=== PATIENT | female | born 1995 | race Caucasian/White ===

== ENCOUNTER → 2018-07-12 13:06 | Outpatient (CLI) | payer MEDICAID, SELFPAY | PROVIDERS: Referring Provider Nurse Practitioner; Visit Provider Nurse Practitioner | DX: R00.2 Palpitations (principal) | CPT/HCPCS: 93225; 93226 ==

== ENCOUNTER 2019-11-24 15:46 | Emergency (ER) | payer OTHER, SELFPAY ==
[2019-11-24 15:48] VITALS: BP 134/96; PULSE 90; RESP 15; TEMP 37; O2SAT 100; BMI 25.9
--- NOTE | 2019-11-24 16:04 | ED.VIS.GEN ---
History of Present Illness Chief Complaint: Vag Bld, Preg Informant: Patient Onset: Today Current Severity: Mild Maximum Severity: Mild Narrative: Patient presents with vaginal bleeding. She is currently 9 weeks . She does report having an ultrasound at her doctor's office for this already. She states 2 days ago she had some mild spotting that spontaneously resolved. She noted some light bleeding again today. It is not heavy enough to wear a panty liner or pad. She does report having a recent yeast infection and has been using the applicator to treat this. She believes her blood type is Rh-. She is currently G3, P1, Ab1. Past Medical History - Allergies and Home Meds Allergies/Adverse Reactions: Allergies No Known Allergies Allergy (Verified 04/07/18 14:25) Primary Care Physician: [facility] ,Out of [NON-STAFF] - Past Medical History: None Surgical History: appendectomy Smoking Status: Current every day smoker Review of Systems General: Denies: Chills, Fever Eyes: Denies: Visual changes - bilaterally ENT: Denies: Bilateral ear pain Cardiovascular: Denies: Chest pain Respiratory: Denies: Dyspnea, Cough Gastrointestinal: Denies: Abdominal pain, Nausea, Vomiting, Diarrhea Genitourinary: Denies: Dysuria Musculoskeletal: Denies: Extremity Pain Skin: Denies: Rash Neurological: Denies: Headache Allergy: Denies: Uticaria Physical Exam Vital Signs/Narrative: Vital Signs Temp Pulse Resp BP Pulse Ox 11/24/19 15:48 98.6 F 90 15 134/96 H 100 Inital Vital Signs reviewed: Yes General: Well nourished, Well developed Head: Normocephalic ENT: Moist mucous membranes Neck: Supple Cardiovascular: Regular rate, Regular rhythm Respiratory: No distress, CTA bilaterally Abdomen: Soft, Nontender, Normal bowel sounds : - - Pelvic examination reveals no obvious source of bleeding. No lesions around the vaginal goodman. No blood from the os. Bimanual examination is nontender. Extremities: Nontender Skin: Normal color, No rash Neurological: Alert, Oriented x3 Psychological: Normal affect Diagnostic/Tx/Re-eval Laboratory Results 11/24/19 11/24/19 11/24/19 16:15 16:15 16:15 HCG, Quant 31361 H Blood Type Not Reportable A NEGATIVE - Medical Decision Making Patient's blood type is A-. I spoke with Dr. Mathews, on-call for VIDEOGAME TESTER. She would like the patient to get RhoGam. Patient be discharged to home following this. Patient is to call the office on Tuesday with an update on her symptoms and to arrange close follow-up. ED Disposition - Plan for ED Patient: Disposition: Home or Assisted Living Diagnosis: Threatened miscarriage Instructions: POSSIBLE MISCARRIAGE (Threatened ) Referrals: Esther Banda MD [STAFF PHYSICIAN] -
[2019-11-24 17:02] LABS: hCG Titer Quant., Serum 16182 mIU/mL (1-3)
[2019-11-24 19:35] VITALS: BP 111/76; PULSE 71; RESP 16; O2SAT 100
== END 2019-11-24 19:36 | disposition home or self-care (01) ==
PROVIDERS: Emergency Provider Emergency Medicine; PCP Nurse Practitioner
DX: O20.0 Threatened abortion (principal); O99.331 Smoking (tobacco) complicating pregnancy, first trimester; F17.200 Nicotine dependence, unspecified, uncomplicated; Z3A.09 9 weeks gestation of pregnancy
CPT/HCPCS: 84702; 86850; 86900; 86901; 90384; 96372; 99283; A4216; J2790

== ENCOUNTER 2021-01-06 21:52 | Inpatient (IN) | payer MEDICAID, SELFPAY ==
[2021-01-06] VITALS (7 sets, daily range): BP systolic 125–160; BP diastolic 79–97; PULSE 63–90; TEMP 36.7; O2SAT 99; BMI 32.3
[2021-01-06] MEDS: Lactated Ringers 1,000 ML 50 ML IV (22:40)
[2021-01-06 23:02] LABS: Absolute Lymphocyte Count 1.24 X10^3/uL (0.83-4.51); Absolute Neutrophil Count 7.6 X10^3/uL (2.0-7.7); Basophil# 0.02 X10^3/uL; Basophil% 0.2 % (0-1); Hematocrit 34.4 % (37-47); Hemoglobin 11.3 g/dL (12.0-15.0); Lymphocyte # 1.24 X10^3/ul (4.0); Lymphocyte % 13.1 % (19-41); Mean Corp Hgb Conc 32.8 g/dL (32-36); Mean Corpuscular Hgb 29.1 pg (27.0-32.0); Mean Corpuscular Volume 88.7 fL (81-99); Mean Platelet Vol. 12.5 fl (6.2-12.0); Monocyte# 0.53 X10^3/uL; Monocyte% 5.6 % (0-10); NRBC Flagged by Analyzer 0 % (0-5); Neutrophil % 80.7 % (47-70); Platelet Count 147 K/mm3 (150-450); RBC Distribution Width CV 14.3 % (11.6-14.6); RBC Distribution Width SD 45.6 fl (35.1-43.9); Red Blood Count 3.88 M/mm3 (4.2-5.4); White Blood Count 9.4 K/mm3 (4.4-11.0)
[2021-01-06 23:12] LABS: AST(SGOT) 18 U/L (15-37); Alanine Aminotransfer ALT/SGPT 24 U/L (13-56); Creatinine, Serum 0.66 mg/dL (0.55-1.02); EST Glomerular Filtration Rate 116 mL/min (>60); Est Glom Filt Rate - Afr Amer 140 mL/min (>60); Estimated Creatinine Clearance 116.23 ml/min; Uric Acid 6.1 mg/dL (2.6-6.0)
[2021-01-06] MEDS: Ondansetron 4 MG/2 ML Vial IV (23:17)
[2021-01-06] MEDS: 0.9% Saline Lock 10 ML Syringe IV (23:17)
[2021-01-06] MEDS: miSOPROStol 25 MCG TABLET VAGINAL (23:29)
[2021-01-07] VITALS (24 sets, daily range): BP systolic 101–172; BP diastolic 59–100; PULSE 61–94; RESP 16; TEMP 36.1–37.5; O2SAT 93–100
[2021-01-07] MEDS: 0.9% Saline Lock 10 ML Syringe IV ×4 (00:31→04:35)
[2021-01-07] MEDS: fentaNYL 100 MCG/2 ML Ampul IV (00:37)
[2021-01-07] MEDS: Lactated Ringers 500 ML 999 ML IV (01:30)
[2021-01-07] MEDS: Oxytocin 30 units/NS 500 ml 30 UNITS/500 ML IV.SOLN 334 UNITS IV (02:07)
--- NOTE | 2021-01-07 02:18 | PCM.HP.OB ---
History Date of Admission: 01/07/21 Final IRENE: 01/17/21 Gestational age: 38 Weeks and 4 Days History of this : Patient presents with ctxs. Medical History: Medical History (Last Updated 01/07/21 @ 02:[address] Katerine Chandler MD) Anxiety F41.9 Herpes genitalis A60.00 Surgical History: Surgical History (Last Updated 01/07/21 @ 02:[address] Katerine Chandler MD) S/P appendectomy Z90.49 Allergies No Known Allergies Allergy (Verified 01/06/21 23:54) Home Medications: Home Medications Pnv No.95/Ferrous Fum/Folic AC [ Caplet] 1 ea PO DAILY 11/24/19 Acyclovir 400 mg PO BID 01/06/21 Smoking Status: Former smoker History Past Pregnancies: Past Pregnancies Delivery Date Name GA/ Weeks Outcome Route Wt Sex Labor Length Anesthesia Delivery Location Provider FOB Labs: See [facility] H&P Physical Exam Vitals: Vital Signs Temp Pulse BP Pulse Ox 98.8 F 63 138/89 H 100 01/07/21 00:29 01/07/21 02:16 01/07/21 02:16 01/07/21 01:53 Abdomen: Soft, Non Tender, Non-Distended Neurological: Cranial nerves II-XII grossly intact CONTROL OFFICER: Normal external genitalia Presentation: Cephalic Cervix Dilation (cm): 1 - on admission Station: -2 Effacement (%): 70 Assessment/Plan All Active Problems (Last Updated 01/07/21 @ 02:[address] Katerine Chandler MD) Acute bronchitis (Acute) This is a 25 year-old, G4, P1021, at 38&3 weeks gestational age. Admit to L&D Mild preeclampsia - patient with elevated BP's and proteinuria (at [facility]), monitor BP's closely Induction - cytotec GBS negative Routine care
--- NOTE | 2021-01-07 02:26 | PCM.OPRPT ---
Vaginal Delivery Maternal Presentation: Medically Indicated Induction Method of Induction: Cytotec Medical Reason for Induction: Preeclampsia, eclampsia Amniotic Membrane Rupture Type: Spontaneous Amniotic Fluid Description: Clear Final IRENE: 01/17/21 Gestational age: 38 Weeks and 4 Days Date of Procedure: 01/07/21 Pre-Operative Diagnosis: Mild preeclampsia Post-Operative Diagnosis: Same Surgery/ Procedure Performed: Spontaneous Vaginal Delivery Type of Anesthesia: None Description of Procedure: Patient was precipitously delivering as I arrived. Infant placed on maternal abdomen by RN. 3VC clamped & cut in delayed fashion. Placenta delivered with minimal traction. Good uterine tone obtained. Presentation: Vertex Placental Delivery Description: Spontaneous Placenta Disposition: [facility] Cord Vessel Description: 3 Vessels Cord Entanglement: None Estimated Blood Loss: 200ml Infant A gender: Female - Esperanza (1 minute): 8 (5 minute): 9 Episiotomy Description: None Laceration: None Medications given after delivery: IV Pitocin Complications: None
[2021-01-07] MEDS: miSOPROStol 200 MCG Tablet 1000 MCG RC (02:42)
--- NOTE | 2021-01-07 06:07 | NURSING ---
[facility] charge nurse in room with sterile gloves on to catch . mother in semi fowlers position, relaxed legs, and head came out with amniotic sac still intact. body delivered atraumatically. placed on mother's chest, skin to skin and stimulated with warm blankets. dr frausto was on her way to unit and came into room at 0202 to deliver placenta.
[2021-01-07 12:45] LABS: Absolute Lymphocyte Count 1.25 X10^3/uL (0.83-4.51); Absolute Neutrophil Count 8.2 X10^3/uL (2.0-7.7); Basophil# 0.01 X10^3/uL; Basophil% 0.1 % (0-1); Eosinophil# 0.01 X10^3/uL; Eosinophils% 0.1 % (0-5); Hematocrit 32.4 % (37-47); Hemoglobin 10.5 g/dL (12.0-15.0); Lymphocyte # 1.25 X10^3/ul (4.0); Lymphocyte % 12.3 % (19-41); Mean Corp Hgb Conc 32.4 g/dL (32-36); Mean Corpuscular Hgb 28.9 pg (27.0-32.0); Mean Corpuscular Volume 89.3 fL (81-99); Mean Platelet Vol. 12.4 fl (6.2-12.0); Monocyte# 0.69 X10^3/uL; Monocyte% 6.8 % (0-10); NRBC Flagged by Analyzer 0 % (0-5); Neutrophil # 8.15 X10^3/uL (2.7-7.7); Neutrophil % 80.3 % (47-70); Platelet Count 163 K/mm3 (150-450); RBC Distribution Width CV 14.1 % (11.6-14.6); RBC Distribution Width SD 45.4 fl (35.1-43.9); Red Blood Count 3.63 M/mm3 (4.2-5.4); White Blood Count 10.2 K/mm3 (4.4-11.0)
[2021-01-07] MEDS: Ibuprofen 600 MG Tablet PO (18:07)
[2021-01-08 03:25] VITALS: BP 103/69; PULSE 74; RESP 16; TEMP 36.1
[2021-01-08 08:25] VITALS: BP 122/83; PULSE 91; RESP 16; TEMP 36.3
--- NOTE | 2021-01-08 08:27 | PN.OBGYN_ITS ---
Subjective: Patient seen at bedside. Feeling good. Denies any pain. Ambulating and voiding without difficulty. going good with minimal support. Patient desires discharge home today. - Physical Exam Vitals/I&O's: Vital Signs Temp Pulse Resp BP Pulse Ox 97 F L 74 16 103/69 96 01/08/21 03:25 01/08/21 03:25 01/08/21 03:25 01/08/21 03:25 01/07/21 03:47 Oxygen Delivery Method Room Air Weight: 194 lb 9.6 oz Body Mass Index (BMI) 32.3 Intake and Output for Last 24 Hours 01/06/21 01/07/21 01/08/21 23:59 23:59 23:59 Intake Total 2217.93 / 2217.93 Output Total 1100 / 1100 Balance 1117.93 / 1117.93 General: Alert, Oriented x3 HEENT: Atraumatic Oral: Moist Mucosa Neck: Supple Lungs: Normal air movement Cardiovascular: Regular rate Abdomen: Soft, Non Tender Skin: No rashes Musculoskeletal: No Tenderness to Palpation of Joints or Extremities Neurological: Cranial nerves II-XII grossly intact Microbiology Past 72 Hours 01/06/21 22:55 Mucosa - Nose SARS-CoV-2 Antigen (Rapid) - Final Laboratory Results 01/07/21 12:30: WBC 10.2, RBC 3.63 L, Hgb 10.5 L, Hct 32.4 L, MCV 89.3, MCH 28.9, MCHC 32.4, RDW Std Deviation 45.4 H, RDW Coeff of Samara 14.1, Plt Count 163, MPV 12.4 H, Immature Gran % (Auto) 0.400, Neut % (Auto) 80.3 H, Lymph % (Auto) 12.3 L, [place] % (Auto) 6.8, Eos % (Auto) 0.1, Baso % (Auto) 0.1, Absolute Neuts (auto) 8.2 H, Absolute Lymphs (auto) 1.25, Nucleated RBC % 0 Current Medications Acetaminophen (Acetaminophen 500 Mg Tablet) 1,000 mg PO Q8H PRN PRN PRN Reason: Pain Score 1-3 Bisacodyl (Bisacodyl 10 Mg Suppository) 10 mg RC UD PRN PRN Reason: If no BM Dibucaine (Dibucaine 30 Gm Tube) 1 applic TOPICAL TID PRN PRN; Protocol PRN Reason: Discomfort Hydrocortisone (Hydrocortisone 2.5% Crm) 1 applic TOPICAL TID PRN PRN; Protocol PRN Reason: Discomfort Ibuprofen (Ibuprofen 600 Mg Tablet) 600 mg PO Q6H PRN PRN PRN Reason: Pain Score 1-3 Last Admin: 01/07/21 18:07 Dose: 600 mg Documented by: Measles/Mumps/Rubella Vaccine Live (Measles,Mumps&Rubella Vaccine 0.5 Ml Vial) 0.5 ml SC .ONCE ONE Stop: 01/08/21 10:01 Last Admin: 01/07/21 18:08 Dose: 0.5 ml Documented by: Methylergonovine Maleate (Methylergonovine 0.2 Mg/Ml Ampul) 0.2 mg IM X1 PRN PRN Reason: Excess bleeding/uterine atony Ondansetron HCl (Ondansetron 4 Mg/2 Ml Vial) 4 mg IV Q4H PRN PRN PRN Reason: Nausea Senna/Docusate Sodium (Senna/Docusate Sodium 1 Tablet) 1 - 2 tablet PO DAILY PRN PRN PRN Reason: Constipation Simethicone (Simethicone 80 Mg Tablet) 80 mg PO PCHS PRN PRN Reason: Indigestion/Stomach pain Sodium Chloride (0.9% Saline Lock 10 Ml Syringe) 5 - 15 ml IV UD PRN PRN Reason: SALINE FLUSH Last Admin: 01/07/21 04:35 Dose: 10 ml Documented by: Medical Necessity - Tobacco Use Smoking Status: Former smoker Assessment/Plan All Active Problems (Last Updated 01/07/21 @ 02:[address] Katerine Chandler MD) Acute bronchitis (Acute) PPD #1 intact Routine care support Discharge home with follow up in office
--- NOTE | 2021-01-08 08:31 | DCINST_ITS ---
Discharge Diet: No Restrictions Discharge Activity: Return to Normal Activity May resume sexual activity in: 6-8 weeks Weight Bearing Status: Weight bearing as tolerated Additional Instructions: If you experience any of the following, contact your healthcare provider. * Bleeding that soaks a pad every hour for 2 hours * Fever 100.4 or higher * Unrelieved incision or abdominal pain * Swelling, redness, discharge or bleeding from your incision or episiotomy site * Your incision begins to separate * Problems urinating (including inability to urinate or burning while urinating). * Visual changes * Severe headache * Flu-like symptoms * Pain or redness in one of both of your breasts * Pain, warmth, tenderness or swelling in your legs, especially the calf area * Frequent nausea and vomiting * Symptoms of depression or anxiety If you experience any of the following, call 911 or go to the nearest Emergency Room. * Chest pain * Problems breathing * Seizure activity * Partial or complete paralysis of a body part, slurred speech, weakness or drooping of the face, or a sudden inability to walk or hold your balance Allergies/Adverse Reactions: Allergies No Known Allergies Allergy (Verified 01/06/21 23:54) Medications to take at Discharge Pnv No.95/Ferrous Fum/Folic AC [ Caplet] 1 ea PO DAILY 11/24/19 When: 2 weeks virtual visit/6 weeks in office pp visit Primary Care Physician: Vanessa Salas ASSISTANT PROFESSOR OF BIOLOGY, ASSISTANT PROFESSOR OF BIOLOGY-C [Primary Care Provider] - Test Results: Test results from this visit will be discussed in further detail at your follow- up appointment, if applicable. Proposed Discharge Date: 01/08/21
--- NOTE | 2021-01-08 08:31 | PCM.DCVAG ---
Discharge Diet: No Restrictions Discharge Activity: Return to Normal Activity May resume sexual activity in: 6-8 weeks Weight Bearing Status: Weight bearing as tolerated Additional Instructions: If you experience any of the following, contact your healthcare provider. Bleeding that soaks a pad every hour for 2 hours Fever 100.4 or higher Unrelieved incision or abdominal pain Swelling, redness, discharge or bleeding from your incision or episiotomy site Your incision begins to separate Problems urinating (including inability to urinate or burning while urinating). Visual changes Severe headache Flu-like symptoms Pain or redness in one of both of your breasts Pain, warmth, tenderness or swelling in your legs, especially the calf area Frequent nausea and vomiting Symptoms of depression or anxiety If you experience any of the following, call 911 or go to the nearest Emergency Room. Chest pain Problems breathing Seizure activity Partial or complete paralysis of a body part, slurred speech, weakness or drooping of the face, or a sudden inability to walk or hold your balance Allergies/Adverse Reactions: Allergies No Known Allergies Allergy (Verified 01/06/21 23:54) Medications to take at Discharge Pnv No.95/Ferrous Fum/Folic AC [ Caplet] 1 ea PO DAILY 11/24/19 When: 2 weeks virtual visit/6 weeks in office pp visit Primary Care Physician: Vanessa Salas DICE TABLE OPERATOR, DICE TABLE OPERATOR-C [Primary Care Provider] - Test Results: Test results from this visit will be discussed in further detail at your follow-up appointment, if applicable. Proposed Discharge Date: 01/08/21
== END 2021-01-08 10:50 | disposition home or self-care (01) | DRG 560 ==
LOC: WPOUT 21:55 → WP 21:55
PROVIDERS: Admitting Provider Obstetrics & Gynecology; PCP Nurse Practitioner; Referring Provider Obstetrics & Gynecology; Visit Provider Obstetrics & Gynecology
DX: O14.04 Mild to moderate pre-eclampsia, complicating childbirth (principal); Z37.0 Single live birth; O62.3 Precipitate labor; Z3A.38 38 weeks gestation of pregnancy; Z87.81 Personal history of (healed) traumatic fracture
CPT/HCPCS: 59025; 59050; 82565; 84450; 84460; 84550; 85025; 85461; 86850; 86900; 86901; 87426; 90384; 99218; J7120; A4216; G0378; J2405; J2790

== ENCOUNTER 2021-01-15 10:59 | Day surgery (SDC) | payer MEDICAID, SELFPAY ==
[2021-01-06 22:20] VITALS: BMI 32.3
--- NOTE | 2021-01-14 12:06 | PCM.HPOB.BLA ---
- Problem List (1) Status post vaginal delivery Status: Acute (2) Retained placenta Status: Acute History and Physical Date of Admission: 01/15/21 DATE OF SERVICE: January 14, 2021 PROBLEM: retained placenta DIAGNOSIS: retained placenta PAST SURGICAL HISTORY: PAST SURGICAL HISTORY Procedure Laterality Date ? APPENDECTOMY 2011 PAST MEDICAL HISTORY: PAST MEDICAL HISTORY Diagnosis Date ? Anxiety ? anxiety ? Asthma ? Fibrocystic breast ? fibrocystic breast disease ? Genetic testing 04/28/2009 Negative for 32 Mutuations of CF ? Herpes simplex virus (HSV) infection ? PCOS (polycystic ovarian syndrome) ? Rh incompatibility ? SAB (spontaneous ) 2009, 2019 ? Seasonal allergies SUBJECTIVE: S/p [address] Chandler. Noticed a vaginal odor and consistent, moderate bleeding. No fevers, chills, pain, tenderness, heavy bleeding, lightheadedness, dizziness. TVUS today shows thickening of the endometrium that is complex appearing with fluid present and measuring 3.5 cm. Strong foul odor noted. SOCIAL HISTORY: Social History Tobacco Use ? Smoking status: Former Smoker Packs/day: 0.50 Years: 4.00 Pack years: 2.00 Types: Cigarettes Quit date: 03/31/2017 Years since quittin.7 ? Smokeless tobacco: Never Used ? Tobacco comment: quit over one year ago (2016) Vaping Use ? Vaping Use: Never used Substance Use Topics ? Alcohol use: Not Currently Comment: rare ? Drug use: No ALLERGIES No Known Allergies Current Outpatient Medications on File Prior to Visit Medication Sig ? fluticasone-salmeterol (ADVAIR DISKUS) 250-50 mcg/dose Inhale 1 Puff as instructed twice daily. Rinse and gargle mouth with water after each use. generic ? albuterol HFA (VENTOLIN HFA) 90 mcg/actuation inhaler Inhale 2 Puffs as instructed every 4 hours as needed. ? Eccvbvkj-Mg-Qnx-Fe-FA ( VITAMIN) tab Take 1 tablet by mouth. ? acyclovir (ZOVIRAX) 400 mg tablet Take 1 tablet by mouth twice daily. (Patient not taking: Reported on 01/14/2021 ) ? COMPOUNDED PRESCRIPTION Superlysine Take 3 capsules once a day (Patient not taking: Reported on 01/14/2021 ) No current facility-administered medications on file prior to visit. OBJECTIVE: VITALS: BP 126/80 Temp 36.5 ?C (97.7 ?F) (Right Tympanic) Wt 179 lb (81.2 kg) LMP 04/12/2020 (Exact Date) Yes BMI 29.79 kg/m? HEENT: Normocephalic, atraumatic, Mucus membranes moist without lesions. NECK: Soft and Supple. No adenopathy , thyromegaly or bruits. SKIN: No lesions. CHEST: Clear to auscultation. No wheezes or rales. Good air exchange. HEART: Regular rate and rhythm No S3 or S4. No gallops or rubs. BACK: Nontender with no CVA tenderness. ABDOMEN: Soft, non-tender, non-distended, no masses, no hepatosplenomegaly. LOWER EXTREMITIES: There was no pitting edema, no palpable cords and no skin changes. ASSESSMENT: retained placenta s/p PLAN: Discussed suction D&C for retained placental tissue. The rationale for the proposed surgery was discussed in addition to risks, benefits, and alternatives. General pre- and post-operative care was reviewed. Questions were answered. After discussion, the patient indicated a desire to proceed with the planned surgery. Discussed bleeding precautions and when to call. Also discussed to call with signs of infection. Will perform surgery tomorrow if bleeding remains stable and no signs of infection. Sandy Mathews,
[2021-01-15] VITALS (7 sets, daily range): BP systolic 105–122; BP diastolic 73–93; PULSE 84–101; RESP 16–18; TEMP 36.2–36.9; O2SAT 96–100; BMI 29.3
[2021-01-15 11:32] LABS: Mean Corp Hgb Conc 32.4 g/dL (32-36); Mean Corpuscular Hgb 28.8 pg (27.0-32.0); Mean Corpuscular Volume 88.9 fL (81-99); Mean Platelet Vol. 10.7 fl (6.2-12.0); Platelet Count 182 K/mm3 (150-450); RBC Distribution Width CV 13.9 % (11.6-14.6); RBC Distribution Width SD 45.1 fl (35.1-43.9); Red Blood Count 4.16 M/mm3 (4.2-5.4); White Blood Count 5.6 K/mm3 (4.4-11.0)
--- NOTE | 2021-01-15 12:35 | PLAC_PTH ---
PATIENT: SARAH DOMINGO LOC: [facility] [place][id number] AGE/SX: 25/F ROOM: RE01/15/[address]: Dr. Sandy Mathews DO : 1995 BED: DIS: 01/15/2021 SPEC #: [id number] RECD: 01/15/21 13:25 STATUS: CK BRENDON #: [id number] VALERIY: 01/15/21 12:[address]: Sandy Mathews DEPT: SURGICAL PATHOLOGY RECD BY: Wilfrid Regalado ENTERED: 01/16/21 07:13 SP TYPE: PLACENTA OTHR DR: Vanessa Jimenez, METAL FITTER-C Tissues: Placenta, NOS Procedures: Surgery Specimen Level IV HEADER OPERATION: Suction dilation and curettage for retained placenta PRE-OP DIAGNOSIS: Retained placenta TISSUE SUBMITTED: Retained placenta MICROSCOPIC DIAGNOSIS Endometrium, curettage: Degenerating chorionic villi, membranous type tissue and fibrinoid tissue with acute inflammation. See comment. AM:michael 01/19/2021 COMMENT The findings are consistent with retained products of conception. Clinical correlation is suggested. MICROSCOPIC DESCRIPTION Slides are reviewed. GROSS DESCRIPTION Received in fixative is one container labeled with the patient's name and designated retained placenta. The specimen consists of multiple irregular fragments of light to dark johnson soft tissue that in aggregate measure 9 x 8 x 1 cm. parts are not grossly recognized. Distributor Sales Manager portions are submitted in three cassettes. / AM:michael 01/16/21 TC:2 CPT: 42728
--- NOTE | 2021-01-15 13:21 | DCINST_ITS ---
Discharge Diet: No Restrictions Discharge Activity: [address] Drive - More than 24 hours after surgery May resume sexual activity in: 4-6 weeks - No tampons or intercourse given recent vaginal delivery Weight Bearing Status: Weight bearing as tolerated Lifting Restrictions: None Call your doctor if you observe: Fever of 101 or Higher, Change in Color, Inability to urinate, Inability to have a bowel movement, Using more than one pad per hour, Shortness of breath, Dizziness, Fainting spells, Swelling in the ankles, Chest pain, Increased palpitations (irregular heartbeat), Calf discomfort, Uncontrolled pain Allergies/Adverse Reactions: Allergies No Known Allergies Allergy (Verified 01/15/21 11:45) Medications to take at Discharge Pnv No.95/Ferrous Fum/Folic AC [ Caplet] 1 ea PO DAILY 11/24/19 Fluticasone/Salmeterol [Advair 250-50 Diskus] 1 puff IH BID 01/14/21 Orders to be completed after discharge: Type & Screen - PAT ONLY Time Frame: 01/15/21, Facility: [facility], Location: Laboratory Primary Care Physician: Vanessa Salas ELECTRICIAN WIRING, ELECTRICIAN WIRING-C [Primary Care Provider] - Test Results: Test results from this visit will be discussed in further detail at your follow- up appointment, if applicable. Please Follow Up With: Sandy Mathews DO When: 1 week
--- NOTE | 2021-01-15 13:22 | PCM.OPRPT ---
Problem List (1) Status post vaginal delivery Status: Acute (2) Retained placenta Status: Acute Report of Operation Date of Procedure: 01/15/21 Pre-Operative Diagnosis: Retained placenta s/p vaginal delivery Post-Operative Diagnosis: As above Surgery/Procedure Performed:: Suction D&C Description of Surgical Findings:: Uterus about 9-10 weeks in size and boggy. Cervix dilated with active bleeding noted bullet charging machine operator: None Type of Anesthesia:: MAC Special Medications: None Specimen's removed: Retained placenta Drains: None Estimated Blood Loss (mL): < 50 cc Description of Procedure: Start time 1303 Stop time 1317 She was taken to the operating room where MAC anesthesia was found be adequate. She was prepped and draped in the dorsal lithotomy position using yellowfin stirrups. A weighted speculum was placed to expose the cervix. The anterior lip of the cervix was grasped with single-tooth tenaculum. The cervix was already dilated to accommodate a 10 mm suction curettage. A 10 mm suction curettage was used to remove retained tissue. Several passes were made until no tissue was noted. There was still tissue felt to be present at the left cornua. A 6 mm cannula was then used to attempt to remove the remaining tissue in the left cornua, and minimal tissue was removed. Using a sharp curettage, the retained placenta in the left cornea was gently removed after several passes. The retained placental tissue was sent to pathology for review. All instruments removed from the vagina. Bleeding was hemostatic. Instrument and sponge counts were correct. The patient was taken recovery in stable condition. Grafts/Implants Used: None - Complications None - Admit VTE Documentation VTE Present on Admission: No VTE Mechan Device Prophylaxis: SCD's VTE Pharm Prophylaxis ordered?: No
== END 2021-01-15 14:40 | disposition home or self-care (01) ==
LOC: SDC 11:02 → AC 11:04
PROVIDERS: PCP Nurse Practitioner; Visit Provider Obstetrics & Gynecology
PROC: (CPT 59160; principal; 2021-01-15 12:20)
DX: O73.0 Retained placenta without hemorrhage (principal); E28.2 Polycystic ovarian syndrome; F41.9 Anxiety disorder, unspecified; F32.9 Major depressive disorder, single episode, unspecified; J45.909 Unspecified asthma, uncomplicated; Z79.899 Other long term (current) drug therapy; Z87.891 Personal history of nicotine dependence
CPT/HCPCS: 59160; 85027; 86850; 86870; 86900; 86901; 88305; 88307; J7120

== ENCOUNTER 2023-08-05 07:28 | Emergency (ER) | payer MEDICAID, SELFPAY ==
[2023-08-05 07:29] VITALS: BP 118/89; PULSE 100; RESP 14; TEMP 36.6; O2SAT 100; BMI 32.6
--- NOTE | 2023-08-05 07:44 | EKG12_ITS ---
Test Reason : NEAR SYNCOPE Blood Pressure : / mmHG Vent. Rate : 085 BPM Atrial Rate : 085 BPM P-R Int : 122 ms QRS Dur : 082 ms QT Int : 350 ms P-R-T Axes : -05 049 035 degrees QTc Int : 416 ms Normal sinus rhythm Normal ECG Confirmed by BRIDGETTE SALGUERO, GHISLAINE ([id number]), maintenance man JOSEMANUEL NUNN ([id number]) on 08/15/2023 7:43:31 AM Referred By: MARY Confirmed By:CLEMENTE ANGELES MD
--- NOTE | 2023-08-05 07:44 | EX.ED.DYSGE1 ---
HPI History of Present Illness Chief Complaint: Syncope Informant: patient Narrative Narrative: Patient presents after a near syncopal episode at work. Patient states for the last week or 2 she has been having episodes where she feels slightly dizzy lightheaded like she might pass out. Today's was a little bit worse than normal. She states she starts feeling flushed and the vision going and then she has to lay down to avoid passing out. She did this and then a few minutes later she felt fine. She did not have chest pain or dyspnea with this. No abdominal pain. In between these episodes she feels fine. She has no travel surgery immobilization personal family history of DVT or PE. Current medicines are vitamin D, aspirin daily and multivitamin/ vitamin. Her OB physician put her on aspirin due to a history of preeclampsia with prior delivery. She states she is with 1 miscarriage. She has not been having bleeding or dysuria. No fevers chills. No vomiting or diarrhea. She does have a history of having lightheaded episodes but those are more associated with vertigo and the spinning sensation and she did not have that with these episodes. She states at night she sometimes gets a little winded and tired but other than that she has never been short of breath. She has never had chest pain. She has no leg swelling. She saw her primary physician about this and her OBGYN physician about this. Some blood work was done recently. [facility] Medical History Anxiety Herpes genitalis Home Medications vit no.95-ferrous fumarate 28 mg-folic acid 800 mcg tablet 1 ea PO DAILY Check with primary doctor 11/24/19 [History Last Taken 01/15/21] fluticasone 250 mcg-salmeterol 50 mcg/dose blistr powdr for inhalation 1 puff IH BID 01/14/21 [History Last Taken 01/15/21] Allergy/AdvReac Type Severity Reaction Status Date / Time No Known Allergies Allergy Verified 01/15/21 11:45 Surgical History S/P appendectomy Social History Smoking Status: Former smoker ROS ROS ED Constitutional Constitutional ED: Denies chills, fever(s), subjective, sweats or weight loss Eyes Eyes: Denies change in vision ENT ENT ED: Denies rhinorrhea or sore throat Cardiovascular Cardiovascular: Denies chest pain or palpitations Respiratory/Chest Respiratory/Chest: Denies cough or sputum Gastrointestinal Gastrointestinal: Denies abdominal pain, nausea or vomiting Genitourinary Genitourinary ED: Denies dysuria or hematuria Musculoskeletal Musculoskeletal: Denies arthralgias, back pain or myalgias Integumentary Denies rash Neurologic Neurologic: Denies headache(s), paresthesias or weakness Endocrine Endocrinology: Denies polyuria Hematologic/Lymphatic Hematologic/Lymphatic: Denies easy bleeding, easy bruising or lymphadenopathy Allergic/Immunologic Allergic/Immunologic ED: Denies urticaria EXAM Physical Exam Narrative Exam Narrative: CONSTITUTIONAL: Patient is nontoxic in appearance. The patient looks comfortable. Work of breathing looks normal. HEENT: No notable trauma. Mucous membranes minimally dry. However she is drinking fluids now. EYES: No conjunctival injection. No proptosis. NECK:No JVD. No stridor. CARDIOVASCULAR: Regular rate. Regular rhythm. No notable murmur. No JVD. Her heart rates about 90 or slightly less at this time. No muffled tones. Peripheral pulses are normal. RESPIRATORY: No respiratory distress. Breathing is unlabored. No wheezes. No rhonchi. No rales. No pain with a deep breath. No chest wall tenderness. Saturations are normal at 100% on room air showing no hypoxia. GASTROINTESTINAL: Gravid with uterus just near umbilicus consistent with dates. No tenderness at all. She has not had nausea vomiting or diarrhea recently. She feels she has been eating and drinking normally. GENITOURINARY: No CVA tenderness. MUSCULOSKELETAL: Atraumatic. No peripheral edema. No cord. No tenderness along the deep venous system. No asymmetry. No distended veins. Both legs are thin and normal. NEUROLOGICAL: Patient is alert and appropriate. No focal deficit noted. SKIN: No noted rashes. No diaphoresis at this time. PSYCHIATRIC: Patient is calm. Mood is appropriate. Const Vital Signs: 08/05/23 07:29 Temperature 98 F Temperature Source Oral Pulse Rate 100 Respiratory Rate 14 Blood Pressure 118/89 H Blood Pressure Mean 98 Pulse Ox 100 Oxygen Delivery Method Room Air [facility] EKG Initial EKG: Comments: My independent interpretation of the patient's EKG done for syncope shows a normal sinus rhythm with overall rate at 85. No ectopy is noted. No acute ST elevation or depression. No S1Q3T3. MA interval, QRS duration and QTc are all normal. Discharge Plan Triage Chief Complaint: Syncope ED Provider: Abhay Monroe Dx/Rx/DC Orders Prescriptions: No Action PNV cmb#95-ferrous fumarate-FA 1 EACH tablet 1 ea PO DAILY fluticasone propion-salmeterol 1 EACH blister with device 1 puff IH BID Primary Care Provider: Vanessa Salas CAREER GUIDANCE COUNSELOR Referrals: Vanessa Salas NP, CAREER GUIDANCE COUNSELOR-C [Primary Care Provider] -
[2023-08-05 08:01] LABS: Absolute Lymphocyte Count 1.03 X10^3/uL (0.83-4.51); Absolute Neutrophil Count 4.4 X10^3/uL (2.0-7.7); Basophil# 0.01 X10^3/uL; Basophil% 0.2 % (0-1); Eosinophil# 0.03 X10^3/uL; Eosinophils% 0.5 % (0-5); Hematocrit 37.3 % (37-47); Hemoglobin 11.6 g/dL (12.0-15.0); Lymphocyte # 1.03 X10^3/ul (0.83-4.51); Lymphocyte % 17.5 % (19-41); Mean Corp Hgb Conc 31.1 g/dL (32-36); Mean Corpuscular Hgb 28.2 pg (27.0-32.0); Mean Corpuscular Volume 90.8 fL (81-99); Mean Platelet Vol. 11.2 fl (6.2-12.0); Monocyte% 6.8 % (0-10); NRBC Flagged by Analyzer 0 % (0-5); Neutrophil # 4.38 X10^3/uL (2.7-7.7); Neutrophil % 74.2 % (47-70); Platelet Count 152 K/mm3 (150-450); RBC Distribution Width CV 14.1 % (11.6-14.6); RBC Distribution Width SD 46.6 fl (35.1-43.9); Red Blood Count 4.11 M/mm3 (4.2-5.4); White Blood Count 5.9 K/mm3 (4.4-11.0)
[2023-08-05] MEDS: 0.9% Normal Saline (1000mL) 1,000 ML 1000 ML IV (08:04)
[2023-08-05 08:16] LABS: Bacteria 0 SEEN /hpf (None Seen); Mucous, Urine 0 SEEN /hpf (<or=2+); Red Blood Cells-Urine 0 SEEN /hpf (0-5); White Blood Cells 0 SEEN /hpf (0-5)
[2023-08-05 08:17] LABS: ALB/GLOB Ratio 0.8 RATIO (0.9-2.4); AST(SGOT) 19 U/L (15-37); Alanine Aminotransfer ALT/SGPT 21 U/L (13-56); Albumin, Serum 2.9 g/dL (3.2-5.0); Alkaline Phosphatase 41 U/L (45-117); Anion Gap 5 (5-15); BUN 10 mg/dL (7-18); Calcium,Total 8.5 mg/dL (8.5-10.1); Chloride 108 mmol/L (98-107); Creatinine, Serum 0.67 mg/dL (0.55-1.02); EST Glomerular Filtration Rate 111 mL/min (>60); Est Glom Filt Rate - Afr Amer 135 mL/min (>60); Estimated Creatinine Clearance 112.49 ml/min; Globulin 3.6 g/dL (2.2-4.2); Glucose 97 mg/dL (74-106); Magnesium 1.8 mg/dL (1.6-2.6); Potassium 4.2 mmol/L (3.5-5.1); Protein, Total 6.5 g/dL (6.4-8.2); Sodium Level 137 mmol/L (136-145)
[2023-08-05 08:26] LABS: Color, Urine Yellow (Yellow); Glucose, Dipstick Normal (Normal); Ketone-Dipstick Negative (Negative); Leukocyte Esterase-Dipstick Negative /ul (Negative); Nitrite-Dipstick Negative (Negative); Occult Blood-Urine Negative /ul (Negative); Protein-Dipstick 15 mg/dl (Negative); Specific Gravity, Urine 1.015 (1.002-1.030); Urine Bilirubin Dipstick Negative (Negative); Urine Clarity Cloudy (Clear); Urine Urobilinogen Normal (Normal)
--- NOTE | 2023-08-05 08:48 | EX.ED.DYSGE1 ---
HPI History of Present Illness Chief Complaint: Syncope Informant: patient Narrative Narrative: Please see prior chart of the same date. The chart was closed prematurely this is continuation with further data. PFSH PFSH Medical History Anxiety Herpes genitalis Home Medications vit no.95-ferrous fumarate 28 mg-folic acid 800 mcg tablet 1 ea PO DAILY Check with primary doctor 11/24/19 [History Last Taken 01/15/21] fluticasone 250 mcg-salmeterol 50 mcg/dose blistr powdr for inhalation 1 puff IH BID 01/14/21 [History Last Taken 01/15/21] Allergy/AdvReac Type Severity Reaction Status Date / Time No Known Allergies Allergy Verified 01/15/21 11:45 Surgical History S/P appendectomy Social History Smoking Status: Former smoker EXAM Physical Exam Const Vital Signs: 08/05/23 07:29 08/05/23 07:44 Temperature 98 F Temperature Source Oral Pulse Rate 100 Respiratory Rate 14 Respiratory Effort Normal Non-Labored Respiratory Pattern Normal Blood Pressure 118/89 H Blood Pressure Mean 98 Pulse Ox 100 Oxygen Delivery Method Room Air MDM MDM MDM Narrative Medical decision making narrative: Patient CBC is normal other than minimal anemia at 11.6 which is common during . White count platelets are normal. Patient's electrolytes show no marked abnormalities. Minimal elevation of chloride. Renal function and glucose are normal. Patient's liver function test are normal. Patient's magnesium is normal. This was checked as she is on supplementation per her OB. Urine was cloudy. But there are no red cells or white cells. No bacteria. I do not think this represents infection especially since she has no symptoms. Patient is rechecked. Heart rate is 83. This is after she was given fluids. She feels better. Her saturations are still 100% on room air. I do not think her symptoms justify a CTA looking for pulmonary embolus. She has never had chest pain. She states she gets a little tired and mild winded late in the afternoon after working all day but does not actually feel short of breath. No leg swelling or pain and no history or risk factors other than her . Lab Data Attestation: I reviewed the patient's lab results. Labs: Laboratory Results - last 24 hr 08/05/23 08/05/23 07:54 08:12 WBC 5.9 RBC 4.11 L Hgb 11.6 L Hct 37.3 MCV 90.8 MCH 28.2 MCHC 31.1 L RDW Std Deviation 46.6 H RDW Coeff of Samara 14.1 Plt Count 152 MPV 11.2 Immature Gran % (Auto) 0.800 Neut % (Auto) 74.2 H Lymph % (Auto) 17.5 L [place] % (Auto) 6.8 Eos % (Auto) 0.5 Baso % (Auto) 0.2 Absolute Neuts (auto) 4.4 Absolute Lymphs (auto) 1.03 Nucleated RBC % 0 Sodium 137 Potassium 4.2 Chloride 108 H Carbon Dioxide 24.0 Anion Gap 5 BUN 10 Creatinine 0.67 Estim Creat Clear Calc 112.49 Est GFR (MDRD) Af Amer 135 Est GFR (MDRD) Non-Af 111 BUN/Creatinine Ratio 15.0 Glucose 97 Calcium 8.5 Magnesium 1.8 Total Bilirubin 0.20 AST 19 ALT 21 Alkaline Phosphatase 41 L Total Protein 6.5 Albumin 2.9 L Globulin 3.6 Albumin/Globulin Ratio 0.8 L Urine Color Yellow Urine Clarity Cloudy Urine pH 8.0 Ur Specific [place] 1.015 Urine Protein 15 H Urine Glucose (UA) Normal Urine Ketones Negative Urine Occult Blood Negative Urine Nitrite Negative Urine Bilirubin Negative Urine Urobilinogen Normal Ur Leukocyte Esterase Negative Urine RBC 0 SEEN Urine WBC 0 SEEN Ur Squamous Epith Cells 0-5 SEEN Amorphous Sediment 1+ Urine Bacteria 0 SEEN Urine Mucus 0 SEEN EKG Initial EKG: Comments: My independent interpretation of the patient's EKG shows a normal sinus rhythm with overall rate of 85. No ectopy. No acute ST elevation or depression. No S1Q3T3. [place] interval, QRS duration and QTc are normal. Discharge Plan Triage Chief Complaint: Syncope ED Provider: Abhay Monroe Dx/Rx/DC Orders Clinical Impression: Near syncope, Second trimester Instructions: ED Fainting, Uncertain Cause Prescriptions: No Action PNV cmb#95-ferrous fumarate-FA 1 EACH tablet 1 ea PO DAILY fluticasone propion-salmeterol 1 EACH blister with device 1 puff IH BID Primary Care Provider: Jose G Zavala Referrals: Smita Booker CNM [Med Staff - Adv Practice Prof] - As soon as possible Older,Vanessa AGRICULTURAL EDUCATION TEACHER, AGRICULTURAL EDUCATION TEACHER-C [Non-Staff] - Disposition Disposition: Home, Self Care
[2023-08-05 08:57] LABS: Amorphous Sediment 1+; Squamous Epithelial Cells - UA 0-5 SEEN /hpf (5-10)
[2023-08-05 09:28] VITALS: RESP 16
== END 2023-08-05 09:55 | disposition home or self-care (01) ==
PROVIDERS: Emergency Provider Emergency Medicine; PCP Family Medicine; Visit Provider Emergency Medicine
DX: R55 Syncope and collapse (principal); Z87.891 Personal history of nicotine dependence
CPT/HCPCS: 80053; 81001; 83735; 85025; 93005; 96360; 96361; 99283; J7030; A4216

== ENCOUNTER 2023-11-18 01:55 | Inpatient (IN) | payer MEDICAID, SELFPAY ==
[2023-11-18] VITALS (34 sets, daily range): BP systolic 102–143; BP diastolic 57–105; PULSE 75–138; RESP 16–18; TEMP 36.7–37.5; O2SAT 98–100; BMI 37.9
--- OUTSIDE RECORDS SUMMARY | 2023-11-18 01:23 | XMS RPT_ITS | CCD ---
Author Name Unknown Address [address] [place] [address] Organization [facility] Care Team Providers Care Furnace Checker Name Role Phone Trevino DENTAL TECH, Tootie E Unavailable Unavailable Trevino DENTAL TECH, Tootie E Unavailable Unavailable Trevino DENTAL TECH, Tootie E Unavailable Unavailable Arnol Dow Unavailable Arnol Dow Unavailable NICK VILCHIS Attending Unavailable IMCA Referring Unavailable VERONIKA, IMTIAZ Primary Care Unavailable RAJANIUTNICK VARNER Referring Unavailable VERONIKA, IMTIAZ Primary Care Unavailable KLUTTSNICK Referring Unavailable VERONIKA, IMTIAZ Primary Care Unavailable RAJANIUTNICK VARNER Attending Unavailable IMCA Referring Unavailable VERONIKA, IMTIAZ Primary Care Unavailable KLUTTSNICK Referring Unavailable VERONIKA, IMTIAZ Primary Care Unavailable KLUTTSNICK Referring Unavailable VERONIKA, IMTIAZ Primary Care Unavailable KLUTNICK VARNER Attending Unavailable IMCA Referring Unavailable VERONIKA, IMTIAZ Primary Care Unavailable KLUTNICK VARNER Attending Unavailable KLUTTSNICK Referring Unavailable VERONIKA, IMTIAZ Primary Care Unavailable KLUTTSNICK Referring Unavailable VERONIKA, IMTIAZ Primary Care Unavailable Chad Zavala MD Primary Care Provider Chad Zavala MD Primary Care Provider Chad Zavala MD Primary Care Provider VIRY CARMEN Referring Unavailable CHAD ZAVALA Primary Care Unavailab CAMI Philip Attending Unavailable CHAD ZAVALA Primary Care Unavailab CAMI Philip Referring Unavailable CHAD ZAVALA Primary Care Unavailab le CHAD ZAVALA Primary Care Unavailab SHIRA Min Attending Unavail able CHAD ZAVALA Primary Care Unavailab le CHAD ZAVALA Primary Care Unavailab tory BOOKER, SMITA Referring Unavailable BIB ROMERO Attending Unavailable CHAD ZAVALA Primary Care Unavailab DOLORES Mazariegos Attending Unavailable MARICHUY PAINTER Referring Unavailable CHAD ZAVALA Primary Care Unavailab MARICHUY Lama Referring Unavailable CHAD ZAVALA Primary Care Unavailab MARICHUY Lama Attending Unavailable CHAD ZAVALA Primary Care Unavailab le CHAD ZAVALA Primary Care Unavailab tory BOOKER, SMITA Referring Unavailable CHAD ZAVALA Primary Care Unavailab SMITA Reis Attending Unavailable CHAD ZAVALA Primary Care Unavailab SMITA Reis Attending Unavailable DOLORES PATRICK Attending Unavailable CHAD ZAVALA Primary Care Unavailab le CHAD ZAVALA Primary Care Unavailab VIRY Dillon Attending Unavailable CHAD ZAVALA Primary Care Unavailab VIRY Dillon Attending Unavailable CAHD ZAVALA Primary Care Unavailab tory BOOKER, SMITA Referring Unavailable CHAD ZAVALA Primary Care Unavailab SHIRA Min Attending Unavail able CHAD ZAVALA Primary Care Unavailab le CHAD ZAVALA Primary Care Unavailab SMITA Reis Attending Unavailable SMITA BOOKER Referring Unavailable CHAD ZAVALA Primary Care Unavailab SMITA Reis Attending Unavailable CHAD ZAVALA Primary Care Unavailab le TANMAY, SMITA Attending Unavailable CHAD ZAVALA Primary Care Unavailab le TANMAY, SMITA Referring Unavailable SMITA BOOKER Attending Unavailable SMITA BOOKER Referring Unavailable CHAD ZAVALA Primary Care Unavailab tory BOOKER, SMITA Referring Unavailable CHAD ZAVALA Primary Care Unavailab le CHAD ZAVALA Primary Care Unavailab le CHAD ZAVALA Primary Care Unavailab tory BOOKER, SMITA Referring Unavailable CHAD ZAVALA Primary Care Unavailab ESTHER Alejo Attending Unavailable CHAD ZAVALA Primary Care Unavailab le PLOTTS, SMITA Referring Unavailable CHAD ZAVALA Primary Care Unavailab le NATHALIATSSMITA Attending Unavailable PODLOGAR, CAMI Attending Unavailable CHAD ZAVALA Primary Care Unavailab le CHAD ZAVALA Primary Care Unavailab le PLOTTS, SMITA Attending Unavailable PODLOGAR, CAMI Attending Unavailable CHAD ZAVALA Primary Care Unavailab le PODLOGAR, CAMI Referring Unavailable CHAD ZAVALA Primary Care Unavailab le CHAD ZAVALA Primary Care Unavailab le PLOTTS, SMITA Attending Unavailable SMITA BOOKER Referring Unavailable CHAD ZAVALA Primary Care Unavailab CHAD Bear Primary Care Unavailab le PLOTTS, SMITA Referring Unavailable CHAD ZAVALA Primary Care Unavailab le NATHALIATS, SMITA Attending Unavailable Medications Current Medications Medication Drug Class(es) Dates Sig (Normalized) Sig (Original) acyclovir 400 mg oral tablet (2 sources) Herpesvirus Nucleoside Analog DNA Polymerase Inhibitor, Herpes Simplex Virus Nucleoside Analog DNA Polymerase Inhibitor, Herpes Zoster Virus Nucleoside Analog DNA Polymerase Inhibitor Start: 11-09-2023 End: 12-09-2023 take 1 tablet by mouth three times daily acyclovir (ZOVIRAX) 400 mg tablet Take 1 tablet by mouth three times a day. 90 tablet 0 11/09/2023 12/09/2023 Active Completed/Discontinued Medications Medication Drug Class(es) Dates Sig (Normalized) Sig (Original) [id number] 200 actuat albuterol 0.09 mg/actuat metered dose inhaler (8 sources) beta2-Adrenergic Agonist Start: 06-30-2021 End: 11-24-2022 take 2 puff(s) by inhalation every four hours as needed albuterol HFA (VENTOLIN HFA) 90 mcg/actuation inhaler Indications: SOB (shortness of breath) , Wheezing Inhale 2 Puffs as instructed every 4 hours as needed. 18 g 5 06/30/2021 11/24/2022 Discontinued (Discontinued by Patient) Problems Active Problems Problem Classification Problem Date Documented Date Episodic/Chronic Anxiety disorders (20 sources) Anxiety disorder; Translations: [Anxiety disorder, unspecified] Onset: 08-15-2018 08-15-2018 Chronic Contraceptive and procreative management (1 source) Oral contraception; Translations: [Encounter for surveillance of contraceptive pills] Episodic Diabetes mellitus without complication (7 sources) Increased glucose level; Translations: [Other abnormal glucose] Onset: 09-15-2023 09-28-2023 Episodic Headache; including migraine (1 source) Headache; including migraine; Translations: [Headache, unspecified headache type] Onset: 01-28-2023 Immunizations and screening for infectious disease (2 sources) Needs influenza immunization; Translations: [Encounter for immunization] Onset: 09-14-2023 08-10-2023 Episodic Inflammatory diseases of female pelvic organs (1 source) Acute vaginitis; Translations: [Acute vaginitis] Episodic Malaise and fatigue (1 source) Fatigue; Translations: [Other fatigue] Episodic Menstrual disorders (2 sources) Oligomenorrhea, unspecified Onset: 03-28-2017 Chronic Other circulatory disease (1 source) Respiratory symptom; Translations: [Other specified symptoms and signs involving the circulatory and respiratory systems] 05-24-2023 Episodic Other complications of ; puerperium affecting management of mother (1 source) Obstetric nipple infection with complication; Translations: [Infection of nipple associated with the puerperium] Episodic Other complications of (1 source) Anomaly of placenta; 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, unspecified, second trimester] 07-13-2023 Episodic Other complications of (13 sources) Uterine size for dates discrepancy; Translations: [Uterine size-date discrepancy, second trimester] Onset: 08-10-2023 08-10-2023 Episodic Other complications of (2 sources) Pain in female pelvis; Translations: [Other specified related conditions, unspecified trimester] 09-05-2023 Episodic Other complications of (1 source) Backache; Translations: [Back pain in ] 11-03-2023 Episodic Other complications of (2 sources) Excessive growth affecting management of mother; Translations: [Maternal care for excessive growth, third trimester, not applicable or unspecified] 11-09-2023 Episodic Other complications of (1 source) Uterine size-date discrepancy, third trimester; Translations: [Uterine size-date discrepancy, third trimester] Onset: 11-09-2023 Episodic Other complications of (1 source) Uterine size-date discrepancy, second trimester; Translations: [Uterine size-date discrepancy, second trimester] Onset: 09-14-2023 Episodic Other connective tissue disease (1 source) Muscle pain; Translations: [Myalgia, unspecified site] Episodic Other endocrine disorders (20 sources) Polycystic ovary syndrome; Translations: [Polycystic ovarian syndrome] 03-23-2017 Chronic Other female genital disorders (20 sources) Pain in female genitalia on intercourse; Translations: [Unspecified dyspareunia] Onset: 12-08-2021 12-08-2021 Chronic Other female genital disorders (1 source) H/O: inter-menstrual bleeding; Translations: [Personal history of other diseases of the female genital tract] Episodic Other injuries and conditions due to external causes (1 source) Contusion; Translations: [Other injury of unspecified body region, initial encounter] Episodic Other and delivery including normal (7 sources) Normal ; Translations: [Encounter for supervision of other normal , unspecified trimester] Onset: 09-28-2023 05-06-2023 Episodic Residual codes; unclassified (1 source) Gestation period, 9 weeks; Translations: [9 weeks gestation of ] 05-06-2023 Episodic Residual codes; unclassified (2 sources) Gestation period, 14 weeks; Translations: [14 weeks gestation of ] 06-08-2023 Episodic Residual codes; unclassified (1 source) Gestation period, 16 weeks; Translations: [16 weeks gestation of ] 06-23-2023 Episodic Residual codes; unclassified (2 sources) Gestation period, 19 weeks; Translations: [19 weeks gestation of ] 07-13-2023 Episodic Residual codes; unclassified (1 source) Gestation period, 20 weeks; Translations: [20 weeks gestation of ] 07-27-2023 Episodic Residual codes; unclassified (1 source) Gestation period, 23 weeks; Translations: [23 weeks gestation of ] 08-10-2023 Episodic Residual codes; unclassified (1 source) Gestation period, 26 weeks; Translations: [26 weeks gestation of ] 09-05-2023 Episodic Residual codes; unclassified (1 source) Gestation period, 35 weeks; Translations: [35 weeks gestation of ] 11-03-2023 Episodic Residual codes; unclassified (1 source) Gestation period, 34 weeks; Translations: [34 weeks gestation of ] 10-26-2023 Episodic Residual codes; unclassified (1 source) Gestation period, 32 weeks; Translations: [32 weeks gestation of ] 11-09-2023 Episodic Residual codes; unclassified (1 source) Gestation period, 36 weeks; Translations: [36 weeks gestation of ] 11-09-2023 Episodic Residual codes; unclassified (1 source) 32 weeks gestation of ; Translations: [32 weeks gestation of ] Onset: 11-09-2023 Episodic Residual codes; unclassified (1 source) 30 weeks gestation of ; Translations: [30 weeks gestation of ] Onset: 09-28-2023 Episodic Residual codes; unclassified (1 source) 23 weeks gestation of ; Translations: [23 weeks gestation of ] Onset: 09-14-2023 Episodic Residual codes; unclassified (1 source) 28 weeks gestation of ; Translations: [28 weeks gestation of ] Onset: 09-14-2023 Episodic Residual codes; unclassified (1 source) Gestation period, 37 weeks; Translations: [37 weeks gestation of ] 11-16-2023 Episodic Unclassified (4 sources) History and physical examination, school ; Translations: [Encounter for examination for admission to educational institution] Onset: 04-29-2017 04-29-2017 Past or Other Problems Problem Classification Problem Date Documented Date Episodic/Chronic Abdominal pain (20 sources) Vaginal pain; Translations: [Pelvic and perineal pain] Onset: 12-08-2021 12-08-2021 Episodic Anal and rectal conditions (20 sources) Anal spasm; Translations: [Anal spasm] Onset: 12-08-2021 12-08-2021 Episodic Conditions associated with dizziness or vertigo (1 source) Dizziness and giddiness; Translations: [Dizziness] Onset: 08-04-2023 Episodic Headache; including migraine (6 sources) Headache; Translations: [Headaches] Onset: 02-01-2023 Episodic Hemorrhage during ; abruptio placenta; placenta previa (20 sources) Bleeding from female genital tract during ; Translations: [Antepartum hemorrhage, unspecified, unspecified trimester] Onset: 05-25-2023 05-25-2023 Episodic Nausea and vomiting (2 sources) Nausea; Translations: [Nausea] Onset: 01-28-2023 Episodic Nonmalignant breast conditions (4 sources) Inflammatory disorder of breast; Translations: [Mastitis without abscess] Onset: 11-24-2022 Episodic Other circulatory disease (1 source) Other specified symptoms and signs involving the circulatory and respiratory systems; Translations: [Symptoms of upper respiratory infection (URI)] Onset: 05-24-2023 Episodic Other complications of (20 sources) History of pre-eclampsia; Translations: [Supervision of with other poor reproductive or obstetric history, unspecified trimester] Onset: 04-28-2023 04-28-2023 Episodic Other complications of (20 sources) RhD negative; Translations: [Other specified related conditions, unspecified trimester] Onset: 05-06-2023 05-06-2023 Episodic Other complications of (1 source) Supervision of with other poor reproductive or obstetric history, unspecified trimester; Translations: [History of pre-eclampsia in prior , currently ] Onset: 04-28-2023 Episodic Other complications of (1 source) Other specified related conditions, unspecified trimester; Translations: [Rh negative state in antepartum period] Onset: 05-06-2023 Episodic Other connective tissue disease (1 source) Myalgia, unspecified site; Translations: [Myalgias] Onset: 01-28-2023 Episodic Other infections; including parasitic (20 sources) History of sexually transmitted disease; Translations: [Personal history of other infectious and parasitic diseases] Onset: 06-12-2020 11-11-2020 Episodic Other lower respiratory disease (1 source) Shortness of breath; Translations: [SOB (shortness of breath)] Onset: 08-04-2023 Episodic Other screening for suspected conditions (not mental disorders or infectious disease) (10 sources) Encounter for test, result unknown; Translations: [Patient encounter status] Onset: 01-21-2017 01-21-2017 Episodic Other upper respiratory infections (3 sources) Pharyngitis; Translations: [Acute pharyngitis, unspecified] Onset: 05-26-2017 05-26-2017 Episodic Polyhydramnios and other problems of amniotic cavity (20 sources) Subchorionic hematoma; Translations: [Other specified disorders of amniotic fluid and membranes, second trimester, not applicable or unspecified] Onset: 06-08-2023 06-08-2023 Episodic Residual codes; unclassified (20 sources) History of past delivery; Translations: [Personal history of other complications of , childbirth and the puerperium] Onset: 04-28-2023 04-28-2023 Episodic Residual codes; unclassified (20 sources) FH: Cardiomyopathy; Translations: [Family history of ischemic heart disease and other diseases of the circulatory system] Onset: 04-28-2023 04-28-2023 Episodic Residual codes; unclassified (20 sources) FH: Congenital heart disease; Translations: [Family history of other congenital malformations, deformations and chromosomal abnormalities] Onset: 04-28-2023 04-28-2023 Episodic Residual codes; unclassified (20 sources) Family history of cystic fibrosis; Translations: [Family history of other endocrine, nutritional and metabolic diseases] Onset: 04-28-2023 04-28-2023 Episodic Residual codes; unclassified (1 source) Unspecified blood type, Rh negative; Translations: [Rh negative state in antepartum period] Onset: 05-06-2023 Episodic Residual codes; unclassified (1 source) 20 weeks gestation of ; Translations: [20 weeks gestation of ] Onset: 08-01-2023 Episodic Residual codes; unclassified (1 source) 9 weeks gestation of ; Translations: [9 weeks gestation of ] Onset: 07-13-2023 Episodic Residual codes; unclassified (1 source) 14 weeks gestation of ; Translations: [14 weeks gestation of ] Onset: 06-08-2023 Episodic Screening and history of mental health and substance abuse codes (20 sources) H/O: anxiety state; Translations: [Personal history of other mental and behavioral disorders] Onset: 06-12-2020 06-12-2020 Episodic Viral infection (20 sources) Herpes simplex; Translations: [Herpesviral infection, unspecified] Onset: 05-12-2018 05-12-2018 Episodic Results Test Name Value Interpretation Reference Range Facil ity Vital Signs Date Time Vital Sign Value Performing Clinician Facility 11-16-2023 13:48-0500 Body weight 103.42 kg Shira Bunch MD Work Phone: [facility] 11-16-2023 13:48-0500 Diastolic blood pressure 64 mm[Hg] Shira Bunch MD Work Phone: [facility] 11-16-2023 13:48-0500 Systolic blood pressure 110 mm[Hg] Shira Bunch MD Work Phone: [facility] 11-09-2023 08:56-0500 Body weight 102.06 kg Bib Romero MD Work Phone: [facility] 11-09-2023 08:56-0500 Diastolic blood pressure 70 mm[Hg] Bib Romero MD Work Phone: [facility] 11-09-2023 08:56-0500 Systolic blood pressure 112 mm[Hg] Bib Romero MD Work Phone: [facility] 11-03-2023 09:54-0500 Body weight 103.42 kg Smita Booker GLOBAL COMPENSATION ANALYST.CNM Work Phone: [facility] 11-03-2023 09:54-0500 Diastolic blood pressure 80 mm[Hg] Smita Booker GLOBAL COMPENSATION ANALYST.CNM Work Phone: [facility] 11-03-2023 09:54-0500 Systolic blood pressure 126 mm[Hg] Smita Booker GLOBAL COMPENSATION ANALYST.CNM Work Phone: [facility] 10-26-2023 10:35-0500 Body weight 102.06 kg Bib Romero MD Work Phone: [facility] 10-26-2023 10:35-0500 Diastolic blood pressure 60 mm[Hg] Bib Romero MD Work Phone: [facility] 10-26-2023 10:35-0500 Systolic blood pressure 118 mm[Hg] Bib Romero MD Work Phone: [facility] 09-05-2023 11:42-0500 Body weight 93.53 kg Dolores Patrick APRN.CNM Work Phone: [facility] 09-05-2023 11:42-0500 Diastolic blood pressure 64 mm[Hg] Dolores Patrick APRN.CNM Work Phone: [facility] 09-05-2023 11:42-0500 Systolic blood pressure 112 mm[Hg] Dolores Patrick GLOBAL COMPENSATION ANALYST.CNM Work Phone: [facility] 08-10-2023 13:03-0500 Body weight 89.45 kg Smita Plotts GLOBAL COMPENSATION ANALYST.CNM Work Phone: [facility] 08-10-2023 13:03-0500 Diastolic blood pressure 60 mm[Hg] Smita Plotts GLOBAL COMPENSATION ANALYST.CNM Work Phone: [facility] 08-10-2023 13:03-0500 Systolic blood pressure 106 mm[Hg] Smita Plotts GLOBAL COMPENSATION ANALYST.CNM Work Phone: [facility] 07-13-2023 11:15-0400 Body weight 84.01 kg Smita Plotts GLOBAL COMPENSATION ANALYST.CNM Work Phone: [facility] 07-13-2023 11:15-0400 Diastolic blood pressure 72 mm[Hg] Smita Plotts GLOBAL COMPENSATION ANALYST.CNM Work Phone: [facility] 07-13-2023 11:15-0400 Systolic blood pressure 110 mm[Hg] Smita Plotts GLOBAL COMPENSATION ANALYST.CNM Work Phone: [facility] 06-23-2023 13:19-0400 Body weight 82.56 kg Esther Banda MD Work Phone: [facility] 06-23-2023 13:19-0400 Diastolic blood pressure 68 mm[Hg] Esther Banda MD Work Phone: [facility] 06-23-2023 13:19-0400 Systolic blood pressure 108 mm[Hg] Esther Banda MD Work Phone: [facility] 06-08-2023 14:20-0400 Body weight 81.65 kg Smita Plotts GLOBAL COMPENSATION ANALYST.CNM Work Phone: [facility] 06-08-2023 14:20-0400 Diastolic blood pressure 68 mm[Hg] Smita Plotts GLOBAL COMPENSATION ANALYST.CNM Work Phone: [facility] 06-08-2023 14:20-0400 Systolic blood pressure 108 mm[Hg] Smita Plotts GLOBAL COMPENSATION ANALYST.CNM Work Phone: [facility] 05-06-2023 08:54-0400 Body height 165.1 cm Smita Plotts GLOBAL COMPENSATION ANALYST.CNM Work Phone: [facility] 05-06-2023 08:54-0400 Body weight 81.19 kg Smita Plotts GLOBAL COMPENSATION ANALYST.CNM Work Phone: [facility] 05-06-2023 08:54-0400 Diastolic blood pressure 66 mm[Hg] Smita Plotts GLOBAL COMPENSATION ANALYST.CNM Work Phone: [facility] 05-06-2023 08:54-0400 Systolic blood pressure 102 mm[Hg] Smita Plotts GLOBAL COMPENSATION ANALYST.CNM Work Phone: [facility] 01-28-2023 10:04-0400 Body weight 75.75 kg Marichuy Painter GLOBAL COMPENSATION ANALYST.JOB SPOTTER Work Phone: [facility] 01-28-2023 10:04-0400 Diastolic blood pressure 80 mm[Hg] Marichuy Wallacehof GLOBAL COMPENSATION ANALYST.JOB SPOTTER Work Phone: [facility] 01-28-2023 10:04-0400 Heart rate 80 /min Marichuy Stanleyf GLOBAL COMPENSATION ANALYST.JOB SPOTTER Work Phone: [facility] 01-28-2023 10:04-0400 Respiratory rate 16 /min Marichuy Stanleyf GLOBAL COMPENSATION ANALYST.JOB SPOTTER Work Phone: [facility] 01-28-2023 10:04-0400 SaO2% (BldA) [Mass fraction] 100 % Marichuy Wallacehof GLOBAL COMPENSATION ANALYST.JOB SPOTTER Work Phone: [facility] 01-28-2023 10:04-0400 Systolic blood pressure 124 mm[Hg] Marichuy Stanleyf GLOBAL COMPENSATION ANALYST.JOB SPOTTER Work Phone: [facility] 12-13-2022 15:25-0400 Body weight 74.84 kg Viry Carmen GLOBAL COMPENSATION ANALYST.JOB SPOTTER Work Phone: [facility] 12-13-2022 15:25-0400 Diastolic blood pressure 70 mm[Hg] Viry Carmen GLOBAL COMPENSATION ANALYST.JOB SPOTTER Work Phone: [facility] 12-13-2022 15:25-0400 Heart rate 80 /min Viry Carmen GLOBAL COMPENSATION ANALYST.JOB SPOTTER Work Phone: [facility] 12-13-2022 15:25-0400 Respiratory rate 14 /min Viry Carmen GLOBAL COMPENSATION ANALYST.JOB SPOTTER Work Phone: [facility] 12-13-2022 15:25-0400 Systolic blood pressure 120 mm[Hg] Viry Carmen GLOBAL COMPENSATION ANALYST.JOB SPOTTER Work Phone: [facility] 11-24-2022 11:10-0500 Body temperature 98.71 [degF] Cami Podlogar GLOBAL COMPENSATION ANALYST.JOB SPOTTER Work Phone: [facility] 11-24-2022 11:10-0500 Body weight 74.12 kg Cami Podlogar GLOBAL COMPENSATION ANALYST.JOB SPOTTER Work Phone: [facility] 11-24-2022 11:10-0500 Diastolic blood pressure 68 mm[Hg] Cami Podlogar GLOBAL COMPENSATION ANALYST.JOB SPOTTER Work Phone: [facility] 11-24-2022 11:10-0500 Heart rate 106 /min Cami Podlogar GLOBAL COMPENSATION ANALYST.JOB SPOTTER Work Phone: [facility] 11-24-2022 11:10-0500 Respiratory rate 16 /min Cami Podlogar GLOBAL COMPENSATION ANALYST.JOB SPOTTER Work Phone: [facility] 11-24-2022 11:10-0500 SaO2% (BldA) [Mass fraction] 97 % Cami Podlogar GLOBAL COMPENSATION ANALYST.JOB SPOTTER Work Phone: [facility] 11-24-2022 11:10-0500 Systolic blood pressure 100 mm[Hg] Cami Podlogar GLOBAL COMPENSATION ANALYST.JOB SPOTTER Work Phone: [facility] 06-09-2022 09:30-0400 Body weight 70.76 kg Smita Booker GLOBAL COMPENSATION ANALYST.CNM Work Phone: [facility] 06-09-2022 09:30-0400 Diastolic blood pressure 72 mm[Hg] Smita Plotts GLOBAL COMPENSATION ANALYST.CNM Work Phone: [facility] 06-09-2022 09:30-0400 Systolic blood pressure 110 mm[Hg] Smita Plotts GLOBAL COMPENSATION ANALYST.CNM Work Phone: [facility] 05-27-2022 11:44-0400 Body height 165.1 cm Melissa Akhtar GLOBAL COMPENSATION ANALYST.JOB SPOTTER Work Phone: [facility] 05-27-2022 11:44-0400 Body weight 70.76 kg Melissa Hudsonhrie GLOBAL COMPENSATION ANALYST.JOB SPOTTER Work Phone: [facility] 05-27-2022 11:44-0400 Diastolic blood pressure 60 mm[Hg] Melissa Hudsonhrie GLOBAL COMPENSATION ANALYST.JOB SPOTTER Work Phone: [facility] 05-27-2022 11:44-0400 Systolic blood pressure 108 mm[Hg] Melissa De Leonie GLOBAL COMPENSATION ANALYST.JOB SPOTTER Work Phone: [facility] 01-12-2022 09:38-0400 Body height 165.1 cm Cami Podlogar GLOBAL COMPENSATION ANALYST.JOB SPOTTER Work Phone: [facility] 01-12-2022 09:38-0400 Body weight 73.57 kg Cami Podlogar GLOBAL COMPENSATION ANALYST.JOB SPOTTER Work Phone: [facility] 01-12-2022 09:38-0400 Diastolic blood pressure 66 mm[Hg] Cami Podlogar GLOBAL COMPENSATION ANALYST.JOB SPOTTER Work Phone: [facility] 01-12-2022 09:38-0400 Heart rate 74 /min Cami Podlogar GLOBAL COMPENSATION ANALYST.JOB SPOTTER Work Phone: [facility] 01-12-2022 09:38-0400 Respiratory rate 18 /min Cami Podlogar GLOBAL COMPENSATION ANALYST.JOB SPOTTER Work Phone: [facility] 01-12-2022 09:38-0400 SaO2% (BldA) [Mass fraction] 100 % Cami Podlogar GLOBAL COMPENSATION ANALYST.JOB SPOTTER Work Phone: [facility] 01-12-2022 09:38-0400 Systolic blood pressure 102 mm[Hg] Cami Chey [facility]STAL[facility] Work Phone: [facility] 05-26-2017 12:27-0400 BMI (Body Mass Index) 25.92 kg/m2 Tootie Trevino LPN [facility] Work Phone: 05-26-2017 12:27-0400 Body Temperature 98 [degF] Tootie Trevino LPN [facility] Work Phone: 05-26-2017 12:27-0400 BP Diastolic 60 mm[Hg] Tootie Trevino LPN [facility] Work Phone: 05-26-2017 12:27-0400 BP Systolic 100 mm[Hg] Tootie Trevino LPN [facility] Work Phone: 05-26-2017 12:27-0400 Height 162.56 cm Tootie Trevino LPN [facility] Work Phone: 05-26-2017 12:27-0400 Pulse (Heart Rate) 90 /min Tootie Trevino LPN [facility] Work Phone: 05-26-2017 12:27-0400 Respiratory Rate 12 /min Tootie Trevino LPN [facility] Work Phone: 05-26-2017 12:27-0400 Weight 68.49 kg Tootie Trevino DENTAL TECH [facility] Work Phone: 04-29-2017 14:36-0400 Height 162.56 cm Arnol WEINER [facility] Work Phone: 01-21-2017 14:02-0400 BMI (Body Mass Index) 25.61 kg/m2 Arnol WEINER [facility] Work Phone: 01-21-2017 14:02-0400 Body Temperature 99.1 [degF] Arnol WEINER [facility] Work Phone: 01-21-2017 14:02-0400 BP Diastolic 82 mm[Hg] Arnol WEINER [facility] Work Phone: 01-21-2017 14:02-0400 BP Systolic 130 mm[Hg] Arnol WEINER [facility] Work Phone: 01-21-2017 14:02-0400 Pulse (Heart Rate) 79 /min Arnol WEINER [facility] Work Phone: 01-21-2017 14:02-0400 Respiratory Rate 16 /min Arnolsabine WEINER [facility] Work Phone: 01-21-2017 14:02-0400 Weight 67.68 kg Arnolsbaine WEINER [facility] Work Phone: Encounters Encounter Date Encounter Type Care Provider Facility Start: 11-16-2023 End: 11-16-2023 Patient encounter procedure Shira Bunch MD Work Phone: OB/Gynecology Procedures Date Procedure Procedure Detail Performing Clinician Start: 11-16-2023 URINE OB DIP B/O Shira Bunch MD Work Phone: Start: 11-09-2023 URINE OB DIP B/O Randee Romero MD Work Phone: Start: 11-09-2023 Us preg uterus after 1st trimest 1/ gestation Smita Booker GLOBAL COMPENSATION ANALYST.CNM Work Phone: Start: 11-03-2023 URINE OB DIP B/O Anai Booker GLOBAL COMPENSATION ANALYST.CNM Work Phone: Start: 10-26-2023 RSV VACCINE, BIVALEN T (ABRYSVO) Bib Romero MD Work Phone: Start: 10-26-2023 URINE OB DIP B/O Shira Bunch MD Work Phone: Start: 09-14-2023 Antibody screen CAMI CUEVAS Plan of Treatment Date Care Activity Detail Author Start: 09-14-2033 Urine microalbumin profile DTaP,Tdap,Td Vaccine (9 - Td or Tdap) [facility] Start: 10-28-2030 Urine microalbumin profile [facility] Start: 05-06-2026 PAP TESTING PAP TESTING [facility] Start: 05-06-2026 Screening for malignant neoplasm of cervix Pap Testing [facility] Start: 10-12-2023 RSV Vaccine (1 - Risk 1-dose series) RSV Vaccine (1 - Risk 1-dose series) [facility] Start: 10-03-2023 Depression Assessment Depression Assessment [facility] Start: 09-09-2023 End: 12-09-2023 CBC W Auto Differential panel - Blood CBC + DIFF Lab Routine 23 weeks gestation of Subchorionic hematoma in second trimester, single or unspecified fetus History of pre-eclampsia in prior , currently Expected: 09/09/2023 (Approximate), Expires: 12/09/2023 [facility] Work Phone: Immunizations Immunization Date Immunization Notes Care Provider Pepper arriola 10-26-2023 respiratory syncytia l virus (RSV) vaccine, bivalent (ABRYSVO) Smita Booker GLOBAL COMPENSATION ANALYST.CNM Work Phone: [facility] 09-14-2023 RHO(D) immune globul in- IV or IM Smita Plotts GLOBAL COMPENSATION ANALYST.CNM Work Phone: [facility] 09-14-2023 tetanus toxoid, redu navjot diphtheria toxoid, and acellular pertussis vaccine, adsorbed Smita Kellyts GLOBAL COMPENSATION ANALYST.CNM Work Phone: [facility] 08-10-2023 influenza, injectabl e, quadrivalent, contains preservative Smita Plotts GLOBAL COMPENSATION ANALYST.CNM Work Phone: [facility] 05-25-2023 RHO(D) immune globul in- IV or IM Smita Plotts GLOBAL COMPENSATION ANALYST.CNM Work Phone: [facility] 01-07-2021 measles, mumps and rubella virus vaccine Smita Plotts GLOBAL COMPENSATION ANALYST.CNM Work Phone: [facility] 10-28-2020 RHO(D) immune globul in- IV or IM Smita Plotts GLOBAL COMPENSATION ANALYST.CNM Work Phone: [facility] 10-28-2020 tetanus toxoid, redu navjot diphtheria toxoid, and acellular pertussis vaccine, adsorbed Smita Plotts GLOBAL COMPENSATION ANALYST.CNM Work Phone: [facility] 07-11-2020 influenza, injectabl e, quadrivalent, contains preservative Smita Plotts GLOBAL COMPENSATION ANALYST.CNM Work Phone: [facility] Work Phone: 07-11-2020 influenza virus vacc ine, unspecified formulation Katerine Chandler MD Work Phone: [facility] 11-24-2019 RHO(D) immune globul in- IV or IM Smita Plotts GLOBAL COMPENSATION ANALYST.CNM Work Phone: [facility] 09-05-2018 human papilloma viru s vaccine, quadrivalent Smita Plotts GLOBAL COMPENSATION ANALYST.CNM Work Phone: [facility] 07-05-2018 Human Papillomavirus 9-valent vaccine Smita Plotts GLOBAL COMPENSATION ANALYST.CNM Work Phone: [facility] 07-05-2018 influenza, injectabl e, quadrivalent, contains preservative Smita Plotts GLOBAL COMPENSATION ANALYST.CNM Work Phone: [facility] 07-04-2012 influenza virus vacc ine, live, attenuated, for intranasal use Smita Plotts GLOBAL COMPENSATION ANALYST.CNM Work Phone: [facility] 06-06-2012 tetanus toxoid, redu navjot diphtheria toxoid, and acellular pertussis vaccine, adsorbed Smita Plotts GLOBAL COMPENSATION ANALYST.CNM Work Phone: [facility] 08-21-2010 influenza virus vacc ine, live, attenuated, for intranasal use Smita Plotts GLOBAL COMPENSATION ANALYST.CNM Work Phone: [facility] 02-18-2000 diphtheria, tetanus toxoids and acellular pertussis vaccine Smita Plotts GLOBAL COMPENSATION ANALYST.CNM Work Phone: [facility] 02-18-2000 hepatitis B vaccine, pediatric or pediatric/adolescent dosage Smita Plotts GLOBAL COMPENSATION ANALYST.CNM Work Phone: [facility] 02-18-2000 measles, mumps and rubella virus vaccine Smita Plotts GLOBAL COMPENSATION ANALYST.CNM Work Phone: [facility] 02-18-2000 poliovirus vaccine, inactivated Smita Plotts GLOBAL COMPENSATION ANALYST.CNM Work Phone: [facility] 10-13-1999 diphtheria, tetanus toxoids and acellular pertussis vaccine Smita Plotts GLOBAL COMPENSATION ANALYST.CNM Work Phone: [facility] 10-13-1999 measles, mumps and rubella virus vaccine Smita Plotts GLOBAL COMPENSATION ANALYST.CNM Work Phone: [facility] 10-13-1999 poliovirus vaccine, inactivated Smita Plotts GLOBAL COMPENSATION ANALYST.CNM Work Phone: [facility] 10-08-1998 poliovirus vaccine, inactivated Smita Plotts GLOBAL COMPENSATION ANALYST.CNM Work Phone: [facility] 04-26-1996 diphtheria, tetanus toxoids and acellular pertussis vaccine Smita Plotts GLOBAL COMPENSATION ANALYST.CNM Work Phone: [facility] 04-26-1996 diphtheria, tetanus toxoids and pertussis vaccine Smita Plotts GLOBAL COMPENSATION ANALYST.CNM Work Phone: [facility] 04-26-1996 varicella virus vaccine Cour tney Plotts GLOBAL COMPENSATION ANALYST.CNM Work Phone: [facility] 04-07-1996 hepatitis B vaccine, pediatric or pediatric/adolescent dosage Smita Plotts GLOBAL COMPENSATION ANALYST.CNM Work Phone: [facility] 02-07-1996 haemophilus influenz ae type b vaccine, PRP-T conjugate Smita Plotts GLOBAL COMPENSATION ANALYST.CNM Work Phone: [facility] 11-04-1995 haemophilus influenz ae type b vaccine, conjugate unspecified formulation Smita Plotts GLOBAL COMPENSATION ANALYST.CNM Work Phone: [facility] 11-04-1995 haemophilus influenz ae type b vaccine, PRP-T conjugate Smita Plotts GLOBAL COMPENSATION ANALYST.CNM Work Phone: [facility] 11-04-1995 measles, mumps and rubella virus vaccine Smita Plotts GLOBAL COMPENSATION ANALYST.CNM Work Phone: [facility] 07-12-1995 hepatitis B vaccine, pediatric or pediatric/adolescent dosage Smita Plotts GLOBAL COMPENSATION ANALYST.CNM Work Phone: [facility] 05-13-1995 diphtheria, tetanus toxoids and acellular pertussis vaccine Smita Plotts GLOBAL COMPENSATION ANALYST.CNM Work Phone: [facility] 05-13-1995 diphtheria, tetanus toxoids and pertussis vaccine Smita Plotts GLOBAL COMPENSATION ANALYST.CNM Work Phone: [facility] 05-13-1995 haemophilus influenz ae type b vaccine, conjugate unspecified formulation Smita Plotts GLOBAL COMPENSATION ANALYST.CNM Work Phone: [facility] 05-13-1995 hepatitis B vaccine, pediatric or pediatric/adolescent dosage Smita Plotts GLOBAL COMPENSATION ANALYST.CNM Work Phone: [facility] 05-13-1995 trivalent poliovirus vaccine, live, oral Smita Plotts GLOBAL COMPENSATION ANALYST.CNM Work Phone: [facility] 02-17-1995 diphtheria, tetanus toxoids and acellular pertussis vaccine Smita Plotts GLOBAL COMPENSATION ANALYST.CNM Work Phone: [facility] 02-17-1995 diphtheria, tetanus toxoids and pertussis vaccine Smita Plotts GLOBAL COMPENSATION ANALYST.CNM Work Phone: [facility] 02-17-1995 haemophilus influenz ae type b vaccine, conjugate unspecified formulation Smita Plotts GLOBAL COMPENSATION ANALYST.CNM Work Phone: [facility] 02-17-1995 haemophilus influenz ae type b vaccine, PRP-T conjugate Smita Plotts GLOBAL COMPENSATION ANALYST.CNM Work Phone: [facility] 02-17-1995 trivalent poliovirus vaccine, live, oral Smita Plotts GLOBAL COMPENSATION ANALYST.CNM Work Phone: [facility] 1994 diphtheria, tetanus toxoids and acellular pertussis vaccine Smita Plotts GLOBAL COMPENSATION ANALYST.CNM Work Phone: [facility] 1994 diphtheria, tetanus toxoids and pertussis vaccine Smita Plotts GLOBAL COMPENSATION ANALYST.CNM Work Phone: [facility] 1994 haemophilus influenz ae type b vaccine, conjugate unspecified formulation Smita Booker GLOBAL COMPENSATION ANALYST.CNM Work Phone: [facility] 1994 haemophilus influenz ae type b vaccine, PRP-T conjugate Smita Kellyjyoti GLOBAL COMPENSATION ANALYST.CNM Work Phone: [facility] 1994 poliovirus vaccine, inactivated Smita Booker GLOBAL COMPENSATION ANALYST.CNM Work Phone: [facility] 1994 trivalent poliovirus vaccine, live, oral Smitaharish Booker GLOBAL COMPENSATION ANALYST.CNM Work Phone: [facility] 1994 hepatitis B vaccine, pediatric or pediatric/adolescent dosage Smita Booker GLOBAL COMPENSATION ANALYST.CNM Work Phone: [facility] 1994 hepatitis B vaccine, pediatric or pediatric/adolescent dosage Smita Booker GLOBAL COMPENSATION ANALYST.CNM Work Phone: [facility] Payers Date Payer Category Payer Medicaid [id number] 2020 Unknown DENTAL MMO DENTA L [id number] 2020-Present [phone] [address] [place] [address] Dental [id number] 2020 Unknown DENTAL MMO DENTA L [id number] 2020-Present [phone] [address] [place] [address] Dental [id number] 2020 Medicaid [employer] [place] [id number] 2020-Present [phone] [address] [address] [place] [address] Medicaid [id number] 2020 Medicaid [id number] 1994 Unknown [id number] 1994 Unknown [id number] 1994 Unknown [id number] 1994 Unknown [id number] 1994 Unknown [id number] 1994 Unknown [id number] 1994 Unknown [id number] 1994 Unknown [id number] 1994 Unknown [id number] Social History Date Type Detail Facility Start: 03-13-2018 End: 05-27-2022 Tobacco smoking status NHIS Ex-smoker [facility] End: 03-31-2017 History of tobacco use Current smoker [facility] End: 03-31-2017 History of tobacco use Cigarette Smoker [facility] Start: 03-13-2018 End: 03-02-2023 Cigarettes smoked current (pack per day) - Reported 0.5 [facility] Start: 03-13-2018 End: 05-27-2022 Tobacco use and exposure Smokeless tobacco non-user [facility] Start: 11-09-2021 End: 11-16-2023 Alcohol intake Ex-drinker (finding) [facility] Start: 06-13-2020 End: 09-08-2020 History SDOH Alcohol Frequency 2 [facility] Start: 03-11-2020 End: 06-13-2020 History SDOH Alcohol Std Drinks 1 [facility] Start: 07-05-2018 History SDOH Alcohol Comment rare [facility] Start: 03-11-2020 End: 06-13-2020 History SDOH Social Connections Phone 5 [facility] Start: 03-11-2020 History SDOH Social Connections Living 8 [facility] Start: 03-11-2020 Education 16 [facility] Start: 07-05-2018 End: 05-27-2022 Tobacco Comment quit over one year ago (2017) [facility] Start: 1995 Sex Assigned At Female [facility] Start: 01-01-2022 End: 01-11-2022 Exposure to SARS-CoV-2 (event) Not sure [facility] Start: 03-11-2020 End: 03-02-2023 Social connection and isolation panel [facility] Do you belong to any clubs or organizations such as worship groups, unions, fraHomeJab or athletic groups, or school groups? No [facility] Are you now , , , , never or living with a partner? Living with partner [facility] How often to you hav e a drink containing alcohol? Monthly or less [facility] How many standard dr inks containing alcohol do you have on a typical day? 1 or 2 [facility] How often do you hav e 6 or more drinks on 1 occasion? Never [facility] How hard is it for y ou to pay for the very basics like food, housing, medical care, and heating Not hard at all [facility] Do you feel stress - tense, restless, nervous, or anxious, or unable to sleep at night because your mind is troubled all the time - these days [OSQ] Not at all [facility] (I/We) worried wheth er (my/our) food would run out before (I/we) got money to buy more. Never true [facility] Start: 06-11-2020 Gender identity Identifies as female gender (finding) [facility] Start: 06-11-2020 Sexual orientation Heterosexual (chris johnson) [facility] Start: 03-16-2023 [facility] Goals Date Patient Goal Desired Activity /State Personal health goal Clinical Notes 01-19-2021 to 11-16-2023 Quick Notes - Shira Powell MD - 11/16/2023 2:13 PM ESTPatient InstructionsTelephone Encounter - Christy Hall LPN - 11/11/2023 8:55 AM ESTPatient Instructions Note Date & Type Note Facility 11-16-2023 Miscellaneous Notes DM-Pt doing well. Denies vaginal Bleeding, Leaking fluid, or regular Contractions. Pt reports good movement Physical Exam: Gen: female in no apparent distress Abd: soft, Gravid. Non tender to palpation. See flow sheet A/P: @ 37 weeks 1) Schedule IOL 39 weeks - pt would like to wait and see how things progress this week and discuss more and arrange next week. Membranes swept today 2) Kick counts reviewed 3) Growth us reviewed- LGA, AC >99% Shira De La Paz MD documented in this encounter [facility] 11-16-2023 Instructions Michael Morelos Cma - 11/16/2023 1:46 PM EST SEQUENTIAL SCREENINGS The [facility] offers sequential screenings for women who are interested in screenings for chromosomal abnormalities and certain defects during a . The sequential screen combines ultrasound and blood tests to determine the risk of chromosomal abnormalities, including Down's Syndrome (Trisomy 21) and Trisomy 18, as well as open neural tube defects including spina bifida. Ultrasound examination is performed between 11 weeks and 13 weeks gestational age. Blood tests are drawn after the ultrasound and again later in the between 15 and 21 weeks gestational age. Please let your physician know if you are interested in this testing. It will require an appointment with our sound engineering technician. This is not an ultrasound performed by a physician in our office during a routine visit. SIGNS AND SYMPTOMS OF LABOR 1. Contractions every 10 minutes or more often 2. Clear, pink, or brownish fluid (water) leaking from vagina 3. Feeling that baby is pushing down, pressure 4. Low, dull backache 5. Cramps that feel like a period 6. Cramps with or without diarrhea If you notice any of the above symptoms, contact our office at [phone] and ask to speak with a nurse. After hours, you can call doctors registry at [phone] OR call [facility] at [phone] and ask to have the doctor media consultant paged. If you consider this an emergency, dial [phone] or go to your nearest emergency department. NEED HELP? Are you dealing with a violent or abusive relationship? Are you a victim of rape or sexual assult? Call [facility] 24 hour Crisis Hotline: 424.349.1656 or 215-606-2907. MANUAL Your Guide to a Healthy manual is now on-line. Visit [email or web address] nancyGuide to download your free copy documented in this encounter [facility] 11-11-2023 Miscellaneous Notes Note closed as pt has not voiced any further need for paperwork being completed. Paperwork filed in nurses station. Christy Hall LPN' Voicemail and mychart message to pt asking for dates of leave. Will await further response from pt. Christy Hall LPN documented in this encounter [facility] 11-09-2023 Miscellaneous Notes Pt presents at 36 wks w/o concerns. Hs of genital herpes - will start acyclovir prophylaxis no bleeding or leaking of fluid Sono today GBS culture performed. rto 1 week documented in this encounter [facility] 11-09-2023 Kinza Jean LPN - 11/09/2023 8:53 AM EST SEQUENTIAL SCREENINGS The [facility] offers sequential screenings for women who are interested in screenings for chromosomal abnormalities and certain defects during a . The sequential screen combines ultrasound and blood tests to determine the risk of chromosomal abnormalities, including Down's Syndrome (Trisomy 21) and Trisomy 18, as well as open neural tube defects including spina bifida. Ultrasound examination is performed between 11 weeks and 13 weeks gestational age. Blood tests are drawn after the ultrasound and again later in the between 15 and 21 weeks gestational age. Please let your physician know if you are interested in this testing. It will require an appointment with our sound engineering technician. This is not an ultrasound performed by a physician in our office during a routine visit. SIGNS AND SYMPTOMS OF LABOR 1. Contractions every 10 minutes or more often 2. Clear, pink, or brownish fluid (water) leaking from vagina 3. Feeling that baby is pushing down, pressure 4. Low, dull backache 5. Cramps that feel like a period 6. Cramps with or without diarrhea If you notice any of the above symptoms, contact our office at [phone] and ask to speak with a nurse. After hours, you can call doctors registry at [phone] OR call [facility] at [phone] and ask to have the doctor media consultant paged. If you consider this an emergency, dial 91-4 or go to your nearest emergency department. NEED HELP? Are you dealing with a violent or abusive relationship? Are you a victim of rape or sexual assult? Call [facility] 24 hour Crisis Hotline: 648.683.2713 or 753-491-5598. MANUAL Your Guide to a Healthy manual is now on-line. Visit [email or web address] Nidia to download your free copy documented in this encounter [facility] 11-03-2023 Miscellaneous Notes S: Deyanira Diamond is a 28 year old female who presents as an add on visit for pelvic pressure and occasional cramping. Tightening off an on which she feels through her back. Positive movement. Requesting FMLA papers to be signed to stop working. Discussed that there is not a medical indication to write her off of work. 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 Voiced understanding. Increased back pain. Has never looked into home health care physician or massage. Recommended those services. Denies headache, visual changes, chest pain, shortness of breath, vaginal bleeding, leakage of fluid, or dysuria. Declines CE today. O: See flow sheet Gen: No apparent distress Abd: Gravid, nontender ASSESSMENT/PLAN: 1. 35 weeks gestation of - ICD9: V22.2, ICD10: Z3A.35 (primary diagnosis) 2. Back pain in - ICD9: 646.80, 724.5, ICD10: O99.891, M54.9 3. Encounter for supervision of normal in multigravida - ICD9: V22.1, ICD10: Z34.80 4. Pelvic pressure in - ICD9: 646.83, 625.9, ICD10: O26.899, R10.2 - Support provided - PTL precautions reviewed and when to contact provider - RTO - 1 week for DAWOOD with GBS Smita Booker APRN.CNM documented in this encounter [facility] 11-03-2023 Instructions Smita Booker APRN.CNM - 11/03/2023 9:51 AM EST CALL INSURANCE TO FIND OUT ABOUT CHIROPRACTIC SERVICES AND MASSAGE THERAPY SEQUENTIAL SCREENINGS The [facility] offers sequential screenings for women who are interested in screenings for chromosomal abnormalities and certain defects during a . The sequential screen combines ultrasound and blood tests to determine the risk of chromosomal abnormalities, including Down's Syndrome (Trisomy 21) and Trisomy 18, as well as open neural tube defects including spina bifida. Ultrasound examination is performed between 11 weeks and 13 weeks gestational age. Blood tests are drawn after the ultrasound and again later in the between 15 and 21 weeks gestational age. Please let your physician know if you are interested in this testing. It will require an appointment with our sound engineering technician. This is not an ultrasound performed by a physician in our office during a routine visit. SIGNS AND SYMPTOMS OF LABOR 1. Contractions every 10 minutes or more often 2. Clear, pink, or brownish fluid (water) leaking from vagina 3. Feeling that baby is pushing down, pressure 4. Low, dull backache 5. Cramps that feel like a period 6. Cramps with or without diarrhea If you notice any of the above symptoms, contact our office at [phone] and ask to speak with a nurse. After hours, you can call doctors registry at [phone] OR call [facility] at [phone] and ask to have the doctor media consultant paged. If you consider this an emergency, dial 06-03- or go to your nearest emergency department. NEED HELP? Are you dealing with a violent or abusive relationship? Are you a victim of rape or sexual assult? Call [facility] ([place]) 24 hour Crisis Hotline: 625.920.1036 or 001-628-5942. MANUAL Your Guide to a Healthy manual is now on-line. Visit [email or web address] to download your free copy documented in this encounter [facility] 10-26-2023 Miscellaneous Notes Patient presents at 34 weeks w/o complaints other than occ cramping. Denies bleeding or loss of fluid UA unremarkable ++FM Abd SNT with fundal height at 37cm A/P: RSV vax discussed and desired Contiue routine PNC and f/u as scheduyled RSV vax today documented in this encounter [facility] 10-26-2023 Instructions Gali Summers Ma - 10/26/2023 10:32 AM EST SEQUENTIAL SCREENINGS The [facility] offers sequential screenings for women who are interested in screenings for chromosomal abnormalities and certain defects during a . The sequential screen combines ultrasound and blood tests to determine the risk of chromosomal abnormalities, including Down's Syndrome (Trisomy 21) and Trisomy 18, as well as open neural tube defects including spina bifida. Ultrasound examination is performed between 11 weeks and 13 weeks gestational age. Blood tests are drawn after the ultrasound and again later in the between 15 and 21 weeks gestational age. Please let your physician know if you are interested in this testing. It will require an appointment with our sound engineering technician. This is not an ultrasound performed by a physician in our office during a routine visit. SIGNS AND SYMPTOMS OF LABOR 1. Contractions every 10 minutes or more often 2. Clear, pink, or brownish fluid (water) leaking from vagina 3. Feeling that baby is pushing down, pressure 4. Low, dull backache 5. Cramps that feel like a period 6. Cramps with or without diarrhea If you notice any of the above symptoms, contact our office at [phone] and ask to speak with a nurse. After hours, you can call doctors registry at [phone] OR call [facility] at [phone] and ask to have the doctor media consultant paged. If you consider this an emergency, dial 91-9 or go to your nearest emergency department. NEED HELP? Are you dealing with a violent or abusive relationship? Are you a victim of rape or sexual assult? Call [facility] ([place]) 24 hour Crisis Hotline: 926.237.5456 or 673-305-9003. MANUAL Your Guide to a Healthy manual is now on-line. Visit [email or web address] to download your free copy documented in this encounter [facility] 09-20-2023 Note HNO ID: [id number] Author: Tamar Blackburn PA-C Service: ? Author Type: Physician Salvage Winder And Inspector Type: Progress Notes Filed: 09/20/2023 9:23 AM Note Text: This note was created using NoteWriter. Subjective Deyanira Diamond is a 27 year old female. HPI Presents with a chief complaint of nasal and sinus congestion for a week. Yesterday she started with right ear pain sore throat and cough as well. No diarrhea or vomiting. No abdominal pain. No shortness of breath. She is currently 29 weeks . No OTC meds used. No home COVID test done. Chest sometimes garg with cough. No fever. She does have a history of asthma. No wheezing. Review of Systems Constitutional: Negative. HENT: Positive for congestion, ear pain, postnasal drip, sinus pressure and sore throat. Respiratory: Positive for cough. Negative for shortness of breath. Cardiovascular: Negative. Gastrointestinal: Negative. Genitourinary: Negative. Musculoskeletal: Negative. Neurological: Positive for headaches. All other systems reviewed and are negative. PAST MEDICAL HISTORY Diagnosis Date anxiety Asthma fibrocystic breast disease Genetic testing 04/28/2009 Negative for 32 Mutuations of CF Herpes simplex virus (HSV) infection History of pre-eclampsia in prior , currently PCOS (polycystic ovarian syndrome) SAB (spontaneous ) 2019 Seasonal allergies Current Outpatient Medications Medication Sig Dispense Refill aspirin, enteric coated (ASPIRIN, ENTERIC COATED) 81 mg EC tablet Take 81 mg by mouth once daily. ascorbic acid (VITAMIN C ORAL) Take by mouth. MAGNESIUM ORAL Take by mouth. mv-min/vit C/glut/lysine/hb124 (IMMUNE SUPPORT ORAL) Take 1 capsule by mouth once daily. Iubjiofl-Ji-Wuq-Fe-FA ( VITAMIN) tab Take 1 tablet by mouth. amoxicillin (AMOXIL) 875 mg tablet Take 1 tablet by mouth two times a day for 7 days. 14 tablet 0 No current facility-administered medications for this visit. PAST SURGICAL HISTORY Procedure Laterality Date APPENDECTOMY 2011 SUCTION D AND C 01/15/2021 Retained placenta FAMILY HISTORY Problem Relation Age of Onset Thyroid Mother Kidney Disease Mother stage 3 other (pcos) Mother Cystic Fibrosis Father Heart Attack Father other (pcos) Sister No Known Problems Sister No Known Problems Sister Seizures Sister Asthma Brother other (heart murmur) Brother No Known Problems Brother No Known Problems Brother Heart Maternal Grandmother Thyroid Maternal Grandmother other (renal cancer) Maternal Grandmother Cardiomyopathy Maternal Grandmother No Known Problems Maternal Grandfather No Known Problems Paternal Grandmother Heart Paternal Grandfather Asthma Son Thyroid Maternal Aunt Asthma Daughter Social History Tobacco Use Smoking status: Former Packs/day: 0.50 Years: 4.00 Additional pack years: 0.00 Total pack years: 2.00 Types: Cigarettes Quit date: 03/31/2017 Years since quittin.4 Smokeless tobacco: Never Tobacco comments: quit over one year ago (2017) Vaping Use Vaping Use: Former Quit date: 06/03/2017 Substance Use Topics Alcohol use: Not Currently Comment: rare Drug use: No Objective BP 110/74 Pulse 106 Temp 36.4 ?C (97.6 ?F) (Tympanic) Resp 18 Wt 98.3 kg (216 lb 12.8 oz) LMP 03/02/2023 (Exact Date) SpO2 98% BMI 36.08 kg/m? Physical Exam Vitals reviewed. Constitutional: Appearance: Normal appearance. HENT: Head: Normocephalic and atraumatic. Right Ear: Tympanic membrane, ear canal and external ear normal. Left Ear: Tympanic membrane, ear canal and external ear normal. Nose: Congestion present. Mouth/Throat: Mouth: Mucous membranes are moist. Pharynx: Oropharynx is clear. Cardiovascular: Rate and Rhythm: Normal rate and regular rhythm. Heart sounds: Normal heart sounds. Pulmonary: Effort: Pulmonary effort is normal. Breath sounds: Normal breath sounds. Musculoskeletal: Cervical back: Neck supple. Lymphadenopathy: Cervical: No cervical adenopathy. Skin: General: Skin is warm and dry. Findings: No rash. Neurological: Mental Status: She is alert. Assessment and Plan ASSESSMENT/PLAN: 1. URI, acute - ICD9: 465.9, ICD10: J06.9 (primary diagnosis) - Discussed viral etiology and rationale for treatment. - Group A strep molecular testing negative - Symptomatic treatment with prn analgesia - Supportive care with fluids and rest - Follow up in 3-5 days if symptoms persist or sooner if worsening of symptoms - COVID AND INFLUENZA A/B AND RSV NAAT, ROUTINE 2. Sinus congestion - ICD9: 478.19, ICD10: R09.81 Patient has had sinus congestion for about a week. Discussed with her it is likely still viral at this point however if does not improve over the next 3 to 5 days or worsens a printed prescription for amoxicillin was given. Discussed OTC meds that can help with symptoms. Patient did want a COVID and fl (more content not included)... [facility] 09-14-2023 Note HNO ID: [id number] Author: Viry Lawson RN Service: ? Author Type: Registered Nurse Type: Progress Notes Filed: 09/15/2023 8:07 AM Note Text: Deyanira Diamond 27 year old is here for her injection of Rhophylac. Deyanira Diamond ABO/RH(D) (no units) Date Value 07/15/2020 A NEGATIVE Antibody Screen (no units) Date Value 05/25/2023 Negative 10/28/2020 NEG Deyanira Diamond is RH Negative Rhophylac was given without incident. See immunizations for details of immunizations administered today. Provider Smita Booker CNM was present in office at time of injection Deyanira Diamond was given her Rhophylac pocket card. VIRY LAWSON RN [facility] 09-14-2023 Note HNO ID: [id number] Author: Michael Morelos Cma Service: ? Author Type: ? Type: Progress Notes Filed: 09/15/2023 8:07 AM Note Text: Patient identified by name and date of . Deyanira Diamond presents today for a vaccination of Tdap. Patient denies an allergy to latex: yes Patient denies a severe (life-threatening) allergy to a previous dose of Tdap, DTP, DTaP, DT or Td vaccine. Yes Patient denies history of epilepsy or neurological problems: Yes Patient is afebrile and denies being moderately or severely ill: Yes Patient denies history of Guillain-Tully Syndrome (a severe paralytic illness): Yes Tdap Adacel injection was given without incident. See immunizations for details of immunizations administered today. VIS sheet provided: Yes Provider Smita Booker APRN CNM was present in office at time of injection. Michael Morelos Cma [facility] 09-14-2023 Miscellaneous Notes Patient to be assessed today in office. Smita Booker APRN.CNM documented in this encounter [facility] 09-05-2023 Note HNO ID: [id number] Author: Dolores Patrick APRN.CNM Service: ? Author Type: Wafer Fabricator Type: Progress Notes Filed: 09/05/2023 2:22 PM Note Text: ANGEL-S: Deyanira Diamond is a 27 year old female who presents at 26w5d with IRENE:12/07/2023, by Last Menstrual Periodfor a routine visit. Good FM. Denies headache, visual changes, chest pain, shortness of breath, vaginal bleeding, leakage of fluid, or dysuria. Was having lower back pain and lower suprapubic pain. Worked long shift yesterday and increased discomfort after shift. O: See flow sheet Gen: No apparent distress Abd: Gravid, nontender ASSESSMENT/PLAN: 1. Pelvic pressure in - ICD9: 646.83, 625.9, ICD10: O26.899, R10.2 (primary diagnosis) - URINE CULTURE 2. 26 weeks gestation of - ICD9: V22.2, ICD10: Z3A.26 P: 1) PTL precautions reviewed and when to call 2) RTO as scheduled 3) Reviewed musculoskeletal complaints, rest, hydration, abdominal support belt, massage. 4) Urine negative, will still send for culture. [facility] 09-05-2023 History of Presen t illness Narrative ANGEL-S: Deyanira Diamond is a 27 year old female who presents at 26w5d with IRENE:12/07/2023, by Last Menstrual Periodfor a routine visit. Good FM. Denies headache, visual changes, chest pain, shortness of breath, vaginal bleeding, leakage of fluid, or dysuria. Was having lower back pain and lower suprapubic pain. Worked long shift yesterday and increased discomfort after shift. O: See flow sheet Gen: No apparent distress Abd: Gravid, nontender ASSESSMENT/PLAN: 1. Pelvic pressure in - ICD9: 646.83, 625.9, ICD10: O26.899, R10.2 (primary diagnosis) - URINE CULTURE 2. 26 weeks gestation of - ICD9: V22.2, ICD10: Z3A.26 P: 1) PTL precautions reviewed and when to call 2) RTO as scheduled 3) Reviewed musculoskeletal complaints, rest, hydration, abdominal support belt, massage. 4) Urine negative, will still send for culture. documented in this encounter [facility] 09-05-2023 Michael Hermosillo Cma - 09/05/2023 11:54 AM EST SEQUENTIAL SCREENINGS The [facility] offers sequential screenings for women who are interested in screenings for chromosomal abnormalities and certain defects during a . The sequential screen combines ultrasound and blood tests to determine the risk of chromosomal abnormalities, including Down's Syndrome (Trisomy 21) and Trisomy 18, as well as open neural tube defects including spina bifida. Ultrasound examination is performed between 11 weeks and 13 weeks gestational age. Blood tests are drawn after the ultrasound and again later in the between 15 and 21 weeks gestational age. Please let your physician know if you are interested in this testing. It will require an appointment with our sound engineering technician. This is not an ultrasound performed by a physician in our office during a routine visit. SIGNS AND SYMPTOMS OF LABOR 1. Contractions every 10 minutes or more often 2. Clear, pink, or brownish fluid (water) leaking from vagina 3. Feeling that baby is pushing down, pressure 4. Low, dull backache 5. Cramps that feel like a period 6. Cramps with or without diarrhea If you notice any of the above symptoms, contact our office at [phone] and ask to speak with a nurse. After hours, you can call doctors registry at [phone] OR call [facility] at [phone] and ask to have the doctor media consultant paged. If you consider this an emergency, dial 2-9- or go to your nearest emergency department. NEED HELP? Are you dealing with a violent or abusive relationship? Are you a victim of rape or sexual assult? Call [facility] ([place]) 24 hour Crisis Hotline: 427.989.1399 or 884-828-5814. MANUAL Your Guide to a Healthy manual is now on-line. Visit [email or web address] Nidia to download your free copy documented in this encounter [facility] 08-15-2023 Miscellaneous Notes 2nd risk assessment form submitted 08/15/2023. Luda Galvan RN documented in this encounter [facility] 08-10-2023 Miscellaneous Notes S: Deyanira Diamond is a 27 year old female who presents at 23 weeks gestation for a routine visit. Denies headache, visual changes, chest pain, shortness of breath, vaginal bleeding, leakage of fluid, or dysuria. C/O increased dizziness when standing. Discussed compression stockings. Stated feels like belly has popped out. Feeling much larger than last visit. O: See flow sheet Gen: No apparent distress Abd: Gravid, non tender S>D- today was first measurement ASSESSMENT/PLAN: 1. 23 weeks gestation of - ICD9: V22.2, ICD10: Z3A.23 (primary diagnosis) 2. Subchorionic hematoma in second trimester, single or unspecified fetus - ICD9: 656.83, ICD10: O41.8X20, O46.8X2 3. History of pre-eclampsia in prior , currently - ICD9: V23.49, ICD10: O09.299 4. Uterine size discrepancy - Measuring 5 weeks ahead - Growth US already scheduled for 30 weeks (due to subchorionic hematoma) P: 1) PTL precautions reviewed and when to call 2) RTO 4 weeks for DAWOOD with GCT Smita Booker APRN.CNM documented in this encounter [facility] 08-10-2023 Instructions Kasia Escudero MA - 08/10/2023 12:57 PM EST SEQUENTIAL SCREENINGS The [facility] offers sequential screenings for women who are interested in screenings for chromosomal abnormalities and certain defects during a . The sequential screen combines ultrasound and blood tests to determine the risk of chromosomal abnormalities, including Down's Syndrome (Trisomy 21) and Trisomy 18, as well as open neural tube defects including spina bifida. Ultrasound examination is performed between 11 weeks and 13 weeks gestational age. Blood tests are drawn after the ultrasound and again later in the between 15 and 21 weeks gestational age. Please let your physician know if you are interested in this testing. It will require an appointment with our sound engineering technician. This is not an ultrasound performed by a physician in our office during a routine visit. SIGNS AND SYMPTOMS OF LABOR 1. Contractions every 10 minutes or more often 2. Clear, pink, or brownish fluid (water) leaking from vagina 3. Feeling that baby is pushing down, pressure 4. Low, dull backache 5. Cramps that feel like a period 6. Cramps with or without diarrhea If you notice any of the above symptoms, contact our office at [phone] and ask to speak with a nurse. After hours, you can call doctors registry at [phone] OR call [facility] at [phone] and ask to have the doctor media consultant paged. If you consider this an emergency, dial 9- or go to your nearest emergency department. NEED HELP? Are you dealing with a violent or abusive relationship? Are you a victim of rape or sexual assult? Call [facility] ([place]) 24 hour Crisis Hotline: 335.706.9979 or 580-066-5433. MANUAL Your Guide to a Healthy manual is now on-line. Visit [email or web address] to download your free copy documented in this encounter [facility] 08-05-2023 Miscellaneous Notes Patient notified. Advised to call if worsening symptoms. Luda Pathak RN If patient is feeling better ok to follow up next week. Dolores Patrick APRN.CNM Ob patient is 22w2d and was seen at ED today d/t feeling dizzy at work. Patient reports I would of fainted if I didn't lay down Patient states ED completed Ekg and labs and was told that everything was ok. Patient states that baby is active and FHTs were checked at ED per patient. ED report is not finalized yet. Patient's next ob appointment is 08/10 with Smita Booker. Please advise. documented in this encounter [facility] 08-04-2023 Note HNO ID: [id number] Author: Cami Guerrier APRN.JOB SPOTTER Service: ? Author Type: Nurse Practitioner Type: Progress Notes Filed: 08/04/2023 1:57 PM Note Text: 08/04/2023 Patient presents with: Dizziness Shortness of Breath SUBJECTIVE: This is a 27 year old that is here today for Above Complaints.. Dizziness: Has had spells of dizziness like this before. Reports for the last week she has had intermittent bouts of dizziness described as feeling off. Can be aggravating with moving. Can last up to a couple of hours but the one day it was all day. Admits she can have some brief movements she feels her heart is racing when it happens. Reports this same thing happened a few years back and she wore a engine monitor and it didn't show anything. Denies accompanying visual changes, headaches, SOB, dyspnea, chest pain, nausea or vomiting. Also denies recent lightheadedness, syncope, presyncope, URI symptoms, tinnitus or hearing loss. No current dizziness SOB: started about a week ago. At night when she is really tired she feels like she can't take a really deep breath. Chest can feel tight with it. Can last a couple of hours. Improved when lays down and rests. Denies anxiety, dyspnea, wheezing cough accompanying lightheadedness, dizziness, presyncope, syncope, chest pain or palpitations. No other SOB with her daily activities. Does have hx of asthma but she reports she has not used an inhaler in years. She is currently 22 weeks . She thinks her BP has been fine at her appointment. She eats regular meals and stays to stay hydrated. PAST MEDICAL HISTORY Diagnosis Date anxiety Asthma fibrocystic breast disease Genetic testing 04/28/2009 Negative for 32 Mutuations of CF Herpes simplex virus (HSV) infection History of pre-eclampsia in prior , currently PCOS (polycystic ovarian syndrome) SAB (spontaneous ) 2019 Seasonal allergies ALLERGIES Patient has no known allergies. MEDICATIONS Current Outpatient Medications Medication Sig ascorbic acid (VITAMIN C ORAL) Take by mouth. MAGNESIUM ORAL Take by mouth. mv-min/vit C/glut/lysine/hb124 (IMMUNE SUPPORT ORAL) Take 1 capsule by mouth once daily. Vfahxywf-Nf-Ttd-Fe-FA ( VITAMIN) tab Take 1 tablet by mouth. No current facility-administered medications for this visit. Medications and allergies reviewed by this provider. SOCIAL HISTORY Social History Tobacco Use Smoking status: Former Packs/day: 0.50 Years: 4.00 Additional pack years: 0.00 Total pack years: 2.00 Types: Cigarettes Quit date: 03/31/2017 Years since quittin.3 Smokeless tobacco: Never Tobacco comments: quit over one year ago (2017) Vaping Use Vaping Use: Former Quit date: 06/03/2017 Substance Use Topics Alcohol use: Not Currently Comment: rare Drug use: No REVIEW OF SYSTEMS All other reviewed and negative other than HPI. OBJECTIVE: BP 106/66 Pulse 80 Temp 36.8 ?C (98.2 ?F) Resp 16 Wt 89.7 kg (197 lb 12.8 oz) LMP 03/02/2023 (Exact Date) SpO2 98% BMI 32.92 kg/m? . Vital signs reviewed by this provider. APPEARANCE Well appearing, alert, in no acute distress, well-hydrated, well nourished. EYES PERRLA, conjunctiva and sclera normal. EARS External ears normal, canals clear NECK Supple, no adenopathy; thyroid symmetric, normal size, no bruits HEART RRR with normal S1 and S2, no murmurs, no gallops, no JVD appreciated LUNG clear to auscultation EXTREMITIES Extremities normal, No deformities, No skin discoloration, and No edema NEURO Awake, alert and oriented x 3, Cranial nerves II-XII grossly intact, Reflexes symmetrical, Normal gait, No involuntary motions., and negative findings: speech normal, mental status intact, gait, including heel, toe, and tandem walking normal, Romberg negative, muscle tone normal, muscle strength normal, rapid alternating movements normal, finger to nose normal, reflexes normal and symmetric, plantar response downgoing bilaterally SKIN Skin color, texture, turgor normal, no suspicious rashes or lesions to exposed skin Covid-19 Vaccine(1) Never done HPV Vaccine(3 - 3-dose series) due on 01/04/2019 Depression Assessment Never done Influenza Vaccine(1) due on 06/03/2023 Pap Testing due on 05/06/2026 DTaP,Tdap,Td Vaccine(8 - Td or Tdap) due on 10/28/2030 Hepatitis B Vaccine Completed Hepatitis C Screening Completed HIV Screening Completed ASSESSMENT/PLAN: 1. Dizziness - ICD9: 780.4, ICD10: R42 (primary diagnosis) - possible BPPV, consider electrolyte imbalance vs anemia vs thyroid. Normal EKG. Do not suspect cardiac origin - no red flag symptoms or exam findings - ECG COMPLETE - ECG COMPLETE - TSH BLD - COMP METABOLIC PANEL - CBC + DIFF - stay well hydrated and eat regular meals. If persists can send to PT, to ER with red flag symptoms 2. SOB (shortness of breath) - ICD9: 786.05, ICD10: R06.02 (more content not included)... [facility] 07-27-2023 Miscellaneous Notes Patient needs AFP labs drawn within next 5 days. Order is placed. Please notify patient she will need to come to lab to have drawn. Thank you! Smita Bokoer APRN.CNM documented in this encounter [facility] 07-13-2023 Miscellaneous Notes Deyanira Diamond is a 27 year old female who presents at 19w0d for a routine visit. Just completed anatomy US. Still had consistent small amounts of dark brown, old blood last week. No bleeding this week. Still on pelvic rest. Stopped . Positive movement. Denies headache, visual changes, chest pain, shortness of breath, vaginal bleeding, leakage of fluid, or dysuria. Discussed taking ASA due to history of preeclampsia. Feeling well, no complaints. Size appropriate for dates. 6 lbs TWG. labor and bleeding precautions reviewed. RTC in 4 weeks or sooner if needed. Smita Booker APRN.CNM documented in this encounter [facility] 10-11-2023 Instructions Kasia Escudero MA - 07/13/2023 10:23 AM EDT SEQUENTIAL SCREENINGS The [facility] offers sequential screenings for women who are interested in screenings for chromosomal abnormalities and certain defects during a . The sequential screen combines ultrasound and blood tests to determine the risk of chromosomal abnormalities, including Down's Syndrome (Trisomy 21) and Trisomy 18, as well as open neural tube defects including spina bifida. Ultrasound examination is performed between 11 weeks and 13 weeks gestational age. Blood tests are drawn after the ultrasound and again later in the between 15 and 21 weeks gestational age. Please let your physician know if you are interested in this testing. It will require an appointment with our sound engineering technician. This is not an ultrasound performed by a physician in our office during a routine visit. SIGNS AND SYMPTOMS OF LABOR 1. Contractions every 10 minutes or more often 2. Clear, pink, or brownish fluid (water) leaking from vagina 3. Feeling that baby is pushing down, pressure 4. Low, dull backache 5. Cramps that feel like a period 6. Cramps with or without diarrhea If you notice any of the above symptoms, contact our office at [phone] and ask to speak with a nurse. After hours, you can call doctors registry at [phone] OR call [facility] at [phone] and ask to have the doctor media consultant paged. If you consider this an emergency, dial 9-1-1 or go to your nearest emergency department. NEED HELP? Are you dealing with a violent or abusive relationship? Are you a victim of rape or sexual assult? Call [facility] 24 hour Crisis Hotline: 398.694.2445 or 170-102-3246. MANUAL Your Guide to a Healthy manual is now on-line. Visit [email or web address] to download your free copy documented in this encounter [facility] 06-23-2023 Miscellaneous Notes RR- VB No. LOF No. CTXS No. Movement: present. Other c/o: some cramping. Some increased discharge. Dx w/ subchorionic hemorrhage. Medication list reviewed. Physical Exam See Flow Sheet Abd: soft, nontender, gravid : external genitalia: normal, small amount of dark mucous discharge Ext: edema: no A/P 16w1d Estimated Date of Delivery: 12/07/23 rh neg. had rh prophylaxis within past month f/u in as scheduled or prn. Anatomy US scheduled. . reassured, call if bleeding worsens Esther Banda M.D. documented in this encounter [facility] 06-23-2023 Instructions Marcy Mark Ma - 06/23/2023 1:20 PM EDT SEQUENTIAL SCREENINGS The [facility] offers sequential screenings for women who are interested in screenings for chromosomal abnormalities and certain defects during a . The sequential screen combines ultrasound and blood tests to determine the risk of chromosomal abnormalities, including Down's Syndrome (Trisomy 21) and Trisomy 18, as well as open neural tube defects including spina bifida. Ultrasound examination is performed between 11 weeks and 13 weeks gestational age. Blood tests are drawn after the ultrasound and again later in the between 15 and 21 weeks gestational age. Please let your physician know if you are interested in this testing. It will require an appointment with our sound engineering technician. This is not an ultrasound performed by a physician in our office during a routine visit. SIGNS AND SYMPTOMS OF LABOR 1. Contractions every 10 minutes or more often 2. Clear, pink, or brownish fluid (water) leaking from vagina 3. Feeling that baby is pushing down, pressure 4. Low, dull backache 5. Cramps that feel like a period 6. Cramps with or without diarrhea If you notice any of the above symptoms, contact our office at [phone] and ask to speak with a nurse. After hours, you can call doctors registry at [phone] OR call [facility] at [phone] and ask to have the doctor media consultant paged. If you consider this an emergency, dial 06-03- or go to your nearest emergency department. NEED HELP? Are you dealing with a violent or abusive relationship? Are you a victim of rape or sexual assult? Call [facility] ([place]) 24 hour Crisis Hotline: 821.916.3138 or 503-857-0426. MANUAL Your Guide to a Healthy manual is now on-line. Visit [email or web address] to download your free copy documented in this encounter [facility] 06-14-2023 Miscellaneous Notes Pt notified and voiced understanding and no further questions or concerns voiced. Christy Hall LPN Brown spotting is very common with a resolving subchorionic hematoma. She should continue to monitor and call with increased bleeding. Katerine Chandler MD 14w6d Patient calling with update. She has been on pelvic rest for about 3 weeks d/t subchorionic hematoma. Last night she started having brown spotting again with wiping. Still having a little this morning yet. Has not needed to wear a pad with it at all. No cramping, but does have dull ache LLQ since last night too. Had NT u/s and visit with CP 06/08/23. Next visit 07/13/23. Asking if she needs to do anything before that or continue to monitor? Aviva Lutz RN documented in this encounter [facility] 06-10-2023 Miscellaneous Notes Letter created as directed and faxed to number listed. Pt aware that letter is being faxed. Christy Hall LPN Please send letter with 25 lbs lifting restrictions. Smita Booker APRN.CNM Ob patient is 14w1d and called stating that her employer is letting her do light duty at work d/t subchorionic hematoma noted on ultrasound. Patient states that letter needs to mention lifting and bending restrictions. Letter needs faxed to [phone] Attention: Dolores Chris Patient aware that provider is out of the office today documented in this encounter [facility] 06-08-2023 Note HNO ID: [id number] Author: Luda Pathak RN Service: ? Author Type: ? Type: Progress Notes Filed: 06/08/2023 2:40 PM Note Text: Patient here for First Trimester Screening. See ultrasound report for details. Options for genetic screening and diagnosis discussed with the patient. Patient opts for first trimester screening and the sequential screening protocol. Limitations of screening tests discussed with the patient. Smita Booker APRN.CNM [facility] 06-08-2023 Miscellaneous Notes Addended by: SMITA BOOKER on: 06/08/2023 02:50 PM Modules accepted: Orders Per Dr. Oliver, MaterniT 21 and KB lab work recommended to be drawn today. Orders changed and lab notified. Smita Booker APRN.CNM Deyanira Diamond is a 27 year old female who presents at 14w0d for a routine visit. Just completed NT US. Subchorionic hematoma noted and measures at 8cm. No further vaginal bleeding or cramping. Still on pelvic rest. Continues to breastfeed daughter and is trying to completely wean. Started feeling movement. Denies headache, visual changes, chest pain, shortness of breath, vaginal bleeding, leakage of fluid, or dysuria. Feeling well, no complaints. Size appropriate for dates. 1 lb TWG. PTL/ Bleeding precautions reviewed. RTC in 4 weeks for DAWOOD, labs anatomy US. Smita Booker APRN.CNM documented in this encounter [facility] 06-08-2023 History of Presen t illness Narrative Patient here for First Trimester Screening. See ultrasound report for details. Options for genetic screening and diagnosis discussed with the patient. Patient opts for first trimester screening and the sequential screening protocol. Limitations of screening tests discussed with the patient. Smita Booker APRN.CNM documented in this encounter [facility] 06-08-2023 Instructions Michael Morelos Cma - 06/08/2023 2:16 PM EDT SEQUENTIAL TESTING PROCESS Sequential Screen First Trimester Today you are currently: 14w0d weeks 06/08/2023: Ultrasound and blood test. Sequential Screen Second Trimester (16-17 Weeks Gestation) When you are called with your results, the nurse will give the optimal draw dates for the Sequential screen second trimester. Blood testing can be done at any [facility] lab. Please report to the any physical science professor office front edger for the Sequential Part 2 requisition and order before reporting to the lab. Your weight will need to be documented for testing. Please note: -No appointment is need for your second blood draw. -Office hours are 8 am to 4:30 pm. -Please have testing done prior to 12 noon on Tuesday's -Once the sequential testing is started, in the first trimester the only follow-up will be for the sequential screen second trimester. Please don't have a Quad screen ordered by another provider. If you or your Provider have any questions please call your maternal medicine office, for east side please call [phone] or for the West side call [phone] and ask for the the nurse. Thank you. SEQUENTIAL SCREENINGS The [facility] offers sequential screenings for women who are interested in screenings for chromosomal abnormalities and certain defects during a . The sequential screen combines ultrasound and blood tests to determine the risk of chromosomal abnormalities, including Down's Syndrome (Trisomy 21) and Trisomy 18, as well as open neural tube defects including spina bifida. Ultrasound examination is performed between 11 weeks and 13 weeks gestational age. Blood tests are drawn after the ultrasound and again later in the between 15 and 21 weeks gestational age. Please let your physician know if you are interested in this testing. It will require an appointment with our sound engineering technician. This is not an ultrasound performed by a physician in our office during a routine visit. SIGNS AND SYMPTOMS OF LABOR 1. Contractions every 10 minutes or more often 2. Clear, pink, or brownish fluid (water) leaking from vagina 3. Feeling that baby is pushing down, pressure 4. Low, dull backache 5. Cramps that feel like a period 6. Cramps with or without diarrhea If you notice any of the above symptoms, contact our office at [phone] and ask to speak with a nurse. After hours, you can call doctors registry at [phone] OR call [facility] at [phone] and ask to have the doctor media consultant paged. If you consider this an emergency, dial 6-7-4 or go to your nearest emergency department. NEED HELP? Are you dealing with a violent or abusive relationship? Are you a victim of rape or sexual assult? Call [facility] ([place]) 24 hour Crisis Hotline: 252.312.5825 or 976-764-6501. MANUAL Your Guide to a Healthy manual is now on-line. Visit [email or web address] to download your free copy documented in this encounter [facility] 05-25-2023 Miscellaneous Notes Yes, it is appropriate for her to stop taking until further notice. Thank you. Smita Booker APRN.CNM Ob patient is 12w0d and seen at office today. Patient asking if she should begin taking OTC aspirin beginning at 12 weeks as advised at last appointment or if she should wait d/t currently vaginal bleeding. Can leave a detailed message on voicemail if no answer documented in this encounter [facility] 05-25-2023 Note HNO ID: [id number] Author: Aviva Lutz RN Service: ? Author Type: ? Type: Progress Notes Filed: 05/25/2023 3:33 PM Note Text: Deyanira Diamond 27 year old is here for her injection of Rhophylac. Deyanira Diamond ABO/RH(D) (no units) Date Value 07/15/2020 A NEGATIVE Antibody Screen (no units) Date Value 10/28/2020 NEG Deyanira Diamond is RH Negative Rhophylac was given without incident. See immunizations for details of immunizations administered today. Provider Dr. Banda was present in office at time of injection Deyanira Diamond was given her Rhophylac pocket card. Aviva Lutz RN [facility] 05-25-2023 Miscellaneous Notes Patient notified and scheduled with CP. Advised to call office if bleeding becomes heavy or more severe pain occurs prior to appointment. Aviva Lutz RN CP has two 30 min OB patients in the afternoon- you can double book this patient in one of those slots please. 12w0d Calling regarding bleeding and cramping that started around 4am today. Wearing panty liner and has had a few 50 cent piece clots between using restroom. Notices more bleeding in toiler and with wiping then. Rates her cramping 2/10 on the pain scale. No available openings with providers today. Please advise. Aviva Lutz RN documented in this encounter [facility] 05-24-2023 Note HNO ID: [id number] Author: Cami Guerrier APRN.JOB SPOTTER Service: ? Author Type: Nurse Practitioner Type: Progress Notes Filed: 05/24/2023 12:18 PM Note Text: Telemedicine Evaluation for COVID-19 Infection MyChart video visit was used for evaluation of this patient. I have communicated my name and active licensure. The patient's identity and physical location were verified at the time of this visit. Either the patient or their legal industrial sales representative has been informed of the risks and benefits of -- and alternatives to -- treatment through a remote evaluation and consents to proceed with the evaluation remotely. SUBJECTIVE Deyanira Diamond is a 27 year old female who presents with 5 days of symptoms that are stable. Patient is 12 weeks Symptoms include: Fever (?100.4F): No or Chills: Yes Cough: No Shortness of breath: No or Difficulty breathing: No Fatigue: No Muscle aches: Yes Headache: Yes New loss of smell or taste: No Sore throat: Yes Nasal congestion: Yes or Rhinorrhea: No Nausea: No or Vomiting: No Diarrhea: Yes OTC meds/remedies that patient has tried: allergy medicine . High risk category assessment Exposures: Sick contacts? No Family or close contacts with confirmed/probable COVID-19 in last 14 days? No OBJECTIVE VIDEO EXAM GENERAL: well appearing, alert, in no acute distress HEENT: no conjunctival injection, pupils equal, moist mucous membranes, oropharynx clear without erythema, and no cervical adenopathy by self-palpation PULMONARY: breathing comfortably on room air , no coughing noted, no wheezing noted, and able to speak in full sentences without difficulty ASSESSMENT/PLAN 1. Symptoms of upper respiratory infection (URI) - ICD9: 786.09, ICD10: R09.89 - no red flag symptoms or exam findings - red flag symptoms discussed, verbalizes understanding - recommend saline nasal spray, Flonase nasal spray and may use Claritin as directed on packaging - may use warm tea with honey and lemon and throat lozenges - COVID AND INFLUENZA A/B AND RSV NAAT, ROUTINE - follow-units pending testing, to ER with red flag symptoms - Patient scheduled for testing at the time of visit. Cami Guerrier APRN.SHOAIB This patient encounter involved the screening or treatment of novel coronavirus infection (COVID-19). Prescription instructions reviewed with patient as applicable. Patient advised if symptoms do not improve or if symptoms worsen sooner, to contact their primary care physician. Potential red flag symptoms discussed with the patient. Reviewed appropriate action plan to take if red flag symptoms occur. Patient agreeable to treatment plan. I spent a total of 20 minutes on the date of the service which included preparing to see the patient, [id number] patient care, completing clinical documentation, obtaining and/or reviewing separately obtained history, performing a medically appropriate examination, counseling and educating the patient/family/caregiver, and ordering medications, tests, or procedures. [facility] 05-24-2023 History of Presen t illness Narrative Telemedicine Evaluation for COVID-19 Infection MyChart video visit was used for evaluation of this patient. I have communicated my name and active licensure. The patient's identity and physical location were verified at the time of this visit. Either the patient or their legal industrial sales representative has been informed of the risks and benefits of -- and alternatives to -- treatment through a remote evaluation and consents to proceed with the evaluation remotely. SUBJECTIVE Deyanira Diamond is a 27 year old female who presents with 5 days of symptoms that are stable. Patient is 12 weeks Symptoms include: Fever (?100.4F): No or Chills: Yes Cough: No Shortness of breath: No or Difficulty breathing: No Fatigue: No Muscle aches: Yes Headache: Yes New loss of smell or taste: No Sore throat: Yes Nasal congestion: Yes or Rhinorrhea: No Nausea: No or Vomiting: No Diarrhea: Yes OTC meds/remedies that patient has tried: allergy medicine . High risk category assessment Exposures: Sick contacts? No Family or close contacts with confirmed/probable COVID-19 in last 14 days? No OBJECTIVE VIDEO EXAM GENERAL: well appearing, alert, in no acute distress HEENT: no conjunctival injection, pupils equal, moist mucous membranes, oropharynx clear without erythema, and no cervical adenopathy by self-palpation PULMONARY: breathing comfortably on room air , no coughing noted, no wheezing noted, and able to speak in full sentences without difficulty ASSESSMENT/PLAN 1. Symptoms of upper respiratory infection (URI) - ICD9: 786.09, ICD10: R09.89 - no red flag symptoms or exam findings - red flag symptoms discussed, verbalizes understanding - recommend saline nasal spray, Flonase nasal spray and may use Claritin as directed on packaging - may use warm tea with honey and lemon and throat lozenges - COVID & INFLUENZA A/B & RSV NAAT, ROUTINE - follow-units pending testing, to ER with red flag symptoms - Patient scheduled for testing at the time of visit. Cami Guerrier APRN.CNP This patient encounter involved the screening or treatment of novel coronavirus infection (COVID-19). Prescription instructions reviewed with patient as applicable. Patient advised if symptoms do not improve or if symptoms worsen sooner, to contact their primary care physician. Potential red flag symptoms discussed with the patient. Reviewed appropriate action plan to take if red flag symptoms occur. Patient agreeable to treatment plan. I spent a total of 20 minutes on the date of the service which included preparing to see the patient, [id number] patient care, completing clinical documentation, obtaining and/or reviewing separately obtained history, performing a medically appropriate examination, counseling and educating the patient/family/caregiver, and ordering medications, tests, or procedures. documented in this encounter [facility] 05-24-2023 Miscellaneous Notes Reviewed. Cami Guerrier APRN.CNP Patient calling to state she has developed respiratory sx's and was advised by her LABOR CUSTODIAN to contact PCP office for evaluating. Patient is currently . Reports sx's began a few days ago but might be 4-5 days ago. Symptoms: -nasal stuffiness feels like a sinus infection -body aches -headache -mild throat soreness especially in mornings -hot and cold -has not taken temperature -nausea -dizzy at times -diarrhea -denies cough -denies SOB Virtual appt made with Cami Guerrier CNP for today. Please call patient if VV not appropriate or if provider has other recommendations. Thank you. documented in this encounter [facility] 05-10-2023 Miscellaneous Notes Initial risk assessment form submitted 05/10/2023 documented in this encounter [facility] 05-06-2023 Note HNO ID: [id number] Author: Smita Booker APRN.CNM Service: ? Author Type: Wafer Fabricator Type: Progress Notes Filed: 05/06/2023 9:40 AM Note Text: OB point of care ultrasound was performed. See imaging tab for details. Smita Booker APRN.CNM [facility] 05-06-2023 Note HNO ID: [id number] Author: Smita Booker APRN.CNM Service: ? Author Type: Wafer Fabricator Type: Progress Notes Filed: 05/06/2023 9:39 AM Note Text: INITIAL OB ASSESSMENT OB Provider: Smita Booker APRN CNM HPI: Deyanira is a 27 year old White Female here to establish Obstetrical Care. Patient's last menstrual period was 03/02/2023 (exact date). from OB Dating Form. Cycles regular was planned. She has 13 year old son and 2 year old daughter Complaints: None OB History T2 L2 SAB2 IAB0 Ectopic0 Multiple0 Live Births2 Previous history: Prior : never History of 4th degree laceration: No History of shoulder dystocia: No History of Hypertensive disorders including pre-eclampsia, chronic hypertension or gestational hypertension: Yes Pre - E most recent History of gestational diabetes: No Patient's Risk Screening for delivery: Have you had a prior matias between 20w and 36w6d?: No MEDICAL/PSYCHOSOCIAL HISTORY: History of hemorrhage or bleeding concerns: No Thyroid Disease: No History of chronic hypertension: No History of pre-existing diabetes: No ABO/RH(D) Date Value Ref Range Status 07/15/2020 A NEGATIVE Final BMI 29.79 kg/(m2) History of abnormal pap: No Prior treatment for cervical dysplasia: none. History of STDs: None Tobacco use: No Caffeine use: Yes, coffee 2 cups per day Drug use: No Alcohol use: No Multivitamin with Folic acid: Yes Roman Catholic or heritage: No Would refuse blood transfusion if medically necessary: No Are you currently employed? Yes, Occupation: [employer] Do you have any history of depression, anxiety, PTSD, eating disorders or other mood problems: No Do you have any safety concerns or history of traumatic events that you would like to discuss with your provider: No How often does this describe you? I don't have enough money to pay my bills: Never Within the past 12 months, have you worried that your food would run out before you had money to buy more: Never In the past 12 months, has lack of reliable transportation kept you from going to medical appointments or work, or from keeping things needed for daily living: Never In the past 12 months, have you had any concerns about having a place to live, or about the condition or quality of your housing: Never Are there any cultural or spiritual needs we should be aware of: No Depression: denies symptoms of depression. OB Depression and Anxiety Screening- This Encounter (since 05/05/2023) Over the past 2 weeks have you felt down, depressed, or hopeless? Negative Over the past two weeks, have you felt little interest or pleasure in doing things?? 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 Sfmtjieu-Yp-Ath-Fe-FA ( VITAMIN) tab Take 1 tablet by mouth. SUMAtriptan (IMITREX) 50 mg tablet Take 1 tablet for migraine headache. May repeat dose in 2 hours. Max 200 mg every 24 hours. (Patient not taking: Reported on 04/28/2023) 9 tablet 3 Norethin Jacob-Eth Estrad-FE (JUNEL FE 10/22, ,) 1 mg-20 mcg (21)/75 mg (7) per tablet Take 1 tablet by mouth once daily. 84 tablet 3 fluticasone-salmeterol (ADVAIR DISKUS) 250-50 mcg/dose inhaler Inhale 1 Puff as instructed twice daily. Rinse and gargle mouth with water after each use. generic (Patient not taking: Reported on 12/13/2022) 1 Each 5 No current facility-administered medications for this visit. Allergies As of Date: 05/06/2023 (No Known Allergies) Fully Assessed 05/06/2023 Does patient have penicillin allergy: No REVIEW OF SYSTEMS: GENERAL: Negative for: Fever or Chills and Positive (more content not included)... [facility] 05-06-2023 Miscellaneous Notes at 9.2 weeks gestation seen for NOB. History of preeclampsia and precipitous delivery 2 years ago. See progress note. Smita Booker APRN.CNM documented in this encounter [facility] 05-06-2023 History of Presen t illness Narrative INITIAL OB ASSESSMENT OB Provider: Smita Booker APRN CNM HPI: Deyanira is a 27 year old White Female here to establish Obstetrical Care. Patient's last menstrual period was 03/02/2023 (exact date). from OB Dating Form. Cycles regular was planned. She has 13 year old son and 2 year old daughter Complaints: None OB History T2 L2 SAB2 IAB0 Ectopic0 Multiple0 Live Births2 Previous history: Prior : never History of 4th degree laceration: No History of shoulder dystocia: No History of Hypertensive disorders including pre-eclampsia, chronic hypertension or gestational hypertension: Yes Pre - E most recent History of gestational diabetes: No Patient's Risk Screening for delivery: Have you had a prior matias between 20w and 36w6d?: No MEDICAL/PSYCHOSOCIAL HISTORY: History of hemorrhage or bleeding concerns: No Thyroid Disease: No History of chronic hypertension: No History of pre-existing diabetes: No ABO/RH(D) Date Value Ref Range Status 07/15/2020 A NEGATIVE Final BMI 29.79 kg/(m^2) History of abnormal pap: No Prior treatment for cervical dysplasia: none. History of STDs: None Tobacco use: No Caffeine use: Yes, coffee 2 cups per day Drug use: No Alcohol use: No Multivitamin with Folic acid: Yes Roman Catholic or heritage: No Would refuse blood transfusion if medically necessary: No Are you currently employed? Yes, Occupation: [employer] Do you have any history of depression, anxiety, PTSD, eating disorders or other mood problems: No Do you have any safety concerns or history of traumatic events that you would like to discuss with your provider: No How often does this describe you? I don't have enough money to pay my bills: Never Within the past 12 months, have you worried that your food would run out before you had money to buy more: Never In the past 12 months, has lack of reliable transportation kept you from going to medical appointments or work, or from keeping things needed for daily living: Never In the past 12 months, have you had any concerns about having a place to live, or about the condition or quality of your housing: Never Are there any cultural or spiritual needs we should be aware of: No Depression: denies symptoms of depression. OB Depression and Anxiety Screening- This Encounter (since 05/05/2023) Over the past 2 weeks have you felt down, depressed, or hopeless? Negative Over the past two weeks, have you felt little interest or pleasure in doing things? Negative Feeling nervous, anxious or on edge 0-Not at all Not being able to stop or control worrying 0-Not al all Anxiety Pre-Screening Total (If >/= 3 additional questions will be reviewed) 0 GENETIC SCREENING: Partner present: No Patient verbalized knowledge of partner family health history: Yes Do you or your partner have any personal or family history of defects not previously discussed: No Do you have history of a complicated by anomaly, genetic condition, or demise: No Marital Status:Single Partner: Name: Rio Age: 30 Occupation: [employer] Gender: Male History of STDs: None PAST MEDICAL HISTORY Diagnosis Date anxiety Asthma fibrocystic breast disease Genetic testing 04/28/2009 Negative for 32 Mutuations of CF Herpes simplex virus (HSV) infection History of pre-eclampsia in prior , currently PCOS (polycystic ovarian syndrome) SAB (spontaneous ) 2019 Seasonal allergies PAST SURGICAL HISTORY Procedure Laterality Date APPENDECTOMY 2012 SUCTION D & C 01/15/2021 Retained placenta Current Outpatient Medications Medication Sig Dispense Refill mv-min/vit C/glut/lysine/hb124 (IMMUNE SUPPORT ORAL) Take 1 capsule by mouth once daily. Nqsvlllr-Zu-Wxb-Fe-FA ( VITAMIN) tab Take 1 tablet by mouth. SUMAtriptan (IMITREX) 50 mg tablet Take 1 tablet for migraine headache. May repeat dose in 2 hours. Max 200 mg every 24 hours. (Patient not taking: Reported on 04/28/2023) 9 tablet 3 Norethin Jacob-Eth Estrad-FE (10/22, ,) 1 mg-20 mcg (21)/75 mg (7) per tablet Take 1 tablet by mouth once daily. 84 tablet 3 fluticasone-salmeterol (ADVAIR DISKUS) 250-50 mcg/dose inhaler Inhale 1 Puff as instructed twice daily. Rinse and gargle mouth with water after each use. generic (Patient not taking: Reported on 12/13/2022) 1 Each 5 No current facility-administered medications for this visit. Allergies As of Date: 05/06/2023 (No Known Allergies) Fully Assessed 05/06/2023 Does patient have penicillin allergy: No REVIEW OF SYSTEMS: GENERAL: Negative for: Fever or Chills and Positive for: Fatigue HEENT: Negative for: Headache, Impaired Vision, Ringing in Ears, Nosebleeds Seeing PCP for headaches- was going to see neurology NECK: Negative for: Swelling, Pain, Stiffness RESPIRATORY: Negative for: Cough, Shortness of breath, Wheezing GASTROINTESTINAL: Negative for: Heartburn, Constipation, Diarrhea, Blood in stool, Vomiting MUSCULOSKELETAL: Negative for: Muscle or joint pain, stiffness, Joint swelling NEUROLOGIC/PSYCHIATRIC: Negative for: Weakness, Paralysis, Numbness, Tingling, Tremor, Anxiety, Depression, Memory loss SKIN: Negative for: Rash, Itching GENITOURINARY: Negative for: vaginal itching, vaginal discharge, hematuria or dysuria and Positive for: urinary frequency PHYSICAL EXAM: BP 102/66 Ht 5' 5 (1.65m) Wt 179 lb (81.2kg) LMP 03/02/2023 BMI 29.79 kg/(m^2). GENERAL: pleasant in no apparent distress DERMATOLOGY: Normal, without lesions, non-icteric, and non-hirsute NECK: Supple and full range of motion CHEST: Normal inspiratory effort BREAST: soft, non-tender, symmetric, no dominant mass, normal nipple-areolar complex, no lymphadenopathy, and no nipple discharge Currently - couple times ABDOMEN: soft, non-tender, and no masses NEURO: alert and oriented x3,exam grossly non-focal PELVIS: External genitalia normal without lesions. Perineal body intact. No vaginal or cervical lesions. Cervix closed. Uterus 9 week size. No adnexal masses or tenderness. Clinical Pelvimetry: Pelvimetry clinically assessed as adequate Limited OB ultrasound exam: single intrauterine , positive cardiac activity, and crown-rump length 9.1 weeks gestation OB Risk Screening: Completed, positive findings include: Patient answered 'Yes' to Partner with Herpes ASSESSMENT/PLAN: 1. Encounter for supervision of normal in multigravida - ICD9: V22.1, ICD10: Z34.80 (primary diagnosis) 2. 9 weeks gestation of - ICD9: V22.2, ICD10: Z3A.09 3. History of pre-eclampsia in prior , currently - ICD9: V23.49, ICD10: O09.299 4. History of herpes genitalis - ICD9: V12.09, ICD10: Z86.19 5. History of precipitous delivery - ICD9: V13.29, ICD10: Z87.59 PLAN: 1) Patient oriented to practice. Discussed nutrition, folic acid supplementation, dietary guidelines, exercise, smoking, alcohol, caffeine, and drug use. Discussed gestational weight gain guidelines. Discussed routine OB labs including STD/HIV. 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 Discussed aneuploidy and carrier screening. Regarding aneuploidy screening, nuchal translucency/first trimester early anatomy ultrasound and NIPT were discussed. Regarding carrier screening, the myriad screen was discussed. The risks/benefits and limitations of NIPT/aneuploidy screening were reviewed including the potential for false negative and false positive results. We discussed the availability of professional-society guided carrier screening and reviewed the conditions screened and limitations of screening. The availability of genetic counseling was reviewed. Information on aneuploidy/carrier screening was provided. The patient chooses: Aneuploidy screening: chooses to proceed with First trimester early anatomy ultrasound (12-13w6d) and sequential screening Discussed hemoglobin electrophoresis. Patient: Reviewed midwifery and diamond wheel edger services that are available. 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 Smita Booker APRN.CNM documented in this encounter [facility] 05-06-2023 Instructions Michael Morelos Cma - 05/06/2023 8:40 AM EDT Please select the following link to access the [facility] Your Guide to a Healthy . [email or web address] documented in this encounter [facility] 04-28-2023 Note HNO ID: [id number] Author: Sylvie Hensley RN Service: ? Author Type: ? Type: Progress Notes Filed: 04/28/2023 4:05 PM Note Text: # 1 - Date: 09/20/09, Sex: Male, Weight: 6 lb 4 oz (2.835 kg), GA: 37w0d, Delivery: Vaginal, Spontaneous, Apgar1: None, Apgar5: None, Living: Living, Comments: None # 2 - Date: 2009, Sex: None, Weight: None, GA: None, Delivery: None, Apgar1: None, Apgar5: None, Living: None, Comments: No [facility] # 3 - Date: 12/05/19, Sex: Unknown, Weight: None, GA: 6w0d, Delivery: SPONTANEOUS , Apgar1: None, Apgar5: None, Living: None, Comments: None # 4 - Date: 01/07/21, Sex: Female, Weight: 6 lb 8 oz (2.948 kg), GA: 38w4d, Delivery: Vaginal, Spontaneous, Apgar1: 8, Apgar5: 9, Living: Living, Comments: induction for pre-eclampsia, precip delivery, EBL 200 mL, perineum intact # 5 - Date: None, Sex: None, Weight: None, GA: None, Delivery: None, Apgar1: None, Apgar5: None, Living: None, Comments: None [facility] 04-28-2023 History of Presen t illness Narrative # 1 - Date: 09/20/09, Sex: Male, Weight: 6 lb 4 oz (2.835 kg), GA: 37w0d, Delivery: Vaginal, Spontaneous, Apgar1: None, Apgar5: None, Living: Living, Comments: None # 2 - Date: 2009, Sex: None, Weight: None, GA: None, Delivery: None, Apgar1: None, Apgar5: None, Living: None, Comments: No D&C # 3 - Date: 12/05/19, Sex: Unknown, Weight: None, GA: 6w0d, Delivery: SPONTANEOUS , Apgar1: None, Apgar5: None, Living: None, Comments: None # 4 - Date: 01/07/21, Sex: Female, Weight: 6 lb 8 oz (2.948 kg), GA: 38w4d, Delivery: Vaginal, Spontaneous, Apgar1: 8, Apgar5: 9, Living: Living, Comments: induction for pre-eclampsia, precip delivery, EBL 200 mL, perineum intact # 5 - Date: None, Sex: None, Weight: None, GA: None, Delivery: None, Apgar1: None, Apgar5: None, Living: None, Comments: None documented in this encounter [facility] 04-28-2023 Miscellaneous Notes DISTANCE HEALTH VISIT This Team Access Model visit is a phone encounter. It required patient-provider interaction for the medical decision making as documented below. I have communicated my name and active licensure. The patient's identity and physical location were verified at the time of this visit. Father of the baby is involved. He is the father of her other child. Patient has a history of anxiety. Denies any depression. Patient has a history of precipitous delivery with her last delivery. Patient was induced for preeclampsia her last . Patient has a history of genital herpes. She is aware of the importance of reporting any outbreaks during . Patient's brother born with hole in heart. No corrective surgery. Patient's maternal grandmother had cardiomyopathy. Patient's father had cystic fibrosis. Patient had genetic testing done on April 28, 2009 at age 13 that was negative. Patient considering aneuploidy screening. Contact information for integrated genetics given to patient to check on insurance coverage. Patient declined genetic carrier screening testing due to having genetic testing in the past.Sylvie Hensley RN documented in this encounter [facility] 04-21-2023 Miscellaneous Notes Patient scheduled. Attempted to contact pt again this afternoon. Remain unable to leave message, will send another Youxigut message as pt has viewed previous message and has not contacted office to schedule. Christy Hall LPN Attempted to again contact pt, voicemail is full and unable to leave message. Pt has not read her Youxigut message. Will try again later. Christy Hall LPN Patient was scheduled for PNOB phone call visit on the product safety head nurse schedule instead of the PNOB one. Attempted to call patient to reschedule to 04/21 or 04/28. Unable to leave message though. [email or web address] message sent too. Aviva Lutz RN documented in this encounter [facility] 02-01-2023 Note HNO ID: [id number] Author: RT Pat(R) Service: ? Author Type: Graduate School Dean Type: Progress Notes Filed: 02/01/2023 2:03 PM Note Text: Radiology Service Progress Note DATE OF SERVICE: February 01, 2023 TIME: 2:03 PM PATIENT IDENTITY VERIFICATION COMPLETED USING TWO (2) STANDARD IDENTIFIERS: Name and Date of confirmed by patient verbally. FALL SCREENING: Has the patient had 2 falls in the last year or 1 fall with injury or currently using an Ambulatory Assistive Device (Walker, Cane, Wheelchair, Crutches, etc.)? No PATIENT GENDER DATA: Female. status: : No status: NO. PATIENT RELEVANT IMPLANT DATA REVIEWED: Yes ALLERGIES: Reviewed and unchanged CONTRAST ALLERGY: NO. EXAM: CT -CONTRAST INDUCED NEPHROPATHY RISK FACTORS: Not applicable CREATININE: Creatinine Date Value Ref Range Status 01/28/2023 0.76 0.58 - 0.96 mg/dL Final 01/12/2022 0.69 0.58 - 0.96 mg/dL Final 04/15/2021 0.82 0.58 - 0.96 mg/dL Final Estimated Glomerular Filtration Rate Date Value Ref Range Status 01/28/2023 110 >=60 mL/min/1.73m? Final Comment: Estimated Glomerular Filtration Rate (eGFR) is calculated using the 2020 CKD-EPI creatinine equation. This equation utilizes serum creatinine, sex, and age as parameters. The creatinine assay has traceable calibration to isotope dilution-mass spectrometry. Refer to KDIGO guidelines for clinical interpretation. In patients with unstable renal function, e.g. those with acute kidney injury, the eGFR may not accurately reflect actual GFR. eGFR- Date Value Ref Range Status 04/15/2021 >60 Final P.O.C.T. RESULTS: POC done: Yes, See Lab Tab February 01, 2023 TREATMENT: N/A PERIPHERAL IV DATA: Ambulatory: A peripheral IV was started in the Left antecubital site with a Angio cath: 22 gauge. RADIOLOGY DEPARTMENT: CT; Exam(s) Completed: Brain SIGNATURE: RT Katherin(R) PATIENT NAME: Deyanira Diamond DATE: February 01, 2023 TIME: 2:03 PM [facility] 02-01-2023 History of Presen t illness Narrative Radiology Service Progress Note DATE OF SERVICE: February 01, 2023 TIME: 2:03 PM PATIENT IDENTITY VERIFICATION COMPLETED USING TWO (2) STANDARD IDENTIFIERS: Name and Date of confirmed by patient verbally. FALL SCREENING: Has the patient had 2 falls in the last year or 1 fall with injury or currently using an Ambulatory Assistive Device (Walker, Cane, Wheelchair, Crutches, etc.)? No PATIENT GENDER DATA: Female. status: : No status: NO. PATIENT RELEVANT IMPLANT DATA REVIEWED: Yes ALLERGIES: Reviewed and unchanged CONTRAST ALLERGY: NO. EXAM: CT -CONTRAST INDUCED NEPHROPATHY RISK FACTORS: Not applicable CREATININE: Creatinine Date Value Ref Range Status 01/28/2023 0.76 0.58 - 0.96 mg/dL Final 01/12/2022 0.69 0.58 - 0.96 mg/dL Final 04/15/2021 0.82 0.58 - 0.96 mg/dL Final Estimated Glomerular Filtration Rate Date Value Ref Range Status 01/28/2023 110 >=60 mL/min/1.73m Final Comment: Estimated Glomerular Filtration Rate (eGFR) is calculated using the 2020 CKD-EPI creatinine equation. This equation utilizes serum creatinine, sex, and age as parameters. The creatinine assay has traceable calibration to isotope dilution-mass spectrometry. Refer to KDIGO guidelines for clinical interpretation. In patients with unstable renal function, e.g. those with acute kidney injury, the eGFR may not accurately reflect actual GFR. eGFR- Date Value Ref Range Status 04/15/2021 >60 Final P.O.C.T. RESULTS: POC done: Yes, See Lab Tab February 01, 2023 TREATMENT: N/A PERIPHERAL IV DATA: Ambulatory: A peripheral IV was started in the Left antecubital site with a Angio cath: 22 gauge. RADIOLOGY DEPARTMENT: CT; Exam(s) Completed: Brain SIGNATURE: RT Katherin(R) PATIENT NAME: Deyanira Diamond DATE: February 01, 2023 TIME: 2:03 PM documented in this encounter [facility] 02-01-2023 Miscellaneous Notes Pt notified of results via Youxigut. Tomasa Miller Ma Please let the patient know that all of her labs were normal. Vitamin D level was just mildly decreased. Can take vitamin D 2,000 units daily which is over the counter. She should continue with plan to get CT of the brain and follow up with neurology and Dr. Zavala. I am covering for Marichuy, as she is out of the office this week. Rony Lazaro APRN.CNP documented in this encounter [facility] 01-28-2023 Note HNO ID: [id number] Author: Marichuy Painter APRN.CNP Service: ? Author Type: Nurse Practitioner Type: Progress Notes Filed: 01/28/2023 10:43 AM Note Text: This is a 27 year old female who presents today with: Patient presents with: Acute Visit: dizziness, nausea HISTORY OF PRESENT ILLNESS: Deyanira Diamond is a 27 year old female. Patient presents with: Acute Visit: dizziness, nausea Patient of Dr. Zavala here in the office for dizziness, headache, and nausea. Had bad headaches as a child but never diagnosed with migraines. Having migraine headaches 2-3 times per week. Headaches seem to be progressively getting worse. Pain is throbbing and starts at base of the neck. Photophobia, phonophobia, fatigue, and nausea. Taking tylenol and motrin which hasn't been helpful. Due for eye exam, wears glasses/ Refers that Tuesday she got dizzy, burning sensation on face/flushed, and headache started. Will get shaky. Currently eating frequently and staying hydrated. Will having body aches all over and joint pain. Working at [employer]. On feet most the shift. PAST MEDICAL HISTORY: PAST MEDICAL HISTORY Diagnosis Date Anxiety Asthma fibrocystic breast disease Genetic testing 04/28/2009 Negative for 32 Mutuations of CF Herpes simplex virus (HSV) infection PCOS (polycystic ovarian syndrome) Rh incompatibility SAB (spontaneous ) 2019 Seasonal allergies PAST SURGICAL HISTORY Procedure Laterality Date APPENDECTOMY 2011 SUCTION D AND C 01/15/2021 Retained placenta ALLERGIES Patient has no known allergies. MEDICATIONS Current Outpatient Medications Medication Sig Norethin Jacob-Eth Estrad-FE (10/22, ,) 1 mg-20 mcg (21)/75 mg (7) per tablet Take 1 tablet by mouth once daily. fluticasone-salmeterol (ADVAIR DISKUS) 250-50 mcg/dose inhaler Inhale 1 Puff as instructed twice daily. Rinse and gargle mouth with water after each use. generic (Patient not taking: Reported on 12/13/2022) mv-min/vit C/glut/lysine/hb124 (IMMUNE SUPPORT ORAL) Take 1 capsule by mouth once daily. Hpuerosp-Ef-Eyc-Fe-FA ( VITAMIN) tab Take 1 tablet by mouth. No current facility-administered medications for this visit. FAMILY HISTORY Problem Relation Age of Onset Thyroid Mother Kidney Disease Mother stage 3 other (pcos) Mother Cystic Fibrosis Father Heart Attack Father No Known Problems Maternal Grandfather Heart Maternal Grandmother Thyroid Maternal Grandmother other (renal cancer) Maternal Grandmother Heart Paternal Grandfather No Known Problems Paternal Grandmother No Known Problems Sister No Known Problems Sister No Known Problems Sister Asthma Brother No Known Problems Brother No Known Problems Brother No Known Problems Brother Thyroid Maternal Aunt Asthma Son No Known Problems Sister Social History Tobacco Use Smoking status: Former Packs/day: 0.50 Years: 4.00 Pack years: 2.00 Types: Cigarettes Quit date: 03/31/2017 Years since quittin.8 Smokeless tobacco: Never Tobacco comments: quit over one year ago (2017) Vaping Use Vaping Use: Never used Substance Use Topics Alcohol use: Not Currently Comment: rare Drug use: No REVIEW OF SYSTEMS GENERAL: + Body aches HEENT: Negative for frequent or significant headaches, No changes in hearing or vision. NECK: Negative for lumps, goiter, pain and significant neck swelling RESPIRATORY: Negative for cough, hemoptysis, wheezing, dyspnea or shortness of breath CARDIOVASCULAR: Negative for chest pain, leg swelling, orthopnea, or palpitations GI: + Nausea : No history of dysuria, frequency or incontinence MUSCULOSKELETAL: Negative for joint pain or swelling. SKIN: Negative for lesions, rash, and itching ENDOCRINE: Negative for cold or heat intolerance, polyuria, polydipsia and goiter NEURO: + Headache, dizziness MOOD: Negative for depression, anxiety, or suicidal ideation. EXAM: BP 124/80 Pulse 80 Resp 16 Wt 75.8 kg (167 lb) LMP 01/20/2023 SpO2 100% BMI 27.79 kg/m? PHYSICAL EXAM: General Appearance: Well appearing, alert, in no acute distress, well-hydrated, well nourished. Skin: Skin color, texture, turgor normal, no suspicious rashes or lesions. Head: Normocephalic, no masses, lesions, tenderness or abnormalities. Eyes: Anicteric sclera. Pupils are equally round and reactive to light. Extraocular movements are intact. Ears: External ears normal, canals clear. TMs pearly romo. Lungs: Lungs clear to auscultation. No wheezing, rhonchi, rales. Heart: RRR without murmur, gallop, or rubs. No ectopy. Extremities: No deformities, edema, skin discoloration, clubbing or cyanosis. Good capillary refill. Peripheral Pulses: Normal, Capillary refill <2secs, strong peripheral pulses, Pulses palpable. Neurologic: Gait normal. Reflexes normal and symmetric. Sensation grossly intact. ASSESSMENT/PL (more content not included)... [facility] 01-28-2023 Instructions Marichuy Painter APRN.[facility] - 01/28/2023 10:31 AM EDT Get labs completed Get CT scan completed if symptoms are not improving. Continue to use NSAIDS as needed for headache. May use Imitrex 50 mg as needed for migraine headache. May repeat in 2 hours. Recommend keeping a headache journal with any associated symptoms. Consult for neurology placed if needed. Red flag symptoms go to ER. Get eye exam completed. Follow up pending test results or sooner as needed. documented in this encounter [facility] 01-28-2023 History of Presen t illness Narrative This is a 27 year old female who presents today with: Patient presents with: Acute Visit: dizziness, nausea HISTORY OF PRESENT ILLNESS: Deyanira Diamond is a 27 year old female. Patient presents with: Acute Visit: dizziness, nausea Patient of Dr. Zavala here in the office for dizziness, headache, and nausea. Had bad headaches as a child but never diagnosed with migraines. Having migraine headaches 2-3 times per week. Headaches seem to be progressively getting worse. Pain is throbbing and starts at base of the neck. Photophobia, phonophobia, fatigue, and nausea. Taking tylenol and motrin which hasn't been helpful. Due for eye exam, wears glasses/ Refers that Tuesday she got dizzy, burning sensation on face/flushed, and headache started. Will get shaky. Currently eating frequently and staying hydrated. Will having body aches all over and joint pain. Working at [employer]. On feet most the shift. PAST MEDICAL HISTORY: PAST MEDICAL HISTORY Diagnosis Date Anxiety Asthma fibrocystic breast disease Genetic testing 04/28/2009 Negative for 32 Mutuations of CF Herpes simplex virus (HSV) infection PCOS (polycystic ovarian syndrome) Rh incompatibility SAB (spontaneous ) 2019 Seasonal allergies PAST SURGICAL HISTORY Procedure Laterality Date APPENDECTOMY 2012 SUCTION D & C 01/15/2021 Retained placenta ALLERGIES Patient has no known allergies. MEDICATIONS Current Outpatient Medications Medication Sig Norethin Jacob-Eth Estrad-FE (10/22, ,) 1 mg-20 mcg (21)/75 mg (7) per tablet Take 1 tablet by mouth once daily. fluticasone-salmeterol (ADVAIR DISKUS) 250-50 mcg/dose inhaler Inhale 1 Puff as instructed twice daily. Rinse and gargle mouth with water after each use. generic (Patient not taking: Reported on 12/13/2022) mv-min/vit C/glut/lysine/hb124 (IMMUNE SUPPORT ORAL) Take 1 capsule by mouth once daily. Eempktpp-Aa-Tnz-Fe-FA ( VITAMIN) tab Take 1 tablet by mouth. No current facility-administered medications for this visit. FAMILY HISTORY Problem Relation Age of Onset Thyroid Mother Kidney Disease Mother stage 3 other (pcos) Mother Cystic Fibrosis Father Heart Attack Father No Known Problems Maternal Grandfather Heart Maternal Grandmother Thyroid Maternal Grandmother other (renal cancer) Maternal Grandmother Heart Paternal Grandfather No Known Problems Paternal Grandmother No Known Problems Sister No Known Problems Sister No Known Problems Sister Asthma Brother No Known Problems Brother No Known Problems Brother No Known Problems Brother Thyroid Maternal Aunt Asthma Son No Known Problems Sister Social History Tobacco Use Smoking status: Former Packs/day: 0.50 Years: 4.00 Pack years: 2.00 Types: Cigarettes Quit date: 03/31/2017 Years since quittin.8 Smokeless tobacco: Never Tobacco comments: quit over one year ago (2017) Vaping Use Vaping Use: Never used Substance Use Topics Alcohol use: Not Currently Comment: rare Drug use: No REVIEW OF SYSTEMS GENERAL: + Body aches HEENT: Negative for frequent or significant headaches, No changes in hearing or vision. NECK: Negative for lumps, goiter, pain and significant neck swelling RESPIRATORY: Negative for cough, hemoptysis, wheezing, dyspnea or shortness of breath CARDIOVASCULAR: Negative for chest pain, leg swelling, orthopnea, or palpitations GI: + Nausea : No history of dysuria, frequency or incontinence MUSCULOSKELETAL: Negative for joint pain or swelling. SKIN: Negative for lesions, rash, and itching ENDOCRINE: Negative for cold or heat intolerance, polyuria, polydipsia and goiter NEURO: + Headache, dizziness MOOD: Negative for depression, anxiety, or suicidal ideation. EXAM: BP 124/80 Pulse 80 Resp 16 Wt 75.8 kg (167 lb) LMP 01/20/2023 SpO2 100% BMI 27.79 kg/m PHYSICAL EXAM: General Appearance: Well appearing, alert, in no acute distress, well-hydrated, well nourished. Skin: Skin color, texture, turgor normal, no suspicious rashes or lesions. Head: Normocephalic, no masses, lesions, tenderness or abnormalities. Eyes: Anicteric sclera. Pupils are equally round and reactive to light. Extraocular movements are intact. Ears: External ears normal, canals clear. TMs pearly romo. Lungs: Lungs clear to auscultation. No wheezing, rhonchi, rales. Heart: RRR without murmur, gallop, or rubs. No ectopy. Extremities: No deformities, edema, skin discoloration, clubbing or cyanosis. Good capillary refill. Peripheral Pulses: Normal, Capillary refill <2secs, strong peripheral pulses, Pulses palpable. Neurologic: Gait normal. Reflexes normal and symmetric. Sensation grossly intact. ASSESSMENT/PLAN: 1. Headache, unspecified headache type - ICD9: 784.0, ICD10: R51.9 (primary diagnosis) - Get the following labs completed. - Continue to take NSAIDS, may use Imitrex as needed. - Medication education and instructions discussed. - If headaches progress get CT scan completed. - Keep migraine journal with any associated symptoms. - Pending results may need consult with neurology. - Red flag symptoms given to patient, she verbalizes understanding when to seek care - MAGNESIUM BLD - CBC + DIFF - COMP METABOLIC PANEL - VITAMIN D 25 HYDROXY - VITAMIN B12 BLOOD - FOLATE SERUM - SUMATRIPTAN 50 MG TABLET - CT BRAIN WO/W IVCON - IV CONTRAST (RADIOLOGY PROCEDURE) - CONSULT TO NEUROLOGY 2. Thunderclap headache - ICD9: 784.0, ICD10: G44.53 - CT BRAIN WO/W IVCON - CONSULT TO NEUROLOGY 3. Myalgias - ICD9: 729.1, ICD10: M79.10 - CASH BLOOD - SED RATE WESTERGREN - RHEUMATOID FACTOR BL - C-REACTIVE PROTEIN (CRP) - TSH BLD 4. Nausea - ICD9: 787.02, ICD10: R11.0 - ONDANSETRON 4 MG DISINTEGRATING TABLET Follow-up pending test results or sooner as needed. Discussed treatment plan and patient voices understanding. Patient's questions answered appropriately. Medications and potential side effects were discussed and patient voices understanding. Marichuy Painter APRN.[facility] This note was partially generated using Snackr voice recognition system. Note was reviewed for accuracy. There may be minor misspellings or grammar miscues with [employer] voice recognition. documented in this encounter [facility] 12-13-2022 Note HNO ID: [id number] Author: Viry Carmen APRN.CNP Service: ? Author Type: Nurse Practitioner Type: Progress Notes Filed: 12/13/2022 3:36 PM Note Text: Chief Complaint Patient presents with: Recheck HPI Deyanira Diamond is a 27 year old female who presents here today for Above Complaints.. Patient presents for recurrent mastitis. Patient has failed treatment with keflex and augmentin. Patient is still . Patient states symptoms improved with first couple days of augmentin but redness warmth and swelling recurred yesterday. Past medical history, appointments, medications, allergies reviewed. Previous Medical History PAST MEDICAL HISTORY Diagnosis Date Anxiety Asthma fibrocystic breast disease Genetic testing 04/28/2009 Negative for 32 Mutuations of CF Herpes simplex virus (HSV) infection PCOS (polycystic ovarian syndrome) Rh incompatibility SAB (spontaneous ) 2019 Seasonal allergies Previous Surgical History PAST SURGICAL HISTORY Procedure Laterality Date APPENDECTOMY 2012 SUCTION D AND C 01/15/2021 Retained placenta Family History FAMILY HISTORY Problem Relation Age of Onset Thyroid Mother Kidney Disease Mother stage 3 other (pcos) Mother Cystic Fibrosis Father Heart Attack Father No Known Problems Maternal Grandfather Heart Maternal Grandmother Thyroid Maternal Grandmother other (renal cancer) Maternal Grandmother Heart Paternal Grandfather No Known Problems Paternal Grandmother No Known Problems Sister No Known Problems Sister No Known Problems Sister Asthma Brother No Known Problems Brother No Known Problems Brother No Known Problems Brother Thyroid Maternal Aunt Asthma Son No Known Problems Sister Patient Allergies ALLERGIES No Known Allergies Current Medications Current Outpatient Medications on File Prior to Visit Medication Sig amoxicillin-clavulanic acid (AUGMENTIN) 875-125 mg per tablet Take 1 tablet by mouth twice daily for 10 days. Cayrcveq-Na-Puz-Fe-FA ( VITAMIN) tab Take 1 tablet by mouth. Norethin Jacob-Eth Estrad-FE ([facility] 1/20, 28,) 1 mg-20 mcg (21)/75 mg (7) per tablet Take 1 tablet by mouth once daily. fluticasone-salmeterol (ADVAIR DISKUS) 250-50 mcg/dose inhaler Inhale 1 Puff as instructed twice daily. Rinse and gargle mouth with water after each use. generic (Patient not taking: Reported on 12/13/2022) mv-min/vit C/glut/lysine/hb124 (IMMUNE SUPPORT ORAL) Take 1 capsule by mouth once daily. No current facility-administered medications on file prior to visit. Social History Social History Tobacco Use Smoking status: Former Packs/day: 0.50 Years: 4.00 Pack years: 2.00 Types: Cigarettes Quit date: 03/31/2017 Years since quittin.7 Smokeless tobacco: Never Tobacco comments: quit over one year ago (2017) Vaping Use Vaping Use: Never used Substance Use Topics Alcohol use: Not Currently Comment: rare Drug use: No Review of Symptoms REVIEW OF SYSTEMS SEE HPI EXAM: BP 120/70 Pulse 80 Resp 14 Wt 74.8 kg (165 lb) LMP 05/06/2022 (Exact Date) BMI 27.46 kg/m? General Appearance: Well appearing, alert, in no acute distress, well-hydrated, well nourished.. Breast: Positive findings: edema of skin Right upper outer quadrant, skin warm but without redness. Mild edema noted. . Health Maintenance List COVID-19 VACCINE(1) Never done INFLUENZA(1) due on 06/03/2022 DEPRESSION ASSESSMENT Never done PAP TESTING due on 11/06/2022 DTAP,TDAP,TD(8 - Td or Tdap) due on 10/28/2030 HEPATITIS B Completed HEPATITIS C SCREENING Completed HIV SCREENING Completed ASSESSMENT/PLAN: 1. Acute mastitis of right breast - ICD9: 611.0, ICD10: N61.0 - CLINDAMYCIN HCL 150 MG CAPSULE Viry Carmen APRN.CNP [facility] 12-13-2022 Instructions Viry Carmen APRN.CNP - 12/13/2022 3:35 PM EDT Stop augmentin Start clindamycin Follow up in 5 days if no improvement documented in this encounter [facility] 12-13-2022 History of Presen t illness Narrative Chief Complaint Patient presents with: Recheck HPI Deyanira Diamond is a 27 year old female who presents here today for Above Complaints.. Patient presents for recurrent mastitis. Patient has failed treatment with keflex and augmentin. Patient is still . Patient states symptoms improved with first couple days of augmentin but redness warmth and swelling recurred yesterday. Past medical history, appointments, medications, allergies reviewed. Previous Medical History PAST MEDICAL HISTORY Diagnosis Date Anxiety Asthma fibrocystic breast disease Genetic testing 04/28/2009 Negative for 32 Mutuations of CF Herpes simplex virus (HSV) infection PCOS (polycystic ovarian syndrome) Rh incompatibility SAB (spontaneous ) 2019 Seasonal allergies Previous Surgical History PAST SURGICAL HISTORY Procedure Laterality Date APPENDECTOMY 2011 SUCTION D & C 01/15/2021 Retained placenta Family History FAMILY HISTORY Problem Relation Age of Onset Thyroid Mother Kidney Disease Mother stage 3 other (pcos) Mother Cystic Fibrosis Father Heart Attack Father No Known Problems Maternal Grandfather Heart Maternal Grandmother Thyroid Maternal Grandmother other (renal cancer) Maternal Grandmother Heart Paternal Grandfather No Known Problems Paternal Grandmother No Known Problems Sister No Known Problems Sister No Known Problems Sister Asthma Brother No Known Problems Brother No Known Problems Brother No Known Problems Brother Thyroid Maternal Aunt Asthma Son No Known Problems Sister Patient Allergies ALLERGIES No Known Allergies Current Medications Current Outpatient Medications on File Prior to Visit Medication Sig amoxicillin-clavulanic acid (AUGMENTIN) 875-125 mg per tablet Take 1 tablet by mouth twice daily for 10 days. Lyayfqlf-Fi-Zng-Fe-FA ( VITAMIN) tab Take 1 tablet by mouth. Norethin Jacob-Eth Estrad-FE (JUNE10/22, ,) 1 mg-20 mcg (21)/75 mg (7) per tablet Take 1 tablet by mouth once daily. fluticasone-salmeterol (ADVAIR DISKUS) 250-50 mcg/dose inhaler Inhale 1 Puff as instructed twice daily. Rinse and gargle mouth with water after each use. generic (Patient not taking: Reported on 12/13/2022) mv-min/vit C/glut/lysine/hb124 (IMMUNE SUPPORT ORAL) Take 1 capsule by mouth once daily. No current facility-administered medications on file prior to visit. Social History Social History Tobacco Use Smoking status: Former Packs/day: 0.50 Years: 4.00 Pack years: 2.00 Types: Cigarettes Quit date: 03/31/2017 Years since quittin.7 Smokeless tobacco: Never Tobacco comments: quit over one year ago (2017) Vaping Use Vaping Use: Never used Substance Use Topics Alcohol use: Not Currently Comment: rare Drug use: No Review of Symptoms REVIEW OF SYSTEMS SEE HPI EXAM: BP 120/70 Pulse 80 Resp 14 Wt 74.8 kg (165 lb) LMP 05/06/2022 (Exact Date) BMI 27.46 kg/m General Appearance: Well appearing, alert, in no acute distress, well-hydrated, well nourished.. Breast: Positive findings: edema of skin Right upper outer quadrant, skin warm but without redness. Mild edema noted. . Health Maintenance List COVID-19 VACCINE(1) Never done INFLUENZA(1) due on 06/03/2022 DEPRESSION ASSESSMENT Never done PAP TESTING due on 11/06/2022 DTAP,TDAP,TD(8 - Td or Tdap) due on 10/28/2030 HEPATITIS B Completed HEPATITIS C SCREENING Completed HIV SCREENING Completed ASSESSMENT/PLAN: 1. Acute mastitis of right breast - ICD9: 611.0, ICD10: N61.0 - CLINDAMYCIN HCL 150 MG CAPSULE Viry Carmen APRN.CNP documented in this encounter [facility] 12-13-2022 Miscellaneous Notes Patient notified and scheduled for an appointment today Diane Estrada Cma Recommend patient be scheduled today for follow up evaluation. Pt calls to report she had OV 12/07 for mastitis of R breast. Pt had already done a tx of Keflex. Pt was prescribed Augmentin bid x 10 days on 12/07. Pt reports she was feeling some better but yesterday she started having tenderness in right breast again. Today pt reports she has the full feeling in R breast, burning sensation and feels hot like she did before. Pt is asking what provider would like to do. Pt is currently at work. Ok to leave detailed message on pt's VM. Feli Wesley LPN documented in this encounter [facility] 12-07-2022 Note HNO ID: [id number] Author: RT Jamil(R) Service: ? Author Type: Technologist Type: Progress Notes Filed: 12/07/2022 4:25 PM Note Text: Radiology Service Progress Note PATIENT NAME: Deyanira Diamond DATE OF SERVICE: December 07, 2022 TIME: 4:24 PM PATIENT IDENTITY VERIFICATION COMPLETED USING TWO (2) IDENTIFIERS: Name and Date of confirmed by patient verbally. FALL SCREENING: Has the patient had 2 falls in the last year or 1 fall with injury or currently using an Ambulatory Assistive Device (Walker, Cane, Wheelchair, Crutches, etc.)? No PATIENT GENDER DATA: Female. status: : No status: NO. PATIENT RELEVANT IMPLANT DATA REVIEWED: Yes RADIOLOGY DEPARTMENT: Ultrasound PERIPHERAL IV DATA: Not applicable SIGNED BY: Marichuy Welsh RDMS, RVT December 07, 2022 4:24 PM [facility] 12-07-2022 Note HNO ID: [id number] Author: Viry Carmen APRN.[employer]TER Service: ? Author Type: Nurse Practitioner Type: Progress Notes Filed: 12/07/2022 10:32 AM Note Text: Chief Complaint Patient presents with: Follow Up: Mastitis HPI Deyanira Diamond is a 27 year old female who presents here today for Above Complaints.. Patient presents for mastitis follow up. Patient reports that she just finished a 10 day course of keflex. Patient is currently . Patient reports that milk is no longer pink tinged but that as soon as she completed antibiotics she began having symptoms again including pain, swelling, redness. Past medical history, appointments, medications, allergies reviewed. Previous Medical History PAST MEDICAL HISTORY Diagnosis Date Anxiety Asthma fibrocystic breast disease Genetic testing 04/28/2009 Negative for 32 Mutuations of CF Herpes simplex virus (HSV) infection PCOS (polycystic ovarian syndrome) Rh incompatibility SAB (spontaneous ) 2019 Seasonal allergies Previous Surgical History PAST SURGICAL HISTORY Procedure Laterality Date APPENDECTOMY 2012 SUCTION D AND C 01/15/2021 Retained placenta Family History FAMILY HISTORY Problem Relation Age of Onset Thyroid Mother Kidney Disease Mother stage 3 other (pcos) Mother Cystic Fibrosis Father Heart Attack Father No Known Problems Maternal Grandfather Heart Maternal Grandmother Thyroid Maternal Grandmother other (renal cancer) Maternal Grandmother Heart Paternal Grandfather No Known Problems Paternal Grandmother No Known Problems Sister No Known Problems Sister No Known Problems Sister Asthma Brother No Known Problems Brother No Known Problems Brother No Known Problems Brother Thyroid Maternal Aunt Asthma Son No Known Problems Sister Patient Allergies ALLERGIES No Known Allergies Current Medications Current Outpatient Medications on File Prior to Visit Medication Sig Norethin Jacob-Eth Estrad-FE ([facility]UN[facility] FE 10/22, ,) 1 mg-20 mcg (21)/75 mg (7) per tablet Take 1 tablet by mouth once daily. fluticasone-salmeterol (ADVAIR DISKUS) 250-50 mcg/dose inhaler Inhale 1 Puff as instructed twice daily. Rinse and gargle mouth with water after each use. generic mv-min/vit C/glut/lysine/hb124 (IMMUNE SUPPORT ORAL) Take 1 capsule by mouth once daily. Wouxhxse-Sg-Inp-Fe-FA ( VITAMIN) tab Take 1 tablet by mouth. No current facility-administered medications on file prior to visit. Social History Social History Tobacco Use Smoking status: Former Packs/day: 0.50 Years: 4.00 Pack years: 2.00 Types: Cigarettes Quit date: 03/31/2017 Years since quittin.6 Smokeless tobacco: Never Tobacco comments: quit over one year ago (2017) Vaping Use Vaping Use: Never used Substance Use Topics Alcohol use: Not Currently Comment: rare Drug use: No Review of Symptoms REVIEW OF SYSTEMS SEE HPI EXAM: BP 106/70 Pulse 80 Temp 36.5 ?C (97.7 ?F) Resp 14 Wt 73.9 kg (163 lb) LMP 05/06/2022 (Exact Date) BMI 27.12 kg/m? General Appearance: Well appearing, alert, in no acute distress, well-hydrated, well nourished.. Breast: Positive findings: edema of skin Right upper outer quadrant, skin red and warm to touch, tender with palpation. Health Maintenance List COVID-19 VACCINE(1) Never done INFLUENZA(1) due on 06/03/2022 DEPRESSION ASSESSMENT Never done PAP TESTING due on 11/06/2022 DTAP,TDAP,TD(8 - Td or Tdap) due on 10/28/2030 HEPATITIS B Completed HEPATITIS C SCREENING Completed HIV SCREENING Completed ASSESSMENT/PLAN: 1. Acute mastitis of right breast - ICD9: 611.0, ICD10: N61.0 - AMOXICILLIN 875 MG-POTASSIUM CLAVULANATE 125 MG TABLET - BREAST LTD RT-R/O abscess since symptoms are recurrent. Viry Carmen APRN.JOB SPOTTER [facility] 11-24-2022 Note HNO ID: [id number] Author: Cami Guerrier APRN.[employer]TER Service: ? Author Type: Nurse Practitioner Type: Progress Notes Filed: 11/24/2022 1:02 PM Note Text: 11/24/2022 Patient presents with: Breast Problem: Right breast painful, pumped, breast milk pink, currently breatfeeding. SUBJECTIVE: This is a 27 year old that is here today for Above Complaints.. Last night started with right breast pain and redness. Believes it is mastitis. Still feels full when she pumps. Noticing her milk is pink tinged. Currently . Trying to wean [age] year old. Admits to feeling chilled and feverish last night but did not take temp. Denies breast or axillary lump, excessive warmth to breast or abnormal discharge from breast. PAST MEDICAL HISTORY Diagnosis Date Anxiety Asthma fibrocystic breast disease Genetic testing 04/28/2009 Negative for 32 Mutuations of CF Herpes simplex virus (HSV) infection PCOS (polycystic ovarian syndrome) Rh incompatibility SAB (spontaneous ) 2019 Seasonal allergies ALLERGIES Patient has no known allergies. MEDICATIONS Current Outpatient Medications Medication Sig Norethin Jacob-Eth Estrad-FE (10/22, ,) 1 mg-20 mcg (21)/75 mg (7) per tablet Take 1 tablet by mouth once daily. fluticasone-salmeterol (ADVAIR DISKUS) 250-50 mcg/dose inhaler Inhale 1 Puff as instructed twice daily. Rinse and gargle mouth with water after each use. generic albuterol HFA (VENTOLIN HFA) 90 mcg/actuation inhaler Inhale 2 Puffs as instructed every 4 hours as needed. mv-min/vit C/glut/lysine/hb124 (IMMUNE SUPPORT ORAL) Take 1 capsule by mouth once daily. Krtthmrg-Cp-Ahf-Fe-FA ( VITAMIN) tab Take 1 tablet by mouth. No current facility-administered medications for this visit. Medications and allergies reviewed by this provider. SOCIAL HISTORY Social History Tobacco Use Smoking status: Former Packs/day: 0.50 Years: 4.00 Pack years: 2.00 Types: Cigarettes Quit date: 03/31/2017 Years since quittin.6 Smokeless tobacco: Never Tobacco comments: quit over one year ago (2017) Vaping Use Vaping Use: Never used Substance Use Topics Alcohol use: Not Currently Comment: rare Drug use: No REVIEW OF SYSTEMS All other reviewed and negative other than HPI. OBJECTIVE: BP 100/68 Pulse 106 Temp 37.1 ?C (98.7 ?F) Resp 16 Wt 74.1 kg (163 lb 6.4 oz) LMP 05/06/2022 (Exact Date) SpO2 97% BMI 27.19 kg/m? . Vital signs reviewed by this provider. APPEARANCE Well appearing, alert, in no acute distress, well-hydrated, well nourished. BREAST FEMALE Symmetrical, normal consistency without masses., No dimpling or skin changes, no axillary lymphadenopathy, and Mild erythema across acerola. No red streaking, excessive warmth, nipple drainage or TTP COVID-19 VACCINE(1) Never done INFLUENZA(1) due on 06/03/2022 DEPRESSION ASSESSMENT Never done PAP TESTING due on 11/06/2022 DTAP,TDAP,TD(8 - Td or Tdap) due on 10/28/2030 HEPATITIS B Completed HEPATITIS C SCREENING Completed HIV SCREENING Completed ASSESSMENT/PLAN: 1. Mastitis - ICD9: 611.0, ICD10: N61.0 - no red flag symptoms or exam findings - red flag symptoms discussed, verbalizes understanding - make sure to empty breast fully with feeding or pumping, may use OTC NSAID products as directed on packaging, may apply ice to area or warm compress - CEPHALEXIN 500 MG CAPSULE - follow-up if symptoms fail to improve, to ER with red flag symptoms Cami Guerrier, BONILLA.J[employer] SPOTTER Prescription instructions reviewed with patient as applicable. Patient advised if symptoms do not improve or if symptoms worsen sooner, to contact their primary care physician. Potential red flag symptoms discussed with the patient. Reviewed appropriate action plan to take if red flag symptoms occur. Patient agreeable to treatment plan. I spent a total of 25 minutes on the date of the service which included preparing to see the patient, [id number] patient care, completing clinical documentation, obtaining and/or reviewing separately obtained history, performing a medically appropriate examination, counseling and educating the patient/family/caregiver, and ordering medications, tests, or procedures. [facility] 11-24-2022 History of Presen t illness Narrative 11/24/2022 Patient presents with: Breast Problem: Right breast painful, pumped, breast milk pink, currently breatfeeding. SUBJECTIVE: This is a 27 year old that is here today for Above Complaints.. Last night started with right breast pain and redness. Believes it is mastitis. Still feels full when she pumps. Noticing her milk is pink tinged. Currently . Trying to wean [age] year old. Admits to feeling chilled and feverish last night but did not take temp. Denies breast or axillary lump, excessive warmth to breast or abnormal discharge from breast. PAST MEDICAL HISTORY Diagnosis Date Anxiety Asthma fibrocystic breast disease Genetic testing 04/28/2009 Negative for 32 Mutuations of CF Herpes simplex virus (HSV) infection PCOS (polycystic ovarian syndrome) Rh incompatibility SAB (spontaneous ) 2019 Seasonal allergies ALLERGIES Patient has no known allergies. MEDICATIONS Current Outpatient Medications Medication Sig Norethin Jacob-Eth Estrad-FE (10/22, ,) 1 mg-20 mcg (21)/75 mg (7) per tablet Take 1 tablet by mouth once daily. fluticasone-salmeterol (ADVAIR DISKUS) 250-50 mcg/dose inhaler Inhale 1 Puff as instructed twice daily. Rinse and gargle mouth with water after each use. generic albuterol HFA (VENTOLIN HFA) 90 mcg/actuation inhaler Inhale 2 Puffs as instructed every 4 hours as needed. mv-min/vit C/glut/lysine/hb124 (IMMUNE SUPPORT ORAL) Take 1 capsule by mouth once daily. Rqdyumew-Vh-Jmp-Fe-FA ( VITAMIN) tab Take 1 tablet by mouth. No current facility-administered medications for this visit. Medications and allergies reviewed by this provider. SOCIAL HISTORY Social History Tobacco Use Smoking status: Former Packs/day: 0.50 Years: 4.00 Pack years: 2.00 Types: Cigarettes Quit date: 03/31/2017 Years since quittin.6 Smokeless tobacco: Never Tobacco comments: quit over one year ago (2017) Vaping Use Vaping Use: Never used Substance Use Topics Alcohol use: Not Currently Comment: rare Drug use: No REVIEW OF SYSTEMS All other reviewed and negative other than HPI. OBJECTIVE: BP 100/68 Pulse 106 Temp 37.1 C (98.7 F) Resp 16 Wt 74.1 kg (163 lb 6.4 oz) LMP 05/06/2022 (Exact Date) SpO2 97% BMI 27.19 kg/m . Vital signs reviewed by this provider. APPEARANCE Well appearing, alert, in no acute distress, well-hydrated, well nourished. BREAST FEMALE Symmetrical, normal consistency without masses., No dimpling or skin changes, no axillary lymphadenopathy, and Mild erythema across acerola. No red streaking, excessive warmth, nipple drainage or TTP COVID-19 VACCINE(1) Never done INFLUENZA(1) due on 06/03/2022 DEPRESSION ASSESSMENT Never done PAP TESTING due on 11/06/2022 DTAP,TDAP,TD(8 - Td or Tdap) due on 10/28/2030 HEPATITIS B Completed HEPATITIS C SCREENING Completed HIV SCREENING Completed ASSESSMENT/PLAN: 1. Mastitis - ICD9: 611.0, ICD10: N61.0 - no red flag symptoms or exam findings - red flag symptoms discussed, verbalizes understanding - make sure to empty breast fully with feeding or pumping, may use OTC NSAID products as directed on packaging, may apply ice to area or warm compress - CEPHALEXIN 500 MG CAPSULE - follow-up if symptoms fail to improve, to ER with red flag symptoms Cami Podlogcasie, GLOBAL COMPENSATION ANALYST.JOB SPOTTER Prescription instructions reviewed with patient as applicable. Patient advised if symptoms do not improve or if symptoms worsen sooner, to contact their primary care physician. Potential red flag symptoms discussed with the patient. Reviewed appropriate action plan to take if red flag symptoms occur. Patient agreeable to treatment plan. I spent a total of 25 minutes on the date of the service which included preparing to see the patient, [id number] patient care, completing clinical documentation, obtaining and/or reviewing separately obtained history, performing a medically appropriate examination, counseling and educating the patient/family/caregiver, and ordering medications, tests, or procedures. documented in this encounter [facility] 06-09-2022 History of Presen t illness Narrative CONTRACEPTION Deyanira Diamond is a 26 year old who presents today for contraception follow up. Started on OCP ( )in April and was having irregular spotting and breakthrough bleeding until this month. She is still 1 1/2 year old and continues to try and wean her with little success. No change in supply since start of OCP. Desires in the future but would like to get cycles regulated and stop prior to conception. History of dyspareunia with referral to pelvic floor therapy. Patient reports due to constant bleeding and spotting she has not followed up. Pain with intercourse has decreased significantly since starting OCP. She is pleased with OCP and wishes to continue at this time. 1.5 year old- still Pelvic floor therapy appointment Patient's last menstrual period was 05/06/2022 (exact date).. HPI: Dysmenorrhea Yes Heavy menses Yes Irregular menses Yes SUBJECTIVE Sexually active: Yes Smoking No Last PAP 11/12/2019 Method of control: oral contraceptives Methods tried previously: Depo Provera - did not like Patient currently interested in: oral contraceptives Interested in in the next 3 years? Yes Date of last test: Not applicable Date of last STD testing? N/a Relevant Past Medical History: History of abnormal vaginal bleeding - PCOS OB History T2 L2 SAB2 IAB0 Ectopic0 Multiple0 Live Births2 PAST MEDICAL HISTORY Diagnosis Date Anxiety Asthma fibrocystic breast disease Genetic testing 04/28/2009 Negative for 32 Mutuations of CF Herpes simplex virus (HSV) infection PCOS (polycystic ovarian syndrome) Rh incompatibility SAB (spontaneous ) 2019 Seasonal allergies PAST SURGICAL HISTORY Procedure Laterality Date APPENDECTOMY 2012 SUCTION D & C 01/15/2021 Retained placenta FAMILY HISTORY Problem Relation Age of Onset Thyroid Mother Kidney Disease Mother stage 3 other (pcos) Mother Cystic Fibrosis Father Heart Attack Father No Known Problems Maternal Grandfather Heart Maternal Grandmother Thyroid Maternal Grandmother other (renal cancer) Maternal Grandmother Heart Paternal Grandfather No Known Problems Paternal Grandmother No Known Problems Sister No Known Problems Sister No Known Problems Sister Asthma Brother No Known Problems Brother No Known Problems Brother No Known Problems Brother Thyroid Maternal Aunt Asthma Son No Known Problems Sister SOCIAL HISTORY Social History Tobacco Use Smoking status: Former Packs/day: 0.50 Years: 4.00 Pack years: 2.00 Types: Cigarettes Quit date: 03/31/2017 Years since quittin.1 Smokeless tobacco: Never Tobacco comments: quit over one year ago (2016) Vaping Use Vaping Use: Never used Substance Use Topics Alcohol use: Not Currently Comment: rare Drug use: No PAST SURGICAL HISTORY Procedure Laterality Date APPENDECTOMY 2011 SUCTION D & C 01/15/2021 Retained placenta Current Outpatient Medications Medication Sig Norethin Jacob-Eth Estrad-FE (JUNEL 10/22, ,) 1 mg-20 mcg (21)/75 mg (7) per tablet Take 1 tablet by mouth once daily. fluticasone-salmeterol (ADVAIR DISKUS) 250-50 mcg/dose inhaler Inhale 1 Puff as instructed twice daily. Rinse and gargle mouth with water after each use. generic albuterol HFA (VENTOLIN HFA) 90 mcg/actuation inhaler Inhale 2 Puffs as instructed every 4 hours as needed. mv-min/vit C/glut/lysine/hb124 (IMMUNE SUPPORT ORAL) Take 1 capsule by mouth once daily. Htezgxmi-Xv-Hqe-Fe-FA ( VITAMIN) tab Take 1 tablet by mouth. No current facility-administered medications for this visit. Allergies As of Date: 06/09/2022 (No Known Allergies) Fully Assessed 06/09/2022 OBJECTIVE: General Appearance: Well appearing, alert, in no acute distress, well-hydrated, well nourished. Skin: Color normal, Vascularity normal, No evidence of bleeding or bruising, No lesions noted, No edema, Temperature normal, Texture normal, Mobility and turgor normal, Nails normal without clubbing Neck: Supple, no adenopathy; thyroid symmetric, normal size, no bruits ASSESSMENT/PLAN: 1. Encounter for surveillance of contraceptive pills - ICD9: V25.41, ICD10: Z30.41 (primary diagnosis) - discussed with patient on how to take OCP's. - counseled on benefits, risks and possible severe side effects of OCP's. - discussed need to use Condoms to help to prevent STD's including HIV etc. 2. PCOS (polycystic ovarian syndrome) - ICD9: 256.4, ICD10: E28.2 - NORETHINDRONE 1 MG-ETHINYL ESTRADIOL 20 MCG (21)-IRON 75 MG (7) TABLET 3. History of irregular menstrual bleeding - ICD9: V13.29, ICD10: Z87.42 - NORETHINDRONE 1 MG-ETHINYL ESTRADIOL 20 MCG (21)-IRON 75 MG (7) TABLET 4. Dyspareunia, female - ICD9: 625.0, ICD10: N94.10 - Pain has decreased since starting OCP - Patient to start pelvic floor therapy- will make appointment All contraceptive options were discussed with the patient. R/B/A explained. All questions answered. Pt understands risks including but not limited to increased risk of breast cancer, blood clots and stroke. Counselled for (20) minutes face to face Follow up (1 year for annual exam with PAP) Smita Booker APRN.CNM documented in this encounter [facility] 05-27-2022 History of Presen t illness Narrative Paper Goods Machine Operator offered: Patient declines. Deyanira Diamond is a 26 year old female who presents for vaginal burning and discharge for 2 days. Vaginal discharge: thick and white. Itching: YES yesterday Dyspareunia: N/A Fever/chills: No Abdominal pain: No Bladder: Negative for dysuria or frequency Bowel: No blood in stool, pain with BM, tarry stool, persistent diarrhea or constipation Any new sexual partners or concern for STD exposure: No Any history of STDs:HSV Does your partner have any new complaints: No Are you currently taking any medications to treat vaginitis: No Do you use feminine sprays, douches or deodorants: No Contraception: combined hormonal contraceptives Last : 2019 Past medical, surgical, social history, medications and allergies reviewed and updated. OBJECTIVE: BP 108/60 Ht 5' 5 (1.65m) Wt 156 lb (70.8kg) LMP 05/06/2022 BMI 25.96 kg/(m^2). GENERAL: Well developed, well nourished in no apparent distress ABDOMEN: soft, non-tender, and no masses PELVIC: external genitalia normal, normal Bartholin's glands, urethra, [place]'s glands, no vulvar lesions, no cervical lesions, good vaginal support, small amount pale yellow discharge present, normal appearing perineal body and perianal region BIMANUAL: uterus normal size, shape and consistency, no adnexal masses, and non-tender. ASSESSMENT/PLAN: 1. Acute vaginitis - ICD9: 616.10, ICD10: N76.0 - EVERARDO / TRICHOMONAS AMPLIFICATION - BACTERIAL VAGINOSIS AMPLIFICATION Will notify of results. Follow- up as needed. If +BV - send Metrogel Melissa Akhtar APRN.CNP Medical Decision Making: Problems: Low: Acute, uncomplicated illness or injury Data: Unique test(s) ordered: 2 Medical Decision Making Level: 3 - Low documented in this encounter [facility] 05-12-2022 Miscellaneous Notes Patient notified. Luda Pathak RN Continue to take regularly as instructed. Bleeding will normalize after first 3 months Patient started taking Junel on 04/26/22. Currently . On the third week of her pack and she's been bleeding for 7 days. Menses like flow. Asking if she should take the placebo pills in 5 days. Would you rather her start a new pack this Tuesday? Aware provider is out of the office. Ok to leave a detailed message if patient doesn't answer. Luda Pathak RN documented in this encounter [facility] 05-06-2022 Miscellaneous Notes Awaiting call back from patient. Patient returned call she said her phone cut off before she got message. Went over notes below from Dr Zavala with understanding. She is going to ask her boy friend to examine her scalp and she can call office back. Does she have someone at home that could examine her scalp for lice? Has she shared a bed with her son recently? If so would treat her as well. Patient calling to say her son has lice and is being treated. She has no symptoms but asks if she needs treatment? Call connection lost at this point. Kika Powell RN documented in this encounter [facility] 01-13-2022 Miscellaneous Notes Patient returned call and given provider's message below and patient verbalized understanding. Leidy Constantino RN Patient telephoned. Message left to call back for update. Alisia Freeman LPN Please call patient and let her know her blood work is normal. Cami Guerrier APRN.JOB SPOTTER documented in this encounter [facility] 01-12-2022 History of Presen t illness Narrative 01/12/2022 Patient presents with: Yearly Exam SUBJECTIVE: This is a 26 year old that is here today for Above Complaints Since last office visit has been in good health without ER visits or hospitalizations. ASTHMA: not using albuterol much since the addition of the Advair. Denies SOB< dyspnea, wheezing or coughing Still . Admits to feeling fatigued. 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 Denies epistaxis, bleeding of gums, heavy menstrual bleeding, oCT medications, frequent use of NSAID products, family hx of bleeding/clotting disorder any trauma she can recall or physical abuse Having some frequent headaches. Headaches across forehead described as aching. Uses tylenol which helps. Admits to hx of migraines. Denies any visual changes, extremity numbness, tingling, weakness, slurred speech, facial drooping or gait disturbance PAST MEDICAL HISTORY Diagnosis Date Anxiety Asthma fibrocystic breast disease Genetic testing 04/28/2009 Negative for 32 Mutuations of CF Herpes simplex virus (HSV) infection PCOS (polycystic ovarian syndrome) Rh incompatibility SAB (spontaneous ) 2019 Seasonal allergies ALLERGIES Patient has no known allergies. MEDICATIONS Current Outpatient Medications Medication Sig fluconazole (DIFLUCAN) 200 mg tablet Take 400 mg PO on first day, then take 200 mg PO once daily for 14 days. fluticasone-salmeterol (ADVAIR DISKUS) 250-50 mcg/dose inhaler Inhale 1 Puff as instructed twice daily. Rinse and gargle mouth with water after each use. generic albuterol HFA (VENTOLIN HFA) 90 mcg/actuation inhaler Inhale 2 Puffs as instructed every 4 hours as needed. mv-min/vit C/glut/lysine/hb124 (IMMUNE SUPPORT ORAL) Take 1 capsule by mouth once daily. Hauwupwj-Sp-Hbo-Fe-FA ( VITAMIN) tab Take 1 tablet by mouth. No current facility-administered medications for this visit. Medications and allergies reviewed by this provider. SOCIAL HISTORY Social History Tobacco Use Smoking status: Former Smoker Packs/day: 0.50 Years: 4.00 Pack years: 2.00 Types: Cigarettes Quit date: 03/31/2017 Years since quittin.7 Smokeless tobacco: Never Used Tobacco comment: quit over one year ago (2017) Vaping Use Vaping Use: Never used Substance Use Topics Alcohol use: Not Currently Comment: rare Drug use: No REVIEW OF SYSTEMS GENERAL: No weight loss, malaise or fevers HEENT: No changes in hearing or vision, no nose bleeds or other nasal problems NECK: Negative for lumps, goiter, pain and significant neck swelling RESPIRATORY: Negative for cough, hemoptysis, wheezing, COPD, dyspnea or shortness of breath, CARDIOVASCULAR: Negative for chest pain, leg swelling, hypertension, CHF or palpitations GI: No nausea, vomiting, or diarrhea and No heartburn or reflux symptoms : No history of dysuria, frequency or incontinence 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 OBJECTIVE: BP 102/66 Pulse 74 Resp 18 Ht 165.1 cm (5' 5 ) Wt 73.6 kg (162 lb 3.2 oz) LMP 04/12/2020 (Exact Date) SpO2 100% BMI 26.99 kg/m . Vital signs reviewed by this provider. APPEARANCE Well appearing, alert, in no acute distress, well-hydrated, well nourished. EYES PERRLA, conjunctiva and sclera normal. EARS External ears normal, canals clear NECK Supple, no adenopathy; thyroid symmetric, normal size, no bruits HEART RRR with normal S1 and S2, no murmurs, no gallops, no JVD appreciated LUNG clear to auscultation. No wheezes, rhonchi, or rales EXTREMITIES Extremities normal, No deformities, No skin discoloration and No edema Neuro: Awake, alert and oriented x 3, Cranial nerves II-XII grossly intact, Reflexes symmetrical, Normal gait, No involuntary motions. and negative findings: muscle tone normal, muscle strength normal SKIN Quarter sized brownish green ecchymotic area to right inner forearm, approximate quarter dollar sized brownish/green ecchymotic area to left inner thigh, approximate 2 cm greenish/brown ecchymotic area to right hip area. No petechia or purpura observed to bilateral legs, arms back or chest COVID-19 VACCINE(1) Never done DEPRESSION SCREENING due on 02/03/2022 INFLUENZA(Season Ended) due on 06/03/2022 PAP TESTING due on 11/06/2022 ANNUAL PCP TEAM CHRONIC DISEASE VISIT due on 01/12/2023 DTAP,TDAP,TD(8 - Td or Tdap) due on 10/28/2030 SPIROMETRY Completed HEPATITIS C SCREENING Completed HIV SCREENING Completed MENINGOCOCCAL CONJUGATE Aged Out ASSESSMENT/PLAN: 1. Routine physical examination - ICD9: V70.0, ICD10: Z00.00 (primary diagnosis) - Counseled on healthy diet and regular exercise - Recommend vitamin containing 0.4 mg of folic acid - Calcium intake with supplements or by diet of 1000 mg/day for under 50, 7846-7554 mg/day for 50+ - Follow up for annual exam in one year - COMP METABOLIC PANEL 2. Fatigue, unspecified type - ICD9: 780.79, ICD10: R53.83 - consider anemia vs iron def vs hypothyrodism - CBC - TSH BLD - IRON + TIBC - FERRITIN BLD 3. Bruising - ICD9: 924.9, ICD10: T14.8XXA - no red flag symptoms or exam findings - red flag symptoms discussed, verbalizes understanding - CBC - PROTHROMBIN TIME/PT - ACTIVATED PTT - follow-up pending testing to ER with red flag symptoms 4. Headaches - ICD9: 784.0, ICD10: R51.9 - no red flag symptoms or exam findings - red flag symptoms discussed, verbalizes understanding - discussed options for mothers - patient would like to continue with tylenol use and follow-up if persisting or worsening, is to go to ER with red flag symptoms Cami Guerrier, BONILLA.JOB SPOTTER Prescription instructions reviewed with patient as applicable. Patient advised if symptoms do not improve or if symptoms worsen sooner, to contact their primary care physician. Potential red flag symptoms discussed with the patient. Reviewed appropriate action plan to take if red flag symptoms occur. Patient agreeable to treatment plan. documented in this encounter [facility] 01-11-2022 Miscellaneous Notes Patient notified. Aviva Lutz RN Left message for patient to call office. Luda Pathak RN If pumping she should be washing and sterilizing parts after each use. To also wash and boil anything that goes into the baby's mouth. Change nursing pads often to stay dry. Wash bras in hot soapy water. I typically recommend using the Clotrimazole on nipples after each feed. To wipe off prior to feeding baby, and she can use a coconut or olive oil to do this as it can be less irritating. If she is having trouble using the cream at night, symptoms have not improved with Clotrimazole, and baby definitely has thrush, I can send in Diflucan to try. To call if symptoms do not improve with Diflucan Patient is . Her daughter was diagnosed with thrush. Has been taking medication for the last two weeks. Patient calling with c/o sore, itchy nipples bilaterally. Has been using clotrimazole cream per cigar binder's recommendation except at night time. Concerned she may forget to remove the cream from her nipples during the night time feedings. Asking if she needs to be seen or if a prescription can be sent. Luda Pathak RN documented in this encounter [facility] documented as of this encounter (statuses as of 01/11/2022) [facility] History of Past illness Narrative* Problem Noted Date Resolved Date Retained placenta without he morrhage, condition or complication 01/19/2021 11/13/2021 33 weeks gestation of 12/05/2020 11/13/2021 related hip pain in third trimester, a ntepartum 12/05/2020 11/13/2021 Rh negative state in antepartum period, second t rimester 07/18/2020 11/13/2021 Spotting in early 06/12/202011/03 Overview: 06/12/2020 Patient states that she has spotted on 2 occasions after intercourse when she wiped with brownish discharge. This happened 1 week ago and 3 weeks ago. Denies any bleeding since then. Denies any pain. TKRN Patient requested diagnostic testing 06/12/2020 11/13/2021 Overview: 06/12/2020Patient desires nuchal ultrasound.Sylvie Hensley RN Supervision of normal 11/06/2019 11/13/2021 Atrial flutter 08/01/2018 11/06/2019 Oligomenorrhea 03/28/2017 11/06/2019 Overview: U/s 03/28/17 PCOS documented as of this encounter (statuses as of 01/12/2022) [facility] History of Past illness Narrative* Problem Noted Date Resolved Date Retained placenta without he morrhage, condition or complication 01/19/2021 11/13/2021 33 weeks gestation of 12/05/2020 11/13/2021 related hip pain in third trimester, a ntepartum 12/05/2020 11/13/2021 Rh negative state in antepartum period, second t rimester 07/18/2020 11/13/2021 Spotting in early 06/12/202011/03 Overview: 06/12/2020 Patient states that she has spotted on 2 occasions after intercourse when she wiped with brownish discharge. This happened 1 week ago and 3 weeks ago. Denies any bleeding since then. Denies any pain. TKRN Patient requested diagnostic testing 06/12/2020 11/13/2021 Overview: 06/12/2020Patient desires nuchal ultrasound.Sylvie Hensley RN Supervision of normal 11/06/2019 11/13/2021 Atrial flutter 08/01/2018 11/06/2019 Oligomenorrhea 03/28/2017 11/06/2019 Overview: U/s 03/28/17 PCOS documented as of this encounter (statuses as of 01/13/2022) [facility] History of Past illness Narrative* Problem Noted Date Resolved Date Retained placenta without he morrhage, condition or complication 01/19/2021 11/13/2021 33 weeks gestation of 12/05/2020 11/13/2021 related hip pain in third trimester, a ntepartum 12/05/2020 11/13/2021 Rh negative state in antepartum period, second t rimester 07/18/2020 11/13/2021 Spotting in early 06/12/202011/03 Overview: 06/12/2020 Patient states that she has spotted on 2 occasions after intercourse when she wiped with brownish discharge. This happened 1 week ago and 3 weeks ago. Denies any bleeding since then. Denies any pain. TKRN Patient requested diagnostic testing 06/12/2020 11/13/2021 Overview: 06/12/2020Patient desires nuchal ultrasound.Sylvie Hensley RN Supervision of normal 11/06/2019 11/13/2021 Atrial flutter 08/01/2018 11/06/2019 Oligomenorrhea 03/28/2017 11/06/2019 Overview: U/s 03/28/17 PCOS documented as of this encounter (statuses as of 05/11/2022) [facility] History of Past illness Narrative* Problem Noted Date Resolved Date Retained placenta without he morrhage, condition or complication 01/19/2021 11/13/2021 33 weeks gestation of 12/05/2020 11/13/2021 related hip pain in third trimester, a ntepartum 12/05/2020 11/13/2021 Rh negative state in antepartum period, second t rimester 07/18/2020 11/13/2021 Spotting in early 06/12/202011/03 Overview: 06/12/2020 Patient states that she has spotted on 2 occasions after intercourse when she wiped with brownish discharge. This happened 1 week ago and 3 weeks ago. Denies any bleeding since then. Denies any pain. TKRN Patient requested diagnostic testing 06/12/2020 11/13/2021 Overview: 06/12/2020Patient desires nuchal ultrasound.Sylvie Hensley RN Supervision of normal 11/06/2019 11/13/2021 Atrial flutter 08/01/2018 11/06/2019 Oligomenorrhea 03/28/2017 11/06/2019 Overview: U/s 03/28/17 PCOS documented as of this encounter (statuses as of 05/12/2022) [facility] History of Past illness Narrative* Problem Noted Date Resolved Date Retained placenta without he morrhage, condition or complication 01/19/2021 11/13/2021 33 weeks gestation of 12/05/2020 11/13/2021 related hip pain in third trimester, a ntepartum 12/05/2020 11/13/2021 Rh negative state in antepartum period, second t rimester 07/18/2020 11/13/2021 Spotting in early 06/12/202011/03 Overview: 06/12/2020 Patient states that she has spotted on 2 occasions after intercourse when she wiped with brownish discharge. This happened 1 week ago and 3 weeks ago. Denies any bleeding since then. Denies any pain. TKRN Patient requested diagnostic testing 06/12/2020 11/13/2021 Overview: 06/12/2020Patient desires nuchal ultrasound.Sylvie Hensley RN Supervision of normal 11/06/2019 11/13/2021 Atrial flutter 08/01/2018 11/06/2019 Oligomenorrhea 03/28/2017 11/06/2019 Overview: U/s 03/28/17 PCOS documented as of this encounter (statuses as of 05/27/2022) [facility] History of Past illness Narrative* Problem Noted Date Resolved Date Retained placenta without he morrhage, condition or complication 01/19/2021 11/13/2021 33 weeks gestation of 12/05/2020 11/13/2021 related hip pain in third trimester, a ntepartum 12/05/2020 11/13/2021 Rh negative state in antepartum period, second t rimester 07/18/2020 11/13/2021 Spotting in early 06/12/202011/03 Overview: 06/12/2020 Patient states that she has spotted on 2 occasions after intercourse when she wiped with brownish discharge. This happened 1 week ago and 3 weeks ago. Denies any bleeding since then. Denies any pain. TKRN Patient requested diagnostic testing 06/12/2020 11/13/2021 Overview: 06/12/2020Patient desires nuchal ultrasound.Sylvie Hensley RN Supervision of normal 11/06/2019 11/13/2021 Atrial flutter 08/01/2018 11/06/2019 Oligomenorrhea 03/28/2017 11/06/2019 Overview: U/s 03/28/17 PCOS documented as of this encounter (statuses as of 06/09/2022) [facility] History of Past illness Narrative* Problem Noted Date Resolved Date Retained placenta without he morrhage, condition or complication 01/19/2021 11/13/2021 33 weeks gestation of 12/05/2020 11/13/2021 related hip pain in third trimester, a ntepartum 12/05/2020 11/13/2021 Rh negative state in antepartum period, second t rimester 07/18/2020 11/13/2021 Spotting in early 06/12/202011/03 Overview: 06/12/2020 Patient states that she has spotted on 2 occasions after intercourse when she wiped with brownish discharge. This happened 1 week ago and 3 weeks ago. Denies any bleeding since then. Denies any pain. TKRN Patient requested diagnostic testing 06/12/2020 11/13/2021 Overview: 06/12/2020Patient desires nuchal ultrasound.Sylvie Hensley RN Supervision of normal 11/06/2019 11/13/2021 Atrial flutter 08/01/2018 11/06/2019 Oligomenorrhea 03/28/2017 11/06/2019 Overview: U/s 03/28/17 PCOS documented as of this encounter (statuses as of 11/24/2022) [facility] History of Past illness Narrative* Problem Noted Date Resolved Date Retained placenta without he morrhage, condition or complication 01/19/2021 11/13/2021 33 weeks gestation of 12/05/2020 11/13/2021 related hip pain in third trimester, a ntepartum 12/05/2020 11/13/2021 Rh negative state in antepartum period, second t rimester 07/18/2020 11/13/2021 Spotting in early 06/12/202011/03 Overview: 06/12/2020 Patient states that she has spotted on 2 occasions after intercourse when she wiped with brownish discharge. This happened 1 week ago and 3 weeks ago. Denies any bleeding since then. Denies any pain. TKRN Patient requested diagnostic testing 06/12/2020 11/13/2021 Overview: 06/12/2020Patient desires nuchal ultrasound.Sylvie Hensley RN Supervision of normal 11/06/2019 11/13/2021 Atrial flutter 08/01/2018 11/06/2019 Oligomenorrhea 03/28/2017 11/06/2019 Overview: U/s 03/28/17 PCOS documented as of this encounter (statuses as of 12/13/2022) [facility] History of Past illness Narrative* Problem Noted Date Resolved Date Retained placenta without he morrhage, condition or complication 01/19/2021 11/13/2021 33 weeks gestation of 12/05/2020 11/13/2021 related hip pain in third trimester, a ntepartum 12/05/2020 11/13/2021 Rh negative state in antepartum period, second t rimester 07/18/2020 11/13/2021 Spotting in early 06/12/202011/03 Overview: 06/12/2020 Patient states that she has spotted on 2 occasions after intercourse when she wiped with brownish discharge. This happened 1 week ago and 3 weeks ago. Denies any bleeding since then. Denies any pain. TKRN Patient requested diagnostic testing 06/12/2020 11/13/2021 Overview: 06/12/2020Patient desires nuchal ultrasound.Sylvie Hensley RN Supervision of normal 11/06/2019 11/13/2021 Atrial flutter 08/01/2018 11/06/2019 Oligomenorrhea 03/28/2017 11/06/2019 Overview: U/s 03/28/17 PCOS documented as of this encounter (statuses as of 12/14/2022) [facility] History of Past illness Narrative* Problem Noted Date Resolved Date Retained placenta without he morrhage, condition or complication 01/19/2021 11/13/2021 33 weeks gestation of 12/05/2020 11/13/2021 related hip pain in third trimester, a ntepartum 12/05/2020 11/13/2021 Rh negative state in antepartum period, second t rimester 07/18/2020 11/13/2021 Spotting in early 06/12/202011/03 Overview: 06/12/2020 Patient states that she has spotted on 2 occasions after intercourse when she wiped with brownish discharge. This happened 1 week ago and 3 weeks ago. Denies any bleeding since then. Denies any pain. TKRN Patient requested diagnostic testing 06/12/2020 11/13/2021 Overview: 06/12/2020Patient desires nuchal ultrasound.Sylvie Hensley RN Supervision of normal 11/06/2019 11/13/2021 Atrial flutter 08/01/2018 11/06/2019 Oligomenorrhea 03/28/2017 11/06/2019 Overview: U/s 03/28/17 PCOS documented as of this encounter (statuses as of 01/28/2023) [facility] History of Past illness Narrative* Problem Noted Date Resolved Date Retained placenta without he morrhage, condition or complication 01/19/2021 11/13/2021 33 weeks gestation of 12/05/2020 11/13/2021 related hip pain in third trimester, a ntepartum 12/05/2020 11/13/2021 Rh negative state in antepartum period, second t rimester 07/18/2020 11/13/2021 Spotting in early 06/12/202011/03 Overview: 06/12/2020 Patient states that she has spotted on 2 occasions after intercourse when she wiped with brownish discharge. This happened 1 week ago and 3 weeks ago. Denies any bleeding since then. Denies any pain. TKRN Patient requested diagnostic testing 06/12/2020 11/13/2021 Overview: 06/12/2020Patient desires nuchal ultrasound.Sylvie Hensley RN Supervision of normal 11/06/2019 11/13/2021 Atrial flutter 08/01/2018 11/06/2019 Oligomenorrhea 03/28/2017 11/06/2019 Overview: U/s 03/28/17 PCOS documented as of this encounter (statuses as of 02/01/2023) [facility] History of Past illness Narrative* Problem Noted Date Diagnosed Date Resolved Date Retained placenta without he morrhage, condition or complication 01/19/202108/2022 33 weeks gestation of 12/05/2020 11/13/2021 related hip pain i n third trimester, antepartum 12/05/2020 11/13/2021 Rh negative state in antepar bassam period, second trimester 07/18/2020 11/13/2021 Spotting in early 06/12/2020 11/13/2021 Overview: 06/12/2020 Patient states that she has spotted on 2 occasions after intercourse when she wiped with brownish discharge. This happened 1 week ago and 3 weeks ago. Denies any bleeding since then. Denies any pain. TKRN Patient requested diagnostic testing 06/12/2020 11/13/2021 Overview: 06/12/2020Patient desires nuchal ultrasound.Sylvie Hensley RN Supervision of normal 11/06/2019 11/13/2021 Atrial flutter 08/01/2018 11/06/2019 Oligomenorrhea 03/28/2017 11/06/2019 Overview: U/s 03/28/17 PCOS documented as of this encounter (statuses as of 04/22/2023) [facility] History of Past illness Narrative* Problem Noted Date Diagnosed Date Resolved Date Retained placenta without he morrhage, condition or complication 01/19/202108/2022 33 weeks gestation of 12/05/2020 11/13/2021 related hip pain i n third trimester, antepartum 12/05/2020 11/13/2021 Rh negative state in antepar bassam period, second trimester 07/18/2020 11/13/2021 Spotting in early 06/12/2020 11/13/2021 Overview: 06/12/2020 Patient states that she has spotted on 2 occasions after intercourse when she wiped with brownish discharge. This happened 1 week ago and 3 weeks ago. Denies any bleeding since then. Denies any pain. TKRN Patient requested diagnostic testing 06/12/2020 11/13/2021 Overview: 06/12/2020Patient desires nuchal ultrasound.Sylvie Hensley RN Supervision of normal 11/06/2019 11/13/2021 Atrial flutter 08/01/2018 11/06/2019 Oligomenorrhea 03/28/2017 11/06/2019 Overview: U/s 03/28/17 PCOS documented as of this encounter (statuses as of 04/28/2023) [facility] History of Past illness Narrative* Problem Noted Date Diagnosed Date Resolved Date Retained placenta without he morrhage, condition or complication 01/19/202108/2022 33 weeks gestation of 12/05/2020 11/13/2021 related hip pain i n third trimester, antepartum 12/05/2020 11/13/2021 Rh negative state in antepar bassam period, second trimester 07/18/2020 11/13/2021 Spotting in early 06/12/2020 11/13/2021 Overview: 06/12/2020 Patient states that she has spotted on 2 occasions after intercourse when she wiped with brownish discharge. This happened 1 week ago and 3 weeks ago. Denies any bleeding since then. Denies any pain. TKRN Patient requested diagnostic testing 06/12/2020 11/13/2021 Overview: 06/12/2020Patient desires nuchal ultrasound.Sylvie Hensley RN Supervision of normal 11/06/2019 11/13/2021 Atrial flutter 08/01/2018 11/06/2019 Oligomenorrhea 03/28/2017 11/06/2019 Overview: U/s 03/28/17 PCOS documented as of this encounter (statuses as of 05/06/2023) [facility] History of Past illness Narrative* Problem Noted Date Diagnosed Date Resolved Date Retained placenta without he morrhage, condition or complication 01/19/202108/2022 33 weeks gestation of 12/05/2020 11/13/2021 related hip pain i n third trimester, antepartum 12/05/2020 11/13/2021 Rh negative state in antepar bassam period, second trimester 07/18/2020 11/13/2021 Spotting in early 06/12/2020 11/13/2021 Overview: 06/12/2020 Patient states that she has spotted on 2 occasions after intercourse when she wiped with brownish discharge. This happened 1 week ago and 3 weeks ago. Denies any bleeding since then. Denies any pain. TKRN Patient requested diagnostic testing 06/12/2020 11/13/2021 Overview: 06/12/2020Patient desires nuchal ultrasound.Sylvie Hensley RN Supervision of normal 11/06/2019 11/13/2021 Atrial flutter 08/01/2018 11/06/2019 Oligomenorrhea 03/28/2017 11/06/2019 Overview: U/s 03/28/17 PCOS documented as of this encounter (statuses as of 05/10/2023) [facility] History of Past illness Narrative* Problem Noted Date Diagnosed Date Resolved Date Retained placenta without he morrhage, condition or complication 01/19/202108/2022 33 weeks gestation of 12/05/2020 11/13/2021 related hip pain i n third trimester, antepartum 12/05/2020 11/13/2021 Rh negative state in antepar bassam period, second trimester 07/18/2020 11/13/2021 Spotting in early 06/12/2020 11/13/2021 Overview: 06/12/2020 Patient states that she has spotted on 2 occasions after intercourse when she wiped with brownish discharge. This happened 1 week ago and 3 weeks ago. Denies any bleeding since then. Denies any pain. TKRN Patient requested diagnostic testing 06/12/2020 11/13/2021 Overview: 06/12/2020Patient desires nuchal ultrasound.Sylvie Hensley RN Supervision of normal 11/06/2019 11/13/2021 Atrial flutter 08/01/2018 11/06/2019 Oligomenorrhea 03/28/2017 11/06/2019 Overview: U/s 03/28/17 PCOS documented as of this encounter (statuses as of 05/24/2023) [facility] History of Past illness Narrative* Problem Noted Date Diagnosed Date Resolved Date Retained placenta without he morrhage, condition or complication 01/19/202108/2022 33 weeks gestation of 12/05/2020 11/13/2021 related hip pain i n third trimester, antepartum 12/05/2020 11/13/2021 Rh negative state in antepar bassam period, second trimester 07/18/2020 11/13/2021 Spotting in early 06/12/2020 11/13/2021 Overview: 06/12/2020 Patient states that she has spotted on 2 occasions after intercourse when she wiped with brownish discharge. This happened 1 week ago and 3 weeks ago. Denies any bleeding since then. Denies any pain. TKRN Patient requested diagnostic testing 06/12/2020 11/13/2021 Overview: 06/12/2020Patient desires nuchal ultrasound.Sylvie Hensley RN Supervision of normal 11/06/2019 11/13/2021 Atrial flutter 08/01/2018 11/06/2019 Oligomenorrhea 03/28/2017 11/06/2019 Overview: U/s 03/28/17 PCOS documented as of this encounter (statuses as of 05/25/2023) [facility] History of Past illness Narrative* Problem Noted Date Diagnosed Date Resolved Date Retained placenta without he morrhage, condition or complication 01/19/202108/2022 33 weeks gestation of 12/05/2020 11/13/2021 related hip pain i n third trimester, antepartum 12/05/2020 11/13/2021 Rh negative state in antepar bassam period, second trimester 07/18/2020 11/13/2021 Spotting in early 06/12/2020 11/13/2021 Overview: 06/12/2020 Patient states that she has spotted on 2 occasions after intercourse when she wiped with brownish discharge. This happened 1 week ago and 3 weeks ago. Denies any bleeding since then. Denies any pain. TKRN Patient requested diagnostic testing 06/12/2020 11/13/2021 Overview: 06/12/2020Patient desires nuchal ultrasound.Sylvie Hensley RN Supervision of normal 11/06/2019 11/13/2021 Atrial flutter 08/01/2018 11/06/2019 Oligomenorrhea 03/28/2017 11/06/2019 Overview: U/s 03/28/17 PCOS documented as of this encounter (statuses as of 05/26/2023) [facility] History of Past illness Narrative* Problem Noted Date Diagnosed Date Resolved Date Retained placenta without he morrhage, condition or complication 01/19/202108/2022 33 weeks gestation of 12/05/2020 11/13/2021 related hip pain i n third trimester, antepartum 12/05/2020 11/13/2021 Rh negative state in antepar bassam period, second trimester 07/18/2020 11/13/2021 Spotting in early 06/12/2020 11/13/2021 Overview: 06/12/2020 Patient states that she has spotted on 2 occasions after intercourse when she wiped with brownish discharge. This happened 1 week ago and 3 weeks ago. Denies any bleeding since then. Denies any pain. TKRN Patient requested diagnostic testing 06/12/2020 11/13/2021 Overview: 06/12/2020Patient desires nuchal ultrasound.Sylvie Hensley RN Supervision of normal 11/06/2019 11/13/2021 Atrial flutter 08/01/2018 11/06/2019 Oligomenorrhea 03/28/2017 11/06/2019 Overview: U/s 03/28/17 PCOS documented as of this encounter (statuses as of 06/09/2023) [facility] History of Past illness Narrative* Problem Noted Date Diagnosed Date Resolved Date Retained placenta without he morrhage, condition or complication 01/19/202108/2022 33 weeks gestation of 12/05/2020 11/13/2021 related hip pain i n third trimester, antepartum 12/05/2020 11/13/2021 Rh negative state in antepar bassam period, second trimester 07/18/2020 11/13/2021 Spotting in early 06/12/2020 11/13/2021 Overview: 06/12/2020 Patient states that she has spotted on 2 occasions after intercourse when she wiped with brownish discharge. This happened 1 week ago and 3 weeks ago. Denies any bleeding since then. Denies any pain. TKRN Patient requested diagnostic testing 06/12/2020 11/13/2021 Overview: 06/12/2020Patient desires nuchal ultrasound.Sylvie Hensley RN Supervision of normal 11/06/2019 11/13/2021 Atrial flutter 08/01/2018 11/06/2019 Oligomenorrhea 03/28/2017 11/06/2019 Overview: U/s 03/28/17 PCOS documented as of this encounter (statuses as of 06/09/2023) [facility] History of Past illness Narrative* Problem Noted Date Diagnosed Date Resolved Date Retained placenta without he morrhage, condition or complication 01/19/202108/2022 33 weeks gestation of 12/05/2020 11/13/2021 related hip pain i n third trimester, antepartum 12/05/2020 11/13/2021 Rh negative state in antepar bassam period, second trimester 07/18/2020 11/13/2021 Spotting in early 06/12/2020 11/13/2021 Overview: 06/12/2020 Patient states that she has spotted on 2 occasions after intercourse when she wiped with brownish discharge. This happened 1 week ago and 3 weeks ago. Denies any bleeding since then. Denies any pain. TKRN Patient requested diagnostic testing 06/12/2020 11/13/2021 Overview: 06/12/2020Patient desires nuchal ultrasound.Sylvie Hensley RN Supervision of normal 11/06/2019 11/13/2021 Atrial flutter 08/01/2018 11/06/2019 Oligomenorrhea 03/28/2017 11/06/2019 Overview: U/s 03/28/17 PCOS documented as of this encounter (statuses as of 06/10/2023) [facility] History of Past illness Narrative* Problem Noted Date Diagnosed Date Resolved Date Retained placenta without he morrhage, condition or complication 01/19/202108/2022 33 weeks gestation of 12/05/2020 11/13/2021 related hip pain i n third trimester, antepartum 12/05/2020 11/13/2021 Rh negative state in antepar bassam period, second trimester 07/18/2020 11/13/2021 Spotting in early 06/12/2020 11/13/2021 Overview: 06/12/2020 Patient states that she has spotted on 2 occasions after intercourse when she wiped with brownish discharge. This happened 1 week ago and 3 weeks ago. Denies any bleeding since then. Denies any pain. TKRN Patient requested diagnostic testing 06/12/2020 11/13/2021 Overview: 06/12/2020Patient desires nuchal ultrasound.Sylvie Hensley RN Supervision of normal 11/06/2019 11/13/2021 Atrial flutter 08/01/2018 11/06/2019 Oligomenorrhea 03/28/2017 11/06/2019 Overview: U/s 03/28/17 PCOS documented as of this encounter (statuses as of 06/14/2023) [facility] History of Past illness Narrative* Problem Noted Date Diagnosed Date Resolved Date Retained placenta without he morrhage, condition or complication 01/19/202108/2022 33 weeks gestation of 12/05/2020 11/13/2021 related hip pain i n third trimester, antepartum 12/05/2020 11/13/2021 Rh negative state in antepar bassam period, second trimester 07/18/2020 11/13/2021 Spotting in early 06/12/2020 11/13/2021 Overview: 06/12/2020 Patient states that she has spotted on 2 occasions after intercourse when she wiped with brownish discharge. This happened 1 week ago and 3 weeks ago. Denies any bleeding since then. Denies any pain. TKRN Patient requested diagnostic testing 06/12/2020 11/13/2021 Overview: 06/12/2020Patient desires nuchal ultrasound.Sylvie Hensley RN Supervision of normal 11/06/2019 11/13/2021 Atrial flutter 08/01/2018 11/06/2019 Oligomenorrhea 03/28/2017 11/06/2019 Overview: U/s 03/28/17 PCOS documented as of this encounter (statuses as of 06/14/2023) [facility] History of Past illness Narrative* Problem Noted Date Diagnosed Date Resolved Date Retained placenta without he morrhage, condition or complication 01/19/202108/2022 33 weeks gestation of 12/05/2020 11/13/2021 related hip pain i n third trimester, antepartum 12/05/2020 11/13/2021 Rh negative state in antepar bassam period, second trimester 07/18/2020 11/13/2021 Spotting in early 06/12/2020 11/13/2021 Overview: 06/12/2020 Patient states that she has spotted on 2 occasions after intercourse when she wiped with brownish discharge. This happened 1 week ago and 3 weeks ago. Denies any bleeding since then. Denies any pain. TKRN Patient requested diagnostic testing 06/12/2020 11/13/2021 Overview: 06/12/2020Patient desires nuchal ultrasound.Sylvie Hensley RN Supervision of normal 11/06/2019 11/13/2021 Atrial flutter 08/01/2018 11/06/2019 Oligomenorrhea 03/28/2017 11/06/2019 Overview: U/s 03/28/17 PCOS documented as of this encounter (statuses as of 06/24/2023) [facility] History of Past illness Narrative* Problem Noted Date Diagnosed Date Resolved Date Retained placenta without he morrhage, condition or complication 01/19/202108/2022 33 weeks gestation of 12/05/2020 11/13/2021 related hip pain i n third trimester, antepartum 12/05/2020 11/13/2021 Rh negative state in antepar bassam period, second trimester 07/18/2020 11/13/2021 Spotting in early 06/12/2020 11/13/2021 Overview: 06/12/2020 Patient states that she has spotted on 2 occasions after intercourse when she wiped with brownish discharge. This happened 1 week ago and 3 weeks ago. Denies any bleeding since then. Denies any pain. TKRN Patient requested diagnostic testing 06/12/2020 11/13/2021 Overview: 06/12/2020Patient desires nuchal ultrasound.Sylvie Hensley RN Supervision of normal 11/06/2019 11/13/2021 Atrial flutter 08/01/2018 11/06/2019 Oligomenorrhea 03/28/2017 11/06/2019 Overview: U/s 03/28/17 PCOS documented as of this encounter (statuses as of 07/13/2023) [facility] History of Past illness Narrative* Problem Noted Date Diagnosed Date Resolved Date Retained placenta without he morrhage, condition or complication 01/19/202108/2022 33 weeks gestation of 12/05/2020 11/13/2021 related hip pain i n third trimester, antepartum 12/05/2020 11/13/2021 Rh negative state in antepar bassam period, second trimester 07/18/2020 11/13/2021 Spotting in early 06/12/2020 11/13/2021 Overview: 06/12/2020 Patient states that she has spotted on 2 occasions after intercourse when she wiped with brownish discharge. This happened 1 week ago and 3 weeks ago. Denies any bleeding since then. Denies any pain. TKRN Patient requested diagnostic testing 06/12/2020 11/13/2021 Overview: 06/12/2020Patient desires nuchal ultrasound.Sylvie Hensley RN Supervision of normal 11/06/2019 11/13/2021 Atrial flutter 08/01/2018 11/06/2019 Oligomenorrhea 03/28/2017 11/06/2019 Overview: U/s 03/28/17 PCOS documented as of this encounter (statuses as of 07/14/2023) [facility] History of Past illness Narrative* Problem Noted Date Diagnosed Date Resolved Date Retained placenta without he morrhage, condition or complication 01/19/202108/2022 33 weeks gestation of 12/05/2020 11/13/2021 related hip pain i n third trimester, antepartum 12/05/2020 11/13/2021 Rh negative state in antepar bassam period, second trimester 07/18/2020 11/13/2021 Spotting in early 06/12/2020 11/13/2021 Overview: 06/12/2020 Patient states that she has spotted on 2 occasions after intercourse when she wiped with brownish discharge. This happened 1 week ago and 3 weeks ago. Denies any bleeding since then. Denies any pain. TKRN Patient requested diagnostic testing 06/12/2020 11/13/2021 Overview: 06/12/2020Patient desires nuchal ultrasound.Sylvie Hensley RN Supervision of normal 11/06/2019 11/13/2021 Atrial flutter 08/01/2018 11/06/2019 Oligomenorrhea 03/28/2017 11/06/2019 Overview: U/s 03/28/17 PCOS documented as of this encounter (statuses as of 07/28/2023) [facility] History of Past illness Narrative* Problem Noted Date Diagnosed Date Resolved Date Retained placenta without he morrhage, condition or complication 01/19/202108/2022 33 weeks gestation of 12/05/2020 11/13/2021 related hip pain i n third trimester, antepartum 12/05/2020 11/13/2021 Rh negative state in antepar bassam period, second trimester 07/18/2020 11/13/2021 Spotting in early 06/12/2020 11/13/2021 Overview: 06/12/2020 Patient states that she has spotted on 2 occasions after intercourse when she wiped with brownish discharge. This happened 1 week ago and 3 weeks ago. Denies any bleeding since then. Denies any pain. TKRN Patient requested diagnostic testing 06/12/2020 11/13/2021 Overview: 06/12/2020Patient desires nuchal ultrasound.Sylvie Hensley RN Supervision of normal 11/06/2019 11/13/2021 Atrial flutter 08/01/2018 11/06/2019 Oligomenorrhea 03/28/2017 11/06/2019 Overview: U/s 03/28/17 PCOS documented as of this encounter (statuses as of 08/06/2023) [facility] History of Past illness Narrative* Problem Noted Date Diagnosed Date Resolved Date Retained placenta without he morrhage, condition or complication 01/19/202108/2022 33 weeks gestation of 12/05/2020 11/13/2021 related hip pain i n third trimester, antepartum 12/05/2020 11/13/2021 Rh negative state in antepar bassam period, second trimester 07/18/2020 11/13/2021 Spotting in early 06/12/2020 11/13/2021 Overview: 06/12/2020 Patient states that she has spotted on 2 occasions after intercourse when she wiped with brownish discharge. This happened 1 week ago and 3 weeks ago. Denies any bleeding since then. Denies any pain. TKRN Patient requested diagnostic testing 06/12/2020 11/13/2021 Overview: 06/12/2020Patient desires nuchal ultrasound.Sylvie Hensley RN Supervision of normal 11/06/2019 11/13/2021 Atrial flutter 08/01/2018 11/06/2019 Oligomenorrhea 03/28/2017 11/06/2019 Overview: U/s 03/28/17 PCOS documented as of this encounter (statuses as of 08/07/2023) [facility] History of Past illness Narrative* Problem Noted Date Diagnosed Date Resolved Date Retained placenta without he morrhage, condition or complication 01/19/202108/2022 33 weeks gestation of 12/05/2020 11/13/2021 related hip pain i n third trimester, antepartum 12/05/2020 11/13/2021 Rh negative state in antepar bassam period, second trimester 07/18/2020 11/13/2021 Spotting in early 06/12/2020 11/13/2021 Overview: 06/12/2020 Patient states that she has spotted on 2 occasions after intercourse when she wiped with brownish discharge. This happened 1 week ago and 3 weeks ago. Denies any bleeding since then. Denies any pain. TKRN Patient requested diagnostic testing 06/12/2020 11/13/2021 Overview: 06/12/2020Patient desires nuchal ultrasound.Sylvie Hensley RN Supervision of normal 11/06/2019 11/13/2021 Atrial flutter 08/01/2018 11/06/2019 Oligomenorrhea 03/28/2017 11/06/2019 Overview: U/s 03/28/17 PCOS documented as of this encounter (statuses as of 08/11/2023) [facility] History of Past illness Narrative* Problem Noted Date Diagnosed Date Resolved Date Retained placenta without he morrhage, condition or complication 01/19/202108/2022 33 weeks gestation of 12/05/2020 11/13/2021 related hip pain i n third trimester, antepartum 12/05/2020 11/13/2021 Rh negative state in antepar bassam period, second trimester 07/18/2020 11/13/2021 Spotting in early 06/12/2020 11/13/2021 Overview: 06/12/2020 Patient states that she has spotted on 2 occasions after intercourse when she wiped with brownish discharge. This happened 1 week ago and 3 weeks ago. Denies any bleeding since then. Denies any pain. TKRN Patient requested diagnostic testing 06/12/2020 11/13/2021 Overview: 06/12/2020Patient desires nuchal ultrasound.Sylvie Hensley RN Supervision of normal 11/06/2019 11/13/2021 Atrial flutter 08/01/2018 11/06/2019 Oligomenorrhea 03/28/2017 11/06/2019 Overview: U/s 03/28/17 PCOS documented as of this encounter (statuses as of 08/15/2023) [facility] History of Past illness Narrative* Problem Noted Date Diagnosed Date Resolved Date Retained placenta without he morrhage, condition or complication 01/19/202108/2022 33 weeks gestation of 12/05/2020 11/13/2021 related hip pain i n third trimester, antepartum 12/05/2020 11/13/2021 Rh negative state in antepar bassam period, second trimester 07/18/2020 11/13/2021 Spotting in early 06/12/2020 11/13/2021 Overview: 06/12/2020 Patient states that she has spotted on 2 occasions after intercourse when she wiped with brownish discharge. This happened 1 week ago and 3 weeks ago. Denies any bleeding since then. Denies any pain. TKRN Patient requested diagnostic testing 06/12/2020 11/13/2021 Overview: 06/12/2020Patient desires nuchal ultrasound.Sylvie Hensley RN Supervision of normal 11/06/2019 11/13/2021 Atrial flutter 08/01/2018 11/06/2019 Oligomenorrhea 03/28/2017 11/06/2019 Overview: U/s 03/28/17 PCOS documented as of this encounter (statuses as of 09/06/2023) [facility] History of Past illness Narrative* Problem Noted Date Diagnosed Date Resolved Date Retained placenta without he morrhage, condition or complication 01/19/202108/2022 33 weeks gestation of 12/05/2020 11/13/2021 related hip pain i n third trimester, antepartum 12/05/2020 11/13/2021 Rh negative state in antepar bassam period, second trimester 07/18/2020 11/13/2021 Spotting in early 06/12/2020 11/13/2021 Overview: 06/12/2020 Patient states that she has spotted on 2 occasions after intercourse when she wiped with brownish discharge. This happened 1 week ago and 3 weeks ago. Denies any bleeding since then. Denies any pain. TKRN Patient requested diagnostic testing 06/12/2020 11/13/2021 Overview: 06/12/2020Patient desires nuchal ultrasound.Sylvie Hensley RN Supervision of normal 11/06/2019 11/13/2021 Atrial flutter 08/01/2018 11/06/2019 Oligomenorrhea 03/28/2017 11/06/2019 Overview: U/s 03/28/17 PCOS documented as of this encounter (statuses as of 09/15/2023) [facility] History of Past illness Narrative* Problem Noted Date Diagnosed Date Resolved Date Retained placenta without he morrhage, condition or complication 01/19/202108/2022 33 weeks gestation of 12/05/2020 11/13/2021 related hip pain i n third trimester, antepartum 12/05/2020 11/13/2021 Rh negative state in antepar bassam period, second trimester 07/18/2020 11/13/2021 Spotting in early 06/12/2020 11/13/2021 Overview: 06/12/2020 Patient states that she has spotted on 2 occasions after intercourse when she wiped with brownish discharge. This happened 1 week ago and 3 weeks ago. Denies any bleeding since then. Denies any pain. TKRN Patient requested diagnostic testing 06/12/2020 11/13/2021 Overview: 06/12/2020Patient desires nuchal ultrasound.Sylvie Hensley RN Supervision of normal 11/06/2019 11/13/2021 Atrial flutter 08/01/2018 11/06/2019 Oligomenorrhea 03/28/2017 11/06/2019 Overview: U/s 03/28/17 PCOS documented as of this encounter (statuses as of 11/04/2023) [facility] History of Past illness Narrative* Problem Noted Date Diagnosed Date Resolved Date Retained placenta without he morrhage, condition or complication 01/19/202108/2022 33 weeks gestation of 12/05/2020 11/13/2021 related hip pain i n third trimester, antepartum 12/05/2020 11/13/2021 Rh negative state in antepar bassam period, second trimester 07/18/2020 11/13/2021 Spotting in early 06/12/2020 11/13/2021 Overview: 06/12/2020 Patient states that she has spotted on 2 occasions after intercourse when she wiped with brownish discharge. This happened 1 week ago and 3 weeks ago. Denies any bleeding since then. Denies any pain. TKRN Patient requested diagnostic testing 06/12/2020 11/13/2021 Overview: 06/12/2020Patient desires nuchal ultrasound.Sylvie Hensley RN Supervision of normal 11/06/2019 11/13/2021 Atrial flutter 08/01/2018 11/06/2019 Oligomenorrhea 03/28/2017 11/06/2019 Overview: U/s 03/28/17 PCOS documented as of this encounter (statuses as of 11/07/2023) [facility] History of Past illness Narrative* Problem Noted Date Diagnosed Date Resolved Date Retained placenta without he morrhage, condition or complication 01/19/202108/2022 33 weeks gestation of 12/05/2020 11/13/2021 related hip pain i n third trimester, antepartum 12/05/2020 11/13/2021 Rh negative state in antepar bassam period, second trimester 07/18/2020 11/13/2021 Spotting in early 06/12/2020 11/13/2021 Overview: 06/12/2020 Patient states that she has spotted on 2 occasions after intercourse when she wiped with brownish discharge. This happened 1 week ago and 3 weeks ago. Denies any bleeding since then. Denies any pain. TKRN Patient requested diagnostic testing 06/12/2020 11/13/2021 Overview: 06/12/2020Patient desires nuchal ultrasound.Sylvie Hensley RN Supervision of normal 11/06/2019 11/13/2021 Atrial flutter 08/01/2018 11/06/2019 Oligomenorrhea 03/28/2017 11/06/2019 Overview: U/s 03/28/17 PCOS documented as of this encounter (statuses as of 11/09/2023) [facility] History of Past illness Narrative* Problem Noted Date Diagnosed Date Resolved Date Retained placenta without he morrhage, condition or complication 01/19/202108/2022 33 weeks gestation of 12/05/2020 11/13/2021 related hip pain i n third trimester, antepartum 12/05/2020 11/13/2021 Rh negative state in antepar bassam period, second trimester 07/18/2020 11/13/2021 Spotting in early 06/12/2020 11/13/2021 Overview: 06/12/2020 Patient states that she has spotted on 2 occasions after intercourse when she wiped with brownish discharge. This happened 1 week ago and 3 weeks ago. Denies any bleeding since then. Denies any pain. TKRN Patient requested diagnostic testing 06/12/2020 11/13/2021 Overview: 06/12/2020Patient desires nuchal ultrasound.Sylvie Hensley RN Supervision of normal 11/06/2019 11/13/2021 Atrial flutter 08/01/2018 11/06/2019 Oligomenorrhea 03/28/2017 11/06/2019 Overview: U/s 03/28/17 PCOS documented as of this encounter (statuses as of 11/09/2023) [facility] History of Past illness Narrative* Problem Noted Date Diagnosed Date Resolved Date Retained placenta without he morrhage, condition or complication 01/19/202108/2022 33 weeks gestation of 12/05/2020 11/13/2021 related hip pain i n third trimester, antepartum 12/05/2020 11/13/2021 Rh negative state in antepar bassam period, second trimester 07/18/2020 11/13/2021 Spotting in early 06/12/2020 11/13/2021 Overview: 06/12/2020 Patient states that she has spotted on 2 occasions after intercourse when she wiped with brownish discharge. This happened 1 week ago and 3 weeks ago. Denies any bleeding since then. Denies any pain. TKRN Patient requested diagnostic testing 06/12/2020 11/13/2021 Overview: 06/12/2020Patient desires nuchal ultrasound.Sylvie Hensley RN Supervision of normal 11/06/2019 11/13/2021 Atrial flutter 08/01/2018 11/06/2019 Oligomenorrhea 03/28/2017 11/06/2019 Overview: U/s 03/28/17 PCOS documented as of this encounter (statuses as of 11/11/2023) [facility] History of Past illness Narrative* Problem Noted Date Diagnosed Date Resolved Date Retained placenta without he morrhage, condition or complication 01/19/202108/2022 33 weeks gestation of 12/05/2020 11/13/2021 related hip pain i n third trimester, antepartum 12/05/2020 11/13/2021 Rh negative state in antepar bassam period, second trimester 07/18/2020 11/13/2021 Spotting in early 06/12/2020 11/13/2021 Overview: 06/12/2020 Patient states that she has spotted on 2 occasions after intercourse when she wiped with brownish discharge. This happened 1 week ago and 3 weeks ago. Denies any bleeding since then. Denies any pain. TKRN Patient requested diagnostic testing 06/12/2020 11/13/2021 Overview: 06/12/2020Patient desires nuchal ultrasound.Sylvie Hensley RN Supervision of normal 11/06/2019 11/13/2021 Atrial flutter 08/01/2018 11/06/2019 Oligomenorrhea 03/28/2017 11/06/2019 Overview: U/s 03/28/17 PCOS documented as of this encounter (statuses as of 11/16/2023) [facility] Diagnosis Yeast infection of nipple, - Primary Infection of nipple, documented in this encounter [facility] Diagnosis Routine physical examination- Primary Routine general medical examination at a health care facility Fatigue, unspecified type Bruising Contusion of unspecified site Headaches documented in this encounter [facility] Diagnosis Acute vaginitis- Primary Vaginitis and vulvovaginitis, unspecified [facility] Diagnosis Encounter for surveillance of contraceptive pills- Primary Surveillance of previously prescribed contraceptive pill PCOS (polycystic ovarian syndrome) Polycystic ovaries History of irregular menstrual bleeding Personal history of other genital system and obstetric disorders Dyspareunia, female Dyspareunia documented in this encounter [facility] Diagnosis Mastitis- Primary Inflammatory disease of breast [facility] Diagnosis Acute mastitis of right breast- Primary Inflammatory disease of breast documented in this encounter [facility] Diagnosis Headache, unspecified headache type- Primary Thunderclap headache Headache Myalgias Nausea Nausea alone documented in [facility] Diagnosis History of pre-eclampsia in prior , currently - Primary with other poor obstetric history History of anxiety Personal history of other mental disorder History of precipitous delivery History of herpes genitalis Personal history of other infectious and parasitic disease Family history of cardiomyopathy Family history of other cardiovascular diseases Family history of congenital heart defect Family history of congenital anomalies Family history of cystic fibrosis Family history of other endocrine and metabolic diseases documented [facility] Diagnosis Encounter for supervision of normal in multigravida- Primary 9 weeks gestation of state, incidental History of pre-eclampsia in prior , currently with other poor obstetric history History of herpes genitalis Personal history of other infectious and parasitic disease History of precipitous delivery Rh negative state in antepartum period Rhesus isoimmunization affecting management of mother, antepartum condition with inconclusive viability, single or unspecified fetus- Primary documented in [facility] Diagnosis Symptoms of upper respiratory infection (URI)- Primary documented [facility] Diagnosis Encounter for screening for nuchal translucency- Primary 14 weeks gestation of state, incidental Subchorionic hematoma in second trimester, single or unspecified fetus documented [facility] this [facility] Diagnosis Encounter for (NT) nuchal translucency scan- Primary Other specified screening Encounter for supervision of normal in multigravida 14 weeks gestation of state, incidental documented in this encounter [facility] Diagnosis Subchorionic hematoma in second trimester, single or unspecified fetus- Primary 16 weeks gestation of state, incidental Encounter for supervision of other normal in second trimester documented [facility] Diagnosis Encounter for anatomic survey- Primary Encounter for supervision of normal in multigravida Placental abnormality in second trimester 19 weeks gestation of state, incidental documented in this encounter [facility] Diagnosis 19 weeks gestation of - Primary state, incidental Subchorionic hematoma in second trimester, single or unspecified fetus History of pre-eclampsia in prior , currently with other poor obstetric history documented [facility] this [facility] Diagnosis 20 weeks gestation of - Primary state, incidental documented in this encounter [facility] Diagnosis Headache, unspecified headache type Thunderclap headache Headache documented in this [facility] Diagnosis 23 weeks gestation of - Primary state, incidental Subchorionic hematoma in second trimester, single or unspecified fetus History of pre-eclampsia in prior , currently with other poor obstetric history Need for influenza vaccination Need for prophylactic vaccination and inoculation against influenza Uterine size-date discrepancy, second trimester documented in this encounter [facility] Diagnosis Pelvic pressure in - Primary Other specified complication, antepartum 26 weeks gestation of state, incidental documented [facility] this [facility] Diagnosis 35 weeks gestation of - Primary state, incidental Back pain in Other specified complication of , unspecified as to episode of care Encounter for supervision of normal in multigravida Pelvic pressure in Other specified complication, antepartum documented in this encounter [facility] Diagnosis 34 weeks gestation of - Primary state, incidental documented in this encounter [facility]* Diagnosis Encounter for ultrasound to check growth- Primary Encounter for routine screening for malformation using ultrasonics Uterine size-date discrepancy, third trimester 32 weeks gestation of state, incidental Macrosomia of fetus affecting management of mother in third trimester, single or unspecified fetus documented in this encounter [facility] Diagnosis 36 weeks gestation of - Primary state, incidental documented in this encounter [facility]* Diagnosis Excessive growth affecting management of in third trimester, single or unspecified fetus- Primary Encounter for supervision of normal in multigravida Uterine size-date discrepancy, third trimester 37 weeks gestation of state, incidental documented in this encounter [facility] for referral (narrative)* Diagnostic Procedure Only (Routine) - Authorized Specialty Diagnoses / Procedures Referred By Danay martínez [facility] Diagnoses Encounter for supervision of normal in multigravida 9 weeks gestation of Procedures NUCHAL TRANSLUCENCY WHI US NUCHAL TRANSLUCENCY 1ST GESTATION Smita Booker APRN.CNM [address] [place] [address] [facility] [address] [place] [address] Referral ID Status Reason Start Date Expiration Date Visits Requested Visits Authorized [id number] Authorized Auto-Generat ed Referral 05/06/2023 05/05/2024 1 1 * Diagnostic Procedure Only (Routine) - Pending Review Specialty Diagnoses / Procedures Referred By Contac t Referred To Contact [facility] Diagnoses Encounter for supervision of normal in multigravida 9 weeks gestation of Procedures OBSTETRIC ULTRASOUND WHI US PREG UTERUS AFTER 1ST TRIMEST GESTATION Smita Booker APRN.CNM [address] [place] [address] [facility] [address] [place] [address] Referral ID Status Reason Start Date Expiration Date Visits Requested Visits Authorized [id number] Pending Review Auto-Generat ed Referral 05/06/2023 05/05/2024 1 1 [facility] Summary Purpose Family History No Family History Records FoundNo Family History Records FoundNo Family History Records Found Advance Directives No Advanced Directives Records FoundNo Advanced Directives Records FoundNo Advanced Directives Records Found Reason for Referral Specialty Diagnoses / Procedures Referred By Contac t Referred To Contact Neurology Diagnoses Headache, unspecified headache type Thunderclap headache Procedures CONSULT TO NEUROLOGY OFFICE/OUTPATIENT [facility] 60-74 MINUTES Marichuy Painter, GLOBAL COMPENSATION ANALYST.[employer] [address] [place] [address] Referral ID Status Reason Start Date Expiration Date Visits Requested Visits Authorized [id number] Authorized PCP Requested Referral 01/28/2023 01/28/2024 1 1 Specialty Diagnoses / Procedures Referred By Contac t Referred To Contact CT IMAGING Diagnoses Headache, unspecified headache type Thunderclap headache Procedures CT BRAIN WO/W IVCON CT HEAD/BRAIN W/O & W/CONTRAST 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, GLOBAL COMPENSATION ANALYST.[employer] [address] [place] [address] Ct Imaging Referral ID Status Reason Start Date Expiration Date Visits Requested Visits Authorized [id number] Waiting for Response Auto-Genera octaviano Referral Patient Cleared - Admin/Chair man/Directo r advise to proceed 01/28/2023 02/27/2024 1 1 Specialty Diagnoses / Procedures Referred By Danay martínez Referred To Contact CT IMAGING Diagnoses Headache, unspecified headache type Thunderclap headache Procedures CT BRAIN WO/W IVCON CT HEAD/BRAIN W/O & W/CONTRAST 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, GLOBAL COMPENSATION ANALYST.[employer] [address] [place] [address] [place] [id number] Referral ID Status Reason Start Date Expiration Date V isits Requested Visits Authorized [id number] Closed Auto-Generat ed Referral Patient Cleared - Admin/Chairm an/Director advise to proceed or did not respond 01/28/2023 04/28/2023 1 1 Health Concerns Problem Noted Date Diagnosed Date [facility] Education - COMMON 05/06/2023 Education - [place] 05/06/2023 Problem Noted Date Diagnosed Date [facility] Education - COMMON 05/06/2023 Education - [place] 05/06/2023 Problem Noted Date Diagnosed Date [facility] - [facility] 05/06/2023 Education - [place] 05/06/2023 Infection Onset Date Last Indicated Resolved Time COVID-19 Rule-Out 05/24/2023 05/24/2023 05/24/2023 7:32 PM EDT Problem Noted Date Diagnosed Date [facility] Education - COMMON 05/06/2023 Education - [place] 05/06/2023 Additional Source Comments INFORMATION SOURCE (unrecogn ized section and content) DATE CREATED AUTHOR AUTHOR'S ORGANIZ ATION 12/10/2022 [facility] DATE CREATED AUTHOR AUTHOR'S ORGANIZ ATION 11/15/2023 [facility] Source Comments (unrecognize d section and content) In the event this informatio n is protected by the Federal Confidentiality of Alcohol and Drug Abuse Patient Records regulations: The Federal rules restrict any use of the information to criminally investigate or prosecute any alcohol or drug abuse patient.[facility] the event this information is protected by the Federal Confidentiality of Alcohol and Drug Abuse Patient Records regulations: The Federal rules restrict any use of the information to criminally investigate or prosecute any alcohol or drug abuse patient.[facility] the event this information is protected by the Federal Confidentiality of Alcohol and Drug Abuse Patient Records regulations: The Federal rules restrict any use of the information to criminally investigate or prosecute any alcohol or drug abuse patient.[facility] the event this information is protected by the Federal Confidentiality of Alcohol and Drug Abuse Patient Records regulations: The Federal rules restrict any use of the information to criminally investigate or prosecute any alcohol or drug abuse patient.[facility] the event this information is protected by the Federal Confidentiality of Alcohol and Drug Abuse Patient Records regulations: The Federal rules restrict any use of the information to criminally investigate or prosecute any alcohol or drug abuse patient.[facility] HospitalIn the event this information is protected by the Federal Confidentiality of Alcohol and Drug Abuse Patient Records regulations: The Federal rules restrict any use of the information to criminally investigate or prosecute any alcohol or drug abuse patient.[facility] HospitalIn the event this information is protected by the Federal Confidentiality of Alcohol and Drug Abuse Patient Records regulations: The Federal rules restrict any use of the information to criminally investigate or prosecute any alcohol or drug abuse patient.[facility] HospitalIn the event this information is protected by the Federal Confidentiality of Alcohol and Drug Abuse Patient Records regulations: The Federal rules restrict any use of the information to criminally investigate or prosecute any alcohol or drug abuse patient.[facility] HospitalIn the event this information is protected by the Federal Confidentiality of Alcohol and Drug Abuse Patient Records regulations: The Federal rules restrict any use of the information to criminally investigate or prosecute any alcohol or drug abuse patient.[facility] HospitalIn the event this information is protected by the Federal Confidentiality of Alcohol and Drug Abuse Patient Records regulations: The Federal rules restrict any use of the information to criminally investigate or prosecute any alcohol or drug abuse patient.[facility] HospitalIn the event this information is protected by the Federal Confidentiality of Alcohol and Drug Abuse Patient Records regulations: The Federal rules restrict any use of the information to criminally investigate or prosecute any alcohol or drug abuse patient.[facility] HospitalIn the event this information is protected by the Federal Confidentiality of Alcohol and Drug Abuse Patient Records regulations: The Federal rules restrict any use of the information to criminally investigate or prosecute any alcohol or drug abuse patient.[facility] HospitalIn the event this information is protected by the Federal Confidentiality of Alcohol and Drug Abuse Patient Records regulations: The Federal rules restrict any use of the information to criminally investigate or prosecute any alcohol or drug abuse patient.[facility] HospitalIn the event this information is protected by the Federal Confidentiality of Alcohol and Drug Abuse Patient Records regulations: The Federal rules restrict any use of the information to criminally investigate or prosecute any alcohol or drug abuse patient.[facility] HospitalIn the event this information is protected by the Federal Confidentiality of Alcohol and Drug Abuse Patient Records regulations: The Federal rules restrict any use of the information to criminally investigate or prosecute any alcohol or drug abuse patient.[facility] HospitalIn the event this information is protected by the Federal Confidentiality of Alcohol and Drug Abuse Patient Records regulations: The Federal rules restrict any use of the information to criminally investigate or prosecute any alcohol or drug abuse patient.[facility] HospitalIn the event this information is protected by the Federal Confidentiality of Alcohol and Drug Abuse Patient Records regulations: The Federal rules restrict any use of the information to criminally investigate or prosecute any alcohol or drug abuse patient.[facility] HospitalIn the event this information is protected by the Federal Confidentiality of Alcohol and Drug Abuse Patient Records regulations: The Federal rules restrict any use of the information to criminally investigate or prosecute any alcohol or drug abuse patient.[facility] HospitalIn the event this information is protected by the Federal Confidentiality of Alcohol and Drug Abuse Patient Records regulations: The Federal rules restrict any use of the information to criminally investigate or prosecute any alcohol or drug abuse patient.[facility] HospitalIn the event this information is protected by the Federal Confidentiality of Alcohol and Drug Abuse Patient Records regulations: The Federal rules restrict any use of the information to criminally investigate or prosecute any alcohol or drug abuse patient.[facility] HospitalIn the event this information is protected by the Federal Confidentiality of Alcohol and Drug Abuse Patient Records regulations: The Federal rules restrict any use of the information to criminally investigate or prosecute any alcohol or drug abuse patient.[facility] HospitalIn the event this information is protected by the Federal Confidentiality of Alcohol and Drug Abuse Patient Records regulations: The Federal rules restrict any use of the information to criminally investigate or prosecute any alcohol or drug abuse patient.[facility] HospitalIn the event this information is protected by the Federal Confidentiality of Alcohol and Drug Abuse Patient Records regulations: The Federal rules restrict any use of the information to criminally investigate or prosecute any alcohol or drug abuse patient.[facility] HospitalIn the event this information is protected by the Federal Confidentiality of Alcohol and Drug Abuse Patient Records regulations: The Federal rules restrict any use of the information to criminally investigate or prosecute any alcohol or drug abuse patient.[facility] HospitalIn the event this information is protected by the Federal Confidentiality of Alcohol and Drug Abuse Patient Records regulations: The Federal rules restrict any use of the information to criminally investigate or prosecute any alcohol or drug abuse patient.[facility] HospitalIn the event this information is protected by the Federal Confidentiality of Alcohol and Drug Abuse Patient Records regulations: The Federal rules restrict any use of the information to criminally investigate or prosecute any alcohol or drug abuse patient.[facility] HospitalIn the event this information is protected by the Federal Confidentiality of Alcohol and Drug Abuse Patient Records regulations: The Federal rules restrict any use of the information to criminally investigate or prosecute any alcohol or drug abuse patient.[facility] HospitalIn the event this information is protected by the Federal Confidentiality of Alcohol and Drug Abuse Patient Records regulations: The Federal rules restrict any use of the information to criminally investigate or prosecute any alcohol or drug abuse patient.[facility] HospitalIn the event this information is protected by the Federal Confidentiality of Alcohol and Drug Abuse Patient Records regulations: The Federal rules restrict any use of the information to criminally investigate or prosecute any alcohol or drug abuse patient.[facility] HospitalIn the event this information is protected by the Federal Confidentiality of Alcohol and Drug Abuse Patient Records regulations: The Federal rules restrict any use of the information to criminally investigate or prosecute any alcohol or drug abuse patient.[facility] HospitalIn the event this information is protected by the Federal Confidentiality of Alcohol and Drug Abuse Patient Records regulations: The Federal rules restrict any use of the information to criminally investigate or prosecute any alcohol or drug abuse patient.[facility] HospitalIn the event this information is protected by the Federal Confidentiality of Alcohol and Drug Abuse Patient Records regulations: The Federal rules restrict any use of the information to criminally investigate or prosecute any alcohol or drug abuse patient.[facility] HospitalIn the event this information is protected by the Federal Confidentiality of Alcohol and Drug Abuse Patient Records regulations: The Federal rules restrict any use of the information to criminally investigate or prosecute any alcohol or drug abuse patient.[facility] HospitalIn the event this information is protected by the Federal Confidentiality of Alcohol and Drug Abuse Patient Records regulations: The Federal rules restrict any use of the information to criminally investigate or prosecute any alcohol or drug abuse patient.[facility] HospitalIn the event this information is protected by the Federal Confidentiality of Alcohol and Drug Abuse Patient Records regulations: The Federal rules restrict any use of the information to criminally investigate or prosecute any alcohol or drug abuse patient.[facility] HospitalIn the event this information is protected by the Federal Confidentiality of Alcohol and Drug Abuse Patient Records regulations: The Federal rules restrict any use of the information to criminally investigate or prosecute any alcohol or drug abuse patient.[facility] HospitalIn the event this information is protected by the Federal Confidentiality of Alcohol and Drug Abuse Patient Records regulations: The Federal rules restrict any use of the information to criminally investigate or prosecute any alcohol or drug abuse patient.[facility] HospitalIn the event this information is protected by the Federal Confidentiality of Alcohol and Drug Abuse Patient Records regulations: The Federal rules restrict any use of the information to criminally investigate or prosecute any alcohol or drug abuse patient.[facility] HospitalIn the event this information is protected by the Federal Confidentiality of Alcohol and Drug Abuse Patient Records regulations: The Federal rules restrict any use of the information to criminally investigate or prosecute any alcohol or drug abuse patient.[facility] HospitalIn the event this information is protected by the Federal Confidentiality of Alcohol and Drug Abuse Patient Records regulations: The Federal rules restrict any use of the information to criminally investigate or prosecute any alcohol or drug abuse patient.[facility] HospitalIn the event this information is protected by the Federal Confidentiality of Alcohol and Drug Abuse Patient Records regulations: The Federal rules restrict any use of the information to criminally investigate or prosecute any alcohol or drug abuse patient.[facility] Reason for Visit (unrecogniz ed section and content) Reason Comments Yearly Exam Reason Comments Results, Lab Reason Comments Patient Question Reason Comments Medication Question Reason Comments Vaginal Problem Reason Comments Breast Problem Right breast painful , pumped, breast milk pink, currently breatfeeding. Reason Comments Breast Problem Reason Comments Recheck Reason Comments Acute Visit dizziness, nausea Reason Comments Results Reason Comments Future Appointment Reason Comments Care Reason Comments Care Reason Comments Transition Program Manager - Other PRAF Reason Comments Upper Respiratory Infection Reason Comments respiratory symptoms Reason Comments OB Bleeding Reason Onset Date Comments Care 06/08/2023 Reason Comments US Specialty Diagnoses / Procedures Referred By Danay martínez Referred To Contact [facility] Diagnoses Encounter for supervision of normal in multigravida 9 weeks gestation of Procedures NUCHAL TRANSLUCENCY WHI US NUCHAL TRANSLUCENCY 1ST GESTATION Smita Booker APRN.CAMERON [address] [place] [address] [address] Referral ID Status Reason Start Date Expiration Date V isits Requested Visits Authorized [id number] Closed Auto-Generate d Referral 05/06/2023 05/05/2024 1 1 Reason Comments Question (OB Question) Reason Onset Date Comments Care 06/23/2023 Specialty Diagnoses / Procedures Referred By Contac t Referred To Contact [facility] Diagnoses Encounter for supervision of normal in multigravida 9 weeks gestation of Procedures OBSTETRIC ULTRASOUND WHI US PREG UTERUS AFTER 1ST TRIMEST GESTATION Smita Booker, GLOBAL COMPENSATION ANALYST.CNM [address] [place] [address] [address] Referral ID Status Reason Start Date Expiration Date V isits Requested Visits Authorized [id number] Closed Auto-Generate d Referral 05/06/2023 05/05/2024 1 1 Reason Onset Date Comments Care 07/13/[address] Specialty Diagnoses / Procedures Referred By Contac t Referred To Contact [facility] Diagnoses Headache, unspecified headache type Thunderclap headache Procedures CT BRAIN WO/W IVCON CT HEAD/BRAIN W/O & W/CONTRAST 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, GLOBAL COMPENSATION ANALYST.JOB SPOTTER [address] [place] [address] Ct Imaging [id number] Referral ID Status Reason Start Date Expiration Date V isits Requested Visits Authorized [id number] Closed Auto-Generat ed Referral Patient Cleared - Admin/Chairm an/Director advise to proceed or did not respond 01/28/2023 04/28/2023 1 1 Reason Onset Date Comments Care 08/10/2023 Immunizations 08/10/2023 Flu vaccination Reason Onset Date Comments Care 09/05/2023 Reason Onset Date Comments Care 11/03/2023 Reason Onset Date Comments Care 10/26/2023 Specialty Diagnoses / Procedures Referred By Contac t Referred To Contact [facility] Diagnoses 32 weeks gestation of Uterine size-date discrepancy, third trimester Procedures OBSTETRIC ULTRASOUND WHI US PREG UTERUS AFTER 1ST TRIMEST GESTATION Smita Booker APRN.CNM [address] [place] [address] [facility] [address] [place] [address] Referral ID Status Reason Start Date Expiration Date V isits Requested Visits Authorized [id number] Closed Auto-Generate d Referral 10/12/2023 10/11/2024 1 1 Reason Onset Date Comments Care 11/09/2023 Reason Onset Date Comments Care 11/16/2023 Care Teams (unrecognized sec tion and content) Furnace Checker Relationship Specialty Start Date End Date Chad Zavala MD [address] [place], [place] [address] [phone] PCP - General Family Practice 03/31/20 Furnace Checker Relationship Specialty Start Date End Date Chad Zavala MD [address] [place] [address] PCP - General Family Practice 03/31/20 Furnace Checker Relationship Specialty Start Date End Date Chad Zavala MD [address] [place] [address] PCP - General Family Practice 03/31/20 Furnace Checker Relationship Specialty Start Date End Date Chad Zavala MD [address] [place] [address] PCP - General Family Practice 03/31/20 Furnace Checker Relationship Specialty Start Date End Date Chad Zavala MD [address] [place] [address] PCP - General Family Medicine 03/31/20 Furnace Checker Relationship Specialty Start Date End Date Chad Zavala MD [address] [place] [address] PCP - General Family Medicine 03/31/20 Furnace Checker Relationship Specialty Start Date End Date Chad Zavala MD [address] [facility] [place] [address] PCP - General Family Medicine 03/31/20 Furnace Checker Relationship Specialty Start Date End Date Chad Zavala MD [address] [facility] [place] [address] PCP - General Family Medicine 03/31/20 Furnace Checker Relationship Specialty Start Date End Date Chad Zavala MD [address] [facility] [place] [address] PCP - General Family Medicine 03/31/20 Furnace Checker Relationship Specialty Start Date End Date Chad Zavala MD [address] [facility] [place] [address] PCP - General Family Medicine 03/31/20 Furnace Checker Relationship Specialty Start Date End Date Chad Zavala MD [address] [facility] [place] [address] PCP - General Family Medicine 03/31/20 Furnace Checker Relationship Specialty Start Date End Date Chad Zavala MD [address] [facility] [place] [address] PCP - General Family Medicine 03/31/20 Furnace Checker Relationship Specialty Start Date End Date Chad Zavala MD [address] [facility] [place] [address] PCP - General Family Medicine 03/31/20 Furnace Checker Relationship Specialty Start Date End Date Chad Zavala MD [address] [facility] [address] PCP - General Family Medicine 03/31/20 Furnace Checker Relationship Specialty Start Date End Date Chad Zavala MD [address] [place] [address] PCP - General Family Medicine 03/31/20 Furnace Checker Relationship Specialty Start Date End Date Chad Zavala MD [address] [place] [address] PCP - General Family Medicine 03/31/20 Furnace Checker Relationship Specialty Start Date End Date Chad Zavala MD [address] [place] [address] PCP - General Family Medicine 03/31/20 Furnace Checker Relationship Specialty Start Date End Date Chad Zavala MD [address] [place] [address] PCP - General Family Medicine 03/31/20 Furnace Checker Relationship Specialty Start Date End Date Chad Zavala MD [address] [place] [address] PCP - General Family Medicine 03/31/20 Furnace Checker Relationship Specialty Start Date End Date Chad Zavala MD [address] [place] [address] PCP - General Family Medicine 03/31/20 Furnace Checker Relationship Specialty Start Date End Date Chad Zavala MD [address] [place] [address] PCP - General Family Medicine 03/31/20 Furnace Checker Relationship Specialty Start Date End Date Chad Zavala MD [address] [facility] [place] [address] PCP - General Family Medicine 03/31/20 Furnace Checker Relationship Specialty Start Date End Date Chad Zavala MD [address] [facility] [address] PCP - General Family Medicine 03/31/20 Furnace Checker Relationship Specialty Start Date End Date Chad Zavala MD [address] [facility] [place] [address] PCP - General Family Medicine 03/31/20 Furnace Checker Relationship Specialty Start Date End Date Chad Zavala MD [address] [facility] [place] [address] PCP - General Family Medicine 03/31/20 Furnace Checker Relationship Specialty Start Date End Date Chad Zavala MD [address] [facility] [address] PCP - General Family Medicine 03/31/20 Furnace Checker Relationship Specialty Start Date End Date Chad Zavala MD [address] [facility] [address] PCP - General Family Medicine 03/31/20 Furnace Checker Relationship Specialty Start Date End Date Chad Zavala MD [address] [facility] [place] [address] PCP - General Family Medicine 03/31/20 FOR RECORDS PERTAINING TO PATIENTS WHO ARE OR HAVE BEEN ENROLLED IN A CHEMICAL DEPENDENCY/SUBSTANCEABUSE PROGRAM, SOME INFORMATION MAY BE OMITTED. This clinical summary was aggregated from multiple sources. Caution should be exercised in using it in the provision of clinical care. This summary normalizes information from multiple sources, and as a consequence, information in this document may materially change the coding, format and clinical context of patient data. In addition, data may be omitted in some cases. CLINICAL DECISIONS SHOULD BE BASED ON THE PRIMARY CLINICAL RECORDS. [employer] [facility]. provides no warranty or guarantee of the accuracy or completeness of information in this document.
[2023-11-18 01:53] LABS: ROM Internal Control Test YES-OK TO RESULT pt. (Internal QC)
[2023-11-18 01:55] LABS: ROM Patient Test POSITIVE (Negative)
--- OUTSIDE RECORDS SUMMARY | 2023-11-18 02:01 | XMS RPT_ITS | CCD ---
Author Name Unknown Address [address] [place] [address] Organization [facility] Care Team Providers Care Administrative Director Name Role Phone Trevino CONE FORMER, Tootie E Unavailable Unavailable Trevino CONE FORMER, Tootie E Unavailable Unavailable Trevino CONE FORMER, Tootie E Unavailable Unavailable Arnol Dow Unavailable [...] Attending Unavailable CHAD ZAVALA Primary Care Unavailab tory [...] Drug Class(es) Dates Sig (Normalized) Sig (Original) [id number] 200 actuat albuterol 0.09 mg/actuat metered dose [...] 103.42 kg Shira Bunch MD Work Phone: [facility] 11-16-2023 13:48-0500 Diastolic blood pressure 64 mm[Hg] Shira Bunch MD Work Phone: [facility] 11-16-2023 13:48-0500 Systolic blood pressure 110 mm[Hg] Shira Bunch MD Work Phone: [facility] 11-09-2023 08:56-0500 Body weight 102.06 kg Bib Romero MD Work Phone: [facility] 11-09-2023 08:56-0500 Diastolic blood pressure 70 mm[Hg] Bib Romero MD Work Phone: [facility] 11-09-2023 08:56-0500 Systolic blood pressure 112 mm[Hg] Bib Romero MD Work Phone: [facility] 11-03-2023 09:54-0500 Body weight 103.42 kg Smita Booker CADD MANAGER.CNM Work Phone: [facility] 11-03-2023 09:54-0500 Diastolic blood pressure 80 mm[Hg] Smita Booker CADD MANAGER.CNM Work Phone: [facility] 11-03-2023 09:54-0500 Systolic blood pressure 126 mm[Hg] Smita Booker CADD MANAGER.CNM Work Phone: [facility] 10-26-2023 10:35-0500 Body weight 102.06 kg Bib Romero MD Work Phone: [facility] 10-26-2023 10:35-0500 Diastolic blood pressure 60 mm[Hg] Bib Romero MD Work Phone: [facility] 10-26-2023 10:35-0500 Systolic blood pressure 118 mm[Hg] Bib Romero MD Work Phone: [facility] 09-05-2023 11:42-0500 Body weight 93.53 kg Dolores Patrick APRN.CNM Work Phone: [facility] 09-05-2023 11:42-0500 Diastolic blood pressure 64 mm[Hg] Dolores Patrick APRN.CNM Work Phone: [facility] 09-05-2023 11:42-0500 Systolic blood pressure 112 mm[Hg] Dolores Patrick CADD MANAGER.CNM Work Phone: [facility] 08-10-2023 13:03-0500 Body weight 89.45 kg Smita Plotts CADD MANAGER.CNM Work Phone: [facility] 08-10-2023 13:03-0500 Diastolic blood pressure 60 mm[Hg] Smita Plotts CADD MANAGER.CNM Work Phone: [facility] 08-10-2023 13:03-0500 Systolic blood pressure 106 mm[Hg] Smita Plotts CADD MANAGER.CNM Work Phone: [facility] 07-13-2023 11:15-0400 Body weight 84.01 kg Smita Plotts CADD MANAGER.CNM Work Phone: [facility] 07-13-2023 11:15-0400 Diastolic blood pressure 72 mm[Hg] Smita Plotts CADD MANAGER.CNM Work Phone: [facility] 07-13-2023 11:15-0400 Systolic blood pressure 110 mm[Hg] Smita Plotts CADD MANAGER.CNM Work Phone: [facility] 06-23-2023 13:19-0400 Body weight 82.56 kg Esther Banda MD Work Phone: [facility] 06-23-2023 13:19-0400 Diastolic blood pressure 68 mm[Hg] Esther Banda MD Work Phone: [facility] 06-23-2023 13:19-0400 Systolic blood pressure 108 mm[Hg] Esther Banda MD Work Phone: [facility] 06-08-2023 14:20-0400 Body weight 81.65 kg Smita Plotts CADD MANAGER.CNM Work Phone: [facility] 06-08-2023 14:20-0400 Diastolic blood pressure 68 mm[Hg] Smita Plotts CADD MANAGER.CNM Work Phone: [facility] 06-08-2023 14:20-0400 Systolic blood pressure 108 mm[Hg] Smita Plotts CADD MANAGER.CNM Work Phone: [facility] 05-06-2023 08:54-0400 Body height 165.1 cm Smita Plotts CADD MANAGER.CNM Work Phone: [facility] 05-06-2023 08:54-0400 Body weight 81.19 kg Smita Plotts CADD MANAGER.CNM Work Phone: [facility] 05-06-2023 08:54-0400 Diastolic blood pressure 66 mm[Hg] Smita Plotts CADD MANAGER.CNM Work Phone: [facility] 05-06-2023 08:54-0400 Systolic blood pressure 102 mm[Hg] Smita Plotts CADD MANAGER.CNM Work Phone: [facility] 01-28-2023 10:04-0400 Body weight 75.75 kg Marichuy Painter CADD MANAGER.CLIMATE CHANGE ANALYST Work Phone: [facility] 01-28-2023 10:04-0400 Diastolic blood pressure 80 mm[Hg] Marichuy Wlalacehof CADD MANAGER.CLIMATE CHANGE ANALYST Work Phone: [facility] 01-28-2023 10:04-0400 Heart rate 80 /min Marichuy Stanleyf CADD MANAGER.CLIMATE CHANGE ANALYST Work Phone: [facility] 01-28-2023 10:04-0400 Respiratory rate 16 /min Marichuy Stanleyf CADD MANAGER.CLIMATE CHANGE ANALYST Work Phone: [facility] 01-28-2023 10:04-0400 SaO2% (BldA) [Mass fraction] 100 % Marichuy Wallacehof CADD MANAGER.CLIMATE CHANGE ANALYST Work Phone: [facility] 01-28-2023 10:04-0400 Systolic blood pressure 124 mm[Hg] Marichuy Stanleyf CADD MANAGER.CLIMATE CHANGE ANALYST Work Phone: [facility] 12-13-2022 15:25-0400 Body weight 74.84 kg Viry Carmen CADD MANAGER.CLIMATE CHANGE ANALYST Work Phone: [facility] 12-13-2022 15:25-0400 Diastolic blood pressure 70 mm[Hg] Viry Carmen CADD MANAGER.CLIMATE CHANGE ANALYST Work Phone: [facility] 12-13-2022 15:25-0400 Heart rate 80 /min Viry Carmen CADD MANAGER.CLIMATE CHANGE ANALYST Work Phone: [facility] 12-13-2022 15:25-0400 Respiratory rate 14 /min Viry Carmen CADD MANAGER.CLIMATE CHANGE ANALYST Work Phone: [facility] 12-13-2022 15:25-0400 Systolic blood pressure 120 mm[Hg] Viry Carmen CADD MANAGER.CLIMATE CHANGE ANALYST Work Phone: [facility] 11-24-2022 11:10-0500 Body temperature 98.71 [degF] Cami Podlogar CADD MANAGER.CLIMATE CHANGE ANALYST Work Phone: [facility] 11-24-2022 11:10-0500 Body weight 74.12 kg Cami Podlogar CADD MANAGER.CLIMATE CHANGE ANALYST Work Phone: [facility] 11-24-2022 11:10-0500 Diastolic blood pressure 68 mm[Hg] Cami Podlogar CADD MANAGER.CLIMATE CHANGE ANALYST Work Phone: [facility] 11-24-2022 11:10-0500 Heart rate 106 /min Cami Podlogar CADD MANAGER.CLIMATE CHANGE ANALYST Work Phone: [facility] 11-24-2022 11:10-0500 Respiratory rate 16 /min Cami Podlogar CADD MANAGER.CLIMATE CHANGE ANALYST Work Phone: [facility] 11-24-2022 11:10-0500 SaO2% (BldA) [Mass fraction] 97 % Cami Podlogar CADD MANAGER.CLIMATE CHANGE ANALYST Work Phone: [facility] 11-24-2022 11:10-0500 Systolic blood pressure 100 mm[Hg] Cami Podlogar CADD MANAGER.CLIMATE CHANGE ANALYST Work Phone: [facility] 06-09-2022 09:30-0400 Body weight 70.76 kg Smita Booker CADD MANAGER.CNM Work Phone: [facility] 06-09-2022 09:30-0400 Diastolic blood pressure 72 mm[Hg] Smita Plotts CADD MANAGER.CNM Work Phone: [facility] 06-09-2022 09:30-0400 Systolic blood pressure 110 mm[Hg] Smita Plotts CADD MANAGER.CNM Work Phone: [facility] 05-27-2022 11:44-0400 Body height 165.1 cm Melissa Akhtar CADD MANAGER.CLIMATE CHANGE ANALYST Work Phone: [facility] 05-27-2022 11:44-0400 Body weight 70.76 kg Melissa Hudsonhrie CADD MANAGER.CLIMATE CHANGE ANALYST Work Phone: [facility] 05-27-2022 11:44-0400 Diastolic blood pressure 60 mm[Hg] Melissa Hudsonhrie CADD MANAGER.CLIMATE CHANGE ANALYST Work Phone: [facility] 05-27-2022 11:44-0400 Systolic blood pressure 108 mm[Hg] Melissa De Leonie CADD MANAGER.CLIMATE CHANGE ANALYST Work Phone: [facility] 01-12-2022 09:38-0400 Body height 165.1 cm Cami Podlogar CADD MANAGER.CLIMATE CHANGE ANALYST Work Phone: [facility] 01-12-2022 09:38-0400 Body weight 73.57 kg Cami Podlogar CADD MANAGER.CLIMATE CHANGE ANALYST Work Phone: [facility] 01-12-2022 09:38-0400 Diastolic blood pressure 66 mm[Hg] Cami Podlogar CADD MANAGER.CLIMATE CHANGE ANALYST Work Phone: [facility] 01-12-2022 09:38-0400 Heart rate 74 /min Cami Podlogar CADD MANAGER.CLIMATE CHANGE ANALYST Work Phone: [facility] 01-12-2022 09:38-0400 Respiratory rate 18 /min Cami Podlogar CADD MANAGER.CLIMATE CHANGE ANALYST Work Phone: [facility] 01-12-2022 09:38-0400 SaO2% (BldA) [Mass fraction] 100 % Cami Podlogar CADD MANAGER.CLIMATE CHANGE ANALYST Work Phone: [facility] 01-12-2022 09:38-0400 Systolic blood pressure 102 mm[Hg] Cami Chey [facility] Work Phone: [facility] 05-26-2017 12:27-0400 BMI (Body Mass Index) 25.92 kg/m2 Tootie Trevino LPN [facility] Work Phone: 05-26-2017 12:27-0400 Body Temperature 98 [degF] Tootie Trevino LPN [facility] Work Phone: 05-26-2017 12:27-0400 BP Diastolic 60 mm[Hg] Tootie Trevino LPN [facility] Work Phone: 05-26-2017 12:27-0400 BP Systolic 100 mm[Hg] Tootie Trevino LPN [facility] Work Phone: 05-26-2017 12:27-0400 Height 162.56 cm Tootie Trevino LPN [facility] Work Phone: 05-26-2017 12:27-0400 Pulse (Heart Rate) 90 /min Tootie Trevino LPN [facility] Work Phone: 05-26-2017 12:27-0400 Respiratory Rate 12 /min Tootie Trevino LPN [facility] Work Phone: 05-26-2017 12:27-0400 Weight 68.49 kg Tootie Trevino CONE FORMER [facility] Work Phone: 04-29-2017 14:36-0400 Height 162.56 cm Arnol WEINER [facility] Work Phone: 01-21-2017 14:02-0400 BMI (Body Mass Index) 25.61 kg/m2 Arnol WEINER [facility] Work Phone: 01-21-2017 14:02-0400 Body Temperature 99.1 [degF] Arnol WEINER [facility] Work Phone: 01-21-2017 14:02-0400 BP Diastolic 82 mm[Hg] Arnol WEINER [facility] Work Phone: 01-21-2017 14:02-0400 BP Systolic 130 mm[Hg] Arnol WEINER [facility] Work Phone: 01-21-2017 14:02-0400 Pulse (Heart Rate) 79 /min Arnol [facility]INER [facility] Work Phone: 01-21-2017 14:02-0400 Respiratory Rate 16 /min Arnolsabine WEINER [facility] Work Phone: 01-21-2017 14:02-0400 Weight 67.68 kg Arnolsabine WEINER [facility] Work Phone: Encounters Encounter [...] after 1st trimest 1/ gestation Smita Booker CADD MANAGER.CNM Work Phone: Start: 11-03-2023 URINE OB DIP B/O Anai Booker CADD MANAGER.CNM Work Phone: Start: 10-26-2023 RSV VACCINE, BIVALEN T (ABRYSVO) Bib Romero MD Work Phone: Start: 10-26-2023 URINE OB DIP B/O Shira Bunch MD Work Phone: Start: 09-14-2023 Antibody screen [facility] CUEVAS Plan of Treatment Date Care Activity Detail Author Start: 09-14-2033 Urine microalbumin profile DTaP,Tdap,Td Vaccine (9 - Td or Tdap) [facility] Start: 10-28-2030 Urine microalbumin profile [facility] Start: 05-06-2026 PAP TESTING PAP TESTING [facility] Start: 05-06-2026 Screening for malignant neoplasm of cervix Pap Testing [facility] Start: 10-12-2023 RSV Vaccine (1 - Risk 1-dose series) RSV Vaccine (1 - Risk 1-dose series) [facility] Start: 10-03-2023 Depression Assessment Depression Assessment [facility] Start: 09-09-2023 End: 12-09-2023 CBC W Auto Differential panel - Blood CBC + DIFF Lab Routine 23 weeks gestation of Subchorionic hematoma in second trimester, single or unspecified fetus History of pre-eclampsia in prior , currently Expected: 09/09/2023 (Approximate), Expires: 12/09/2023 [facility] Work Phone: Immunizations Immunization Date Immunization Notes Care Provider Pepper arriola 10-26-2023 respiratory syncytia l virus (RSV) vaccine, bivalent (ABRYSVO) Smita Booker CADD MANAGER.CNM Work Phone: [facility] 09-14-2023 RHO(D) immune globul in- IV or IM Smita Plotts CADD MANAGER.CNM Work Phone: [facility] 09-14-2023 tetanus toxoid, redu navjot diphtheria toxoid, and acellular pertussis vaccine, adsorbed Smita Kellyts CADD MANAGER.CNM Work Phone: [facility] 08-10-2023 influenza, injectabl e, quadrivalent, contains preservative Smita Plotts CADD MANAGER.CNM Work Phone: [facility] 05-25-2023 RHO(D) immune globul in- IV or IM Smita Plotts CADD MANAGER.CNM Work Phone: [facility] 01-07-2021 measles, mumps and rubella virus vaccine Smita Plotts CADD MANAGER.CNM Work Phone: [facility] 10-28-2020 RHO(D) immune globul in- IV or IM Smiat Plotts CADD MANAGER.CNM Work Phone: [facility] 10-28-2020 tetanus toxoid, redu navjot diphtheria toxoid, and acellular pertussis vaccine, adsorbed Smita Plotts CADD MANAGER.CNM Work Phone: [facility] 07-11-2020 influenza, injectabl e, quadrivalent, contains preservative Smita Plotts CADD MANAGER.CNM Work Phone: [facility] Work Phone: 07-11-2020 influenza virus vacc ine, unspecified formulation Katerine Chandler MD Work Phone: [facility] 11-24-2019 RHO(D) immune globul in- IV or IM Smita Plotts CADD MANAGER.CNM Work Phone: [facility] 09-05-2018 human papilloma viru s vaccine, quadrivalent Smita Plotts CADD MANAGER.CNM Work Phone: [facility] 07-05-2018 Human Papillomavirus 9-valent vaccine Smita Plotts CADD MANAGER.CNM Work Phone: [facility] 07-05-2018 influenza, injectabl e, quadrivalent, contains preservative Smita Plotts CADD MANAGER.CNM Work Phone: [facility] 07-04-2012 influenza virus vacc ine, live, attenuated, for intranasal use Smita Plotts CADD MANAGER.CNM Work Phone: [facility] 06-06-2012 tetanus toxoid, redu navjot diphtheria toxoid, and acellular pertussis vaccine, adsorbed Smita Plotts CADD MANAGER.CNM Work Phone: [facility] 08-21-2010 influenza virus vacc ine, live, attenuated, for intranasal use Smita Plotts CADD MANAGER.CNM Work Phone: [facility] 02-18-2000 diphtheria, tetanus toxoids and acellular pertussis vaccine Smita Plotts CADD MANAGER.CNM Work Phone: [facility] 02-18-2000 hepatitis B vaccine, pediatric or pediatric/adolescent dosage Smita Plotts CADD MANAGER.CNM Work Phone: [facility] 02-18-2000 measles, mumps and rubella virus vaccine Smita Plotts CADD MANAGER.CNM Work Phone: [facility] 02-18-2000 poliovirus vaccine, inactivated Smita Plotts CADD MANAGER.CNM Work Phone: [facility] 10-13-1999 diphtheria, tetanus toxoids and acellular pertussis vaccine Smita Plotts CADD MANAGER.CNM Work Phone: [facility] 10-13-1999 measles, mumps and rubella virus vaccine Smita Plotts CADD MANAGER.CNM Work Phone: [facility] 10-13-1999 poliovirus vaccine, inactivated Smita Plotts CADD MANAGER.CNM Work Phone: [facility] 10-08-1998 poliovirus vaccine, inactivated Smita Plotts CADD MANAGER.CNM Work Phone: [facility] 04-26-1996 diphtheria, tetanus toxoids and acellular pertussis vaccine Smita Plotts CADD MANAGER.CNM Work Phone: [facility] 04-26-1996 diphtheria, tetanus toxoids and pertussis vaccine Smita Plotts CADD MANAGER.CNM Work Phone: [facility] 04-26-1996 varicella virus vaccine Cour tney Plotts CADD MANAGER.CNM Work Phone: [facility] 04-07-1996 hepatitis B vaccine, pediatric or pediatric/adolescent dosage Smita Plotts CADD MANAGER.CNM Work Phone: [facility] 02-07-1996 haemophilus influenz ae type b vaccine, PRP-T conjugate Smita Plotts CADD MANAGER.CNM Work Phone: [facility] 11-04-1995 haemophilus influenz ae type b vaccine, conjugate unspecified formulation Smita Plotts CADD MANAGER.CNM Work Phone: [facility] 11-04-1995 haemophilus influenz ae type b vaccine, PRP-T conjugate Smita Plotts CADD MANAGER.CNM Work Phone: [facility] 11-04-1995 measles, mumps and rubella virus vaccine Smita Plotts CADD MANAGER.CNM Work Phone: [facility] 07-12-1995 hepatitis B vaccine, pediatric or pediatric/adolescent dosage Smita Plotts CADD MANAGER.CNM Work Phone: [facility] 05-13-1995 diphtheria, tetanus toxoids and acellular pertussis vaccine Smita Plotts CADD MANAGER.CNM Work Phone: [facility] 05-13-1995 diphtheria, tetanus toxoids and pertussis vaccine Smita Plotts CADD MANAGER.CNM Work Phone: [facility] 05-13-1995 haemophilus influenz ae type b vaccine, conjugate unspecified formulation Smita Plotts CADD MANAGER.CNM Work Phone: [facility] 05-13-1995 hepatitis B vaccine, pediatric or pediatric/adolescent dosage Smita Plotts CADD MANAGER.CNM Work Phone: [facility] 05-13-1995 trivalent poliovirus vaccine, live, oral Smita Plotts CADD MANAGER.CNM Work Phone: [facility] 02-17-1995 diphtheria, tetanus toxoids and acellular pertussis vaccine Smita Plotts CADD MANAGER.CNM Work Phone: [facility] 02-17-1995 diphtheria, tetanus toxoids and pertussis vaccine Smita Plotts CADD MANAGER.CNM Work Phone: [facility] 02-17-1995 haemophilus influenz ae type b vaccine, conjugate unspecified formulation Smita Plotts CADD MANAGER.CNM Work Phone: [facility] 02-17-1995 haemophilus influenz ae type b vaccine, PRP-T conjugate Smita Plotts CADD MANAGER.CNM Work Phone: [facility] 02-17-1995 trivalent poliovirus vaccine, live, oral Smita Plotts CADD MANAGER.CNM Work Phone: [facility] 1994 diphtheria, tetanus toxoids and acellular pertussis vaccine Smita Plotts CADD MANAGER.CNM Work Phone: [facility] 1994 diphtheria, tetanus toxoids and pertussis vaccine Smita Plotts CADD MANAGER.CNM Work Phone: [facility] 1994 haemophilus influenz ae type b vaccine, conjugate unspecified formulation Smita Booker CADD MANAGER.CNM Work Phone: [facility] 1994 haemophilus influenz ae type b vaccine, PRP-T conjugate Smita Kellyjyoti CADD MANAGER.CNM Work Phone: [facility] 1994 poliovirus vaccine, inactivated Smita Booker CADD MANAGER.CNM Work Phone: [facility] 1994 trivalent poliovirus vaccine, live, oral Smitaharish Booker CADD MANAGER.CNM Work Phone: [facility] 1994 hepatitis B vaccine, pediatric or pediatric/adolescent dosage Smita Booker CADD MANAGER.CNM Work Phone: [facility] 1994 hepatitis B vaccine, pediatric or pediatric/adolescent dosage Smita Booker CADD MANAGER.CNM Work Phone: [facility] Payers Date Payer Category Payer Medicaid [id number] 2020 Unknown DENTAL MMO DENTA L [id number] 2020-Present [phone] [address] [place] [address] Dental [id number] 2020 Unknown DENTAL MMO DENTA L [id number] 2020-Present [phone] [address] [place] [address] Dental [id number] 2020 Medicaid [employer] [place] [place] [id number] 2020-Present [phone] [address] [address] [place] [address] Medicaid [id number] 2020 Medicaid [id number] 1994 Unknown [id number] 1994 Unknown [id number] 1994 Unknown [id number] 1994 Unknown [id number] 1994 Unknown [id number] 1994 Unknown [id number] 1994 Unknown [id number] 1994 Unknown [id number] 1994 Unknown [id number] Social History Date Type Detail Facility Start: 03-13-2018 End: 05-27-2022 Tobacco smoking status NHIS Ex-smoker [facility] End: 03-31-2017 History of tobacco use Current smoker [facility] End: 03-31-2017 History of tobacco use Cigarette Smoker [facility] Start: 03-13-2018 End: 03-02-2023 Cigarettes smoked current (pack per day) - Reported 0.5 [facility] Start: 03-13-2018 End: 05-27-2022 Tobacco use and exposure Smokeless tobacco non-user [facility] Start: 11-09-2021 End: 11-16-2023 Alcohol intake Ex-drinker (finding) [facility] Start: 06-13-2020 End: 09-08-2020 History SDOH Alcohol Frequency 2 [facility] Start: 03-11-2020 End: 06-13-2020 History SDOH Alcohol Std Drinks 1 [facility] Start: 07-05-2018 History SDOH Alcohol Comment rare [facility] Start: 03-11-2020 End: 06-13-2020 History SDOH Social Connections Phone 5 [facility] Start: 03-11-2020 History SDOH Social Connections Living 8 [facility] Start: 03-11-2020 Education 16 [facility] Start: 07-05-2018 End: 05-27-2022 Tobacco Comment quit over one year ago (2017) [facility] Start: 1995 Sex Assigned At Female C [facility] Start: 01-01-2022 End: 01-11-2022 Exposure to SARS-CoV-2 (event) Not sure [facility] Start: 03-11-2020 End: 03-02-2023 Social connection and isolation panel [facility] Do you belong to any clubs or organizations such as hoahaoism groups, unions, fraBeeline or athletic groups, or school groups? No [facility] Are you now , , , , never or living with a partner? Living with partner [facility] How often to you hav e a drink containing alcohol? Monthly or less [facility] How many standard dr inks containing alcohol do you have on a typical day? 1 or 2 [facility] How often do you hav e 6 or more drinks on 1 occasion? Never [facility] How hard is it for y ou to pay for the very basics like food, housing, medical care, and heating Not hard at all [facility] Do you feel stress - tense, restless, nervous, or anxious, or unable to sleep at night because your mind is troubled all the time - these days [OSQ] Not at all [facility] (I/We) worried wheth er (my/our) food would run out before (I/we) got money to buy more. Never true [facility] Start: 06-11-2020 Gender identity Identifies as female gender (finding) [facility] Start: 06-11-2020 Sexual orientation Heterosexual (chris johnson) [facility] Start: 03-16-2023 [facility] Goals Date Patient Goal Desired Activity /State [...] [place] MD documented in this encounter [facility] 11-16-2023 Instructions Michael Morelos Cma - 11/16/2023 1:46 PM EST SEQUENTIAL SCREENINGS The [facility] offers sequential screenings for women who are [...] It will require an appointment with our orthotics prosthetics technician. This is not an ultrasound performed [...] the above symptoms, contact our office at [phone] and ask to speak with a nurse. After hours, you can call doctors registry at [phone] OR call [facility] at [phone] and ask to have the doctor cloud automation tester paged. If you consider this an emergency, dial 9--6 or go to your nearest emergency department. NEED HELP? Are you dealing with a violent or abusive relationship? Are you a victim of rape or sexual assult? Call [facility] ([place]) 24 hour Crisis Hotline: 456.235.4200 or 433-848-7610. MANUAL Your Guide to a Healthy manual is now on-line. Visit [email or web address] to download your free copy documented in this encounter [facility] 11-11-2023 Miscellaneous Notes Note closed as pt has not voiced any further need for paperwork being completed. Paperwork filed in nurses station. Christy Hall LPN' Voicemail and mychart message to pt asking for dates of leave. Will await further response from pt. Christy Hall LPN documented in this encounter [facility] 11-09-2023 Miscellaneous Notes Pt presents at 36 wks w/o concerns. Hs of genital herpes - will start acyclovir prophylaxis no bleeding or leaking of fluid Sono today GBS culture performed. rto 1 week documented in this encounter [facility] 11-09-2023 Kinza Jean LPN - 11/09/2023 8:53 AM EST SEQUENTIAL SCREENINGS The [facility] offers sequential screenings for women who are [...] It will require an appointment with our orthotics prosthetics technician. This is not an ultrasound performed [...] the above symptoms, contact our office at [phone] and ask to speak with a nurse. After hours, you can call doctors registry at [phone] OR call [facility] at [phone] and ask to have the doctor cloud automation tester paged. If you consider this an emergency, dial 91-4 or go to your nearest emergency department. NEED HELP? Are you dealing with a violent or abusive relationship? Are you a victim of rape or sexual assult? Call [facility] ([facility] 24 hour Crisis Hotline: 134.262.5794 or 230-550-3839. MANUAL Your Guide to a Healthy manual is now on-line. Visit [email or web address] Nidia to download your free copy documented in this encounter [facility] 11-03-2023 Miscellaneous Notes S: Deyanira Diamond is [...] Increased back pain. Has never looked into hemodialysis patient care specialist or massage. Recommended those services. Denies headache, [...] Smita Booker APRN.CNM documented in this encounter [facility] 11-03-2023 Instructions Smita Booker APRN.CNM - 11/03/2023 9:51 AM EST CALL INSURANCE TO FIND OUT ABOUT CHIROPRACTIC SERVICES AND MASSAGE THERAPY SEQUENTIAL SCREENINGS The [facility] offers sequential screenings for women who are [...] It will require an appointment with our orthotics prosthetics technician. This is not an ultrasound performed [...] the above symptoms, contact our office at [phone] and ask to speak with a nurse. After hours, you can call doctors registry at [phone] OR call [facility] at [phone] and ask to have the doctor cloud automation tester paged. If you consider this an emergency, dial 06-03- or go to your nearest emergency department. NEED HELP? Are you dealing with a violent or abusive relationship? Are you a victim of rape or sexual assult? Call [facility] ([place]) 24 hour Crisis Hotline: 818.111.7197 or 818-306-3866. MANUAL Your Guide to a Healthy manual is now on-line. Visit [email or web address] to download your free copy documented in this encounter [facility] 10-26-2023 Miscellaneous Notes Patient presents at 34 weeks w/o complaints other than occ cramping. Denies bleeding or loss of fluid UA unremarkable ++FM Abd SNT with fundal height at 37cm A/P: RSV vax discussed and desired Contiue routine PNC and f/u as scheduyled RSV vax today documented in this encounter [facility] 10-26-2023 Instructions Gali Summers Ma - 10/26/2023 10:32 AM EST SEQUENTIAL SCREENINGS The [facility] offers sequential screenings for women who are [...] It will require an appointment with our orthotics prosthetics technician. This is not an ultrasound performed [...] the above symptoms, contact our office at [phone] and ask to speak with a nurse. After hours, you can call doctors registry at [phone] OR call [facility] at [phone] and ask to have the doctor cloud automation tester paged. If you consider this an emergency, dial 91-9 or go to your nearest emergency department. NEED HELP? Are you dealing with a violent or abusive relationship? Are you a victim of rape or sexual assult? Call [facility] ([place]) 24 hour Crisis Hotline: 406.580.2115 or 396-086-9867. MANUAL Your Guide to a Healthy manual is now on-line. Visit [email or web address] to download your free copy documented in this encounter [facility] 09-20-2023 Note HNO ID: [id number] Author: Tamar Blackburn PA-C Service: ? Author Type: Physician Pharmacy Technician Per Diem Type: Progress Notes Filed: 09/20/2023 9:23 AM [...] Take 1 capsule by mouth once daily. Wbqwmooa-Oa-Qtb-Fe-FA ( VITAMIN) tab Take 1 tablet by [...] COVID and fl (more content not included)... [facility] 09-14-2023 Note HNO ID: [id number] Author: Viry Lawson RN Service: ? Author [...] her Rhophylac pocket card. VIRY LAWSON RN [facility] 09-14-2023 Note HNO ID: [id number] Author: Michael Morelos Cma Service: ? Author [...] severely ill: Yes Patient denies history of Guillain-Rushford Syndrome (a severe paralytic illness): Yes Tdap Adacel injection was given without incident. See immunizations for details of immunizations administered today. VIS sheet provided: Yes Provider Smita Booker APRN CNM was present in office at time of injection. Michael Morelos Cma [facility] 09-14-2023 Miscellaneous Notes Patient to be assessed today in office. Smita Booker APRN.CNM documented in this encounter [facility] 09-05-2023 Note HNO ID: [id number] Author: Dolores Patrick APRN.CNM Service: ? Author Type: Wash Worker Type: Progress Notes Filed: 09/05/2023 2:22 PM [...] Urine negative, will still send for culture. [facility] 09-05-2023 History of Presen t illness [...] send for culture. documented in this encounter [facility] 09-05-2023 Michael Hermosillo Cma - 09/05/2023 11:54 AM EST SEQUENTIAL SCREENINGS The [facility] offers sequential screenings for women who are [...] It will require an appointment with our orthotics prosthetics technician. This is not an ultrasound performed [...] the above symptoms, contact our office at [phone] and ask to speak with a nurse. After hours, you can call doctors registry at [phone] OR call [facility] at [phone] and ask to have the doctor cloud automation tester paged. If you consider this an emergency, dial 1-8-8 or go to your nearest emergency department. NEED HELP? Are you dealing with a violent or abusive relationship? Are you a victim of rape or sexual assult? Call [facility] ([place]) 24 hour Crisis Hotline: 961.619.6566 or 113-327-7197. MANUAL Your Guide to a Healthy manual is now on-line. Visit [email or web address] Nidia to download your free copy documented in this encounter [facility] 08-15-2023 Miscellaneous Notes 2nd risk assessment form submitted 08/15/2023. Luda Galvan RN documented in this encounter [facility] 08-10-2023 Miscellaneous Notes S: Deyanira Diamond is [...] Smita Booker APRN.CNM documented in this encounter [facility] 08-10-2023 Instructions Kasia Escudero MA - 08/10/2023 12:57 PM EST SEQUENTIAL SCREENINGS The [facility] offers sequential screenings for women who are [...] It will require an appointment with our orthotics prosthetics technician. This is not an ultrasound performed [...] the above symptoms, contact our office at [phone] and ask to speak with a nurse. After hours, you can call doctors registry at [phone] OR call [facility] at [phone] and ask to have the doctor cloud automation tester paged. If you consider this an emergency, dial 9-6 or go to your nearest emergency department. NEED HELP? Are you dealing with a violent or abusive relationship? Are you a victim of rape or sexual assult? Call [facility] ([place]) 24 hour Crisis Hotline: 636.536.7248 or 796-742-5302. MANUAL Your Guide to a Healthy manual is now on-line. Visit [email or web address] nancyGuide to download your free copy documented in this encounter [facility] 08-05-2023 Miscellaneous Notes Patient notified. Advised to [...] Booker. Please advise. documented in this encounter [facility] 08-04-2023 Note HNO ID: [id number] Author: Cami Guerrier APRN.CLIMATE CHANGE ANALYST Service: ? Author Type: Nurse Practitioner Type: [...] few years back and she wore a color television console monitor and it didn't show anything. Denies [...] Take 1 capsule by mouth once daily. Fsjteimi-Vk-Czu-Fe-FA ( VITAMIN) tab Take 1 tablet by [...] 786.05, ICD10: R06.02 (more content not included)... [facility] 07-27-2023 Miscellaneous Notes Patient needs AFP labs drawn within next 5 days. Order is placed. Please notify patient she will need to come to lab to have drawn. Thank you! Smita Booker APRN.CNM documented in this encounter [facility] 07-13-2023 Miscellaneous Notes Deyanira Diamond is a [...] Smita Booker APRN.CNM documented in this encounter [facility] 10-11-2023 Instructions Kasia Escudero MA - 07/13/2023 10:23 AM EDT SEQUENTIAL SCREENINGS The [facility] offers sequential screenings for women who are [...] It will require an appointment with our orthotics prosthetics technician. This is not an ultrasound performed [...] the above symptoms, contact our office at [phone] and ask to speak with a nurse. After hours, you can call doctors registry at [phone] OR call [facility] at [phone] and ask to have the doctor cloud automation tester paged. If you consider this an emergency, dial 9-1-1 or go to your nearest emergency department. NEED HELP? Are you dealing with a violent or abusive relationship? Are you a victim of rape or sexual assult? Call [facility] ([facility] 24 hour Crisis Hotline: 373.558.5163 or 275-248-0155. MANUAL Your Guide to a Healthy manual is now on-line. Visit [email or web address] Nidia to download your free copy documented in this encounter [facility] 06-23-2023 Miscellaneous Notes RR- VB No. LOF [...] Esther Banda M.D. documented in this encounter [facility] 06-23-2023 Instructions Marcy Mark Ma - 06/23/2023 1:20 PM EDT SEQUENTIAL SCREENINGS The [facility] offers sequential screenings for women who are [...] It will require an appointment with our orthotics prosthetics technician. This is not an ultrasound performed [...] the above symptoms, contact our office at [phone] and ask to speak with a nurse. After hours, you can call doctors registry at [phone] OR call [facility] at [phone] and ask to have the doctor cloud automation tester paged. If you consider this an emergency, dial 06-03- or go to your nearest emergency department. NEED HELP? Are you dealing with a violent or abusive relationship? Are you a victim of rape or sexual assult? Call [facility] ([place]) 24 hour Crisis Hotline: 583.525.2605 or 427-391-5979. MANUAL Your Guide to a Healthy manual is now on-line. Visit [email or web address] to download your free copy documented in this encounter [facility] 06-14-2023 Miscellaneous Notes Pt notified and voiced [...] Aviva Lutz RN documented in this encounter [facility] 06-10-2023 Miscellaneous Notes Letter created as directed [...] and bending restrictions. Letter needs faxed to [phone] Attention: Dolores Chris Patient aware that provider is out of the office today documented in this encounter [facility] 06-08-2023 Note HNO ID: [id number] Author: Luda Pathak RN Service: ? Author Type: ? Type: Progress Notes Filed: 06/08/2023 2:40 PM Note Text: Patient here for First Trimester Screening. See ultrasound report for details. Options for genetic screening and diagnosis discussed with the patient. Patient opts for first trimester screening and the sequential screening protocol. Limitations of screening tests discussed with the patient. Smita Booker APRN.CNM [facility] 06-08-2023 Miscellaneous Notes Addended by: SMITA [...] Smita Booker APRN.CNM documented in this encounter [facility] 06-08-2023 History of Presen t illness Narrative Patient here for First Trimester Screening. See ultrasound report for details. Options for genetic screening and diagnosis discussed with the patient. Patient opts for first trimester screening and the sequential screening protocol. Limitations of screening tests discussed with the patient. Smita Booker APRN.CNM documented in this encounter [facility] 06-08-2023 Instructions Michael Morelos Cma - 06/08/2023 2:16 PM EDT SEQUENTIAL TESTING PROCESS Sequential Screen First Trimester Today you are currently: 14w0d weeks 06/08/2023: Ultrasound and blood test. Sequential Screen Second Trimester (16-17 Weeks Gestation) When you are called with your results, the nurse will give the optimal draw dates for the Sequential screen second trimester. Blood testing can be done at any [facility] lab. Please report to the any vertical contour band saw operator office desk pen set assembler for the Sequential Part 2 requisition and [...] medicine office, for east side please call [phone] or for the West side call [phone] and ask for the the nurse. Thank you. SEQUENTIAL SCREENINGS The [facility] offers sequential screenings for women who are [...] It will require an appointment with our orthotics prosthetics technician. This is not an ultrasound performed [...] the above symptoms, contact our office at [phone] and ask to speak with a nurse. After hours, you can call doctors registry at [phone] OR call [facility] at [phone] and ask to have the doctor cloud automation tester paged. If you consider this an emergency, dial -7 or go to your nearest emergency department. NEED HELP? Are you dealing with a violent or abusive relationship? Are you a victim of rape or sexual assult? Call [facility] ([place]) 24 hour Crisis Hotline: 275.529.3236 or 779-194-8808. MANUAL Your Guide to a Healthy manual is now on-line. Visit [email or web address] to download your free copy documented in this encounter [facility] 05-25-2023 Miscellaneous Notes Yes, it is appropriate [...] if no answer documented in this encounter [facility] 05-25-2023 Note HNO ID: [id number] Author: Aviva Lutz RN Service: ? Author [...] her Rhophylac pocket card. Aviva Lutz RN [facility] 05-25-2023 Miscellaneous Notes Patient notified and [...] Aviva Lutz RN documented in this encounter [facility] 05-24-2023 Note HNO ID: [id number] Author: Cami Guerrier APRN.CLIMATE CHANGE ANALYST Service: ? Author Type: Nurse Practitioner Type: Progress Notes Filed: 05/24/2023 12:18 PM Note Text: Telemedicine Evaluation for COVID-19 Infection MyChart video visit was used for evaluation of this patient. I have communicated my name and active licensure. The patient's identity and physical location were verified at the time of this visit. Either the patient or their legal insurance account representative has been informed of the risks [...] which included preparing to see the patient, wjkc-qc-svxx patient care, completing clinical documentation, obtaining and/or reviewing separately obtained history, performing a medically appropriate examination, counseling and educating the patient/family/caregiver, and ordering medications, tests, or procedures. [facility] 05-24-2023 History of Presen t illness Narrative Telemedicine Evaluation for COVID-19 Infection MyChart video visit was used for evaluation of this patient. I have communicated my name and active licensure. The patient's identity and physical location were verified at the time of this visit. Either the patient or their legal insurance account representative has been informed of the risks [...] which included preparing to see the patient, zkui-tl-mxef patient care, completing clinical documentation, obtaining and/or reviewing separately obtained history, performing a medically appropriate examination, counseling and educating the patient/family/caregiver, and ordering medications, tests, or procedures. documented in this encounter [facility] 05-24-2023 Miscellaneous Notes Reviewed. Cami Guerrier APRN.CNP Patient calling to state she has developed respiratory sx's and was advised by her CRNA to contact PCP office for evaluating. Patient [...] recommendations. Thank you. documented in this encounter [facility] 05-10-2023 Miscellaneous Notes Initial risk assessment form submitted 05/10/2023 documented in this encounter [facility] 05-06-2023 Note HNO ID: [id number] Author: Smita Booker APRN.CNM Service: ? Author Type: Wash Worker Type: Progress Notes Filed: 05/06/2023 9:40 AM Note Text: OB point of care ultrasound was performed. See imaging tab for details. Smita Booker APRN.CNM [facility] 05-06-2023 Note HNO ID: [id number] Author: Smita Booker APRN.CNM Service: ? Author Type: Wash Worker Type: Progress Notes Filed: 05/06/2023 9:39 AM [...] use: No Multivitamin with Folic acid: Yes Protestant or heritage: No Would refuse blood transfusion if medically necessary: No Are you currently employed? 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 Ptvfozyg-Sk-Nby-Fe-FA ( VITAMIN) tab Take 1 tablet by [...] Chills and Positive (more content not included)... [facility] 05-06-2023 Miscellaneous Notes at 9.2 weeks gestation seen for NOB. History of preeclampsia and precipitous delivery 2 years ago. See progress note. Smita Booker APRN.CNM documented in this encounter [facility] 05-06-2023 History of Presen t illness Narrative [...] use: No Multivitamin with Folic acid: Yes Protestant or heritage: No Would refuse blood transfusion if medically necessary: No Are you currently employed? Yes, Occupation: [employer] Do you have any history of depression, [...] Partner: Name: Rio Age: 30 Occupation: [employer] Gender: Male History of STDs: None PAST [...] Take 1 capsule by mouth once daily. Ashnxlus-Fc-Isu-Fe-FA ( VITAMIN) tab Take 1 tablet by [...] Your guide to a health and the Social Media Manager. Discussed aneuploidy and carrier screening. Regarding aneuploidy [...] Discussed hemoglobin electrophoresis. Patient: Reviewed midwifery and interface control officer services that are available. 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 Smita Booker APRN.CNM documented in this encounter [facility] 05-06-2023 Instructions Michael Morelos Cma - 05/06/2023 8:40 AM EDT Please select the following link to access the [facility] Your Guide to a Healthy . [email or web address] documented in this encounter [facility] 04-28-2023 Note HNO ID: [id number] Author: Sylvie Hensley RN Service: ? Author [...] None, Apgar5: None, Living: None, Comments: No [facility] # 3 - Date: 12/05/19, Sex: Unknown, [...] None, Apgar5: None, Living: None, Comments: None [facility] 04-28-2023 History of Presen t illness [...] None, Comments: None documented in this encounter [facility] 04-28-2023 Miscellaneous Notes DISTANCE HEALTH VISIT This [...] past.Sylvie Hensley RN documented in this encounter [facility] 04-21-2023 Miscellaneous Notes Patient scheduled. Attempted to contact pt again this afternoon. Remain unable to leave message, will send another Passpackt message as pt has viewed previous message and has not contacted office to schedule. Christy Hall LPN Attempted to again contact pt, voicemail is full and unable to leave message. Pt has not read her Passpackt message. Will try again later. Christy Hall LPN Patient was scheduled for PNOB phone call visit on the felt strip finisher nurse schedule instead of the PNOB one. Attempted to call patient to reschedule to 04/21 or 04/28. Unable to leave message though. Mintedhart message sent too. Aviva Lutz RN documented in this encounter [facility] 02-01-2023 Note HNO ID: [id number] Author: RT Pat(R) Service: ? Author Type: Official Greeter Type: Progress Notes Filed: 02/01/2023 2:03 PM [...] DATE: February 01, 2023 TIME: 2:03 PM [facility] 02-01-2023 History of Presen t illness [...] TIME: 2:03 PM documented in this encounter [facility] 02-01-2023 Miscellaneous Notes Pt notified of results via Passpackt. Tomasa Miller Ma Please let the patient [...] Rony Lazaro APRN.CNP documented in this encounter [facility] 01-28-2023 Note HNO ID: [id number] Author: Marichuy Painter APRN.CNP Service: ? Author [...] all over and joint pain. Working at [employer]. On feet most the shift. PAST MEDICAL [...] Take 1 capsule by mouth once daily. Chokeupm-Qf-Oei-Fe-FA ( VITAMIN) tab Take 1 tablet by [...] grossly intact. ASSESSMENT/PL (more content not included)... [facility] 01-28-2023 Instructions Marichuy Painter APRN.[facility] - 01/28/2023 10:31 AM EDT Get labs [...] sooner as needed. documented in this encounter [facility] 01-28-2023 History of Presen t illness Narrative [...] all over and joint pain. Working at [employer]. On feet most the shift. PAST MEDICAL [...] Take 1 capsule by mouth once daily. Egdujbvi-Ze-Ftq-Fe-FA ( VITAMIN) tab Take 1 tablet by [...] APRN.SHOAIB This note was partially generated using [employer] voice recognition system. Note was reviewed for accuracy. There may be minor misspellings or grammar miscues with [employer] voice recognition. documented in this encounter [facility] 12-13-2022 Note HNO ID: [id number] Author: Viry Carmen APRN.CNP Service: ? Author [...] by mouth twice daily for 10 days. Uzhdtkbo-Yw-Usz-Fe-FA ( VITAMIN) tab Take 1 tablet by mouth. Norethin Jacob-Eth Estrad-FE ([facility] FE 1/20, 28,) 1 mg-20 mcg (21)/75 [...] HCL 150 MG CAPSULE Viry Carmen APRN.CNP [facility] 12-13-2022 Instructions Viry Carmen APRN.CNP - 12/13/2022 3:35 PM EDT Stop augmentin Start clindamycin Follow up in 5 days if no improvement documented in this encounter [facility] 12-13-2022 History of Presen t illness Narrative [...] by mouth twice daily for 10 days. Nelfjjtg-Ls-Rtw-Fe-FA ( VITAMIN) tab Take 1 tablet by [...] Viry Carmen APRN.CNP documented in this encounter [facility] 12-13-2022 Miscellaneous Notes Patient notified and scheduled [...] Feli Wesley LPN documented in this encounter [facility] 12-07-2022 Note HNO ID: [id number] Author: RT Jamil(R) Service: ? Author Type: [...] December 07, 2022 4:24 PM [facility] 12-07-2022 Note HNO ID: [id number] Author: Viry Carmen APRN.CLIMATE CHANGE ANALYST Service: ? Author Type: Nurse Practitioner Type: [...] Take 1 capsule by mouth once daily. Alqcchal-Yf-Mki-Fe-FA ( VITAMIN) tab Take 1 tablet by [...] RT-R/O abscess since symptoms are recurrent. Viry aCrmen APRN.CLIMATE CHANGE ANALYST [facility] 11-24-2022 Note HNO ID: [id number] Author: Cami Guerrier APRN.CLIMATE CHANGE ANALYST Service: ? Author Type: Nurse Practitioner Type: [...] Take 1 capsule by mouth once daily. Ycpxahll-Cw-Zvh-Fe-FA ( VITAMIN) tab Take 1 tablet by [...] ER with red flag symptoms Cami Guerrier, BONILLA.CLIMATE CHANGE ANALYST Prescription instructions reviewed with patient as applicable. [...] which included preparing to see the patient, evyf-cr-ozub patient care, completing clinical documentation, obtaining and/or reviewing separately obtained history, performing a medically appropriate examination, counseling and educating the patient/family/caregiver, and ordering medications, tests, or procedures. [facility] 11-24-2022 History of Presen t illness [...] Take 1 capsule by mouth once daily. Dbrkwlqv-Wk-Rco-Fe-FA ( VITAMIN) tab Take 1 tablet by [...] ER with red flag symptoms Cami Podlogcasie, CADD MANAGER.CLIMATE CHANGE ANALYST Prescription instructions reviewed with patient as applicable. [...] which included preparing to see the patient, pyai-oh-qgyq patient care, completing clinical documentation, obtaining and/or reviewing separately obtained history, performing a medically appropriate examination, counseling and educating the patient/family/caregiver, and ordering medications, tests, or procedures. documented in this encounter [facility] 06-09-2022 History of Presen t illness Narrative [...] Take 1 capsule by mouth once daily. Absfysmr-Yn-Tag-Fe-FA ( VITAMIN) tab Take 1 tablet by [...] Smita Booker APRN.CNM documented in this encounter [facility] 05-27-2022 History of Presen t illness Narrative Lard Mixer offered: Patient declines. Deyanira Diamond is a [...] external genitalia normal, normal [place]th[place]'s glands, urethra, [place]'s glands, no vulvar lesions, no cervical lesions, [...] 3 - Low documented in this encounter [facility] 05-12-2022 Miscellaneous Notes Patient notified. Luda Pathak [...] Luda Pathak RN documented in this encounter [facility] 05-06-2022 Miscellaneous Notes Awaiting call back from [...] Kika Powell RN documented in this encounter [facility] 01-13-2022 Miscellaneous Notes Patient returned call and given provider's message below and patient verbalized understanding. Leidy Constantino RN Patient telephoned. Message left to call back for update. Alisia Freeman LPN Please call patient and let her know her blood work is normal. Cami Guerrier APRN.CLIMATE CHANGE ANALYST documented in this encounter [facility] 01-12-2022 History of Presen t illness Narrative [...] Take 1 capsule by mouth once daily. Mbjisqmo-Ug-Qdk-Fe-FA ( VITAMIN) tab Take 1 tablet by [...] No history of dysuria, frequency or incontinence NURSE AIDE: Negative for abnormal vaginal bleeding, abnormal vaginal [...] diet of 1000 mg/day for under 50, 5844-2553 mg/day for 50+ - Follow up for [...] ER with red flag symptoms Cami Guerrier, BONILLA.CLIMATE CHANGE ANALYST Prescription instructions reviewed with patient as applicable. Patient advised if symptoms do not improve or if symptoms worsen sooner, to contact their primary care physician. Potential red flag symptoms discussed with the patient. Reviewed appropriate action plan to take if red flag symptoms occur. Patient agreeable to treatment plan. documented in this encounter [facility] 01-11-2022 Miscellaneous Notes Patient notified. Aviva Lutz [...] bilaterally. Has been using clotrimazole cream per band splicer's recommendation except at night time. Concerned she may forget to remove the cream from her nipples during the night time feedings. Asking if she needs to be seen or if a prescription can be sent. Luda Pathak RN documented in this encounter [facility] documented as of this encounter (statuses as of 01/11/2022) [facility] History of Past illness Narrative* Problem Noted [...] of this encounter (statuses as of 01/12/2022) [facility] of [facility] Narrative* Problem Noted [...] of this encounter (statuses as of 01/13/2022) [facility] Narrative* Problem Noted [...] of this encounter (statuses as of 05/11/2022) [facility] Narrative* Problem Noted [...] of this encounter (statuses as of 05/12/2022) [facility] Narrative* Problem Noted [...] of this encounter (statuses as of 05/27/2022) [facility] Narrative* Problem Noted [...] of this encounter (statuses as of 06/09/2022) [facility] Narrative* Problem Noted [...] of this encounter (statuses as of 11/24/2022) [facility] Narrative* Problem Noted [...] of this encounter (statuses as of 12/13/2022) [facility] Narrative* Problem Noted [...] of this encounter (statuses as of 12/14/2022) [facility] Narrative* Problem Noted [...] of this encounter (statuses as of 01/28/2023) [facility] Narrative* Problem Noted [...] of this encounter (statuses as of 02/01/2023) [facility] Narrative* Problem Noted [...] of this encounter (statuses as of 04/22/2023) [facility] Narrative* Problem Noted [...] of this encounter (statuses as of 04/28/2023) [facility] Narrative* Problem Noted [...] of this encounter (statuses as of 05/06/2023) [facility] Narrative* Problem Noted [...] of this encounter (statuses as of 05/10/2023) [facility] Narrative* Problem Noted [...] of this encounter (statuses as of 05/24/2023) [facility] Narrative* Problem Noted [...] of this encounter (statuses as of 05/25/2023) [facility] Narrative* Problem Noted [...] of this encounter (statuses as of 05/26/2023) [facility] Narrative* Problem Noted [...] of this encounter (statuses as of 06/09/2023) [facility] Narrative* Problem Noted [...] of this encounter (statuses as of 06/09/2023) [facility] Narrative* Problem Noted [...] of this encounter (statuses as of 06/10/2023) [facility] Narrative* Problem Noted [...] of this encounter (statuses as of 06/14/2023) [facility] Narrative* Problem Noted [...] of this encounter (statuses as of 06/14/2023) [facility] Narrative* Problem Noted [...] of this encounter (statuses as of 06/24/2023) [facility] Narrative* Problem Noted [...] of this encounter (statuses as of 07/13/2023) [facility] Narrative* Problem Noted [...] of this encounter (statuses as of 07/14/2023) [facility] Narrative* Problem Noted [...] of this encounter (statuses as of 07/28/2023) [facility] Narrative* Problem Noted [...] of this encounter (statuses as of 08/06/2023) [facility] Narrative* Problem Noted [...] of this encounter (statuses as of 08/07/2023) [facility] Narrative* Problem Noted [...] of this encounter (statuses as of 08/11/2023) [facility] Narrative* Problem Noted [...] of this encounter (statuses as of 08/15/2023) [facility] Narrative* Problem Noted [...] of this encounter (statuses as of 09/06/2023) [facility] Narrative* Problem Noted [...] of this encounter (statuses as of 09/15/2023) [facility] Narrative* Problem Noted [...] of this encounter (statuses as of 11/04/2023) [facility] Narrative* Problem Noted [...] of this encounter (statuses as of 11/07/2023) [facility] Narrative* Problem Noted [...] of this encounter (statuses as of 11/09/2023) [facility] Narrative* Problem Noted [...] of this encounter (statuses as of 11/09/2023) [facility] Narrative* Problem Noted [...] of this encounter (statuses as of 11/11/2023) [facility] Narrative* Problem Noted [...] of this encounter (statuses as of 11/16/2023) [facility] Diagnosis Yeast infection of nipple, - Primary Infection of nipple, [facility] Diagnosis Routine physical examination- Primary Routine general medical examination at a health care facility Fatigue, unspecified type Bruising Contusion of unspecified site Headaches [facility] Diagnosis Acute vaginitis- Primary Vaginitis and vulvovaginitis, unspecified [facility] Diagnosis Encounter for surveillance of contraceptive pills- Primary Surveillance of previously prescribed contraceptive pill PCOS (polycystic ovarian syndrome) Polycystic ovaries History of irregular menstrual bleeding Personal history of other genital system and obstetric disorders Dyspareunia, female Dyspareunia [facility] Diagnosis Mastitis- Primary Inflammatory disease of breast [facility] Diagnosis Acute mastitis of right breast- Primary Inflammatory disease of breast [facility] Diagnosis Headache, unspecified headache type- Primary Thunderclap headache Headache Myalgias Nausea Nausea alone [facility] Diagnosis History of pre-eclampsia in prior [...] and metabolic diseases [facility] Diagnosis Encounter for supervision of normal [...] unspecified fetus- Primary [facility] Diagnosis Symptoms of upper respiratory infection (URI)- Primary [facility] Diagnosis Encounter for screening for nuchal translucency- Primary 14 weeks gestation of state, incidental Subchorionic hematoma in second trimester, single or unspecified fetus [facility] Diagnosis Encounter for (NT) nuchal translucency scan- Primary Other specified screening Encounter for supervision of normal in multigravida 14 weeks gestation of state, incidental [facility] Diagnosis Subchorionic hematoma in second trimester, single or unspecified fetus- Primary 16 weeks gestation of state, incidental Encounter for supervision of other normal in second trimester [facility] Diagnosis Encounter for anatomic survey- Primary Encounter for supervision of normal in multigravida Placental abnormality in second trimester 19 weeks gestation of state, incidental [facility] Diagnosis 19 weeks gestation of - Primary state, incidental Subchorionic hematoma in second trimester, single or unspecified fetus History of pre-eclampsia in prior , currently with other poor obstetric history [facility] Diagnosis 20 weeks gestation of - Primary state, incidental [facility]* Diagnosis Headache, unspecified headache type Thunderclap headache Headache [facility] Diagnosis 23 weeks gestation of - Primary state, incidental Subchorionic hematoma in second trimester, single or unspecified fetus History of pre-eclampsia in prior , currently with other poor obstetric history Need for influenza vaccination Need for prophylactic vaccination and inoculation against influenza Uterine size-date discrepancy, second trimester [facility] Diagnosis Pelvic pressure in - Primary Other specified complication, antepartum 26 weeks gestation of state, incidental [facility] Diagnosis 35 weeks gestation of - Primary state, incidental Back pain in Other specified complication of , unspecified as to episode of care Encounter for supervision of normal in multigravida Pelvic pressure in Other specified complication, antepartum [facility] Diagnosis 34 weeks gestation of - Primary state, incidental [facility] Diagnosis Encounter for ultrasound to check growth- Primary Encounter for routine screening for malformation using ultrasonics Uterine size-date discrepancy, third trimester 32 weeks gestation of state, incidental Macrosomia of fetus affecting management of mother in third trimester, single or unspecified fetus [facility] Diagnosis 36 weeks gestation of - Primary state, incidental [facility]* Diagnosis Excessive growth affecting management of in third trimester, single or unspecified fetus- Primary Encounter for supervision of normal in multigravida Uterine size-date discrepancy, third trimester 37 weeks gestation of state, incidental documented in this encounter [facility] for referral (narrative)* Diagnostic Procedure Only (Routine) - Authorized Specialty Diagnoses / Procedures Referred By Danay martínez [facility] Diagnoses Encounter for supervision of normal in multigravida 9 weeks gestation of Procedures NUCHAL TRANSLUCENCY WHI US NUCHAL TRANSLUCENCY 1ST GESTATION Smita Booker APRN.CNM [address] [place] [address] [facility] [address] [place] [address] Referral ID Status Reason Start Date Expiration Date Visits Requested Visits Authorized [id number] Authorized Auto-Generat ed Referral 05/06/2023 05/05/2024 1 1 * Diagnostic Procedure Only (Routine) - Pending Review Specialty Diagnoses / Procedures Referred By Contac t Referred To Contact [facility] Diagnoses Encounter for supervision of normal in multigravida 9 weeks gestation of Procedures OBSTETRIC ULTRASOUND WHI US PREG UTERUS AFTER 1ST TRIMEST GESTATION Smita Booker APRN.CNM [address] [place] [address] [facility] [address] [place] [address] Referral ID Status Reason Start Date Expiration Date Visits Requested Visits Authorized [id number] Pending Review Auto-Generat ed Referral 05/06/2023 05/05/2024 1 1 [facility] Summary Purpose Family History No Family History Records FoundNo Family History Records FoundNo Family History Records Found Advance Directives No Advanced Directives Records FoundNo Advanced Directives Records FoundNo Advanced Directives Records Found Reason for Referral Specialty Diagnoses / Procedures Referred By Contac t Referred To Contact Neurology Diagnoses Headache, unspecified headache type Thunderclap headache Procedures CONSULT TO NEUROLOGY OFFICE/OUTPATIENT [facility] 60-74 MINUTES Marichuy Painter, CADD MANAGER.CLIMATE CHANGE ANALYST [address] [place] [address] Referral ID Status Reason Start Date Expiration Date Visits Requested Visits Authorized [id number] Authorized PCP Requested Referral 01/28/2023 01/28/2024 1 1 Specialty Diagnoses / Procedures Referred By Contac t Referred To Contact CT IMAGING Diagnoses Headache, unspecified headache type Thunderclap headache Procedures CT BRAIN WO/W IVCON CT HEAD/BRAIN W/O & W/CONTRAST 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, CADD MANAGER.CLIMATE CHANGE ANALYST [address] [place] [address] Ct Imaging Referral ID Status Reason Start Date Expiration Date Visits Requested Visits Authorized [id number] Waiting for Response Auto-Genera octaviano Referral Patient Cleared - Admin/Chair man/Directo r advise to proceed 01/28/2023 02/27/2024 1 1 Specialty Diagnoses / Procedures Referred By Danay martínez Referred To Contact CT IMAGING Diagnoses Headache, unspecified headache type Thunderclap headache Procedures CT BRAIN WO/W IVCON CT HEAD/BRAIN W/O & W/CONTRAST 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, CADD MANAGER.CLIMATE CHANGE ANALYST [address] [place] [address] [place] [address] Referral ID Status Reason Start Date Expiration Date V isits Requested Visits Authorized [id number] Closed Auto-Generat ed Referral Patient Cleared - Admin/Chairm an/Director advise to proceed or did not respond 01/28/2023 04/28/2023 1 1 Health Concerns Problem Noted Date Diagnosed Date [facility] - [facility] 05/06/2023 [place] - [place] 05/06/2023 Problem Noted Date Diagnosed Date [facility] - [facility] 05/06/2023 [facility] - [place] 05/06/2023 Problem Noted Date Diagnosed Date [facility] - [facility] 05/06/2023 [place] - [place] 05/06/2023 Infection Onset Date Last Indicated Resolved Time COVID-19 Rule-Out 05/24/2023 05/24/2023 05/24/2023 7:32 PM EDT Problem Noted Date Diagnosed Date [facility] - [facility]ON 05/06/2023 [place] - [place] 05/06/2023 Additional Source Comments INFORMATION SOURCE (unrecogn ized section and content) DATE CREATED AUTHOR AUTHOR'S ORGANIZ ATION 12/10/2022 [facility] DATE CREATED AUTHOR AUTHOR'S ORGANIZ ATION 11/15/2023 [facility] Source Comments (unrecognize d section and content) In the event this informatio n is protected by the Federal Confidentiality of Alcohol and Drug Abuse Patient Records regulations: The Federal rules restrict any use of the information to criminally investigate or prosecute any alcohol or drug abuse patient.[facility] the event this information is protected by the Federal Confidentiality of Alcohol and Drug Abuse Patient Records regulations: The Federal rules restrict any use of the information to criminally investigate or prosecute any alcohol or drug abuse patient.[facility] the event this information is protected by the Federal Confidentiality of Alcohol and Drug Abuse Patient Records regulations: The Federal rules restrict any use of the information to criminally investigate or prosecute any alcohol or drug abuse patient.[facility] the event this information is protected by the Federal Confidentiality of Alcohol and Drug Abuse Patient Records regulations: The Federal rules restrict any use of the information to criminally investigate or prosecute any alcohol or drug abuse patient.[facility] the event this information is protected by the Federal Confidentiality of Alcohol and Drug Abuse Patient Records regulations: The Federal rules restrict any use of the information to criminally investigate or prosecute any alcohol or drug abuse patient.[facility] the event this information is protected by the Federal Confidentiality of Alcohol and Drug Abuse Patient Records regulations: The Federal rules restrict any use of the information to criminally investigate or prosecute any alcohol or drug abuse patient.[facility] the event this information is protected by the Federal Confidentiality of Alcohol and Drug Abuse Patient Records regulations: The Federal rules restrict any use of the information to criminally investigate or prosecute any alcohol or drug abuse patient.[facility] Center[facility] the event this information is protected by the Federal Confidentiality of Alcohol and Drug Abuse Patient Records regulations: The Federal rules restrict any use of the information to criminally investigate or prosecute any alcohol or drug abuse patient.[facility] the event this information is protected by the Federal Confidentiality of Alcohol and Drug Abuse Patient Records regulations: The Federal rules restrict any use of the information to criminally investigate or prosecute any alcohol or drug abuse patient.[facility] Center[facility] the event this information is protected by the Federal Confidentiality of Alcohol and Drug Abuse Patient Records regulations: The Federal rules restrict any use of the information to criminally investigate or prosecute any alcohol or drug abuse patient.[facility] the event this information is protected by the Federal Confidentiality of Alcohol and Drug Abuse Patient Records regulations: The Federal rules restrict any use of the information to criminally investigate or prosecute any alcohol or drug abuse patient.[facility] CenterIn the event this information is protected by the Federal Confidentiality of Alcohol and Drug Abuse Patient Records regulations: The Federal rules restrict any use of the information to criminally investigate or prosecute any alcohol or drug abuse patient.[facility] CenterIn the event this information is protected by the Federal Confidentiality of Alcohol and Drug Abuse Patient Records regulations: The Federal rules restrict any use of the information to criminally investigate or prosecute any alcohol or drug abuse patient.[facility] CenterIn the event this information is protected by the Federal Confidentiality of Alcohol and Drug Abuse Patient Records regulations: The Federal rules restrict any use of the information to criminally investigate or prosecute any alcohol or drug abuse patient.[facility] CenterIn the event this information is protected by the Federal Confidentiality of Alcohol and Drug Abuse Patient Records regulations: The Federal rules restrict any use of the information to criminally investigate or prosecute any alcohol or drug abuse patient.[facility] CenterIn the event this information is protected by the Federal Confidentiality of Alcohol and Drug Abuse Patient Records regulations: The Federal rules restrict any use of the information to criminally investigate or prosecute any alcohol or drug abuse patient.[facility] CenterIn the event this information is protected by the Federal Confidentiality of Alcohol and Drug Abuse Patient Records regulations: The Federal rules restrict any use of the information to criminally investigate or prosecute any alcohol or drug abuse patient.[facility] CenterIn the event this information is protected by the Federal Confidentiality of Alcohol and Drug Abuse Patient Records regulations: The Federal rules restrict any use of the information to criminally investigate or prosecute any alcohol or drug abuse patient.[facility] CenterIn the event this information is protected by the Federal Confidentiality of Alcohol and Drug Abuse Patient Records regulations: The Federal rules restrict any use of the information to criminally investigate or prosecute any alcohol or drug abuse patient.[facility] CenterIn the event this information is protected by the Federal Confidentiality of Alcohol and Drug Abuse Patient Records regulations: The Federal rules restrict any use of the information to criminally investigate or prosecute any alcohol or drug abuse patient.[facility] CenterIn the event this information is protected by the Federal Confidentiality of Alcohol and Drug Abuse Patient Records regulations: The Federal rules restrict any use of the information to criminally investigate or prosecute any alcohol or drug abuse patient.[facility] CenterIn the event this information is protected by the Federal Confidentiality of Alcohol and Drug Abuse Patient Records regulations: The Federal rules restrict any use of the information to criminally investigate or prosecute any alcohol or drug abuse patient.[facility] CenterIn the event this information is protected by the Federal Confidentiality of Alcohol and Drug Abuse Patient Records regulations: The Federal rules restrict any use of the information to criminally investigate or prosecute any alcohol or drug abuse patient.[facility] CenterIn the event this information is protected by the Federal Confidentiality of Alcohol and Drug Abuse Patient Records regulations: The Federal rules restrict any use of the information to criminally investigate or prosecute any alcohol or drug abuse patient.[facility] CenterIn the event this information is protected by the Federal Confidentiality of Alcohol and Drug Abuse Patient Records regulations: The Federal rules restrict any use of the information to criminally investigate or prosecute any alcohol or drug abuse patient.[facility] CenterIn the event this information is protected by the Federal Confidentiality of Alcohol and Drug Abuse Patient Records regulations: The Federal rules restrict any use of the information to criminally investigate or prosecute any alcohol or drug abuse patient.[facility] CenterIn the event this information is protected by the Federal Confidentiality of Alcohol and Drug Abuse Patient Records regulations: The Federal rules restrict any use of the information to criminally investigate or prosecute any alcohol or drug abuse patient.[facility] CenterIn the event this information is protected by the Federal Confidentiality of Alcohol and Drug Abuse Patient Records regulations: The Federal rules restrict any use of the information to criminally investigate or prosecute any alcohol or drug abuse patient.[facility] CenterIn the event this information is protected by the Federal Confidentiality of Alcohol and Drug Abuse Patient Records regulations: The Federal rules restrict any use of the information to criminally investigate or prosecute any alcohol or drug abuse patient.[facility] CenterIn the event this information is protected by the Federal Confidentiality of Alcohol and Drug Abuse Patient Records regulations: The Federal rules restrict any use of the information to criminally investigate or prosecute any alcohol or drug abuse patient.[facility] CenterIn the event this information is protected by the Federal Confidentiality of Alcohol and Drug Abuse Patient Records regulations: The Federal rules restrict any use of the information to criminally investigate or prosecute any alcohol or drug abuse patient.[facility] CenterIn the event this information is protected by the Federal Confidentiality of Alcohol and Drug Abuse Patient Records regulations: The Federal rules restrict any use of the information to criminally investigate or prosecute any alcohol or drug abuse patient.[facility] CenterIn the event this information is protected by the Federal Confidentiality of Alcohol and Drug Abuse Patient Records regulations: The Federal rules restrict any use of the information to criminally investigate or prosecute any alcohol or drug abuse patient.[facility] CenterIn the event this information is protected by the Federal Confidentiality of Alcohol and Drug Abuse Patient Records regulations: The Federal rules restrict any use of the information to criminally investigate or prosecute any alcohol or drug abuse patient.[facility] CenterIn the event this information is protected by the Federal Confidentiality of Alcohol and Drug Abuse Patient Records regulations: The Federal rules restrict any use of the information to criminally investigate or prosecute any alcohol or drug abuse patient.[facility] CenterIn the event this information is protected by the Federal Confidentiality of Alcohol and Drug Abuse Patient Records regulations: The Federal rules restrict any use of the information to criminally investigate or prosecute any alcohol or drug abuse patient.[facility] CenterIn the event this information is protected by the Federal Confidentiality of Alcohol and Drug Abuse Patient Records regulations: The Federal rules restrict any use of the information to criminally investigate or prosecute any alcohol or drug abuse patient.[facility] CenterIn the event this information is protected by the Federal Confidentiality of Alcohol and Drug Abuse Patient Records regulations: The Federal rules restrict any use of the information to criminally investigate or prosecute any alcohol or drug abuse patient.[facility] CenterIn the event this information is protected by the Federal Confidentiality of Alcohol and Drug Abuse Patient Records regulations: The Federal rules restrict any use of the information to criminally investigate or prosecute any alcohol or drug abuse patient.[facility] CenterIn the event this information is protected by the Federal Confidentiality of Alcohol and Drug Abuse Patient Records regulations: The Federal rules restrict any use of the information to criminally investigate or prosecute any alcohol or drug abuse patient.[facility] CenterIn the event this information is protected by the Federal Confidentiality of Alcohol and Drug Abuse Patient Records regulations: The Federal rules restrict any use of the information to criminally investigate or prosecute any alcohol or drug abuse patient.[facility] Reason for Visit (unrecogniz ed section and [...] Comments Care Reason Comments Care Reason Comments Environmental 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 [address] [address] Referral ID Status Reason Start Date Expiration Date V isits Requested Visits Authorized [id number] Closed Auto-Generate d Referral 05/06/2023 05/05/2024 1 1 Reason Comments Question (OB Question) Reason Onset Date Comments Care 06/23/2023 Specialty Diagnoses / Procedures Referred By Contac t Referred To Contact [facility] Diagnoses Encounter for supervision of normal in multigravida 9 weeks gestation of Procedures OBSTETRIC ULTRASOUND WHI US PREG UTERUS AFTER 1ST TRIMEST GESTATION Smita Booker, CADD MANAGER.CNM [address] [place] [address] [address] Referral ID Status Reason Start Date Expiration Date V isits Requested Visits Authorized [id number] Closed Auto-Generate d Referral 05/06/2023 05/05/2024 1 1 Reason Onset Date Comments Care 07/13/[address] Specialty Diagnoses / Procedures Referred By Contac t Referred To Contact CT IMAGING Diagnoses Headache, unspecified headache type Thunderclap headache Procedures CT BRAIN WO/W IVCON CT HEAD/BRAIN W/O & W/CONTRAST 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, CADD MANAGER.CLIMATE CHANGE ANALYST [address] [place] [address] Ct Imaging [facility] Referral ID Status Reason Start Date Expiration Date V isits Requested Visits Authorized [id number] Closed Auto-Generat ed Referral Patient Cleared - Admin/Chairm an/Director advise to proceed or did not respond 01/28/2023 04/28/2023 1 1 Reason Onset Date Comments Care 08/10/2023 Immunizations 08/10/2023 Flu vaccination Reason Onset Date Comments Care 09/05/2023 Reason Onset Date Comments Care 11/03/2023 Reason Onset Date Comments Care 10/26/2023 Specialty Diagnoses / Procedures Referred By Contac t Referred To Contact [facility] Diagnoses 32 weeks gestation of Uterine size-date discrepancy, third trimester Procedures OBSTETRIC ULTRASOUND WHI US PREG UTERUS AFTER 1ST TRIMEST GESTATION Smita Booker APRN.CNM [address] [place] [address] [facility] [address] [place] [address] Referral ID Status Reason Start Date Expiration Date V isits Requested Visits Authorized [id number] Closed Auto-Generate d Referral 10/12/2023 10/11/2024 1 1 Reason Onset Date Comments Care 11/09/2023 Reason Onset Date Comments Care 11/16/2023 Care Teams (unrecognized sec tion and content) Administrative Director Relationship Specialty Start Date End Date Chad Zavala MD [address] [place], [place] [id number] [phone] PCP - General Family Practice 03/31/20 Administrative Director Relationship Specialty Start Date End Date Chad Zavala MD [address] [place] [address] PCP - General Family Practice 03/31/20 Administrative Director Relationship Specialty Start Date End Date Chad Zavala MD [address] [place] [address] PCP - General Family Practice 03/31/20 Administrative Director Relationship Specialty Start Date End Date Chad Zavala MD [address] [place] [address] PCP - General Family Practice 03/31/20 Administrative Director Relationship Specialty Start Date End Date Chad Zavala MD [address] [place] [address] PCP - General Family Medicine 03/31/20 Administrative Director Relationship Specialty Start Date End Date Chad Zavala MD [address] [place] [address] PCP - General Family Medicine 03/31/20 Administrative Director Relationship Specialty Start Date End Date Chad Zavala MD [address] [facility] [place] [address] PCP - General Family Medicine 03/31/20 Administrative Director Relationship Specialty Start Date End Date Chad Zavala MD [address] [facility] [place] [address] PCP - General Family Medicine 03/31/20 Administrative Director Relationship Specialty Start Date End Date Chad Zavala MD [address] [facility] [place] [place] [address] PCP - General Family Medicine 03/31/20 Administrative Director Relationship Specialty Start Date End Date Chad Zavala MD [address] [facility] [place] [place] [address] PCP - General Family Medicine 03/31/20 Administrative Director Relationship Specialty Start Date End Date Chad Zavala MD [address] [facility] [place] [place] [address] PCP - General Family Medicine 03/31/20 Administrative Director Relationship Specialty Start Date End Date Chad Zavala MD [address] [facility] [place] [place] [address] PCP - General Family Medicine 03/31/20 Administrative Director Relationship Specialty Start Date End Date Chad Zavala MD [address] [facility] [place] [place] [address] PCP - General Family Medicine 03/31/20 Administrative Director Relationship Specialty Start Date End Date Chad Zavala MD [address] [facility] [place] [place] [address] PCP - General Family Medicine 03/31/20 Administrative Director Relationship Specialty Start Date End Date Chad Zavala MD [address] [place] [address] PCP - General Family Medicine 03/31/20 Administrative Director Relationship Specialty Start Date End Date Chad Zavala MD [address] [place] [address] PCP - General Family Medicine 03/31/20 Administrative Director Relationship Specialty Start Date End Date Chad Zavala MD [address] [place] [address] PCP - General Family Medicine 03/31/20 Administrative Director Relationship Specialty Start Date End Date Chad Zavala MD [address] [place] [address] PCP - General Family Medicine 03/31/20 Administrative Director Relationship Specialty Start Date End Date Chad Zavala MD [address] [place] [address] PCP - General Family Medicine 03/31/20 Administrative Director Relationship Specialty Start Date End Date Chad Zaavla MD [address] [place] [address] PCP - General Family Medicine 03/31/20 Administrative Director Relationship Specialty Start Date End Date Chad Zavala MD [address] [place] [address] PCP - General Family Medicine 03/31/20 Administrative Director Relationship Specialty Start Date End Date Chad Zavala MD [address] [facility] [place] [place] [address] PCP - General Family Medicine 03/31/20 Administrative Director Relationship Specialty Start Date End Date Chad Zavala MD [address] [facility] [place] [place] [address] PCP - General Family Medicine 03/31/20 Administrative Director Relationship Specialty Start Date End Date Chad Zavala MD [address] [facility] [place] [place] [address] PCP - General Family Medicine 03/31/20 Administrative Director Relationship Specialty Start Date End Date Chad Zavala MD [address] [facility] [place] [place] [address] PCP - General Family Medicine 03/31/20 Administrative Director Relationship Specialty Start Date End Date Chad Zavala MD [address] [facility] [place] [place] [address] PCP - General Family Medicine 03/31/20 Administrative Director Relationship Specialty Start Date End Date Chad Zavala MD [address] [facility] [place] [place] [address] PCP - General Family Medicine 03/31/20 Administrative Director Relationship Specialty Start Date End Date Chad Zavala MD [address] [facility] [place] [address] PCP - General Family Medicine 03/31/20 FOR [...] BE BASED ON THE PRIMARY CLINICAL RECORDS. [facility]. provides no warranty or guarantee of the accuracy or completeness of information in this document.
[2023-11-18] MEDS: LACTATED RINGERS 500 ML 999 ML IV (02:30)
[2023-11-18 02:46] LABS: Absolute Lymphocyte Count 1.12 X10^3/uL (0.83-4.51); Absolute Neutrophil Count 5.8 X10^3/uL (2.0-7.7); Basophil# 0.02 X10^3/uL; Basophil% 0.3 % (0-1); Eosinophil# 0.01 X10^3/uL; Eosinophils% 0.1 % (0-5); Hematocrit 33.9 % (37-47); Hemoglobin 10.7 g/dL (12.0-15.0); Lymphocyte # 1.12 X10^3/ul (0.83-4.51); Lymphocyte % 14.9 % (19-41); Mean Corp Hgb Conc 31.6 g/dL (32-36); Mean Corpuscular Hgb 27.9 pg (27.0-32.0); Mean Corpuscular Volume 88.3 fL (81-99); Mean Platelet Vol. 12.3 fl (6.2-12.0); Monocyte# 0.54 X10^3/uL; Monocyte% 7.2 % (0-10); NRBC Flagged by Analyzer 0 % (0-5); Neutrophil # 5.79 X10^3/uL (2.7-7.7); Neutrophil % 76.8 % (47-70); Platelet Count 124 K/mm3 (150-450); RBC Distribution Width CV 14.3 % (11.6-14.6); RBC Distribution Width SD 45.1 fl (35.1-43.9); Red Blood Count 3.84 M/mm3 (4.2-5.4); White Blood Count 7.5 K/mm3 (4.4-11.0)
[2023-11-18] MEDS: Lactated Ringers 1,000 ML 200 ML IV (03:01)
[2023-11-18] MEDS: fentaNYL-bupivacaine (epidural) 100 ML BAG EPIDURAL (03:38)
[2023-11-18 04:13] LABS: Syphilis Antibodies Non-reactive
[2023-11-18] MEDS: Oxytocin 10 UNITS/ML Vial IM (06:36)
[2023-11-18] MEDS: Oxytocin 15 Units/NS 250ml 15 UNITS/250 ML IV.SOLN 83 UNITS IV (06:38)
--- NOTE | 2023-11-18 06:40 | PCM.HP.OB ---
HPI - General General Date of Admission: 11/18/23 Date of Service: 11/18/23 HPI Narrative SARAH DOMINGO, is a 28 F who presents at 37w2d with IRENE: 12/07/23. SROM around 11pm on 11/17. Contractions became increasinly regular. Maternal Data Information IRENE Calculator Estimated Delivery Date Method Current WG Current Estimate 12/07/23 Manual 37w 2d PFSH PFSH Medical History (Updated 11/18/23 @ 06:44 by Dolores Patrick CNM) Anxiety Asthma Depression Herpes genitalis Migraines hemorrhage Pre-eclampsia Superficial varicosities Home Medications vit no.95-ferrous fumarate 28 mg-folic acid 800 mcg tablet 1 ea PO DAILY Check with primary doctor 11/24/19 [History Last Taken 11/17/23] acyclovir 200 mg capsule 200 mg PO TID 11/18/23 [History Last Taken 11/17/23] aspirin 81 mg capsule 81 mg PO DAILY 11/18/23 [History Last Taken 11/17/23] Allergy/AdvReac Type Severity Reaction Status Date / Time No Known Allergies Allergy Verified 11/18/23 01:30 Surgical History (Updated 11/18/23 @ 04:05 by Mary Hobson) History of surgery S/P appendectomy Social History Smoking Status: Former smoker History Elective abortions Hx Para 2 Spontaneous abortions Hx # Term Pregnancies Ectopic pregnancies Hx # Pregnancies Multiple births # of living children NST FHR Rate Baby A Baseline: 145 Variability:: Moderate Accelerations:: 15 x 15 Decelerations:: None FHR Category:: Category I Uterine Activity:: every 2 minutes, strong Vital Signs Vital Signs Vital Signs: 11/18/23 01:28 11/18/23 01:28 11/18/23 01:27 Temperature Temperature Source Pulse Rate 82 Blood Pressure 133/81 H BP Systolic 133 BP Diastolic 81 Pulse Ox 98 11/18/23 03:06 11/18/23 03:06 11/18/23 03:11 Temperature Temperature Source Pulse Rate 90 90 Blood Pressure BP Systolic BP Diastolic Pulse Ox 99 11/18/23 03:11 11/18/23 03:12 11/18/23 03:12 Temperature Temperature Source Pulse Rate 87 Blood Pressure 136/86 H BP Systolic 136 BP Diastolic 86 Pulse Ox 100 11/18/23 03:16 11/18/23 03:16 11/18/23 03:16 Temperature Temperature Source Pulse Rate 84 Blood Pressure 143/105 H BP Systolic 143 BP Diastolic 105 Pulse Ox 100 11/18/23 03:21 11/18/23 03:21 11/18/23 03:21 Temperature Temperature Source Pulse Rate 90 Blood Pressure 133/87 H BP Systolic 133 BP Diastolic 87 Pulse Ox 99 11/18/23 03:27 11/18/23 03:27 11/18/23 03:26 Temperature Temperature Source Pulse Rate 83 Blood Pressure 127/70 H BP Systolic 127 BP Diastolic 70 Pulse Ox 98 11/18/23 03:31 11/18/23 03:31 11/18/23 03:31 Temperature Temperature Source Pulse Rate 75 78 Blood Pressure 119/58 L BP Systolic 119 BP Diastolic 58 Pulse Ox 11/18/23 03:31 11/18/23 03:36 11/18/23 03:36 Temperature Temperature Source Pulse Rate 86 Blood Pressure 119/60 BP Systolic 119 BP Diastolic 60 Pulse Ox 99 11/18/23 03:36 11/18/23 03:41 11/18/23 03:41 Temperature Temperature Source Pulse Rate 86 Blood Pressure 110/62 BP Systolic 110 BP Diastolic 62 Pulse Ox 100 11/18/23 03:41 11/18/23 03:46 11/18/23 03:46 Temperature Temperature Source Pulse Rate 91 Blood Pressure BP Systolic BP Diastolic Pulse Ox 100 100 11/18/23 03:47 11/18/23 03:47 11/18/23 03:47 Temperature 98.0 F Temperature Source Pulse Rate 79 Blood Pressure 123/76 H BP Systolic 123 BP Diastolic 76 Pulse Ox 11/18/23 03:51 11/18/23 03:51 11/18/23 03:51 Temperature Temperature Source Pulse Rate 90 99 Blood Pressure 126/80 H BP Systolic 126 BP Diastolic 80 Pulse Ox 11/18/23 03:51 11/18/23 03:56 11/18/23 03:56 Temperature Temperature Source Pulse Rate 87 Blood Pressure 127/75 H BP Systolic 127 BP Diastolic 75 Pulse Ox 100 11/18/23 04:28 11/18/23 04:28 11/18/23 04:30 Temperature Temperature Source Pulse Rate 82 138 H Blood Pressure 118/70 BP Systolic 118 BP Diastolic 70 Pulse Ox 11/18/23 04:30 11/18/23 04:30 11/18/23 04:31 Temperature Temperature Source Temporal Pulse Rate 80 Blood Pressure BP Systolic BP Diastolic Pulse Ox 100 11/18/23 04:30 11/18/23 05:24 11/18/23 05:24 Temperature 98.7 F Temperature Source Temporal Pulse Rate Blood Pressure 117/66 BP Systolic 117 BP Diastolic 66 Pulse Ox 11/18/23 05:24 11/18/23 05:24 11/18/23 05:24 Temperature 98.8 F Temperature Source Pulse Rate 93 Blood Pressure BP Systolic BP Diastolic Pulse Ox 100 Weight Weight: 228 lb Body Mass Index (BMI) 37.9 Labs Labs Labs: Blood Type A NEGATIVE Antibody Screen POSITIVE H Hct 33.9 % (37-47) L Hgb 10.7 g/dL (12.0-15.0) L Syphilis Total Ab Non-reactive Rhogam given: Yes GBS negative GC/CT negative RPR NR Rubella Immune HBsAG negative HepC negative HIV negative A Negative Assessment & Plan (1) SROM (spontaneous rupture of membranes): (2) Anxiety: (3) Depression: (4) Asthma: COMMENT: pt reports mostly resolved (5) Herpes genitalis: (6) Migraines: (7) Pre-eclampsia: COMMENT: with second (8) hemorrhage: COMMENT: pt received rectal cytotec after second delivery PLAN: Plan Admit to labor and delivery Routine labs GBS negative HSV, taking Acyclovir Continuous EFM Epidural for pain management collaborative physician and notified of patient status, above assessment and plan.
--- NOTE | 2023-11-18 06:47 | EX.PCM.OBRPT ---
Assessment & Plan (1) Vaginal delivery: Maternal Data Information IRENE Calculator Estimated Delivery Date Method Current WG Current Estimate 12/07/23 Manual 37w 2d Vaginal Delivery Maternal Presentation Maternal Presentation: Active Labor and Spontaneous Rupture of Membranes Operative Information Date of Procedure: 11/18/23 Pre-Operative Diagnosis: SROM, active labor Post-Operative Diagnosis: Surgery / Procedure Performed: Spontaneous Vaginal Delivery Type of Anesthesia: Epidural Estimated Blood Loss: 200ml Time of Delivery: 06:32 Findings Description of Procedure: Progressed to complete. Epidural for pain management. of viable female over intact perineum.APGARS 8/8 respectively. Infant head delivered with body immediately forthcoming. Placed on maternal abdomen, strong cry. Mouth and nares suctioned for secretions. Pitocin given IM for active 3rd stage management. Cord doubly clamped and cut by FOB after pulsations ceased, delayed cord clamping. Placenta delivered intact via pittman, 3 vessel cord intact. Perineum inspected and revealed intact. Fundus firm and hemostasis achieved. EBL 200ml. Mom and baby stable, planning to breastfeed. Family bonding well. notified of delivery. Presentation: Vertex and MICHAEL Amniotic Membrane Rupture Type: Spontaneous Amniotic Fluid Description: Clear Placental Delivery Description: Spontaneous Placenta Disposition: [facility] Cord Vessel Description: 3 Vessels Cord Entanglement: None Infant A Gender: Female (1 minute): 8 (5 minute): 8 Delayed Cord Clamping: Yes Post Vaginal Delivery Medications Given After Delivery: IM Pitocin Episiotomy Description: None Laceration: None Complication Complications: None
[2023-11-18] MEDS: Acetaminophen 500 MG Tablet 1000 MG PO (07:31)
[2023-11-18] MEDS: Rho(D) Immune Globulin 300 MCG (1500 Unit) Syringe IV (15:57)
[2023-11-18] MEDS: 0.9% Saline Lock 10 ML Syringe IV (15:57)
[2023-11-18] MEDS: Ibuprofen 600 MG Tablet PO (16:09)
[2023-11-19 00:53] VITALS: BP 117/84; PULSE 78; RESP 16; TEMP 36.7; O2SAT 99
[2023-11-19 06:26] VITALS: BP 130/82; PULSE 79; RESP 16; TEMP 36.7; O2SAT 99
[2023-11-19] MEDS: Acetaminophen 500 MG Tablet 1000 MG PO (06:59)
[2023-11-19 08:00] VITALS: BP 130/97; PULSE 93; RESP 16; TEMP 36.6; O2SAT 100
--- NOTE | 2023-11-19 08:24 | PCM.DC.SUM ---
Providers Date of Admission: 11/18/23 Primary Care Physician: Dr. Jose G Zavala MD Reason For Visit: LABOR VAG DEL Diagnosis Discharge Diagnosis (1) Vaginal delivery: Status: Acute Code(s): O80 - Encounter for full-term uncomplicated delivery (2) Anxiety: Status: Acute Code(s): F41.9 - Anxiety disorder, unspecified (3) Asthma: Status: Acute Code(s): J45.909 - Unspecified asthma, uncomplicated (4) Depression: Status: Acute Code(s): F32.A - Depression, unspecified (5) Herpes genitalis: Status: Acute Code(s): A60.00 - Herpesviral infection of urogenital system, unspecified Plan PPD# 1 , Doing well Routine care pain mgmt ambulation dc home Medications at Discharge Home Medications vit no.95-ferrous fumarate 28 mg-folic acid 800 mcg tablet 1 ea PO DAILY Check with primary doctor 11/24/19 acyclovir 200 mg capsule 200 mg PO TID 11/18/23 aspirin 81 mg capsule 81 mg PO DAILY 11/18/23 Weight / BMI Weight Weight: 103.419 kg Body Mass Index (BMI) 37.9 ABG / Lab / Microbiology Data 11/18/23 02:27 Laboratory: Laboratory Results - last 24 hr 11/18/23 11:10: Screen NEGATIVE, Baby's Blood Type A POSITIVE, Baby's MIKE NEGATIVE Meaningful Use Info Meaningful Use Diagnoses (Choose all that apply): None applicable Discharge Plan Admission Admit Date/Time: 11/18/23 01:55 Attending Provider: Dolores Patrick Primary Care Provider: Jose G Zavala Discharge Orders/Prescriptions Prescriptions: No Action PNV cmb#95-ferrous fumarate-FA 1 EACH tablet 1 ea PO DAILY acyclovir 200 mg capsule 200 mg PO TID aspirin 81 mg capsule 81 mg PO DAILY Referrals / Follow Up: Jose G Zavala MD [Primary Care Provider] -
--- NOTE | 2023-11-19 08:29 | DCINST_ITS ---
Discharge Instructions Diet Discharge Diet: No restrictions Activity May resume sexual activity in: 6-8 weeks Dressing / Incision Call your doctor if you observe: Fever of 101 or Higher, Inability to urinate, Using more than 1 pad per hour and Uncontrolled pain Follow Up Care Please Follow Up With: Shira De La Paz MD When: 1-2 weeks post and again at 6 weeks post . [phone] Test Results: Test results from this visit will be discussed in further detail at your follow- up appointment, if applicable. Discharge Plan Admission Admit Date/Time: 11/18/23 01:55 Attending Provider: Dolores Patrick Primary Care Provider: Jose G Zavala Discharge Orders/Prescriptions Prescriptions: New ibuprofen 600 mg Tablet 600 mg PO Q6H PRN PRN (Reason: Pain Score 1-3) Qty: 0 0RF Continued PNV cmb#95-ferrous fumarate-FA 1 EACH tablet 1 ea PO DAILY acyclovir 200 mg capsule 200 mg PO TID Discontinued aspirin 81 mg capsule 81 mg PO DAILY Referrals / Follow Up: Jose G Zavala MD [Primary Care Provider] - Disposition Disposition (needs filled in before D/C Order can be placed): Home, Self Care
--- NOTE | 2023-11-19 08:29 | PCM.PROGNOTE ---
Subjective Subjective patient seen at bedside, doing well. Patient reports good pain control. lochia mild. Objective Data Objective Data Vital Signs: Vital Signs Temp Pulse Resp BP Pulse Ox O2 Del Method 98.0 F 79 16 130/82 H 99 Room Air 11/19/23 06:26 11/19/23 06:26 11/19/23 06:26 11/19/23 06:26 11/19/23 06:26 11/19/23 06:26 Oxygen Delivery Method Room Air Weight: 103.419 kg Body Mass Index (BMI) 37.9 Intake & Output: Intake and Output for Last 24 Hours 11/17/23 11/18/23 11/19/23 23:59 23:59 23:59 Intake Total 1473.33 / 1473.33 Output Total 1000 / 1000 Balance 473.33 / 473.33 Lab / Micro Data 11/18/23 02:27 Labs: Laboratory Results - last 24 hr 11/18/23 11:10: Screen NEGATIVE, Baby's Blood Type A POSITIVE, Baby's MIKE NEGATIVE Physical Exam Const alert and oriented x3 General Appearance: cooperative HEENT normocephalic Neck General: normal visual inspection GI soft to palpation and non-distended GI Narrative: Fundus firm Extremity normal to inspection and no calf tenderness Skin no rashes or lesions noted Neuro oriented x3 and CN's II-XII intact bilaterally Psych mental status grossly normal Assessment & Plan Assessment/Plan (1) Vaginal delivery: (2) Anxiety: (3) Asthma: (4) Depression: PLAN: Plan PPD#1 , Doing well Routine care pain mgmt ambulation dc home
--- NOTE | 2023-11-19 09:32 | CASEMGMT ---
Social Work Labor and Delivery Unit Date/Time of referral: 11/18/23, 7:44am Referred by: Dolores Patrick Date/Time of intervention: 11/19/23 9:10am Reason for referral: history of anxiety and depression History obtained from: Medical record, MOB Guardian Status: MOB is guardian of baby Household composition: WILLY GUTIERRES, 14 year old son, 2 year old daughter Esperanza, and now baby Itzel. The 14 year old's father is involved. Rio Nobles is the father of the 2 year old and this baby. They have been together for 4.5 years. Medical history: MOB, history of anxiety and depression, herpes, migraines, hemorrhage. Baby: Born 11/18[birth year], 6:32am, 3415 grams. Apgars 8 and 9 at one and five minutes Educational Status: MOB has an associates degree and WILLY completed high school Financial Status: No concerns. MOB works at [employer], FOB works at [employer]. MOB plans to return to work, FOB's mother will watch the children Supplies: They have all needed supplies including diapers, wipes, clothing, car seat, crib, access to bottles and formula if needed Childcare/Caregivers: MOB, FOB, FOB's mother Transportation: They have one vehicle and work opposite shifts Programs/Agencies involved: [facility], [place] Children's services/Legals issues: None Behavioral Health Issues: Substance abuse: No history for MOB or FOB, no tox screens completed. Mental Health: No history for FOB. MOB states history of anxiety and depression. She was in counseling at age 10, not since. She has tried medication, in 2016, states it was not helpful. She has been managing fine recently. After the of her other children she was anxious for a few days and had tearfulness, but the anxiety decreased and she was okay after a short time. No safety concerns at this time as per MOB. Family/Social Stressors: None Support Systems: MOB's parents Depression/Anxiety/Shaken Baby/Safe Sleeping/Mental Health resources/Help Me Grow/mental health hotline: SW gave MOB all of the resources and reviewed w/MOB, in particular information on PPD and the symptoms. SW suggested to MOB if having symptoms, to speak w/her physician regarding it as sometimes medication can help and there are many different medications that can be utilized. Pt states understanding. Assessment: Baby sleeping in bassinet so SW did not observe interaction between MOB and baby. FOB not here at present. MOB appropriate, answered all questions w/SW, open w/SW. Plan: Baby home w/FOB and MOB at discharge. No further social service needs requested or indicated at this time. CHERIE Mays
== END 2023-11-19 11:10 | disposition home or self-care (01) | DRG 560 ==
LOC: WPOUT 01:56 → WP 01:56
PROVIDERS: Admitting Provider Advanced Practice Midwife; PCP Family Medicine; Referring Provider Advanced Practice Midwife; Visit Provider Advanced Practice Midwife
DX: O98.32 Other infections with a predominantly sexual mode of transmission complicating childbirth (principal); Z37.0 Single live birth; O99.354 Diseases of the nervous system complicating childbirth; J45.909 Unspecified asthma, uncomplicated; F32.A Depression, unspecified; F41.9 Anxiety disorder, unspecified; G43.909 Migraine, unspecified, not intractable, without status migrainosus; Z79.82 Long term (current) use of aspirin; Z87.891 Personal history of nicotine dependence; O99.344 Other mental disorders complicating childbirth; O99.52 Diseases of the respiratory system complicating childbirth; A60.00 Herpesviral infection of urogenital system, unspecified; Z3A.37 37 weeks gestation of pregnancy; O26.23 Pregnancy care for patient with recurrent pregnancy loss, third trimester
CPT/HCPCS: 59025; 59050; 84112; 85025; 85461; 86780; 86850; 86870; 86900; 86901; 90384; 99221; J7120; A4216; G0378; J2790; J2791

== ENCOUNTER 2025-04-16 23:13 | Emergency (ER) | payer MEDICAID, SELFPAY ==
[2025-04-16 23:13] VITALS: BP 126/91; PULSE 92; RESP 14; TEMP 36.6; O2SAT 98; BMI 31.2
--- NOTE | 2025-04-16 23:20 | EKG12_ITS ---
Test Reason : DYSRHYTHMIA Blood Pressure : */* mmHG Vent. Rate : 78 BPM Atrial Rate : 78 BPM P-R Int : 150 ms QRS Dur : 88 ms QT Int : 370 ms P-R-T Axes : 51 51 44 degrees QTcB Int : 421 ms Normal sinus rhythm Normal ECG Confirmed by Kar Simms ([id number]), features editor JOSEMANUEL NUNN ([id number]) on 04/17/2025 11:28:35 AM Referred By: LINNEA Confirmed By: Kar Simms
--- OUTSIDE RECORDS SUMMARY | 2025-04-16 23:47 | XMS RPT_ITS | CCD ---
Author Organization [facility] Care Team Providers Care Afterschool Name Role Phone Trevino FOREIGN BANKNOTE TELLER, Tootie E Unavailable Unavailable Trevino FOREIGN BANKNOTE TELLER, Tootie E Unavailable Unavailable Trevino FOREIGN BANKNOTE TELLER, Tootie E Unavailable Unavailable Arnol Dow Unavailable Arnol Dow Unavailable NICK VILCHIS Attending Unavailable IMCA Referring Unavailable VERONIKA, RENEE Primary Care Unavailable RAJANIUTNICK VARNER Referring Unavailable VERONIKA, RENEE Primary Care Unavailable RAJANIUTNICK VARNER Referring Unavailable VERONIKA, RENEE Primary Care Unavailable KLUTNICK VARNER Attending Unavailable IMCA Referring Unavailable VERONIKA, RENEE Primary Care Unavailable KLUTNICK VARNER Referring Unavailable VERONIKA, RENEE Primary Care Unavailable KLUTTSNICK Referring Unavailable VERONIKA, RENEE Primary Care Unavailable KLUTNICK VARNER Attending Unavailable IMCA Referring Unavailable VERONIKA, RENEE Primary Care Unavailable KLUTNICK VARNER Attending Unavailable KLUTNICK VARNER Referring Unavailable VERONIKA, RENEE Primary Care Unavailable KLUTNICK VARNER Referring Unavailable VERONIKA, RENEE Primary Care Unavailable Chad Zavala MD Primary Care Provider Chad Zavala MD Primary Care Provider Chad Zavala MD Primary Care Provider VIRY CARMEN Referring Unavailable CHAD ZAVALA Primary Care Unavailab Dolores Mazariegos Admitting Unavailable Jose G Zavala Primary Care Unavailable Dolores Patrick Referring Unavailable Dolores Patrick Attending Unavailable Abhay Monroe Attending Unavailable Jose G Zavala Primary Care Unavailable Siva ADAPTIVE PHYSICAL EDUCATION SPECIALISTJennifer Referring Unavailable Fortune ADAPTIVE PHYSICAL EDUCATION SPECIALIST, Jennifer Attending Unavailable Jose G Zavala Primary Care Unavailable Chad Zavala MD Primary Care Provider Podlogar BODY AND FRAME MAN.[email or web address] Unavailable Knoble BODY AND FRAME MAN.SHOAIBViry Unavailable Knoble BODY AND FRAME MAN.Viry CRAMER Unavailable CHAD ZAVALA Primary Care Unavailab CHAD Bear Primary Care Unavailab CHAD Bear Primary Care Unavailab DOLORES Mazariegos Attending Unavailable CHAD ZAVALA Primary Care Unavailab CHAD Bear Primary Care Unavailab GAMALIEL Menchaca Attending Unavailable CHAD ZAVALA Primary Care Unavailab LUDA Lange Attending Unavailable CHAD ZAVALA Primary Care Unavailab LUDA Lange Referring Unavailable CHAD ZAVALA Primary Care Unavailab LUDA Lange Attending Unavailable CHAD ZAVALA Primary Care Unavailab CHAD Bear Primary Care Unavailab DOLORES [place] Attending Unavailable SYED DOUGLAS Attending Unavailable CHAD ZAVALA Primary Care Unavailab le TORI Referring Unavailable CHAD ZAVALA Primary Care Unavailab le Allergies Allergy Classification Reported Allergen(s) Allergy Type Date of Onset Reaction(s) Facility (6 sources) Amoxicillin; Translations: [AMOXICILLIN] Drug Allergy 02-06-2025 Other: See Comments [facility] Medications Current Medications Medication Drug Class(es) Dates Sig (Normalized) Sig (Original) acyclovir 200 mg oral capsule (6 sources) Herpesvirus Nucleoside Analog DNA Polymerase Inhibitor, Herpes Simplex Virus Nucleoside Analog DNA Polymerase Inhibitor, Herpes Zoster Virus Nucleoside Analog DNA Polymerase Inhibitor Start: 11-18-2023 take 200 mg by mouth three times daily Acyclovir Active 200 MG PO THREE TIMES A DAY November 18, 2023 12:00am Start: 11-09-2023 End: 12-09-2023 take 1 tablet by mouth three times daily acyclovir (ZOVIRAX) 400 mg tablet Take 1 tablet by mouth three times a day. 90 tablet 0 11/09/2023 12/09/2023 Active Start: 01-06-2021 End: 01-08-2021 take 400 mg by mouth twice daily Acyclovir Discontinued 400 MG PO TWICE A DAY January 05, 2021 11:00pm January 08, 2021 7:30am Comment on above: Take 1 tablet by khurram three times a day. cephalexin 500 mg oral capsule (3 sources) Cephalosporin Antibacterial Start: End: take 1 capsule by mouth four times daily cephALEXin (KEFLEX) 500 mg capsule Take 1 capsule by mouth four times daily for 10 days. 40 capsule 09/29/2024 2024 Active Start: 03-24-2024 End: 04-03-2024 take 1 capsule by mouth four times daily cephALEXin (KEFLEX) 500 mg capsule Take 1 capsule by mouth four times daily for 10 days. 40 capsule 0 03/24/2024 04/03/2024 Active Start: 11-24-2022 End: 12-04-2022 take 1 capsule by mouth three times daily cephALEXin (KEFLEX) 500 mg capsule Indications: Mastitis Take 1 capsule by mouth three times daily for 10 days. 30 capsule 0 11/24/2022 12/04/2022 Active Comment on above: Take 1 capsule by mo [facility] three times daily for 10 days. cholecalciferol, vitamin D3, (VITAMIN D3 ORAL) (18 sources) cholecalciferol, vitamin D3, (VITAMIN D3 ORAL) Take 2,000 Int'l Units/day by mouth once daily. Active cholecalciferol, vitamin D3, (VITAMIN D3 ORAL) Take 2,000 Int'l Units/day by mouth once daily. 0 Active Comment on above: Take 2,000 Int'l Uni ts/day by mouth once daily. clindamycin 150 mg oral capsule (1 source) Lincosamide Antibacterial Start: 2022 End: 2022 take 3 capsules by mouth three times daily clindamycin (CLEOCIN) 150 mg capsule Indications: Acute mastitis of right breast Take 3 capsules by mouth three times daily for 5 days. 45 capsule 0 12/13/2022 12/18/2022 Active Comment on above: Take 3 capsules by [facility] three times daily for 5 days. dicloxacillin 500 mg oral capsule (2 sources) Penicillin-class Antibacterial Start: 2024 End: 2024 take 1 capsule by mouth four times daily dicloxacillin (DYNAPEN) 500 mg capsule Indications: Mastitis associated with Take 1 capsule by mouth four times daily for 7 days. 28 capsule 12/23/2024 12/30/2024 Active ibuprofen 600 mg oral tablet (1 source) Nonsteroidal Anti-inflammatory Drug Start: 2023 take 600 mg by mouth every six hours as needed Ibuprofen Active 600 MG PO EVERY 6 HOURS NEEDED 0 November 19, 2023 12:00am iv contrast (will be provided with radiology test) (1 source) Start: 2022 End: 2022 inject 1 dose intravenously once iv contrast (will be provided with radiology test) Indications: Headache, unspecified headache type CT Brain WO/W - No IV access, insert saline lock prior to the sedation, infusion, injection for imaging exam. Discontinue saline lock post exam. If Pt. has a central line or IVAD, may access for administration according to line specific nursing protocol. Once exam is complete flush line and de-access according to line specific nursing protocol in the CT contrast administration guidelines link. 1 Each 0 01/28/2023 01/29/2023 Active Comment on above: CT Brain WO/W - No I V access, insert saline lock prior to the sedation, infusion, injection for imaging exam. Discontinue saline lock post exam. If Pt. has a central line or IVAD, may access for administration according to line specific nursing protocol. Once exam is complete flush line and de-access according to line specific nursing protocol in the CT contrast administration guidelines link. Magnesium (20 sources) MAGNESIUM ORAL T agnes by mouth as needed. Active MAGNESIUM ORAL T agnes by mouth as needed. 0 Active MAGNESIUM ORAL T agnes by mouth. 0 Active Comment on above: Take by mouth. Take by mouth as nee ded. mv-min/vit C/glut/lysine/hb124 (IMMUNE SUPPORT ORAL) (20 sources) take 1 capsule by mouth once daily mv-min/vit C/glut/lysine/hb124 (IMMUNE SUPPORT ORAL) Take 1 capsule by mouth once daily. Active take 1 capsule by mouth once marion ly mv-min/vit C/glut/lysine/hb124 (IMMUNE SUPPORT ORAL) Take 1 capsule by mouth once daily. 0 Active Comment on above: Take 1 capsule by mo [facility] once daily. Pnv Cmb#95-Ferrous Fumarate-Fa (1 source) Start: 11-24-2019 Pnv Cmb#95-Ferrous Fumarate-Fa Active 1 EA PO DAILY November 24, 2019 12:00am Lablzspi-Sc-Hlp-Fe-F A ( VITAMIN) tab (20 sources) take 1 tablet by mouth once Umsalhfx-Ib-Asb-Fe- FA ( VITAMIN) tab Take 1 tablet by mouth. Active take 1 tablet by mouth once Pren atal Duuvcupt-Ow-Pfa-Fe-FA ( VITAMIN) tab Take 1 tablet by mouth. 0 Active Comment on above: Take 1 tablet by khurrma . Completed/Discontinued Medications Medication Drug Class(es) Dates Sig (Normalized) Sig (Original) [id number] 200 actuat albuterol 0.09 mg/actuat metered dose inhaler (8 sources) beta2-Adrenergic Agonist Start: 06-30-2021 End: 11-24-2022 take 2 puff(s) by inhalation every four hours as needed albuterol HFA (VENTOLIN HFA) 90 mcg/actuation inhaler Indications: SOB (shortness of breath) , Wheezing Inhale 2 Puffs as instructed every 4 hours as needed. 18 g 5 06/30/2021 11/24/2022 Discontinued (Discontinued by Patient) Comment on above: Inhale 2 Puffs as in structed every 4 hours as needed. amoxicillin 875 mg / clavulanate 125 mg oral tablet (2 sources) Penicillin-class Antibacterial Start: 12-07-2022 End: 12-13-2022 take 1 tablet by mouth twice daily amoxicillin-clavul anic acid (AUGMENTIN) 875-125 mg per tablet Indications: Acute mastitis of right breast Take 1 tablet by mouth twice daily for 10 days. 20 tablet 0 12/07/2022 12/13/2022 Discontinued Comment on above: Take 1 tablet by [facility] twice daily for 10 days. Ascorbic Acid (16 sources) Vitamin C ascorbic acid (VITAMIN C ORAL) Take by mouth. 0 Active Comment on above: Take by mouth. aspirin 81 mg oral tablet (14 sources) Platelet Aggregation Inhibitor, Nonsteroidal Anti-inflammatory Drug Start: 11-18-2023 End: 11-19-2023 take 81 mg by mouth once daily Aspirin Discontinued 81 MG PO DAILY November 18, 2023 12:00am November 19, 2023 8:30am take 1 tablet by mouth once javier y aspirin, enteric coated (ASPIRIN, ENTERIC COATED) 81 mg EC tablet Take 81 mg by mouth once daily. 0 Active Comment on above: Take 81 mg by mouth once daily. estradiol 0.01 mg vaginal insert (2 sources) Estrogen Start: 2 End: 2 Estradiol (YUVAFEM) 10 mcg vaginal tablet Use 1 tablet vaginally once daily. For 2 weeks, followed by 1 insert twice weekly. 18 tablet 1 11/09/2021 01/12/2022 Discontinued (Course of therapy completed) Comment on above: Use 1 tablet vaginal ly once daily. For 2 weeks, followed by 1 insert twice weekly. Ethinyl Estradiol / Ferrous fumarate / Norethindrone (14 sources) Estrogen Start: 2 End: 3 take 1 tablet by mouth once daily, then take 0.05 tablet by mouth once Norethin Jacob-Eth Estrad-FE (,) 1 mg-20 mcg (21)/75 mg (7) per tablet Indications: PCOS (polycystic ovarian syndrome) , History of irregular menstrual bleeding Take 1 tablet by mouth once daily. 84 tablet 3 06/09/2022 05/06/2023 Discontinued (Course of therapy completed) Start: 06-09-2022 take 1 tablet by khurram th once daily, then take 0.05 tablet by mouth once Norethin Jacob-Eth Estrad-FE (,) 1 mg-20 mcg (21)/75 mg (7) per tablet Indications: PCOS (polycystic ovarian syndrome) , History of irregular menstrual bleeding Take 1 tablet by mouth once daily. 84 tablet 3 06/09/2022 Active Start: 04-26-2022 End: 06-09-2022 take 1 tablet by mouth once daily, then take 0.05 tablet by mouth once Norethin Jacob-Eth Estrad-FE (,) 1 mg-20 mcg (21)/75 mg (7) per tablet Indications: PCOS (polycystic ovarian syndrome) , History of irregular menstrual bleeding Take 1 tablet by mouth once daily. 28 tablet 4 04/26/2022 06/09/2022 Discontinued Start: 04-26-2022 take 1 tablet by khurram th once daily, then take 0.05 tablet by mouth once Norethin Jacob-Eth Estrad-FE (10/22, ,) 1 mg-20 mcg (21)/75 mg (7) per tablet Indications: PCOS (polycystic ovarian syndrome) , History of irregular menstrual bleeding Take 1 tablet by mouth once daily. 28 tablet 4 04/26/2022 Active Comment on above: Take 1 tablet by khurram th once daily. fluconazole 150 mg oral tablet (17 sources) Azole Antifungal Start: 04-10-2024 End: 02-06-2025 fluconazole (DIFLUCAN) 150 mg tablet Take one tablet by mouth once. Then repeat every 3 days for 3 doses. 3 tablet 04/10/2024 02/06/2025 Discontinued Start: 01-06-2022 End: 05-27-2022 take 2 tablets by mouth once daily, then take 1 tablet by mouth once daily fluconazole (DIFLUCAN) 200 mg tablet Indications: Yeast infection of nipple, Take 400 mg PO on first day, then take 200 mg PO once daily for 14 days. 16 tablet 0 01/06/2022 05/27/2022 Discontinued Comment on above: Take 400 mg PO on fi rst day, then take 200 mg PO once daily for 14 days. fluticasone propionate 0.05 mg/actuat metered dose nasal spray (10 sources) Corticosteroid Start: 4 End: 5 take 2 spray(s) by mouth twice daily fluticasone (FLONASE) 50 mcg/actuation nasal spray Indications: Viral URI with cough Use 2 Sprays in each nostril two times a day. Rinse mouth after use. 1 Each 2 09/03/2024 02/06/2025 Discontinued fluticasone / salmeterol (17 sources) Corticosteroid, beta2-Adrenergic Agonist Start: 1 End: 3 take 1 puff(s) by mouth twice daily fluticasone-salmeter ol (ADVAIR DISKUS) 250-50 mcg/dose inhaler Inhale 1 Puff as instructed twice daily. Rinse and gargle mouth with water after each use. generic 1 Each 5 06/30/2021 05/06/2023 Discontinued (Course of therapy completed) Start: 06-30-2021 take 1 puff(s) by mo uth twice daily fluticasone-salmeterol (ADVAIR DISKUS) 250-50 mcg/dose inhaler Inhale 1 Puff as instructed twice daily. Rinse and gargle mouth with water after each use. generic 1 Each 5 06/30/2021 Active Start: 06-30-2021 take 1 puff(s) by mo uth twice daily fluticasone-salmeterol (ADVAIR DISKUS) 250-50 mcg/dose inhaler Inhale 1 Puff as instructed twice daily. Rinse and gargle mouth with water after each use. generic 1 Each 5 06/30/2021 Active Start: 01-14-2021 End: 11-18-2023 take 1 puff(s) by inhalation twice daily Fluticasone Propion-Salmeterol Discontinued 1 PUFF IH TWICE A DAY January 13, 2021 11:00pm November 18, 2023 1:31am Comment on above: Inhale 1 Puff as ins tructed twice daily. Rinse and gargle mouth with water after each use. generic medroxyPROGESTERone acetate 10 mg oral tablet (2 sources) Progestin Start: 2021 End: 2021 take 1 tablet by mouth once daily medroxyPROGESTERone (PROVERA) 10 mg tablet Take 1 tablet by mouth once daily for 10 days. 10 tablet 0 10/14/2021 01/12/2022 Discontinued (Course of therapy completed) Comment on above: Take 1 tablet by khurram th once daily for 10 days. norethindrone 0.35 mg oral tablet (14 sources) Start: 2023 End: 2024 take 1 tablet by mouth once daily Norethindrone, Contraceptive, 0.35 mg tablet Take 1 tablet by mouth once daily. 90 tablet 3 12/30/2023 02/06/2025 Discontinued Comment on above: Take 1 tablet by khurram th once daily. ondansetron 4 mg disintegrating oral tablet (3 sources) Serotonin-3 Receptor Antagonist Start: 2022 End: 2022 take 1 tablet by mouth every eight hours as needed for nausea and nausea ondansetron orally disintegrating (ZOFRAN ODT) 4 mg disintegrating tablet Indications: Nausea Take 1 tablet by mouth every 8 hours as needed for nausea/vomiting for up to 10 days. 30 tablet 1 01/28/2023 02/07/2023 Comment on above: Take 1 tablet by khurram th every 8 hours as needed for nausea/vomiting for up to 10 days. sodium chloride 0.111 meq/ml nasal spray (10 sources) Start: 2023 End: 2024 sodium chloride (SALINE MIST) 0.65 % nasal spray Indications: Viral URI with cough Use 1 [place] in the nose two times a day. 88 mL 2 09/03/2024 02/06/2025 Discontinued SUMAtriptan 50 mg oral tablet (6 sources) Serotonin-1b and Serotonin-1d Receptor Agonist Start: 2022 End: 2022 SUMAtriptan (IMITREX) 50 mg tablet Indications: Headache, unspecified headache type Take 1 tablet for migraine headache. May repeat dose in 2 hours. Max 200 mg every 24 hours. 9 tablet 3 01/28/2023 05/06/2023 Discontinued (Course of therapy completed) Comment on above: Take 1 tablet for mi graine headache. May repeat dose in 2 hours. Max 200 mg every 24 hours. Problems Active Problems Problem Classification Problem Date Documented Date Episodic/Chronic Abdominal pain (20 sources) Vaginal pain; Translations: [Pelvic and perineal pain] Onset: 12-08-2021 12-08-2021 Episodic Acute bronchitis (1 source) Acute bronchitis; Translations: [Acute bronchitis, unspecified] 04-07-2018 Episodic Anxiety disorders (20 sources) Anxiety disorder; Translations: [Anxiety disorder, unspecified] Onset: 08-15-2018 08-15-2018 Chronic Asthma (2 sources) Asthma; Translations: [Unspecified asthma, uncomplicated] 11-18-2023 Chronic Contraceptive and procreative management (1 source) Oral contraception; Translations: [Encounter for surveillance of contraceptive pills] Episodic Fever of unknown origin (1 source) Fever; Translations: [Fever, unspecified] 09-26-2014 Episodic Headache; including migraine (2 sources) Migraine; Translations: [Migraine, unspecified, not intractable, without status migrainosus] 11-18-2023 Chronic Headache; including migraine (5 sources) Headache; Translations: [Headaches] Episodic Hypertension complicating ; childbirth and the puerperium (2 sources) Pre-eclampsia; Translations: [Unspecified pre-eclampsia, unspecified trimester] 11-18-2023 Episodic Immunizations and screening for infectious disease (1 source) Needs influenza immunization; Translations: [Encounter for immunization] 08-10-2023 Episodic Inflammatory diseases of female pelvic organs (1 source) Acute vaginitis; Translations: [Acute vaginitis] Episodic Malaise and fatigue (1 source) Fatigue; Translations: [Other fatigue] Episodic Mood disorders (2 sources) Depressive disorder; Translations: [Depression] 11-18-2023 Chronic Nausea and vomiting (1 source) Nausea; Translations: [Nausea] Episodic Nonmalignant breast conditions (6 sources) Inflammatory disorder of breast; Translations: [Mastitis without abscess] Onset: 12-07-2022 Episodic Other circulatory disease (1 source) Respiratory symptom; Translations: [Other specified symptoms and signs involving the circulatory and respiratory systems] 05-24-2023 Episodic Other complications of ; puerperium affecting management of mother (1 source) Obstetric nipple infection with complication; Translations: [Infection of nipple associated with the puerperium] Episodic Other complications of ; puerperium affecting management of mother (1 source) Retained placenta; Translations: [Retained placenta without hemorrhage] 01-14-2021 Episodic Other complications of ; puerperium affecting management of mother (1 source) hemorrhage; Translations: [Other immediate hemorrhage] 11-18-2023 Episodic Other complications of ; puerperium affecting management of mother (1 source) Other immediate hemorrhage; Translations: [Other immediate hemorrhage, unspecified as to episode of care or not applicable] 11-19-2023 Episodic Other complications of ; puerperium affecting management of mother (1 source) Disorder of ; Translations: [Other disorders of ] 04-10-2024 Episodic Other complications of ; puerperium affecting management of mother (1 source) Mastitis associated with ; Translations: [Nonpurulent mastitis associated with ] 12-23-2024 Episodic Other complications of (1 source) Anomaly of placenta; 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, unspecified, second trimester] 07-13-2023 Episodic Other complications of (2 sources) Pain in female pelvis; Translations: [Other specified related conditions, unspecified trimester] 09-05-2023 Episodic Other complications of (1 source) Backache; Translations: [Back pain in ] 11-03-2023 Episodic Other complications of (2 sources) Excessive growth affecting management of mother; Translations: [Maternal care for excessive growth, third trimester, not applicable or unspecified] 11-09-2023 Episodic Other complications of (1 source) Supervision of with other poor reproductive or obstetric history, third trimester; Translations: [Supervision of with other poor reproductive or obstetric history, third trimester] Onset: 11-24-2023 Episodic Other connective tissue disease (1 source) [...] unspecified body region, initial encounter] Episodic Other screening for suspected conditions (not mental disorders or infectious disease) (9 sources) Encounter for test, result unknown; Translations: [Patient encounter status] Onset: 01-21-2017 01-21-2017 Episodic Other upper respiratory infections (6 sources) Pharyngitis; Translations: [Viral upper respiratory tract infection] Onset: 05-26-2017 05-26-2017 Episodic Residual codes; unclassified (1 source) Gestation [...] of ] 11-09-2023 Episodic Residual codes; unclassified (2 sources) Gestation period, 36 weeks; Translations: [36 weeks gestation of ] 11-09-2023 Episodic Residual codes; unclassified (1 source) Gestation period, 37 weeks; Translations: [37 weeks gestation of ] 11-16-2023 Episodic Residual codes; unclassified (1 source) Medical care unavailable; Translations: [Procedure and treatment not carried out for other reasons] 01-22-2025 Episodic Residual codes; unclassified (1 source) Procedure and treatment not carried out for other reasons; Translations: [Treatment not available] Onset: 01-22-2025 Episodic Unclassified (4 sources) History and physical examination, school ; Translations: [Encounter for examination for admission to educational institution] Onset: 04-29-2017 04-29-2017 Unclassified (2 sources) Spontaneous rupture of membranes; Translations: [Spontaneous rupture of amniotic membranes] 11-18-2023 Unclassified (1 source) Breast Problem Onset: 01-23-2025 Viral infection (2 sources) Genital herpes simplex; 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, unspecified] 11-18-2023 Chronic Past or Other Problems Problem Classification Problem Date Documented Date Episodic/Chronic Anal and rectal conditions (20 sources) Anal spasm; Translations: [Anal spasm] Onset: 12-08-2021 12-08-2021 Episodic Cardiac dysrhythmias (17 sources) Atrial flutter; Translations: [Unspecified atrial flutter] Onset: 08-01-2018 Resolved: 11-06-2019 11-06-2019 Chronic Diabetes mellitus without complication (20 sources) Increased glucose level; Translations: [Other abnormal glucose] Onset: 09-15-2023 09-28-2023 Episodic Hemorrhage during ; abruptio placenta; placenta previa (20 sources) Bleeding from female genital tract during ; Translations: [Antepartum hemorrhage, unspecified, unspecified trimester] Onset: 05-25-2023 05-25-2023 Episodic Menstrual disorders (19 sources) Oligomenorrhea, unspecified; Translations: [Oligomenorrhea] Onset: 03-28-2017 Resolved: 11-06-2019 11-06-2019 Chronic Other complications of ; puerperium affecting management of mother (11 sources) Retained placenta with no hemorrhage with problem; Translations: [Retained placenta without hemorrhage] Onset: 01-19-2021 Resolved: 11-13-2021 11-13-2021 Episodic Other complications of ; puerperium affecting management of mother (6 sources) Retained placenta, without hemorrhage; Translations: [Retained placenta without hemorrhage] Onset: 01-19-2021 Resolved: 11-13-2021 11-13-2021 Episodic Other complications of (20 sources) History of pre-eclampsia; Translations: [Supervision of with other poor reproductive or obstetric history, unspecified trimester] Onset: 04-28-2023 Resolved: 02-06-2025 04-28-2023 Episodic Other complications of (20 sources) RhD negative; Translations: [Other specified related conditions, unspecified trimester] Onset: 07-18-2020 Resolved: 02-06-2025 05-06-2023 Episodic Other complications of (20 sources) Uterine size for dates discrepancy; Translations: [Uterine size-date discrepancy, second trimester] Onset: 08-10-2023 Resolved: 02-06-2025 08-10-2023 Episodic Other complications of (17 sources) Spotting per vagina in ; Translations: [Spotting complicating , unspecified trimester] Onset: 06-12-2020 Resolved: 11-13-2021 11-13-2021 Episodic Other complications of (17 sources) Hip pain; Translations: [Other specified related conditions, third trimester] Onset: 12-05-2020 Resolved: 11-13-2021 11-13-2021 Episodic Other infections; including parasitic (20 sources) History of sexually transmitted disease; Translations: [Personal history of other infectious and parasitic diseases] Onset: 06-12-2020 11-11-2020 Episodic Other and delivery including normal (20 sources) Normal ; Translations: [Encounter for supervision of other normal , unspecified trimester] Onset: 11-06-2019 Resolved: 11-13-2021 05-06-2023 Episodic Polyhydramnios and other problems of amniotic cavity (20 sources) Subchorionic hematoma; Translations: [Other specified disorders of amniotic fluid and membranes, second trimester, not applicable or unspecified] Onset: 06-08-2023 Resolved: 02-06-2025 06-08-2023 Episodic Residual codes; unclassified (20 sources) [...] Onset: 04-28-2023 04-28-2023 Episodic Residual codes; unclassified (17 sources) Gestation period, 33 weeks; Translations: [33 weeks gestation of ] Onset: 12-05-2020 Resolved: 11-13-2021 11-13-2021 Episodic Screening and history of mental health and substance abuse codes (20 sources) H/O: anxiety state; Translations: [Personal history of other mental and behavioral disorders] Onset: 06-12-2020 06-12-2020 Episodic Syncope (2 sources) Near syncope; Translations: [Syncope and collapse] Onset: 08-09-2023 08-13-2023 Episodic Viral infection (20 sources) Herpes simplex; Translations: [Herpesviral infection, unspecified] Onset: 05-12-2018 05-12-2018 Episodic Results Test Name Value Interpretation Reference Range Facility [facility] 03-08-2025 CNOV Office Visit (UCWSTR) ---- SADAFSandraBLANCA Samy ([id number]) 1995 F Date Time Provider Department 03/08/25 2:30 PM GAMALIEL KHAN [facility] During your visit today, we recorded the following information about you: Temperature Pulse Respiration Blood pressure 97.5 degrees 87/minute 18/minute 127/88 Weight 87 kg Gamaliel Khan APRN.BUS WASHER 03/08/2025 2:41 PM Signed [facility] Subjective Blanca Samy Johnsonsandra is a 29 year old female. Patient presents with: Sore Throat: R tonsil swollen, R ear pain, teeth sore x this AM HPI Sore Throat and Tongue Pain: - Sore throat and right-sided tongue pain began recently. - Initially noticed a sore area on the right side of the tongue, described as feeling like a swollen taste bud. - Pain has since extended to the right side of the throat, particularly noticeable when swallowing. - Describes pain as sore rather than constant. - Recent onset of pain radiating to the ear. - Denies pain when opening the jaw. - Denies fever or chills. - Has experienced similar episodes in the past, sometimes affecting both sides or associated with tonsil stones. - Denies known exposure to strep throat. - Uncertain about having seasonal allergies; mentions possible weather-related changes. Review of Systems Constitutional: (-) fever, (-) chills Ears/Nose/Mouth/Thr oat: (+) right-sided sore throat, (+) odynophagia, (+) right-sided tongue pain, (+) ear pain, (+) throat swelling sensation Objective BP 127/88 Pulse 87 Temp 36.4 ?C (97.5 ?F) Resp 18 Wt 87 kg (191 lb 12.8 oz) LMP 03/02/2023 (Exact Date) SpO2 99% Yes BMI 31.92 kg/m? Physical Exam General: No acute distress. HEENT: Throat erythematous, no significant swelling, no abscess noted, bilateral symmetry observed; no significant lymphadenopathy palpated; tympanic membranes intact, no abnormalities noted. {1. Sore throat (J02.9) - Right-sided pharyngeal discomfort with associated odynophagia and localized glossal tenderness; no fever or chills reported. - Physical examination reveals mild pharyngeal erythema without significant asymmetry or evidence of peritonsillar abscess. No palpable lymphadenopathy or TMJ tenderness noted; otoscopic examination unremarkable. - Rapid antigen detection test for Group A Streptococcus returned negative. - Advised trial of oral antihistamines such as Zyrtec or Claritin to address potential allergic etiology. - Recommended monitoring for symptom progression; instructed to seek emergency medical evaluation if symptoms exacerbate. - Referral to otolaryngology for further evaluation if recurrent episodes persist. 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 Patient/authorized sales representative rural power agreed to proceed MDM Procedures Allergies As of Date: 03/08/2025 Noted Allergy Reaction AMOXICILLIN 02/06/2025 14 - Other: See Comments Comments: Pt reported thrush Date Reviewed: 03/08/2025 Reviewed by: Clary Norton MA - Fully Assessed Reason for Visit: Sore Throat [200] Cmt: R tonsil swollen, R ear pain, teeth sore x this AM Primary Visit Diagnosis:Sore throat [J02.9] Order(s):STREP A MOLECULAR (POC) [[id number]] Order #: [id number]. #:[id number] Prescriptions as of 03/10/2025 - cholecalciferol, vitamin D3, (VITAMIN D3 ORAL) Take 2,000 Int'l Units/day by mouth once daily. - MAGNESIUM ORAL Take by mouth as needed. - mv-min/vit C/glut/lysine/hb124 (IMMUNE SUPPORT ORAL) Take 1 capsule by mouth once daily. - Tobfvwlw-Jy-Hzm-Fe- FA ( VITAMIN) tab Take 1 tablet by mouth. Problem List As Of Date 03/08/2025 Noted Resolved PCOS (polycystic ovarian syndrome) [E28.2] Oligomenorrhea [N91.5] 03/28/2017 11/06/2019 HSV infection [B00.9] 05/12/2018 Anxiety disorder [F41.9] 08/15/2018 Atrial flutter (HCC) [I48.92] 08/01/2018 11/06/2019 Supervision of normal [Z34.90] 11/06/2019 11/13/2021 Anxiety [F41.9] Spotting in early [O26.859] 06/12/2020 11/13/2021 History of anxiety [Z86.59] 06/12/2020 History of herpes genitalis [Z86.19] 06/12/2020 Patient requested diagnostic testing [Z01.89] 06/12/2020 11/13/2021 Rh negative state in antepartum period, second *07/18/2020 11/13/2021 33 weeks gestation of [Z3A.33] 12/05/2020 11/13/2021 related hip pain in third trimester, *12/05/2020 11/13/2021 Retained placenta without hemorrhage, postpartu*11/13/2021 Dyspareunia, female [N94.10] 12/08/2021 Anal spasm [K59.4] 12/08/2021 Vaginal pain [R10.2] 12/08/2021 History of precipitous delivery [Z87.59] 04/28/2023 History of pre-eclampsia in prior , cu*04/28/2023 02/06/2025 Family history of cardiomyopathy [Z82.49] 04/28/2023 Famil (more content not included)... [facility] STREP A MOLECULAR (POC)on Procedural Control Valid [facility] Strep A (POCT) Negative Negative [facility] CNOVon 03-01-2025 CNOV Office Visit (OBGYWM) ---- BLANCA CHASE ([id number]) 1995 F Date Time Provider Department 03/01/25 8:40 AM LUDA COMBS During your visit today, we recorded the following information about you: Blood pressure Weight 108/72 83.5 kg Luda Combs MD 03/01/2025 9:44 AM Signed Brine Purifier offered: Patient accepts, visit chaperoned by Kasia Escudero MA. Blanca is a 29 year old Female who presents today for an endometrial biopsy for abnormal us polyp. test: negative UNIVERSAL PROTOCOL / SAFETY CHECKLIST Procedure to be Performed: Endosee Sign In: A Moment of CARE was completed. Appropriate PPE (Personal Protective Equipment) worn by all providers involved with the procedure. Special equipment not required. Patient/Surrogate Stated/Verified: Patient name, Date of , Relevant allergies, and The intended procedure Time Out: Relevant labs, photos, and/or imaging studies have been reviewed. Intended patient and procedure match the source document(s) (e.g. consent, HANDP, associated studies [imaging, pathology]) match the intended patient and procedure. Consent obtained and matches the intended procedure. Yes. Correct side/site is not applicable. Medications required for this procedure are not applicable. Fire risk assessed and is not applicable. Implants: are not applicable. Sign Out: Specimens are all correctly labeled and sent. All instruments, equipment, possible retained foreign bodies are accounted for. Yes. The post-procedure plan of care has been communicated to the patient or surrogate. PROCEDURE: EXTERNAL GENITALIA: Normal in appearance without lesions VAGINA: Normal in appearance without lesions BIOPSY: Speculum placed into the vagina with excellent visualization of the cervix. Cervix cleaned with betadine. Anterior lip of cervix grasped with single toothed tenaculum. Endosee placed through cervix. Cavity distended with fluid. Polyp noted on left side of cavity. Polyp grasped at base. Multiple attempts needed to severe polyp from base. A second polyp was noted behind the fist after it was removed. Same procedure to remove the second polyp. Cavity clear at end of procedure. Specimen labeled and sent to pathology. Procedure Summary: Patient tolerated procedure well. ASSESSMENT: thickening of endometrial lining PLAN: Specimens labeled and sent to Pathology. Will notify patient of results in 1-2 weeks. MD Kena Mayer KasiaRAJIV 03/01/2025 8:39 AM Signed YOUR RECOVERY After your biopsy you may have: Vaginal bleeding (less than a normal menstrual period) Mild cramping Do NOT put anything in the vagina for 1 week after your endometrial biopsy. This includes: tampons douches and refraining from having sexual intercourse If you have any discomfort, you may take an over the counter pain medication (motrin, advil, ibuprofen, tylenol, etc). If this does not relieve your discomfort, contact the office. It is okay to wear a sanitary pad until the discharge and spotting stops. RISKS Although problems seldom occur with endometrial biopsies, there can be some complications. You may feel faint during and shortly after the procedure as well as have some bleeding after the procedure. There is also a risk of infection after the procedure. These complications are rare and can be easily treated. You should contact you doctor is you have any of the following: Heavy bleeding (more than your normal period) Bleeding with clots Severe abdominal pain Fever (more than 100.4F) Foul smelling vaginal discharge RESULTS We will have the results of your biopsy in 1-2 weeks. If you do not hear the results of your biopsy after 2 weeks, please contact the office for the results. If you have any additional questions or concerns please do not hesitate to contact the office. Allergies As of Date: 03/01/2025 Noted Allergy Reaction AMOXICILLIN 02/06/2025 14 - Other: See Comments Comments: Pt reported thrush Date Reviewed: 03/01/2025 Reviewed by: Luda Comsb MD - Fully Assessed Reason for Visit: endosee [Other] Primary Visit Diagnosis:LLQ pain [R10.32] Order(s):UA DIP,URINE HCG (POC) [[id number]] Order #: [id number]. #:[id number] SURGICAL PATHOLOGY [[id number]] Order #: [id number]. #:[id number] Prescriptions as of 03/01/2025 - cholecalciferol, vitamin D3, (VITAMIN D3 ORAL) Take 2,000 Int'l Units/day by mouth once daily. - MAGNESIUM ORAL Take by mouth as needed. - mv-min/vit C/glut/lysine/hb124 (IMMUNE SUPPORT ORAL) Take 1 capsule by mouth once daily. - Mrlrdfih-Os-Dux-Fe- FA ( VITAMIN) tab Take 1 tablet by mouth. Problem List As Of Date 03/01/2025 Noted Resolved PCOS (polycystic ovarian syndrome) [E28.2] Oligomenorrhea [N91.5] 03/28/2017 11/06/2019 HSV infection [B00.9] 05/03 (more content not included)... Normal [facility] Pathology biopsy report Bryan (Tiss)on 03-01-2025 AP DISCLAIMER Normal [facility] Comment on above: Order Comment: Speci men Type: TISSUE SPECIMENOrdering Facility: [facility] Address: [address] [place] [address] Result Comment: Marci navarrete Developed Test (LDT) Disclaimer: Performance characteristics of immunohistochemical, immunofluorescent, and chromogenic in-situ hybridization tests have been determined by the performing laboratory within [facility] Pathology and Laboratory Medicine Department ([facility], [facility], [facility], [facility], [facility], [facility], or [facility]) in a manner consistent with CLIA requirements. One or more of these tests may not have been cleared or approved by the FDA. RT-PLM is regulated under CLIA as qualified to perform high-complexity testing. These tests are used for clinical purposes. These should not be regarded as investigational or for research. Positive and negative controls stain appropriately. Performed By: #### 6 6121-5 ####[facility] LABCLIA [id number] [place] [address] [place] CASE REPORT Normal [facility] Comment on above: Order Comment: Speci men Type: TISSUE SPECIMENOrdering Facility: [facility] Address: [address] [place] [address] Result Comment: Surg ica Pathology Report Case: [id number] Authorizing Provider: Luda Combs MD Collected: 03/01/2025 09:40 AM Ordering Location: OB/Gynecology Received: 03/01/2025 12:41 PM Pathologist: Luda Heredia MD Specimen: Endometrium, Polyp Performed By: #### 6 6121-5 ####[facility] LABCLIA [id number] [address] [place] [address] [place] CLINICAL HISTORY polyp Normal [facility] Comment on above: Order Comment: Speci men Type: TISSUE SPECIMENOrdering Facility: [facility] Address: [address] [place] [address] Performed By: #### 6 6121-5 ####[facility] LABCLIA [id number] [address] [address] [place] FINAL DIAGNOSIS [facility] Comment on above: Order Comment: Speci men Type: TISSUE SPECIMENOrdering Facility: [facility] Address: [address] [place] [address] Result Comment: A. E ndometrium, Polypectomy: - Benign endometrial polyps. at 1210 EDT Performed By: #### 6 6121-5 ####[facility] LABCLIA [id number] [address] [place] [address] [place] FINAL PERFORMING LAB Normal [facility] Comment on above: Order Comment: Speci men Type: TISSUE SPECIMENOrdering Facility: [facility] Address: [address] [place] [address] Result Comment: Diag nostic interpretation performed at: [facility], [address] [place] [address] [place] [address] CLIA# [id number] Econometrician: Toni Reagan MD Performed By: #### 6 6121-5 ####[facility] LABCLIA [id number] [address] [place] [address] [place] GROSS DESCRIPTION Normal [facility] Comment on above: Order Comment: Speci men Type: TISSUE SPECIMENOrdering Facility: [facility] Address: [address] [place] [address] Result Comment: A. E ndometrium, Polyp Received in formalin are two segments of johnson-brown mucosal covered polypoid tissue aggregating to 2.8 x 1.0 x 0.5 cm. The specimens are bisected. Totally submitted in one cassette. DB March 01, 2025 6:05 PM Gross examination performed at [facility], [address] [place] [address] Performed By: #### 6 6121-5 ####[facility] LABCLIA [id number] [place] [address] [place] UA DIP,URINE HCG (POC)on Beta HCG ( test) Ql (U) Negative Negative [facility] Comment on above: Location:[facility], [address] [place] [address], [address] Manager Language (POCT) Internal QC OK [facility] Location:[facility], [address] [place] [address], [address] [facility] POINT OF CARE [facility] US [facility] 02-11-2025 Indication left lower quadrant pain x 1 week Impression Normal appearing anteverted uterus that measures 104 mm x 39 mm x 61 mm. Endometrium measures 7.4 mm and contains a 14 x 13 x 4 mm vascular area which is suggestive of a polyp. Normal endometrial contour. Both ovaries are visualized and appear polycystic. No adnexal masses were observed. There is no free fluid visualized in the peritoneal cavity. Recommendations Consider hysteroscopic evaluation as clinically indicated. Menstrual History Cycle: LMP date not known. no LMP since last delivery Method Transabdominal, transvaginal, 3D ultrasound examination, Color Doppler examination. View: Adequate visualization Uterus Uterus: Visualized Uterus position: anteverted Description of uterine malformations: none Myometrium: normal Endometrium: polyp noted Cervix details: normal Uterus length 104 mm Uterus width 61 mm Uterus height 39 mm Uterus Vol 127.9 cm Endometrial thickness, total 7.4 mm Fibroids: No fibroids identified Polyps: Polyps identified Uterine polyp D1 14 mm Uterine polyp D2 13 mm Uterine polyp D3 4 mm Uterine polyp mean 10.3 mm Doppler: vascular flow visualized Uterine polyp findings: Anterior Right Ovary Rt ovary: Visualized Rt ovary morphology: premenopausal polycystic Rt ovary D1 34 mm Rt ovary D2 25 mm Rt ovary D3 22 mm Rt ovary Vol 9.9 cm Left Ovary Lt ovary: Visualized Lt ovary morphology: premenopausal polycystic Lt ovary D1 30 mm Lt ovary D2 24 mm Lt ovary D3 26 mm Lt ovary Vol 10.1 cm Cul de Sac Visualized. no free fluid visualized Performed By: Mallorie Acuña RDMS Read By: Belem Maynard M.D. MATERNAL MEDICINE [facility] US [facility] 02-08-2025 Rad[facility]OB[facility] ---- BLANCA CHASE ([id number]) 1995 F Date Time Provider Department 02/06/25 8:40 AM LUDA COMBS During your visit today, we recorded the following information about you: Blood pressure Weight 118/66 82.1 kg Luda Combs MD 02/06/2025 10:14 AM Signed Patient declined surgical appliance fitter. Blanca Chase is a 29 year old female who presents for problem visit (LT) sided pelvic pain, x1 week.The delivery was on 11/18/23 at 37w2d weeks gestation. Outcome: . Sex: F, Wt: 7 lbs 5 oz. HPI: Left sided pain for the last week. Ok in the AM and gets worse as the day goes on. A burning feeling at times. No bowel or bladder concerns. No bleeding. No periods since childbirth a year ago. Still getting a good supply of Breast milk. Negative UPT OB History Gravida5 Para3 Term3 Preterm0 AB2 Living3 SAB2 IAB0 Ectopic0 Multiple0 Live Births3 Nursing Techn History LMP: 03/02/2023 (Exact Date), Unknown Age at Menarche: Age at First : Age at Menopause: Nursing Techn History Comments: Sexual Activity: Yes; Male Contraception: Not used PAST MEDICAL HISTORY Diagnosis Date anxiety Asthma fibrocystic breast disease Genetic testing 04/28/2009 Negative for 32 Mutuations of CF Herpes simplex virus (HSV) infection History of pre-eclampsia in prior , currently PCOS (polycystic ovarian syndrome) SAB (spontaneous ) 2019 Seasonal allergies Vaginal bleeding during 05/25/2023 PAST SURGICAL HISTORY Procedure Laterality Date APPENDECTOMY [...] Social History Tobacco Use Smoking status: Former Current packs/day: 0.00 Average packs/day: 0.5 packs/day for 4.0 years (2.0 ttl pk-yrs) Types: Cigarettes Start date: 03/31/2013 Quit date: 03/31/2017 Years since quittin.8 Smokeless tobacco: Never Tobacco comments: quit over one year ago (2016) Vaping Use Vaping status: Former Quit date: 06/03/2017 Substance Use Topics Alcohol use: Not Currently Comment: rare Drug use: No Current Outpatient Medications Medication Sig sodium chloride (SALINE MIST) 0.65 % nasal spray Use 1 [place] in the nose two times a day. fluticasone (FLONASE) 50 mcg/actuation nasal spray Use 2 Sprays in each nostril two times a day. Rinse mouth after use. fluconazole (DIFLUCAN) 150 mg tablet Take one tablet by mouth once. Then repeat every 3 days for 3 doses. (Patient not taking: Reported on 09/03/2024) cholecalciferol, vitamin D3, (VITAMIN D3 ORAL) Take 2,000 Int'l Units/day by mouth once daily. Norethindrone, Contraceptive, 0.35 mg tablet Take 1 tablet by mouth once daily. (Patient not taking: Reported on 09/03/2024) MAGNESIUM ORAL Take by mouth as needed. mv-min/vit C/glut/lysine/hb124 (IMMUNE SUPPORT ORAL) Take 1 capsule by mouth once daily. Tzpvlekp-Qg-Rip-Fe- FA ( VITAMIN) tab Take 1 tablet by mouth. No current facility-administer ed medications for this visit. Allergies As of Date: 02/06/2025 (No Known Allergies) Fully Assessed 01/23/2025 REVIEW OF SYSTEMS Abdomen: No bloating, early satiety, indigestion, or increased flatulence. No abdominal pain, nausea, vomiting, diarrhea, or constipation. Bladder: No dysuria, gross hematuria, urinary frequency, urinary urgency, or incontinence. Breast: No breast lumps, nipple d/c, overlying skin changes, redness or skin retraction. Expanded ROS: N/A Allergies and current medication updated:Yes SENSITIVE EXAM: The sensitive examination was discussed with the Patient or Patient's Authorized Remote Encoding Operations Supervisor. As applicable, any other physician, advance practice provider, medical student, or other health professional student that will be observing or involved in the sensitive examination for educational or training purposes was discussed with the Patient or Authorized Remote Encoding Operations Supervisor. The Patient or Authorized Remote Encoding Operations Supervisor has agreed to proceed with the sensitive examination. (Sensitive examination includes inspection and/or palpation of the breasts, pelvis, prostate and anorectal regions). EXAM: LMP 03/02/2023 GENERAL: pleasant, female in no apparent distress HEENT: [place]oce (more content not included)... [facility] CNOVon 01-23-2025 CNOV Office Visit (UCWSTR) ---- BLANCA CHASE ([id number]) 1995 F Date Time Provider Department 01/23/25 6:00 PM DOLORES TALAVERA PAXTON During your visit today, we recorded the following information about you: Temperature Pulse Respiration Blood pressure 98.4 degrees 88/minute 16/minute 118/70 Weight 81.9 kg Dolores Talavera APRN.BUS WASHER 01/23/2025 7:23 PM Signed [facility] Subjective Blanca Chase is a 29 year old female. Patient presents with: Breast Problem: left breast inflammation x 2 days, recurring from x 12/23 29 year old female with PMH Acute onset 2 days ago Left breast +redness +tenderness Denies drainage Denies fever or chills Denies skin rash or lesions. Denies malaise or fatigue OF note, she was treated for mastitis on 12/23/24 Provided Doxyline Endorses that she has a history of same The history is provided by the patient. No foreign languages department chair was used. Review of Systems Respiratory: Negative for apnea, cough, choking and chest tightness. Cardiovascular: Negative for chest pain and palpitations. Gastrointestinal: Negative for abdominal pain, diarrhea, nausea and vomiting. Skin: Negative for color change, pallor, rash and wound. Objective BP 118/70 Pulse 88 Temp 36.9 ?C (98.4 ?F) Resp 16 Wt 81.9 kg (180 lb 8.9 oz) LMP 03/02/2023 (Exact Date) SpO2 98% BMI 30.05 kg/m? Physical Exam Vitals and nursing note reviewed. Constitutional: General: She is not in acute distress. Appearance: Normal appearance. She is normal weight. She is not ill-appearing, toxic-appearing or diaphoretic. HENT: Head: Normocephalic and atraumatic. Right Ear: Ear canal and external ear normal. Left Ear: Ear canal and external ear normal. Nose: Nose normal. No congestion or rhinorrhea. Mouth/Throat: Mouth: Mucous membranes are moist. Pharynx: No oropharyngeal exudate or posterior oropharyngeal erythema. Eyes: General: Right eye: No discharge. Left eye: No discharge. Extraocular Movements: Extraocular movements intact. Conjunctiva/sclera: Conjunctivae normal. Pupils: Pupils are equal, round, and reactive to light. Cardiovascular: Rate and Rhythm: Normal rate and regular rhythm. Pulses: Normal pulses. Heart sounds: Normal heart sounds. No murmur heard. No friction rub. Pulmonary: Effort: Pulmonary effort is normal. No respiratory distress. Breath sounds: Normal breath sounds. No stridor. No wheezing, rhonchi or rales. Chest: Chest wall: Tenderness present. Abdominal: General: Abdomen is flat. There is no distension. Palpations: Abdomen is soft. There is no mass. Tenderness: There is no abdominal tenderness. There is no right CVA tenderness, left CVA tenderness, guarding or rebound. Hernia: No hernia is present. Musculoskeletal: General: No swelling, tenderness, deformity or signs of injury. Normal range of motion. Cervical back: Normal range of motion and neck supple. No rigidity. Right lower leg: No edema. Left lower leg: No edema. Lymphadenopathy: Cervical: No cervical adenopathy. Skin: General: Skin is warm and dry. Coloration: Skin is not jaundiced or pale. Findings: No bruising, erythema, lesion or rash. Neurological: General: No focal deficit present. Mental Status: She is alert and oriented to person, place, and time. Cranial Nerves: No cranial nerve deficit. Sensory: No sensory deficit. Motor: No weakness. Coordination: Coordination normal. Gait: Gait normal. Psychiatric: Mood and Affect: Mood normal. Behavior: Behavior normal. Thought Content: Thought content normal. Judgment: Judgment normal. {ASSESSMENT/PLAN: 1. Cellulitis of left breast - ICD9: 611.0, ICD10: N61.0 Onset 2 days ago No masses or lumps noted She was treated for same on Endorses improvement States I get this quite often ?? 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 Findings from review of outpatient records: Doxy for mastitis Differential Diagnoses - cellulitis - mastitis Disposition The patient was discharged. Procedures Allergies As of Date: 01/23/2025 (No Known Allergies) Date Reviewed: 01/23/2025 Reviewed by: Renee Almanza MA - Fully Assessed Reason for Visit: Breast Problem [16] Cmt: left breast inflammation x 2 days, recurring from x 12/23 Primary Visit Diagnosis:Celluliti s of left breast [N61.0] Order(s):cephALEXin (KEFLEX) 500 mg capsuleTake 1 capsule by mouth four times daily for 5 days.Disp: 20 capsuleRfl: 0 Prescriptions as of 01/23/2025 - cephALEXin (KEFLEX) 500 mg capsule Take 1 capsule by mouth four times daily for 5 days. - sodium chloride (SALINE MIST) 0.65 % nasal spray Use 1 [place] in the nose two times a day. - fluticasone (FLONASE) 50 mc (more content not included)... [facility] RENABLANCA Samy ([id number]) 1995 F Date Time Provider Department 12/24/24 [facility] ZAVALA [facility] During your visit today, we recorded the following information about you: Rosalinda Contsantino, RN 12/24/2024 5:07 PM Signed 1) Pt states she was seen in [facility] yesterday for mastitis. Reports provider asked her if she needed a work note for yesterday and today and pt stated she only wanted for yesterday. Pt would now like to request note to include today as well, if provider agreeable. May place letter in MyChart. 2) Pt states her left breast duct is still clogged. States she is trying everything. Asking if EC provider has any other recommendation? Reviewed with patient to follow-up with PCP in 3-5 days if symptoms have not improved, or sooner if symptoms worsen. Please call patient with update. [phone] Thank you. Rodger Kilpatrick, HUSAM 12/24/2024 5:41 PM Signed Please patient know note is in her chart. Follow-up with PCP if no improvement. Anna Willis LPN 12/24/2024 5:48 PM Signed Patient notified.Anna Willis LPN Allergies As of Date: 12/24/2024 (No Known Allergies) Date Reviewed: 12/23/2024 Reviewed by: Macey Paul LPN - Fully Assessed Reason for Visit: Patient Question [0359] Work Note Request [Other] Prescriptions as of 12/24/2024 - dicloxacillin (DYNAPEN) 500 mg capsule Take 1 capsule by mouth four times daily for 7 days. - sodium chloride (SALINE MIST) 0.65 % nasal spray Use 1 [place] in the nose two times a day. - fluticasone (FLONASE) 50 mcg/actuation nasal spray Use 2 Sprays in each nostril two times a day. Rinse mouth after use. - fluconazole (DIFLUCAN) 150 mg tablet Take one tablet by mouth once. Then repeat every 3 days for 3 doses. - cholecalciferol, vitamin D3, (VITAMIN D3 ORAL) Take 2,000 Int'l Units/day by mouth once daily. - Norethindrone, Contraceptive, 0.35 mg tablet Take 1 tablet by mouth once daily. - MAGNESIUM ORAL Take by mouth as needed. - mv-min/vit C/glut/lysine/hb124 (IMMUNE SUPPORT ORAL) Take 1 capsule by mouth once daily. - Rctnsyqa-Ji-Vdu-Fe- FA ( VITAMIN) tab Take 1 tablet by mouth. Problem List As Of Date 12/24/2024 Noted Resolved PCOS (polycystic ovarian syndrome) [E28.2] Oligomenorrhea [N91.5] 03/28/2017 11/06/2019 HSV infection [B00.9] 05/12/2018 Anxiety disorder [F41.9] 08/15/2018 Atrial flutter (HCC) [I48.92] 08/01/2018 11/06/2019 Supervision of normal [Z34.90] 11/06/2019 11/13/2021 Anxiety [F41.9] Spotting in early [O26.859] 06/12/2020 11/13/2021 History of anxiety [Z86.59] 06/12/2020 History of herpes genitalis [Z86.19] 06/12/2020 Patient requested diagnostic testing [Z01.89] 06/12/2020 11/13/2021 Rh negative state in antepartum period, second *07/18/2020 11/13/2021 33 weeks gestation of [Z3A.33] 12/05/2020 11/13/2021 related hip pain in third trimester, *12/05/2020 11/13/2021 Retained placenta without hemorrhage, postpartu*11/13/2021 Dyspareunia, female [N94.10] 12/08/2021 Anal spasm [K59.4] 12/08/2021 Vaginal pain [R10.2] 12/08/2021 History of precipitous delivery [Z87.59] 04/28/2023 History of pre-eclampsia in prior , cu*04/28/2023 Family history of cardiomyopathy [Z82.49] 04/28/2023 Family history of congenital heart defect [Z82.*04/28/2023 Family history of cystic fibrosis [Z83.49] 04/28/2023 Rh negative state in antepartum period [O26.899*05/06/2023 Vaginal bleeding during [O46.90] 05/25/2023 Subchorionic hematoma in second trimester [O41.*06/08/2023 Uterine size-date discrepancy, second trimester* Elevated glucose [R73.09] 09/15/2023 Letter Text Encounter Status:Closed by ANNA WILLIS on 12/24/24 [facility] CNOVon 12[facility]23-[facility]24 CNOV Office Visit ([facility]) ---- SADAFBLANCA Flores ([id number]) 1995 F Date Time Provider Department 12/23/24 2:30 PM MARGOTH KAPLAN [facility] During your visit today, we recorded the following information about you: Temperature Pulse Respiration Blood pressure 98 degrees 85/minute 20/minute 103/72 Weight 81 kg Margoth Kaplan, BONILLA.BUS WASHER 12/23/2024 2:45 PM Signed [facility] Subjective Blanca Chase is a 29 year old female. Patient presents with: Breast Problem: Left breasts, redness, swelling, painful x 2 days Has clogged duct HPI Blanca Chase is a 29 year old female who presents with breast redness, swelling, pain for the past 2 days. Last night she had chills and body aches and felt dizzy. She has not had a fever. She is currently breast feeding a year old. She took ibuprofen, lecithin, and a dose of amoxicillin she had left over from her last episode of mastitis. Review of Systems Constitutional: Negative for activity change, fatigue and fever. Respiratory: Negative. Cardiovascular: Negative. Gastrointestinal: Negative for nausea and vomiting. Musculoskeletal: Negative. Objective BP 103/72 Pulse 85 Temp 36.7 ?C (98 ?F) Resp 20 Wt 81 kg (178 lb 9.2 oz) LMP 03/02/2023 (Exact Date) SpO2 98% Yes BMI 29.72 kg/m? PAST MEDICAL HISTORY Diagnosis Date - anxiety - Asthma - fibrocystic breast disease - Genetic testing 04/28/2009 Negative for 32 Mutuations of CF - Herpes simplex virus (HSV) infection - History of pre-eclampsia in prior , currently - PCOS (polycystic ovarian syndrome) - SAB (spontaneous ) 2019 - Seasonal allergies - Vaginal bleeding during 05/25/2023 PAST SURGICAL HISTORY Procedure Laterality Date - APPENDECTOMY 2011 - SUCTION D AND C 01/15/2021 Retained placenta ALLERGIES Patient has no known allergies. MEDICATIONS - cholecalciferol, vitamin D3, (VITAMIN D3 ORAL) Take 2,000 Int'l Units/day by mouth once daily. - MAGNESIUM ORAL Take by mouth as needed. - mv-min/vit C/glut/lysine/hb124 (IMMUNE SUPPORT ORAL) Take 1 capsule by mouth once daily. - Miqfcizz-Kn-Cqr-Fe- FA ( VITAMIN) tab Take 1 tablet by mouth. - dicloxacillin (DYNAPEN) 500 mg capsule Take 1 capsule by mouth four times daily for 7 days. - sodium chloride (SALINE MIST) 0.65 % nasal spray Use 1 [place] in the nose two times a day. - fluticasone (FLONASE) 50 mcg/actuation nasal spray Use 2 Sprays in each nostril two times a day. Rinse mouth after use. - fluconazole (DIFLUCAN) 150 mg tablet Take one tablet by mouth once. Then repeat every 3 days for 3 doses. (Patient not taking: Reported on 09/03/2024) - Norethindrone, Contraceptive, 0.35 mg tablet Take 1 tablet by mouth once daily. (Patient not taking: Reported on 09/03/2024) FAMILY HISTORY Problem Relation Age of Onset - Thyroid Mother - Kidney Disease Mother stage 3 - other (pcos) Mother - Cystic Fibrosis Father - Heart Attack Father - other (pcos) Sister - No Known Problems Sister - No Known Problems Sister - Seizures Sister - Asthma Brother - other (heart murmur) Brother - No Known Problems Brother - No Known Problems Brother - Heart Maternal Grandmother - Thyroid Maternal Grandmother - other (renal cancer) Maternal Grandmother - Cardiomyopathy Maternal Grandmother - No Known Problems Maternal Grandfather - No Known Problems Paternal Grandmother - Heart Paternal Grandfather - Asthma Son - Thyroid Maternal Aunt - Asthma Daughter Social History Tobacco Use - Smoking status: Former Current packs/day: 0.00 Average packs/day: 0.5 packs/day for 4.0 years (2.0 ttl pk-yrs) Types: Cigarettes Start date: 03/31/2013 Quit date: 03/31/2017 Years since quittin.7 - Smokeless tobacco: Never - Tobacco comments: quit over one year ago (2016) Vaping Use - Vaping status: Former - Quit date: 06/03/2017 Substance Use Topics - Alcohol use: Not Currently Comment: rare - Drug use: No Physical Exam Vitals and nursing note reviewed. Constitutional: Appearance: Normal appearance. Cardiovascular: Rate and Rhythm: Normal rate. Pulmonary: Effort: Pulmonary effort is normal. Chest: Skin: General: Skin is warm and dry. Findings: Erythema present. No rash. Neurological: Mental Status: She is alert. ASSESSMENT/PLAN: 1. Mastitis associated with - ICD9: 675.24, ICD10: O91.23 - DICLOXACILLIN 500 MG CAPSULE - warm compresses to breast 2-3 times daily. - Follow-up with your PCP in 3-5 days if symptoms have not improved or sooner if symptoms worsen - Discussed red flags and need for immediate medical evaluation if any occur. - Discussed supportive care treatment with fluids, rest and analgesia. - Discussed expected course of illness Margoth Kaplan APRN.BUS WASHER Disposi (more content not included)... Normal [facility] CNCOon 11-19-2024 CNCO Letter Text Normal [facility] CNOVon 09-29-2024 CNOV Office Visit (WSTR) ---- BLANCA CHASE ([id number]) 1995 F Date Time Provider Department 09/29/24 1:15 PM RODGER KILPATRICK [facility] During your visit today, we recorded the following information about you: Temperature Pulse Respiration Blood pressure 97.8 degrees 104/minute 16/minute 104/75 Weight 82.2 kg Rodger Kilpatrick PA 09/29/2024 1:42 PM Signed This note was created using [employer]. Subjective Blanca Chase is a 28 year old female. HPI 28-year-old female presents for mastitis. Patient states that she started getting right-sided breast tenderness and redness yesterday. She had a fever yesterday as well. She states she has not had a fever yet today. Has not had any Tylenol or Motrin today. She does still have redness and tenderness over the breast. She is still breast-feeding her child. She states she has had mastitis in the past, last episode was 7 months ago. She denies any abscess or drainage from the breast. She did have a fluconazole leftover from when she had nipple candidiasis and took this without improvement. She is taken Tylenol and Motrin yesterday, none today. No other complaint. PAST MEDICAL HISTORY Diagnosis Date anxiety Asthma fibrocystic breast disease Genetic testing 04/28/2009 Negative for 32 Mutuations of CF Herpes simplex virus (HSV) infection History of pre-eclampsia in prior , currently PCOS (polycystic ovarian syndrome) SAB (spontaneous ) 2019 Seasonal allergies Vaginal bleeding during 05/25/2023 PAST SURGICAL HISTORY Procedure Laterality Date APPENDECTOMY 2012 SUCTION D AND C 01/15/2021 Retained placenta ALLERGIES Patient has no known allergies. MEDICATIONS sodium chloride (SALINE MIST) 0.65 % nasal spray Use 1 [place] in the nose two times a day. fluticasone (FLONASE) 50 mcg/actuation nasal spray Use 2 Sprays in each nostril two times a day. Rinse mouth after use. cholecalciferol, vitamin D3, (VITAMIN D3 ORAL) Take 2,000 Int'l Units/day by mouth once daily. MAGNESIUM ORAL Take by mouth as needed. mv-min/vit C/glut/lysine/hb124 (IMMUNE SUPPORT ORAL) Take 1 capsule by mouth once daily. Soigqmdb-Wd-Wqk-Fe- FA ( VITAMIN) tab Take 1 tablet by mouth. cephALEXin (KEFLEX) 500 mg capsule Take 1 capsule by mouth four times daily for 10 days. fluconazole (DIFLUCAN) 150 mg tablet Take one tablet by mouth once. Then repeat every 3 days for 3 doses. (Patient not taking: Reported on 09/03/2024) Norethindrone, Contraceptive, 0.35 mg tablet Take 1 tablet by mouth once daily. (Patient not taking: Reported on 09/03/2024) FAMILY HISTORY Problem Relation Age of Onset [...] Social History Tobacco Use Smoking status: Former Current packs/day: 0.00 Average packs/day: 0.5 packs/day for 4.0 years (2.0 ttl pk-yrs) Types: Cigarettes Start date: 03/31/2013 Quit date: 03/31/2017 Years since quittin.5 Smokeless tobacco: Never Tobacco comments: quit over one year ago (2017) Vaping Use Vaping status: Former Quit date: 06/03/2017 Substance Use Topics Alcohol use: Not Currently Comment: rare Drug use: No Review of Systems Constitutional: Negative for chills and fever. HENT: Negative for congestion, ear pain and sore throat. Respiratory: Negative for cough and shortness of breath. Cardiovascular: Negative for chest pain. Gastrointestinal: Negative for diarrhea and vomiting. Skin: Positive for color change. Objective BP 104/75 Pulse 104 Temp 36.6 ?C (97.8 ?F) (Right Tympanic) Resp 16 Wt 82.2 kg (181 lb 3.5 oz) LMP 03/02/2023 (Exact Date) SpO2 98% Yes BMI 30.16 kg/m? Physical Exam Vitals and nursing note reviewed. Constitutional: General: She is not in acute distress. Appearance: Normal appearance. She is not toxic-appearing. HENT: Nose: Nose normal. Mouth/Throat: Mouth: Mucous membranes are moist. Eyes: Conjunctiva/sclera: Conjunctivae normal. Cardiovascular: Rate and Rhythm: Normal rate and regular rhythm. Pulmonary: Effort: Pulmonary effort is normal. Breath sounds: Normal breath sounds. Chest: Chest wall: Tenderness present. Breasts: Right: Skin change and tenderness present. Comments: Right breast is tender with (more content not included)... Normal [facility] 09-29-2024 [facility] Telephone ([facility]) ---- BLANCA CHASE ([id number]) 1995 F Date Time Provider Department 09/29/24 [facility]AVALA [facility] During your visit today, we recorded the following information about you: Felecia Cervantes LPN 09/29/2024 10:36 AM Signed Patient called stating that she started with breast pain yesterday after pumping. Noted a fever later in the evening. Took last dose of Fluconazole. This am redness is spreading, Has symptoms of headache and nausea but those symptoms improved after taking Tylenol. Patient was [facility] come to [facility] for evaluation and treatment. Allergies As of Date: 09/29/2024 (No Known Allergies) Date Reviewed: 09/03/2024 Reviewed by: Nilo Mast APRN.BUS WASHER - Fully Assessed Reason for Visit: Breast Problem [16] Cmt: mastitis Prescriptions as of 09/29/2024 - sodium chloride (SALINE MIST) 0.65 % nasal spray Use 1 [place] in the nose two times a day. - fluticasone (FLONASE) 50 mcg/actuation nasal spray Use 2 Sprays in each nostril two times a day. Rinse mouth after use. - fluconazole (DIFLUCAN) 150 mg tablet Take one tablet by mouth once. Then repeat every 3 days for 3 doses. - cholecalciferol, vitamin D3, (VITAMIN D3 ORAL) Take 2,000 Int'l Units/day by mouth once daily. - Norethindrone, Contraceptive, 0.35 mg tablet Take 1 tablet by mouth once daily. - MAGNESIUM ORAL Take by mouth as needed. - mv-min/vit C/glut/lysine/hb124 (IMMUNE SUPPORT ORAL) Take 1 capsule by mouth once daily. - Tvjkdrlq-Kv-Ami-Fe- FA ( VITAMIN) tab Take 1 tablet by mouth. Problem List As Of Date 09/29/2024 Noted Resolved PCOS (polycystic ovarian syndrome) [E28.2] Oligomenorrhea [N91.5] 03/28/2017 11/06/2019 HSV infection [B00.9] 05/12/2018 Anxiety disorder [F41.9] 08/15/2018 Atrial flutter (HCC) [I48.92] 08/01/2018 11/06/2019 Supervision of normal [Z34.90] 11/06/2019 11/13/2021 Anxiety [F41.9] Spotting in early [O26.859] 06/12/2020 11/13/2021 History of anxiety [Z86.59] 06/12/2020 History of herpes genitalis [Z86.19] 06/12/2020 Patient requested diagnostic testing [Z01.89] 06/12/2020 11/13/2021 Rh negative state in antepartum period, second *07/18/2020 11/13/2021 33 weeks gestation of [Z3A.33] 12/05/2020 11/13/2021 related hip pain in third trimester, *12/05/2020 11/13/2021 Retained placenta without hemorrhage, postpartu*11/13/2021 Dyspareunia, female [N94.10] 12/08/2021 Anal spasm [K59.4] 12/08/2021 Vaginal pain [R10.2] 12/08/2021 History of precipitous delivery [Z87.59] 04/28/2023 History of pre-eclampsia in prior , cu*04/28/2023 Family history of cardiomyopathy [Z82.49] 04/28/2023 Family history of congenital heart defect [Z82.*04/28/2023 Family history of cystic fibrosis [Z83.49] 04/28/2023 Rh negative state in antepartum period [O26.899*05/06/2023 Vaginal bleeding during [O46.90] 05/25/2023 Subchorionic hematoma in second trimester [O41.*06/08/2023 Uterine size-date discrepancy, second trimester* Elevated glucose [R73.09] 09/15/2023 Encounter Status:Closed by FELECIA CERVANTES on 09/29/24 [facility] CNOVon 09-03-2024 CNOV Office Visit ([facility]WSTR) ---- BLANCA CHASE ([id number]) 1995 Date Time Provider Department 09/03/24 6:30 PM NILO MAST [facility] During your visit today, we recorded the following information about you: Temperature Pulse Respiration Blood pressure 96.7 degrees 69/minute 19/minute 118/82 Weight 84.1 kg Nilo Mast APRN.BUS WASHER 09/03/2024 6:31 PM Signed [facility] PATIENT INFO COMMON COLD OVERVIEW The common cold is one of the most frequent illnesses in the [place]. Although most colds are mild and resolve within a short time period, colds cost billions of dollars per year, mostly due to lost time at work and school. COMMON COLD CAUSES The common cold is a group of symptoms caused by one of a large number of viruses. Rhinoviruses cause the greatest number of colds; there are more than 100 different varieties of rhinovirus. Most viruses cause a person to be ill only once. However, due to the large number of viruses, a person can have a cold multiple times throughout his or her lifetime. The average adult experiences two to three colds per year, while children average 8 to 12 colds per year. Colds are transmitted from nlypia-rk-mqgxfx. Less often, the virus can be transmitted by touching a surface. Direct contact -- People with colds typically carry the cold virus on their hands. The virus may remain alive on the skin and capable of infecting another person for at least two hours. Thus, if a sick person shakes someone's hand and that individual then touches his eye, nose, or mouth, the virus can be transmitted and later infect that person. Infection from particles on surfaces -- Some cold viruses can live on surfaces (such as a counter top, door handle, or phone) for several hours. Inhaling viral particles -- Droplets containing viral particles can be breathed, coughed, or sneezed into the air by a person with a cold. The virus can be transmitted to others if another person is standing close (a few feet) and the droplet touches that person?s eye, nose, or mouth. Covering the mouth while coughing or sneezing greatly reduces this risk. Most cold viruses are not spread by saliva. Thus, kissing itself is not likely to transmit the common cold, but close direct contact can. Colds are not caused by cold climates or being exposed to cold air. However, some types of virus cause more colds during certain seasons (eg, fall and winter versus spring). COMMON COLD SIGNS AND SYMPTOMS The common cold usually causes nasal congestion, runny nose, and sneezing. A sore throat may be present on the first day but usually resolves quickly. If a cough occurs, it generally develops on about the fourth or fifth day of symptoms, typically when congestion and runny nose are usually resolving. COMMON COLD COMPLICATIONS In most cases, colds do not cause serious illness. Most colds last for three to seven days, although many people continue to have symptoms (coughing, sneezing, congestion) for up to two weeks. Some viruses that cause the common cold can also depress the immune system or cause swelling in the lining of the nose or airways; this can, in turn, lead to a new viral infection or bacterial infection. One of the more common complications is sinusitis, which is usually caused by viruses and rarely (about 2 percent of the time) by bacteria. However, it can be difficult to distinguish bacterial sinusitis from sinusitis caused by a cold because the signs and symptoms can be similar Having thick or yellow to green-colored nasal discharge does not mean that bacterial sinusitis has developed; discolored nasal discharge is a normal phase of the common cold. Lower respiratory infections, such as pneumonia or bronchitis, may develop following a cold. Infection of the middle ear, or otitis media, can accompany or follow a cold. The influenza virus, which causes the flu, can also cause features similar to those of a cold. However, the flu usually causes other signs and symptoms (fever, body aches) and is more serious than a cold. COMMON COLD TREATMENT There is no specific treatment for the viruses that cause the common cold. Most treatments are aimed at relieving some of the symptoms of the cold, but do not shorten or cure the cold. Antibiotics are not useful for treating the common cold; antibiotics are only used to treat illnesses caused by bacteria, not viruses. The symptoms of a cold will resolve over time, even without any treatment. The following are treatments that may reduce the symptoms caused by the common cold. People with underlying medical conditions and those who use other rzad-efx-vexrkno or prescription medications should speak with their healthcare provider or pharmacist to ensure that it is safe to use these treatments. Runny nose and nasal congestion -- Runny nose and congestion ma (more content not included)... Normal [facility] CNOVon 04-10-2024 CNOV Office Visit (OBGYWM) ---- BLANCA CHASE ([id number]) 1995 F Date Time Provider Department 04/10/24 11:15 AM DOLORES PATRICK [facility] During your visit today, we recorded the following information about you: Blood pressure Weight 102/68 87.5 kg Dolores Patrick APRN.[facility] 04/10/2024 2:09 PM Signed Blanca Chase is a 28 year old female who presents for problem visit breast burning. HPI: Seen RM on 03/24/24 for clogged duct and symptoms had started 2 days prior. Started Keflex 500mg PO QID 10 days.Had chills but no fever. Last dose 6 days and improvement. Started to return 4 days ago with burning in same area, duct started again, left greater than right. Started tacking sunflower lecithin on and off but not consistent. Purchased massager but has not got this yet. Yesterday started chills, headache, dizziness, no fever. No redness is 5 months old, feels she over produces milk. at breast and pumps. Can't take amoxicillin due to getting thrush in the past. OB History T3 L3 SAB2 IAB0 Ectopic0 Multiple0 Live Births3 Nursing Techn History LMP: 03/02/2023 (Exact Date), Unknown Age at Menarche: Age at First : Age at Menopause: Nursing Techn History Comments: Sexual Activity: Yes; Male Contraception: None PAST MEDICAL HISTORY Diagnosis Date anxiety Asthma fibrocystic breast disease Genetic testing 04/28/2009 Negative for 32 Mutuations of CF Herpes simplex virus (HSV) infection History of pre-eclampsia in prior , currently PCOS (polycystic ovarian syndrome) SAB (spontaneous ) 2019 Seasonal allergies Vaginal bleeding during 05/25/2023 PAST SURGICAL HISTORY Procedure Laterality Date APPENDECTOMY [...] Types: Cigarettes Quit date: 03/31/2017 Years since quittin.0 Smokeless tobacco: Never Tobacco comments: quit over one year ago (2016) Vaping Use Vaping Use: Former Quit date: 06/03/2017 Substance Use Topics Alcohol use: Not Currently Comment: rare Drug use: No Current Outpatient Medications Medication Sig cholecalciferol, vitamin D3, (VITAMIN D3 ORAL) Take 2,000 Int'l Units/day by mouth once daily. Norethindrone, Contraceptive, 0.35 mg tablet Take 1 tablet by mouth once daily. MAGNESIUM ORAL Take by mouth as needed. mv-min/vit C/glut/lysine/hb124 (IMMUNE SUPPORT ORAL) Take 1 capsule by mouth once daily. Byjtobjl-Ok-Sys-Fe- FA ( VITAMIN) tab Take 1 tablet by mouth. No current facility-administer ed medications for this visit. Allergies As of Date: 04/10/2024 (No Known Allergies) Fully Assessed 04/10/2024 REVIEW OF SYSTEMS Abdomen: No bloating, early satiety, indigestion, or increased flatulence. No abdominal pain, nausea, vomiting, diarrhea, or constipation. Bladder: No dysuria, gross hematuria, urinary frequency, urinary urgency, or incontinence. Breast: No breast lumps, nipple d/c, overlying skin changes, redness or skin retraction. Expanded ROS: N/A Allergies and current medication updated:Yes EXAM: BP 102/68 Wt 193 lb (87.5kg) LMP 03/02/2023 GENERAL: pleasant, female in no apparent distress HEENT: Normocephalic and atraumatic NECK: Supple and full range of motion DERMATOLOGY: Normal and without lesions BREAST: soft, symmetric, no dominant mass, normal nipple-areolar complex, no lymphadenopathy. Slight tenderness with palpation of bilateral inner quadrants, Left greater than right. No redness. CHEST: Normal inspiratory effort NEURO: alert and oriented x3,exam grossly non-focal EXTREMITIES: normal ASSESSMENT AND PLAN: 1. Breast pain - ICD9: 611.71, ICD10: N64.4 (primary diagnosis) -Discussed at this time, mild symptoms and would like to avoid antibiotics if possible. Could also be yeast that is causing the burning. -Will try Diflucan 150mg PO once, repeat every 3 days for 3 doses. If by 2nd dose she is not feeling better ok to start Bactrim 1 tablet PO BID x 7 days. She will call the office if needed -sunfl (more content not included)... [facility] CNOVon 03-24-2024 CNOV Office Visit (UCWSTR) ---- BLANCA CHASE ([id number]) 1995 F Date Time Provider Department 03/24/24 2:30 PM ANASTASIA PIERRE WSTR During your visit today, we recorded the following information about you: Temperature Pulse Respiration Blood pressure 97.1 degrees 95/minute 18/minute 110/78 Weight 88.7 kg Anastasia Pierre APRN.CNP 03/24/2024 2:41 PM Signed This note was created using [employer]. Subjective Blanca Chase is a 28 year old female. HPI started with a clogged duct about 2 days ago, since she started to notice more pain/burning with pumping. Milk production is good. Some chills, no fever. Review of Systems Constitutional: Positive for chills. Skin: Right breast pain Objective BP 110/78 Pulse 95 Temp 36.2 ?C (97.1 ?F) (Tympanic) Resp 18 Wt 88.7 kg (195 lb 8.8 oz) LMP 03/02/2023 (Exact Date) SpO2 98% BMI 32.54 kg/m? Physical Exam Chest: Comments: Slight redness and warmth to the area Neurological: Mental Status: She is alert. Assessment and Plan ASSESSMENT/PLAN: 1. Mastitis, acute - ICD9: 611.0, ICD10: N61.0 Keflex QID x 10 days Follow up in office as needed Anastasia Pierre APRN.CNP Allergies As of Date: 03/24/2024 (No Known Allergies) Date Reviewed: 03/24/2024 Reviewed by: Anna Willis LPN - Fully Assessed Reason for Visit: sore breast [Other] Cmt: Left side x 2 days Primary Visit Diagnosis:Mastitis, acute [N61.0] Order(s):cephALEXin (KEFLEX) 500 mg capsuleTake 1 capsule by mouth four times daily for 10 days.Disp: 40 capsuleRfl: 0 Prescriptions as of 03/24/2024 - cephALEXin (KEFLEX) 500 mg capsule Take 1 capsule by mouth four times daily for 10 days. - cholecalciferol, vitamin D3, (VITAMIN D3 ORAL) Take 2,000 Int'l Units/day by mouth once daily. - Norethindrone, Contraceptive, 0.35 mg tablet Take 1 tablet by mouth once daily. - MAGNESIUM ORAL Take by mouth as needed. - mv-min/vit C/glut/lysine/hb124 (IMMUNE SUPPORT ORAL) Take 1 capsule by mouth once daily. - Ojyxznrk-Sz-Eer-Fe- FA ( VITAMIN) tab Take 1 tablet by mouth. Problem List As Of Date 03/24/2024 Noted Resolved PCOS (polycystic ovarian syndrome) [E28.2] Oligomenorrhea [N91.5] 03/28/2017 11/06/2019 HSV infection [B00.9] 05/12/2018 Anxiety disorder [F41.9] 08/15/2018 Atrial flutter (HCC) [I48.92] 08/01/2018 11/06/2019 Supervision of normal [Z34.90] 11/06/2019 11/13/2021 Anxiety [F41.9] Spotting in early [O26.859] 06/12/2020 11/13/2021 History of anxiety [Z86.59] 06/12/2020 History of herpes genitalis [Z86.19] 06/12/2020 Patient requested diagnostic testing [Z01.89] 06/12/2020 11/13/2021 Rh negative state in antepartum period, second *07/18/2020 11/13/2021 33 weeks gestation of [Z3A.33] 12/05/2020 11/13/2021 related hip pain in third trimester, *12/05/2020 11/13/2021 Retained placenta without hemorrhage, postpartu*11/13/2021 Dyspareunia, female [N94.10] 12/08/2021 Anal spasm [K59.4] 12/08/2021 Vaginal pain [R10.2] 12/08/2021 History of precipitous delivery [Z87.59] 04/28/2023 History of pre-eclampsia in prior , cu*04/28/2023 Family history of cardiomyopathy [Z82.49] 04/28/2023 Family history of congenital heart defect [Z82.*04/28/2023 Family history of cystic fibrosis [Z83.49] 04/28/2023 Rh negative state in antepartum period [O26.899*05/06/2023 Vaginal bleeding during [O46.90] 05/25/2023 Subchorionic hematoma in second trimester [O41.*06/08/2023 Uterine size-date discrepancy, second trimester* Elevated glucose [R73.09] 09/15/2023 Prescriptions ordered this encounter Disp Refills Start End CEPHALEXIN 500 MG CAPSULE 40 c* 0 03/24/2024 04/03/2024 Route: ORAL Sig: Take 1 capsule by mouth four times daily for 10 days. Level of Service: OFFICE/OUTPATIENT ESTABLISHED LOW [facility] 20 MIN [77771] Encounter Status:Closed by ANASTASIA PIERRE on 03/24/24 [facility] Discharge Instructionon 11-03 Discharge Instruction [facility] Medical Records Department [address] [place] [address] Instructions for Home/Discharge Instructions 11/19/23 0829 MR#: [id number] Acct: [id number] Name: BLANCA CHASE Rep #: [id number] : 1995 28 From: Shira De La Paz MD PCP: Dr. Jose G Zavala MD Status:ADM IN Discharge Instructions Diet Discharge Diet: No restrictions Activity May resume sexual activity in: 6-8 weeks Dressing / Incision Call your doctor if you observe: Fever of 101 or Higher, Inability to urinate, Using more than 1 pad per hour and Uncontrolled pain Follow Up Care Please Follow Up With: Peralta MD When: 1-2 weeks post and again at 6 weeks post . [phone] Test Results: Test results from this visit will be discussed in further detail at your follow-up appointment, if applicable. Discharge Plan Admission Admit Date/Time: 11/18/23 01:55 Attending Provider: Dolores Patrick Primary Care Provider: Jose G Zavala Discharge Orders/Prescription s Prescriptions: New ibuprofen 600 mg Tablet 600 mg PO Q6H PRN PRN (Reason: Pain Score 1-3) Qty: 0 0RF Continued PNV cmb#95-ferrous fumarate-FA 1 EACH tablet 1 ea PO DAILY acyclovir 200 mg capsule 200 mg PO TID Discontinued aspirin 81 mg capsule 81 mg PO DAILY Referrals / Follow Up: Jose G Zavala MD [Primary Care Provider] - Disposition Disposition (needs filled in before D/C Order can be placed): Home, Self Care 11/19/23 0833 Shira De La Paz MD CC: Dr. Jose G Zavala MD Signed Normal [facility] (ROM) Rupture Of Membraneson 11-18-2023 ROM Positive Abnormal Negative [facility] Comment on above: Result Comment: Amni otic fluid present indicates rupture of Membranes. RESULTS CALLED TO A AURY 11/18/23 0153 Alisia Guallpa. REPORT READ BACK BY A AURY . Performed By: #### L 205.1000 #### [facility] [address] [place], [place], [id number] Absolute lymphocyte countOrd ered By: Dolores Patrick on 11-18-2023 Lymphocytes Auto (Unsp spec) [#/Vol] 1.12 10*3/uL 0.83-4.51 [facility] Automated lymphocyte count a s percentage of total leukocytesOrdered By: Dolores Patrick on 11-18-2023 Lymphocytes/100 WBC Auto (Unsp spec) 14.9 % 19-41 [facility] [id number] 11-18-2023 ANTIBODY ID D Normal [facility] Comment on above: Order Comment: Labor Performed By: #### B TS, L100.0100, [id number] #### [facility] [address] [place], [address] BRho(D) IGon 11-18-2023 Rho(D) IG Normal [facility] Comment on above: Result Comment: RH10 5025 Rho(D) IG PRSMD TRFSD 11/18/23 1433 Performed By: #### B RHNM, BRho(D) IG #### [facility] [address] [place], [address] Basophil percentageOrdered B y: Dolores Patrick on 11-18-2023 Basophils/100 WBC (Bld) 0.3 % 0-1 [facility] Eosinophils/100 WBC (Bld) 0.1 % 0-5 [facility] Hemoglobin (Bld) [Mass/Vol] 10.7 g/dL 12.0-15.0 [facility] Monocytes/100 WBC (Bld) 7.2 % 0-10 [facility] Neutrophils (Bld) [#/Vol] 5.8 10*3/uL 2.0-7.7 [facility] Neutrophils/100 WBC (Bld) 76.8 % 47-70 [facility] WBC (Bld) [#/Vol] 7.5 10*3/uL 4.4-11.0 [facility] CBC W/Diff, Automatedon 11-03 Absolute Lymph 1.12 X10 3/uL Normal 0.83-4.51 [facility] Comment on above: Performed By: #### Gonsalo TS, L100.0100, [id number] #### [facility] [address] [place], [address] Absolute Neut 5.8 X10 3/uL Normal 2.0-7.7 [facility] Comment on above: Performed By: #### Gonsalo TS, L100.0100, [id number] #### [facility] [address] [place], [address] Basophils/100 WBC (Bld) 0.3 % Normal 0-1 [facility] Comment on above: Performed By: #### Gonsalo TS, L100.0100, [id number] #### [facility] [address] [place], [address] Eosinophils/100 WBC (Bld) 0.1 % Normal 0-5 [facility] Comment on above: Performed By: #### B TS, L100.0100, [id number] #### [facility] [address] [place], [address] Erythrocyte distribution width (RBC) [Ratio] 14.3 % Normal 11.6-14.6 [facility] Comment on above: Performed By: #### Gonsalo TS, L100.0100, [id number] #### [facility] [address] [place], [address] Hematocrit (Bld) [Volume fraction] 33.9 % Low 37-47 [facility] Comment on above: Performed By: #### Gonsalo TS, L100.0100, [id number] #### [facility] [address] [place], [address] Hemoglobin (Bld) [Mass/Vol] 10.7 g/dL Low 12.0-15.0 [facility] Comment on above: Performed By: #### Gonsalo TS, L100.0100, [id number] #### [facility] [address] [place], [address] IG% 0.700 Normal 0.0-0.9 [facility] Comment on above: Result Comment: IG% - Immature Granulocytes (promyelocytes, myelocytes and metamyelocytes) > 1% indicates that a LEFT SHIFT is Present. Performed By: #### Gonsalo TS, L100.0100, [id number] #### [facility] [address] [place], [address] Lymphocytes/100 WBC (Bld) 14.9 % Low 19-41 [facility] Comment on above: Performed By: #### Gonsalo TS, L100.0100, [id number] #### [facility] [address] [place], [address] MCH (RBC) [Entitic mass] 27.9 pg Normal 27.0-32.0 [facility] Comment on above: Performed By: #### B TS, L100.0100, [id number] #### [facility] [address] [place], [address] MCHC (RBC) [Mass/Vol] 31.6 g/dL Low 32-36 [facility] Comment on above: Performed By: #### Gonsalo TS, L100.0100, [id number] #### [facility] [address] [place], [address] MCV (RBC) [Entitic vol] 88.3 fL Normal 81-99 [facility] Comment on above: Performed By: #### Gonsalo TS, L100.0100, [id number] #### [facility] [address] [place], [address] Monocytes/100 WBC (Bld) 7.2 % Normal 0-10 [facility] Comment on above: Performed By: #### Gonsalo TS, L100.0100, [id number] #### [facility] [address] [place], [address] Neutrophils/100 WBC (Bld) 76.8 % High 47-70 [facility] Comment on above: Performed By: #### Gonsalo TS, L100.0100, [id number] #### [facility] [address] [place], [address] Nucleated RBC (Bld) [#/Vol] 0 10*3/uL Normal 0-5 [facility] Comment on above: Performed By: #### Gonsalo TS, L100.0100, [id number] #### [facility] [address] [place], [address] Platelet mean volume (Bld) [Entitic vol] 12.3 fL High 6.2-12.0 [facility] Comment on above: Performed By: #### Gonsalo TS, L100.0100, [id number] #### [facility] [address] [place], [address] Platelets (Bld) [#/Vol] 124 10*3/uL Low 150-450 [facility] Comment on above: Performed By: #### B TS, L100.0100, [id number] #### [facility] [address] [place], [address] RBC (Bld) [#/Vol] 3.84 10*6/uL Low 4.2-5.4 [facility] Comment on above: Performed By: #### B TS, L100.0100, [id number] #### [facility] [address] [place], [address] RDW SD 45.1 fl High 35.1-43.9 [facility] Comment on above: Performed By: #### Gonsalo VARNER, L100.0100, [id number] #### [facility] [address] [place], [address] WBC (Bld) [#/Vol] 7.5 10*3/uL Normal 4.4-11.0 [facility] Comment on above: Performed By: #### B TS, L100.0100, [id number] #### [facility] [address] [place], [address] Determination of erythrocyte mean corpuscular volume (MCV)Ordered By: Dolores Patrick on 11-18-2023 MCV (RBC) [Entitic vol] 88.3 fL 81-99 [facility] Erythrocyte distribution wid th ratioOrdered By: Dolores Patrick on 11-18-2023 Erythrocyte distribution width (RBC) [Ratio] 14.3 % 11.6-14.6 [facility] Erythrocyte distribution wid th standard deviationOrdered By: Dolores Patrick on 11-18-2023 Erythrocyte distribution width (RBC) [Entitic vol] 45.1 fL 35.1-43.9 [facility] H AND P Exam - OB/GYNon 02- H&P Exam - [employer] [facility] Medical Records Department [address] [place] [address] H P Exam - [employer] 11/18/23 0640 MR#: [id number] Acct: [id number] Name: BLANCA CHASE Rep #: [id number] : 1995 28 From: Dolores Patrick CNM PCP: Dr. Jose G Zavala MD Status:ADM IN Location: [id number] HPI - General General Date of Admission: 11/18/23 Date of Service: 11/18/23 HPI Narrative BLANCA CHASE, is a 28 F who presents at 37w2d with IRENE: 12/07/23. SROM around 11pm on 11/17. Contractions became increasinly regular. Maternal Data Information IRENE Calculator Estimated Delivery Date Method Current WG Current Estimate 12/07/23 Manual 37w 2d PFSH PFS Medical History (Updated 11/18/23 @ 06:44 by Dolores Patrick CNM) Anxiety Asthma Depression Herpes genitalis Migraines hemorrhage Pre-eclampsia Superficial varicosities Home Medications vit no.95-ferrous fumarate 28 mg-folic acid 800 mcg tablet 1 ea PO DAILY Check with primary doctor 11/24/19 [History Last Taken 11/17/23] acyclovir 200 mg capsule 200 mg PO TID 11/18/23 [History Last Taken 11/17/23] aspirin 81 mg capsule 81 mg PO DAILY 11/18/23 [History Last Taken 11/17/23] Allergy/AdvReac Type Severity Reaction Status Date / Time No Known Allergies Allergy Verified 11/18/23 01:30 Surgical History (Updated 11/18/23 @ 04:05 by Mary Hobson) History of surgery S/P appendectomy Social History Smoking Status: Former smoker History Elective abortions Hx Para 2 Spontaneous abortions Hx # Term Pregnancies Ectopic pregnancies Hx # Pregnancies Multiple births # of living children NST FHR Rate Baby A Baseline: 145 Variability:: Moderate Accelerations:: 15 x 15 Decelerations:: None FHR Category:: Category I Uterine Activity:: every 2 minutes, strong Vital Signs Vital Signs Vital Signs: 11/18/23 01:28 11/18/23 01:28 11/18/23 01:27 Temperature Temperature Source Pulse Rate 82 Blood Pressure 133/81 H BP Systolic 133 BP Diastolic 81 Pulse Ox 98 11/18/23 03:06 11/18/23 03:06 11/18/23 03:11 Temperature Temperature Source Pulse Rate 90 90 Blood Pressure BP Systolic BP Diastolic Pulse Ox 99 11/18/23 03:11 11/18/23 03:12 11/18/23 03:12 Temperature Temperature Source Pulse Rate 87 Blood Pressure 136/86 H BP Systolic 136 BP Diastolic 86 Pulse Ox 100 11/18/23 03:16 11/18/23 03:16 11/18/23 03:16 Temperature Temperature Source Pulse Rate 84 Blood Pressure 143/105 H BP Systolic 143 BP Diastolic 105 Pulse Ox 100 11/18/23 03:21 11/18/23 03:21 11/18/23 03:21 Temperature Temperature Source Pulse Rate 90 Blood Pressure 133/87 H BP Systolic 133 BP Diastolic 87 Pulse Ox 99 11/18/23 03:27 11/18/23 03:27 11/18/23 03:26 Temperature Temperature Source Pulse Rate 83 Blood Pressure 127/70 H BP Systolic 127 BP Diastolic 70 Pulse Ox 98 11/18/23 03:31 11/18/23 03:31 11/18/23 03:31 Temperature Temperature Source Pulse Rate 75 78 Blood Pressure 119/58 L BP Systolic 119 BP Diastolic 58 Pulse Ox 11/18/23 03:31 11/18/23 03:36 11/18/23 03:36 Temperature Temperature Source Pulse Rate 86 Blood Pressure 119/60 BP Systolic 119 BP Diastolic 60 Pulse Ox 99 11/18/23 03:36 11/18/23 03:41 11/18/23 03:41 Temperature Temperature Source Pulse Rate 86 Blood Pressure 110/62 BP Systolic 110 BP Diastolic 62 Pulse Ox 100 11/18/23 03:41 11/18/23 03:46 11/18/23 03:46 Temperature Temperature Source Pulse Rate 91 Blood Pressure BP Systolic BP Diastolic Pulse Ox 100 100 11/18/23 03:47 11/18/23 03:47 11/18/23 03:47 Temperature 98.0 F Temperature Source Pulse Rate 79 Blood Pressure 123/76 H BP Systolic 123 BP Diastolic 76 Pulse Ox 11/18/23 03:51 02/16/24 03:51 11/18/23 03:51 Temperature Temperature Source Pulse Rate 90 99 Blood Pressure 126/80 H BP Systolic 126 BP Diastolic 80 Pulse Ox 11/18/23 03:51 11/18/23 03:56 11/18/23 03:56 Temperature Temperature Source Pulse Rate 87 Blood Pressure 127/75 H BP Systolic 127 BP Diastolic 75 Pulse Ox 100 11/18/23 04:28 11/18/23 04:28 11/18/23 04:30 Temperature Temperature Source Pulse Rate 82 138 H Blood Pressure 118/70 BP Systolic 118 BP Diastolic 70 Pulse Ox 11/18/23 04:30 11/18/23 04:30 11/18/23 04:31 Temperature Temperature (more content not included)... Normal [facility] Hematocrit Auto (Bld) [Volum e fraction]Ordered By: Dolores Patrick on 11-18-2023 Hematocrit (Bld) [Volume fraction] 33.9 % 37-47 [facility] Immature granulocytes/100 WB C Auto (Bld)Ordered By: Dolores Patrick on 11-18-2023 Immature granulocytes/100 WBC (Bld) 0.700 % 0.0-0.9 [facility] Comment on above: IG% - Immature Granu locytes (promyelocytes, myelocytes and metamyelocytes) > 1% indicates that a LEFT SHIFT is Present. L509.8000on 11-18-2023 Syphilis Abs Non-Reactive Normal [facility] Comment on above: Performed By: #### B [facility], Liyah(D) IG #### [facility] [address] [place] [address]. [place], [place], [id number] Laboratory - Hematology and Cell countsOrdered By: Dolores Patrick on 11-18-2023 MCH (RBC) [Entitic mass] 27.9 pg 27.0-32.0 [facility] MCHC (RBC) [Mass/Vol] 31.6 g/dL 32-36 [facility] Nucleated RBC/100 WBC (Bld) [Ratio] 0 % 0-5 [facility] Platelet mean volume (Bld) [Entitic vol] 12.3 fL 6.2-12.0 [facility] Platelets (Bld) [#/Vol] 124 10*3/uL 150-450 [facility] No Panel InformationOrdered By: Dolores Patrick on 11-18-2023 Vaginal Amniotic Fluid Detection Positive Negative [facility] Comment on above: Amniotic fluid prese nt indicates rupture of Membranes. RESULTS CALLED TO A AURY 11/18/23 0153 Alisia Saloni.REPORT READ BACK BY A AURY . Operative Reporton 4 Operative Report [facility] Medical Records Department [address] [place] [address] Operative Report 11/18/23 0647 MR#: [id number] Acct: [id number] Name: BLANCA CHASE Rep #: [id number] : 1995 28 From: Dolores Patrick CNM PCP: Dr. Jose G Zavala MD Status:ADM IN Location: [place] [id number] Assessment Plan (1) Vaginal delivery: Maternal Data Information IRENE Calculator Estimated Delivery Date Method Current WG Current Estimate 12/07/23 Manual 37w 2d Vaginal Delivery Maternal Presentation Maternal Presentation: Active Labor and Spontaneous Rupture of Membranes Operative Information Date of Procedure: 11/18/23 Pre-Operative Diagnosis: SROM, active labor Post-Operative Diagnosis: Surgery / Procedure Performed: Spontaneous Vaginal Delivery Type of Anesthesia: Epidural Estimated Blood Loss: 200ml Time of Delivery: 06:32 Findings Description of Procedure: Progressed to complete. Epidural for pain management. of viable female over intact perineum.APGARS 8/8 respectively. Infant head delivered with body immediately forthcoming. Placed on maternal abdomen, strong cry. Mouth and nares suctioned for secretions. Pitocin given IM for active 3rd stage management. Cord doubly clamped and cut by FOB after pulsations ceased, delayed cord clamping. Placenta delivered intact via pittman, 3 vessel cord intact. Perineum inspected and revealed intact. Fundus firm and hemostasis achieved. EBL 200ml. Mom and baby stable, planning to breastfeed. Family bonding well. notified of delivery. Presentation: Vertex and MICHAEL Amniotic Membrane Rupture Type: Spontaneous Amniotic Fluid Description: Clear Placental Delivery Description: Spontaneous Placenta Disposition: [facility] Cord Vessel Description: 3 Vessels Cord Entanglement: None Infant A Gender: Female (1 minute): 8 (5 minute): 8 Delayed Cord Clamping: Yes Post Vaginal Delivery Medications Given After Delivery: IM Pitocin Episiotomy Description: None Laceration: None Complication Complications: None 11/18/23 0651 Cosigner Signature (if applicable): CC: JOSH Patrick; Dr. Jose G Zavala MD Signed Normal [facility] RBC Auto (Bld) [#/Vol]Ordere d By: Dolores Patrick on 11-18-2023 RBC (Bld) [#/Vol] 3.84 10*6/uL 4.2-5.4 [facility] [place] Rh Negative Mom Workupon ABO and Rh group Nom (Bld) Blood group A Rh(D) negative Normal [facility] Comment on above: Order Comment: Comme nts: Age > 13 Weeks louiszully milbgahgirl [id number] Performed By: #### B RHNM, BRho(D) IG #### [facility] [address] [place], [place], [id number] ABO and Rh group Nom (Bld) Blood group A Rh(D) positive Normal [facility] Comment on above: Order Comment: Comme nts: Age > 13 Weeks louisemmanuelsandramary janesahradanialrl [id number] Performed By: #### B RHNM, BRho(D) IG #### [facility] [address] [place], [place], [id number] DIRECT ANTIGLOB Negative Normal NEGATIVE [facility] Comment on above: Order Comment: Comme nts: Age > 13 Weeks rena rebbgahgirl [id number] Performed By: #### B RHNM, BRho(D) IG #### [facility] [address] [place], [address] SCREEN Negative Normal NEGATIVE [facility] Comment on above: Order Comment: Comme nts: Age > 13 Weeks louiszully milbgahgirl [id number] Performed By: #### B RHNM, BRho(D) IG #### [facility] [address] [place], [place], [id number] MOM'S ABS Positive Normal [facility] Comment on above: Order Comment: Comme nts: Age > 13 Weeks ankit chasesaran [id number] Performed By: #### B RHNM, BRho(D) IG #### [facility] [address] [place], [address] Serum Treponema species anti body detectionOrdered By: Dolores Patrick on 11-18-2023 Treponema sp Ab Ql (S) Non-Reactive [facility] Type AND Screenon 11-18-2023 Ab SCREEN GEL Positive Abnormal [facility] Comment on above: Order Comment: Labor Performed By: #### B TS, L100.0100, [id number] #### [facility] [address] [place], [place], [id number] ABO and Rh group Nom (Bld) Blood group A Rh(D) negative Normal [facility] Comment on above: Order Comment: Labor Performed By: #### B TS, L100.0100, [id number] #### [facility] [address] [place], [place], [id number] URINE OB DIP B/Oon 4 Glucose Ql (U) Negative Neg mg/dL [facility] Protein.monoclonal (U) [Mass/Vol] Negative Neg mg/dL [facility] URINE OB DIP B/Oon 4 Glucose Ql (U) Negative Neg mg/dL [facility] Protein.monoclonal (U) [Mass/Vol] Negative Neg mg/dL [facility] OBSTETRIC ULTRASOUND WHIon 0 11-09-2023 [facility] URINE OB DIP B/Oon 4 Glucose Ql (U) Negative Neg mg/dL [facility] Protein.monoclonal (U) [Mass/Vol] Negative Neg mg/dL [facility] URINE OB DIP B/Oon 4 Glucose Ql (U) Negative Neg mg/dL [facility] Protein.monoclonal (U) [Mass/Vol] Negative Neg mg/dL [facility] URINE OB DIP B/Oon 4 Glucose Ql (U) Negative Neg mg/dL [facility] Protein.monoclonal (U) [Mass/Vol] Negative Neg mg/dL [facility] UA DIP, URINE (POC)on 2022 BILIRUBIN UA (POCT) Negative Negative [facility] CLARITY UA (POCT) Clear [facility] COLOR UA (POCT) Yellow [facility] GLUCOSE UA (POCT) Negative Negative mg/dL [facility] Hemoglobin Ql (U) Negative Negative [facility] KETONE UA (POCT) Negative Negative mg/dL [facility] [place] LEUKOCYTES UA (POCT) Negative Negative [facility] [place] NITRITE UA (POCT) Negative Negative [facility] PH UA (POCT) 7.0 4.5 - 8.0 [facility] Protein Ql (U) Negative Negative mg/dL [facility] SPECIFIC GRAVITY UA (POCT) 1.015 1.005 - 1.030 [facility] UROBILINOGEN UA (POCT) 0.2 E.U./dL Normal E.U./ dL [facility] URINE OB DIP B/Oon 3 Glucose Ql (U) Negative Neg mg/dL [facility] Protein.monoclonal (U) [Mass/Vol] Negative Neg mg/dL [facility] 12 Lead EKGon 08-05-2023 12 Lead EKG [facility] Cardiovascular Services [address] [place] [address] 12 Lead EKG 08/05/23 0747 MR#: [id number] Acct: [id number] Name: BLANCA CHASE Rep #: [id number] : 1995 27 From: Narayan Smith MD Attending Dr: Dr. Abhay Monroe MD Status: D EP ER Ordering Dr: Abhay Monroe MD Date: 08/05/23 Location: ED Sex: F C Admitted: Test Reason : NEAR SYNCOPE Blood Pressure : / mmHG Vent. Rate : 085 BPM Atrial Rate : 085 BPM P-R Int : 122 ms QRS Dur : 082 ms QT Int : 350 ms P-R-T Axes : -05 049 035 degrees QTc Int : 416 ms Normal sinus rhythm Normal ECG Confirmed by BRIDGETTE SALGUERO, GHISLAINE ([id number]), copy editor JOSEMANUEL NUNN ([id number]) on 08/15/2023 7:43:31 AM Referred By: MARY Confirmed By:CLEMENTE SMITH MD 08/15/23 0743 Date Narayan Smith MD CC: Dr. Jose G Zavala MD; Dr. Abhay Monroe MD Signed Normal [facility] Absolute lymphocyte countOrd ered By: Abhay Monroe on 08-05-2023 Lymphocytes Auto (Unsp spec) [#/Vol] 1.03 10*3/uL 0.83-4.51 [facility] Amorphous sediment detection in urine sediment by light microscopyOrdered By: Abhay Monroe on 08-05-2023 Amorphous sediment LM Ql (Urine sed) 1+ [facility] Basophil percentageOrdered B y: Abhay Monroe on 08-05-2023 Basophil percentage 0 SEEN /hpf 0-5 [facility] Basophils/100 WBC (Bld) 0.2 % 0-1 [facility] Bilirubin [Mass/Vol] 0.20 mg/dL 0.20-1.00 [facility] Comment on above: For patients on eltr ombopag therapy, use of Dimension [place] TBIL is not recommended. Chloride [Moles/Vol] 108 mmol/L 98-107 [facility] Eosinophils/100 WBC (Bld) 0.5 % 0-5 [facility] Glucose [Mass/Vol] 97 mg/dL 74-106 [facility] Neutrophils (Bld) [#/Vol] 4.4 10*3/uL 2.0-7.7 [facility] Neutrophils/100 WBC (Bld) 74.2 % 47-70 [facility] Potassium [Moles/Vol] 4.2 mmol/L 3.5-5.1 [facility] Comment on above: Slight Hemolysis, Re sult may be falsely increased. Protein [Mass/Vol] 6.5 g/dL 6.4-8.2 [facility] Sodium [Moles/Vol] 137 mmol/L 136-145 [facility] WBC (Bld) [#/Vol] 5.9 10*3/uL 4.4-11.0 [facility] Bilirubin Test strip Ql (U)O rdered By: Abhay Monroe on 08-05-2023 Bilirubin Ql (U) Negative Negative [facility] Blood erythrocytes count (nu mber/volume)Ordered By: Abhay Monroe on 08-05-2023 RBC (Bld) [#/Vol] 4.11 10*6/uL 4.2-5.4 [facility] Blood hemoglobin measurement (mass/volume)Ordered By: Abhay Monroe on 08-05-2023 Hemoglobin (Bld) [Mass/Vol] 11.6 g/dL 12.0-15.0 [facility] Blood lymphocytes/100 leukoc ytesOrdered By: Abhay Monroe on 08-05-2023 Lymphocytes/100 WBC (Bld) 17.5 % 19-41 [facility] Blood monocytes/100 leukocyt esOrdered By: Abhay Monroe on 08-05-2023 Monocytes/100 WBC (Bld) 6.8 % 0-10 [facility] Blood platelet mean volumeOr dered By: Abhay Monroe on 08-05-2023 Platelet mean volume (Bld) [Entitic vol] 11.2 fL 6.2-12.0 [facility] CBC W/Diff, Automatedon 11-0 Absolute Lymph 1.03 X10 3/uL Normal 0.83-4.51 [facility] Comment on above: Performed By: #### L 100.0100, L501.5200, L500.4050 #### [facility] [address] [place], [address] Absolute Neut 4.4 X10 3/uL Normal 2.0-7.7 [facility] Comment on above: Performed By: #### L 100.0100, L501.5200, L500.4050 #### [facility] [address] [place], [address] Basophils/100 WBC (Bld) 0.2 % Normal 0-1 [facility] Comment on above: Performed By: #### L 100.0100, L501.5200, L500.4050 #### [facility] [address] [place], [address] Eosinophils/100 WBC (Bld) 0.5 % Normal 0-5 [facility] Comment on above: Performed By: #### L 100.0100, L501.5200, L500.4050 #### [facility] [address] [place], [address] Erythrocyte distribution width (RBC) [Ratio] 14.1 % Normal 11.6-14.6 [facility] Comment on above: Performed By: #### L 100.0100, L501.5200, L500.4050 #### [facility] [address] [place], [address] Hematocrit (Bld) [Volume fraction] 37.3 % Normal 37-47 [facility] Comment on above: Performed By: #### L 100.0100, L501.5200, L500.4050 #### [facility] [address] [place], [address] Hemoglobin (Bld) [Mass/Vol] 11.6 g/dL Low 12.0-15.0 [facility] Comment on above: Performed By: #### L 100.0100, L501.5200, L500.4050 #### [facility] [address] [place], [address] IG% 0.800 Normal 0.0-0.9 [facility] Comment on above: Result Comment: IG% - Immature Granulocytes (promyelocytes, myelocytes and metamyelocytes) > 1% indicates that a LEFT SHIFT is Present. Performed By: #### L 100.0100, L501.5200, L500.4050 #### [facility] [address] [place], [address] Lymphocytes/100 WBC (Bld) 17.5 % Low 19-41 [facility] Comment on above: Performed By: #### L 100.0100, L501.5200, L500.4050 #### [facility] [address] [place], [address] MCH (RBC) [Entitic mass] 28.2 pg Normal 27.0-32.0 [facility] Comment on above: Performed By: #### L 100.0100, L501.5200, L500.4050 #### [facility] [address] [place], [address] MCHC (RBC) [Mass/Vol] 31.1 g/dL Low 32-36 [facility] Comment on above: Performed By: #### L 100.0100, L501.5200, L500.4050 #### [facility] [address] [place], [address] MCV (RBC) [Entitic vol] 90.8 fL Normal 81-99 [facility] Comment on above: Performed By: #### L 100.0100, L501.5200, L500.4050 #### [facility] [address] [place], [address] Monocytes/100 WBC (Bld) 6.8 % Normal 0-10 [facility] Comment on above: Performed By: #### L 100.0100, L501.5200, L500.4050 #### [facility] [address] [place], [address] Neutrophils/100 WBC (Bld) 74.2 % High 47-70 [facility] Comment on above: Performed By: #### L 100.0100, L501.5200, L500.4050 #### [facility] [address] [place], [address] Nucleated RBC (Bld) [#/Vol] 0 10*3/uL Normal 0-5 [facility] Comment on above: Performed By: #### L 100.0100, L501.5200, L500.4050 #### [facility] [address] [place], [address] Platelet mean volume (Bld) [Entitic vol] 11.2 fL Normal 6.2-12.0 [facility] Comment on above: Performed By: #### L 100.0100, L501.5200, L500.4050 #### [facility] [address] [place], [address] Platelets (Bld) [#/Vol] 152 10*3/uL Normal 150-450 [facility] Comment on above: Performed By: #### L 100.0100, L501.5200, L500.4050 #### [facility] [address] [place], [address] RBC (Bld) [#/Vol] 4.11 10*6/uL Low 4.2-5.4 [facility] Comment on above: Performed By: #### L 100.0100, L501.5200, L500.4050 #### [facility] [address] [place], [address] RDW SD 46.6 fl High 35.1-43.9 [facility] Comment on above: Performed By: #### L 100.0100, L501.5200, L500.4050 #### [facility] [address] [place], [address] WBC (Bld) [#/Vol] 5.9 10*3/uL Normal 4.4-11.0 [facility] Comment on above: Performed By: #### L 100.0100, L501.5200, L500.4050 #### [facility] [address] [place], [address] Comprehensive Metabolic Prof brian 08-05-2023 Albumin [Mass/Vol] 2.9 g/dL Low 3.2-5.0 [facility] Comment on above: Performed By: #### L 100.0100, L501.5200, L500.4050 #### [facility] [address] [place], [address] Albumin/Globulin [Mass ratio] 0.8 {ratio} Low 0.9-2.4 [facility] Comment on above: Performed By: #### L 100.0100, L501.5200, L500.4050 #### [facility] [address] [place], [address] ALK P 41 U/L Low 45-117 [facility] Comment on above: Performed By: #### L 100.0100, L501.5200, L500.4050 #### [facility] [address] [place], [address] ALT [Catalytic activity/Vol] 21 U/L Normal 13-56 [facility] Comment on above: Performed By: #### L 100.0100, L501.5200, L500.4050 #### [facility] [address] [place], [address] AST [Catalytic activity/Vol] 19 U/L Normal 15-37 [facility] Comment on above: Result Comment: Slig ht Hemolysis, Result may be falsely increased. Performed By: #### L 100.0100, L501.5200, L500.4050 #### [facility] [address] [place], [address] Bilirubin [Mass/Vol] 0.20 mg/dL Normal 0.20-1.00 [facility] Comment on above: Result Comment: For patients on eltrombopag therapy, use of Dimension [place] TBIL is not recommended. Performed By: #### L 100.0100, L501.5200, L500.4050 #### [facility] [address] [place], [address] BUN/CRE 15.0 RATIO Normal 10-20 [facility] Comment on above: Performed By: #### L 100.0100, L501.5200, L500.4050 #### [facility] [address] [place], [address] CA,Total 8.5 mg/dL Normal 8.5-10.1 [facility] Comment on above: Performed By: #### L 100.0100, L501.5200, L500.4050 #### [facility] [address] [place], [address] Chloride [Moles/Vol] 108 mmol/L High 98-107 [facility] Comment on above: Performed By: #### L 100.0100, L501.5200, L500.4050 #### [facility] [address] [place], [address] CO2 [Moles/Vol] 24.0 mmol/L Normal 21.0-32.0 [facility] Comment on above: Performed By: #### L 100.0100, L501.5200, L500.4050 #### [facility] [address] [place], [address] Creatinine [Mass/Vol] 0.67 mg/dL Normal 0.55-1.02 [facility] Comment on above: Result Comment: The validity of the calculated GFR GFRAA in patients over 70 years has not been determined. Clinical correlation is essential. Performed By: #### L 100.0100, L501.5200, L500.4050 #### [facility] [address] [place], [address] ECRCL 112.49 ml/min Normal [facility] Comment on above: Performed By: #### L 100.0100, L501.5200, L500.4050 #### [facility] [address] [place], [address] EST GFR - AA 135 mL/min Normal >60 [facility] Comment on above: Result Comment: Afri can [place] GFR Calc Performed By: #### L 100.0100, L501.5200, L500.4050 #### [facility] [address] [place], [address] GAP 5 Normal 5-15 [facility] Comment on above: Performed By: #### L 100.0100, L501.5200, L500.4050 #### [facility] [address] [place], [address] GFR/1.73 sq M.predicted among non-blacks MDRD (S/P/Bld) [Vol rate/Area] 111 mL/min/{1.73_m2} Normal >60 [facility] Comment on above: Result Comment: Non- GFR Calc Performed By: #### L 100.0100, L501.5200, L500.4050 #### [facility] [address] [place], [address] Globulin (S) [Mass/Vol] 3.6 g/dL Normal 2.2-4.2 [facility] Comment on above: Performed By: #### L 100.0100, L501.5200, L500.4050 #### [facility] [address] [place], [address] Glucose [Mass/Vol] 97 mg/dL Normal 74-106 [facility] Comment on above: Performed By: #### L 100.0100, L501.5200, L500.4050 #### [facility] [address] [place], [address] Potassium [Moles/Vol] 4.2 mmol/L Normal 3.5-5.1 [facility] Comment on above: Result Comment: Slig ht Hemolysis, Result may be falsely increased. Performed By: #### L 100.0100, L501.5200, L500.4050 #### [facility] [address] [place], [address] Sodium [Moles/Vol] 137 mmol/L Normal 136-145 [facility] Comment on above: Performed By: #### L 100.0100, L501.5200, L500.4050 #### [facility] [address] [place], [address] T PROT 6.5 g/dL Normal 6.4-8.2 [facility] Comment on above: Performed By: #### L 100.0100, L501.5200, L500.4050 #### [facility] [address] [place], [address] Urea nitrogen [Mass/Vol] 10 mg/dL Normal 7-18 [facility] Comment on above: Performed By: #### L 100.0100, L501.5200, L500.4050 #### [facility] [address] [place] [place], [address] Determination of erythrocyte mean corpuscular volume (MCV)Ordered By: Abhay Monroe on 08-05-2023 MCV (RBC) [Entitic vol] 90.8 fL 81-99 [facility] Emergency Department Summary on 08-05-2023 Emergency Department Summary [facility] Medical Records Department [address] [place] [address] Emergency Department Summary 08/05/23 MR#: [id number] Acct: [id number] Name: BLANCA CHASE Rep #: [id number] : 1995 27 From: Abhay Monroe MD PCP: Dr. Jose G Zavala MD Status:REG ER Location: ED HPI History of Present Illness Chief Complaint: Syncope Informant: patient Narrative Narrative: Please see prior chart of the same date. The chart was closed prematurely this is continuation with further data. [facility] Medical History Anxiety Herpes genitalis Home Medications vit no.95-ferrous fumarate 28 mg-folic acid 800 mcg tablet 1 ea PO DAILY Check with primary doctor 11/24/19 [History Last Taken 01/15/21] fluticasone 250 mcg-salmeterol 50 mcg/dose blistr powdr for inhalation 1 puff IH BID 01/14/21 [History Last Taken 01/15/21] Allergy/AdvReac Type Severity Reaction Status Date / Time No Known Allergies Allergy Verified 01/15/21 11:45 Surgical History S/P appendectomy Social History Smoking Status: Former smoker EXAM Physical Exam Const Vital Signs: 08/05/23 07:29 08/05/23 07:44 Temperature 98 F Temperature Source Oral Pulse Rate 100 Respiratory Rate 14 Respiratory Effort Normal Non-Labored Respiratory Pattern Normal Blood Pressure 118/89 H Blood Pressure Mean 98 Pulse Ox 100 Oxygen Delivery Method Room Air MDM MDM MDM Narrative Medical decision making narrative: Patient CBC is normal other than minimal anemia at 11.6 which is common during . White count platelets are normal. Patient's electrolytes show no marked abnormalities. Minimal elevation of chloride. Renal function and glucose are normal. Patient's liver function test are normal. Patient's magnesium is normal. This was checked as she is on supplementation per her OB. Urine was cloudy. But there are no red cells or white cells. No bacteria. I do not think this represents infection especially since she has no symptoms. Patient is rechecked. Heart rate is 83. This is after she was given fluids. She feels better. Her saturations are still 100% on room air. I do not think her symptoms justify a CTA looking for pulmonary embolus. She has never had chest pain. She states she gets a little tired and mild winded late in the afternoon after working all day but does not actually feel short of breath. No leg swelling or pain and no history or risk factors other than her . Lab Data Attestation: I reviewed the patient's lab results. Labs: Laboratory Results - last 24 hr 08/05/23 08/05/23 07:54 08:12 WBC 5.9 RBC 4.11 L Hgb 11.6 L Hct 37.3 MCV 90.8 MCH 28.2 MCHC 31.1 L RDW Std Deviation 46.6 H RDW Coeff of Samara 14.1 Plt Count 152 MPV 11.2 Immature Gran % (Auto) 0.800 Neut % (Auto) 74.2 H Lymph % (Auto) 17.5 L Ward % (Auto) 6.8 Eos % (Auto) 0.5 Baso % (Auto) 0.2 Absolute Neuts (auto) 4.4 Absolute Lymphs (auto) 1.03 Nucleated RBC % 0 Sodium 137 Potassium 4.2 Chloride 108 H Carbon Dioxide 24.0 Anion Gap 5 BUN 10 Creatinine 0.67 Estim Creat Clear Calc 112.49 Est GFR (MDRD) Af Amer 135 Est GFR (MDRD) Non-Af 111 BUN/Creatinine Ratio 15.0 Glucose 97 Calcium 8.5 Magnesium 1.8 Total Bilirubin 0.20 AST 19 ALT 21 Alkaline Phosphatase 41 L Total Protein 6.5 Albumin 2.9 L Globulin 3.6 Albumin/Globulin Ratio 0.8 L Urine Color Yellow Urine Clarity Cloudy Urine pH 8.0 Ur Specific [place] 1.015 Urine Protein 15 H Urine Glucose (UA) Normal Urine Ketones Negative Urine Occult Blood Negative Urine Nitrite Negative Urine Bilirubin Negative Urine Urobilinogen Normal Ur Leukocyte Esterase Negative Urine RBC 0 SEEN Urine WBC 0 SEEN Ur Squamous Epith Cells 0-5 SEEN Amorphous Sediment 1+ Urine Bacteria 0 SEEN Urine Mucus 0 SEEN EKG Initial EKG: Comments: My independent interpretation of the patient's EKG shows a normal sinus rhythm with overall rate of 85. No ectopy. No acute ST elevation or depression. No S1Q3T3. [place] interval, QRS duration and QTc are normal. Discharge Plan Triage Chief Complaint: Syncope ED Provider: Abhay Monroe Dx/Rx/DC Orders Clinical Impression: Near syncope, Second trimester Instructions: ED Fainting, Uncertain Cause Prescriptions: No Action PNV cmb#95-ferrous fumarate-FA 1 EACH tablet 1 ea PO DAILY fluticasone propion-salmeterol 1 EACH blister with device 1 puff IH BID Primary Care Provider (more content not included)... Normal [facility] Emergency Department Summary [facility] Medical Records Department [address] [place] [address] Emergency Department Summary 08/05/23 MR#: [id number] Acct: [id number] Name: BLANCA CHASE Rep #: [id number] : 1995 27 From: Abhay Monroe MD PCP: Dr. Jose G Zavala MD Status:REG ER Location: ED ADDENDUM by Dr. Abhay Monroe MD on 08/05/23 at 0851 Please see continuation dictation. This chart was signed prior to completion. Further information available on follow on chart. 08/05/23 0851 Cosigner Signature (if applicable): cc: Dr. Jose G Zavala MD * Signed HPI History of Present Illness Chief Complaint: Syncope Informant: patient Narrative Narrative: Patient presents after a near syncopal episode at work. Patient states for the last week or 2 she has been having episodes where she feels slightly dizzy lightheaded like she might pass out. Today's was a little bit worse than normal. She states she starts feeling flushed and the vision going and then she has to lay down to avoid passing out. She did this and then a few minutes later she felt fine. She did not have chest pain or dyspnea with this. No abdominal pain. In between these episodes she feels fine. She has no travel surgery immobilization personal family history of DVT or PE. Current medicines are vitamin D, aspirin daily and multivitamin/prenat al vitamin. Her OB physician put her on aspirin due to a history of preeclampsia with prior delivery. She states she is with 1 miscarriage. She has not been having bleeding or dysuria. No fevers chills. No vomiting or diarrhea. She does have a history of having lightheaded episodes but those are more associated with vertigo and the spinning sensation and she did not have that with these episodes. She states at night she sometimes gets a little winded and tired but other than that she has never been short of breath. She has never had chest pain. She has no leg swelling. She saw her primary physician about this and her OBGYN physician about this. Some blood work was done recently. [facility] Medical History Anxiety Herpes genitalis Home Medications vit no.95-ferrous fumarate 28 mg-folic acid 800 mcg tablet 1 ea PO DAILY Check with primary doctor 11/24/19 [History Last Taken 01/15/21] fluticasone 250 mcg-salmeterol 50 mcg/dose blistr powdr for inhalation 1 puff IH BID 01/14/21 [History Last Taken 01/15/21] Allergy/AdvReac Type Severity Reaction Status Date / Time No Known Allergies Allergy Verified 01/15/21 11:45 Surgical History S/P appendectomy Social History Smoking Status: Former smoker ROS ROS ED Constitutional Constitutional ED: Denies chills, fever(s), subjective, sweats or weight loss Eyes Eyes: Denies change in vision ENT ENT ED: Denies rhinorrhea or sore throat Cardiovascular Cardiovascular: Denies chest pain or palpitations Respiratory/Chest Respiratory/Chest: Denies cough or sputum Gastrointestinal Gastrointestinal: Denies abdominal pain, nausea or vomiting Genitourinary Genitourinary ED: Denies dysuria or hematuria Musculoskeletal Musculoskeletal: Denies arthralgias, back pain or myalgias Integumentary Denies rash Neurologic Neurologic: Denies headache(s), paresthesias or weakness Endocrine Endocrinology: Denies polyuria Hematologic/Lymphat ic Hematologic/Lymphat ic: Denies easy bleeding, easy bruising or lymphadenopathy Allergic/Immunologi c Allergic/Immunologi c ED: Denies urticaria EXAM Physical Exam Narrative Exam Narrative: CONSTITUTIONAL: Patient is nontoxic in appearance. The patient looks comfortable. Work of breathing looks normal. HEENT: No notable trauma. Mucous membranes minimally dry. However she is drinking fluids now. EYES: No conjunctival injection. No proptosis. NECK:No JVD. No stridor. CARDIOVASCULAR: Regular rate. Regular rhythm. No notable murmur. No JVD. Her heart rates about 90 or slightly less at this time. No muffled tones. Peripheral pulses are normal. RESPIRATORY: No respiratory distress. Breathing is unlabored. No wheezes. No rhonchi. No rales. No pain with a deep breath. No chest wall tenderness. Saturations are normal at 100% on room air showing no hypoxia. GASTROINTESTINAL: Gravid with uterus just near umbilicus consistent with dates. No tenderness at all. She has not had nausea vomiting or diarrhea recently. She feels she has been eating and dri nking normally. GENITOURINARY: No CVA tenderness. MUSCULOSKELETAL: Atraumatic. No peripheral edema. No cord. No tenderness along the deep venous system. No asymmetry. No distended veins. Both legs are thin and normal. NEUROLOGICAL: Patient is a (more content not included)... Normal [facility] Hematocrit Auto (Bld) [Volum e fraction]Ordered By: Abhay Monroe on 08-05-2023 Hematocrit (Bld) [Volume fraction] 37.3 % 37-47 [facility] Ketones Test strip Ql (U)Ord ered By: Abhay Monroe on 08-05-2023 Ketones Ql (U) Negative Negative [facility] - Chemistry and C hemistry - challengeOrdered By: Abhay Monroe on 08-05-2023 ALP [Catalytic activity/Vol] 41 U/L 45-117 [facility] ALT [Catalytic activity/Vol] 21 U/L 13-56 [facility] CO2 [Moles/Vol] 24.0 mmol/L 21.0-32.0 [facility] Globulin (S) [Mass/Vol] 3.6 g/dL 2.2-4.2 [facility] Magnesium [Mass/Vol] 1.8 mg/dL 1.6-2.6 [facility] Comment on above: Slight Hemolysis, Re sult may be falsely increased. Urea nitrogen/Creatinine [Mass ratio] 15.0 mg/mg 10-20 [facility] - Hematology and Cell countsOrdered By: Abhay Monroe on 08-05-2023 Erythrocyte distribution width (RBC) [Entitic vol] 46.6 fL 35.1-43.9 [facility] Erythrocyte distribution width (RBC) [Ratio] 14.1 % 11.6-14.6 [facility] Immature granulocytes/100 WBC (Bld) 0.800 % 0.0-0.9 [facility] Comment on above: IG% - Immature Granu locytes (promyelocytes, myelocytes and metamyelocytes) > 1% indicates that a LEFT SHIFT is Present. MCH (RBC) [Entitic mass] 28.2 pg 27.0-32.0 [facility] Nucleated RBC/100 WBC (Bld) [Ratio] 0 % 0-5 [facility] MCHC Auto (RBC) [Mass/Vol]Or dered By: Abhay Monroe on 08-05-2023 MCHC (RBC) [Mass/Vol] 31.1 g/dL 32-36 [facility] Magnesiumon 08-05-2023 Magnesium [Mass/Vol] 1.8 mg/dL Normal 1.6-2.6 [facility] Comment on above: Result Comment: Slig ht Hemolysis, Result may be falsely increased. Performed By: #### L 100.0100, L501.5200, L500.4050 #### [facility] [address] [place], [place], [id number] Mucus LM Ql (Urine sed)Order ed By: Abhay Monroe on 08-05-2023 Mucus Ql (Urine sed) 0 SEEN /hpf [facility] Nitrite Test strip Ql (U)Ord ered By: Abhay Monroe on 08-05-2023 Nitrite Ql (U) Negative Negative [facility] No Panel InformationOrdered By: Abhay Monroe on 08-05-2023 Estimated Creatinine Clearance Calc 112.49 ml/min [facility] Estimated GFR (MDRD) Amer 135 mL/min >60 [facility] Comment on above: GFR Calc Estimated GFR (MDRD) Non-Af Amer 111 mL/min >60 [facility] Comment on above: Non- GFR Calc Platelets bldOrdered By: Brenda Monroe on 08-05-2023 Platelets (Bld) [#/Vol] 152 10*3/uL 150-450 [facility] Protein Test strip Ql (U)Ord ered By: Abhay Monroe on 08-05-2023 Protein Ql (U) 15 mg/dl Negative [facility] Serum or plasma albumin clarence urement (mass/volume)Ordered By: Abhay Monroe on 08-05-2023 Albumin [Mass/Vol] 2.9 g/dL 3.2-5.0 [facility] Serum or plasma albumin/glob ulin mass ratioOrdered By: Abhay Monroe on 08-05-2023 Albumin/Globulin [Mass ratio] 0.8 {ratio} 0.9-2.4 [facility] Serum or plasma calcium clarence urement (mass/volume)Ordered By: Abhay Monroe on 08-05-2023 Calcium [Mass/Vol] 8.5 mg/dL 8.5-10.1 [facility] Serum or plasma creatinine m easurement (mass/volume)Ordered By: Abhay Monroe on 08-05-2023 Creatinine [Mass/Vol] 0.67 mg/dL 0.55-1.02 [facility] Comment on above: The validity of the calculated GFR & GFRAA in patients over 70 years has not been determined. Clinical correlation is essential. Serum or plasma urea nitroge n measurement (mass/volume)Ordered By: Abhay Monroe on 08-05-2023 Urea nitrogen [Mass/Vol] 10 mg/dL 7-18 [facility] Squamous epithelial cells de tection in urine sediment by light microscopyOrdered By: Abhay Monroe on 08-05-2023 Epithelial cells.squamous LM Ql (Urine sed) 0-5 SEEN /hpf 5-10 [facility] Thin prep Papanicolaou smear with manual screeningOrdered By: Abhay Monroe on 08-05-2023 Thin prep Papanicolaou smear with manual screening 19 U/L 15-37 [facility] Comment on above: Slight Hemolysis, Re sult may be falsely increased. Thin prep Papanicolaou smear with manual screening 5 5-15 [facility] Urinalysis, Completeon 08-05 AMORPHOUS 1+ Normal [facility] Comment on above: Order Comment: Comme nts: Age > 13 Weeks torsten chase [id number] Performed By: #### B iLyah TELLO(Hollis) IG #### [facility] [address] [place], [place], [address] EPI,SQUAMOUS 0-5 SEEN Normal 5-10 [facility] Comment on above: Order Comment: Comme nts: Age > 13 Weeks torsten chase [id number] Performed By: #### B Liyah TELLO(D) IG #### [facility] [address] [place], [address] BACTERIA 0 SEEN Normal None Seen [facility] Comment on above: Order Comment: Comme nts: Age > 13 Weeks alexandria chaserl [id number] Performed By: #### B Liyah TELLO(D) IG #### [facility] [address] [place], [address] Mucus Ql (Urine sed) 0 SEEN Normal [facility] Comment on above: Order Comment: Comme nts: Age > 13 Weeks alexandria chaserl [id number] Performed By: #### B Liyah TELLO(D) IG #### [facility] [address] [place], [address] RBC 0 SEEN Normal 0-5 [facility] Comment on above: Order Comment: Comme nts: Age > 13 Weeks blanca chasegirl [id number] Performed By: #### B Liyah TELLO(D) IG #### [facility] [address] [place], [address] WBC 0 SEEN Normal 0-5 [facility] Comment on above: Order Comment: Comme nts: Age > 13 Weeks alexandria chaserl [id number] Performed By: #### B Liyah TELLO(D) IG #### [facility] [address] [place], [address] Urine blood detectionOrdered By: Abhay Monroe on 08-05-2023 RBC Ql (U) Negative Negative [facility] RBC Ql (U) 0 SEEN /hpf 0-5 [facility] Urine clarityOrdered By: Brenda Monroe on 08-05-2023 Clarity (U) Cloudy Clear [facility] Urine color determinationOrd ered By: Abhay Monroe on 08-05-2023 Color (U) Yellow Yellow [facility] Urine glucose detectionOrder ed By: Abhay Monroe on 08-05-2023 Glucose Ql (U) Normal mg/dl Normal [facility] Urine leukocyte esterase det ection by dipstickOrdered By: Abhay Monroe on 08-05-2023 Leukocyte esterase Test strip Ql (U) Negative Negative [facility] Urine pHOrdered By: Abhay weber on 08-05-2023 pH (U) 8.0 [pH] 5.0 - 8.0 [facility] Urine sediment bacteria coun t by microscopy (number/high power field)Ordered By: Abhay Monroe on 08-05-2023 Bacteria LM.HPF (Urine sed) [#/Area] 0 /[HPF] None Seen [facility] Urine specific gravity measu rementOrdered By: Abhay Monroe on 08-05-2023 Specific gravity (U) [Rel density] 1.015 1.002-1.030 [facility] Urobilinogen Auto test strip Ql (U)Ordered By: Abhay Monroe on 08-05-2023 Urobilinogen Ql (U) Normal mg/dl Normal [facility] OBSTETRIC ULTRASOUND WHIon 1 [facility] URINE OB DIP B/Oon 3 Glucose Ql (U) Negative Neg mg/dL [facility] Protein.monoclonal (U) [Mass/Vol] Negative Neg mg/dL [facility] URINE OB DIP B/Oon 3 Glucose Ql (U) Negative Neg mg/dL [facility] Protein.monoclonal (U) [Mass/Vol] Negative Neg mg/dL [facility] Hemoglobin F Kleihauer-Betke method Ql (Bld)on 06-08-2023 % Cells Seen 0.00 % cells present <=1.00 % cells present [facility] Hemoglobin F (Bld) [Mass fraction] 0 mL of blood present <=0 mL of blood present [facility] NUCHAL TRANSLUCENCY WHIon [facility] POC MANAGER ENGAGEMENT ULTRASOUNDon 05-06-[address] [facility] [address] BRAIN WO/W IVCONon 2022 [facility] CBC W Auto Differential pane l (Bld)on 01-28-2023 Basophils (Bld) [#/Vol] <0.11 k/uL [facility]100 WBC (Bld) 0.4 % [facility] Differential cell count method Nom (Bld) Auto [facility] Eosinophils (Bld) [#/Vol] 0.09 10*3/uL <0.46 k/uL [facility] Eosinophils/100 WBC (Bld) 2.0 % [facility] Erythrocyte distribution width (RBC) [Ratio] 13.3 % 11.5 - 15.0 % [facility] Hematocrit (Bld) [Volume fraction] 43.3 % 36.0 - 46.0 % [facility] Hemoglobin (Bld) [Mass/Vol] 13.8 g/dL 11.5 - 15.5 g/dL [facility] Immature granulocytes (Bld) [#/Vol] <0.10 k/uL [facility] Immature granulocytes/100 WBC (Bld) 0.2 % [facility] Lymphocytes (Bld) [#/Vol] 2.10 10*3/uL 1.00 - 4.00 k/uL [facility] Lymphocytes/100 WBC (Bld) 46.8 % [facility] MCH (RBC) [Entitic mass] 28.5 pg 26.0 - 34.0 pg [facility] MCHC (RBC) [Mass/Vol] 31.9 g/dL 30.5 - 36.0 g/dL [facility] MCV (RBC) [Entitic vol] 89.3 fL 80.0 - 100.0 fL [facility] Monocytes (Bld) [#/Vol] 0.29 10*3/uL <0.87 k/uL [facility] Monocytes/100 WBC (Bld) 6.5 % [facility] Neutrophils (Bld) [#/Vol] 1.98 10*3/uL 1.45 - 7.50 k/uL [facility] Neutrophils/100 WBC (Bld) 44.1 % [facility] Nucleated RBC (Bld) [#/Vol] <0.01 k/uL [facility] Nucleated RBC/100 WBC (Bld) [Ratio] 0.0 /100 WBC [facility] Platelet mean volume (Bld) [Entitic vol] 11.5 fL 9.0 - 12.7 fL [facility] Platelets (Bld) [#/Vol] 204 10*3/uL 150 - 400 k /uL [facility] RBC (Bld) [#/Vol] 4.85 10*6/uL 3.90 - 5.2 0 m/uL [facility] WBC (Bld) [#/Vol] 4.49 10*3/uL 3.70 - 11. 00 k/uL [facility] US BREAST LTD RTon 12-07 [facility] US BREAST LTD RT * * *Final Report* * * DATE OF EXAM: Dec 07 2022 4:22PM LDW [id number] - [facility] US BREAST LTD RT / PROCEDURE REASON: acute mastitis * * * * Physician Interpretation * * * * #[id number] - [facility] US BREAST LTD RT LIMITED ULTRASOUND OF RIGHT BREAST: 12/07/2022 HISTORY: Acute Mastitis/ Patient presents with right breast pain and erythema. RESULT: No prior exams were available for comparison. Real-time ultrasound of the right breast was performed. Flower scale images of the real-time examination were reviewed. A wide region of the right breast was surveyed in the region of pain and erythema including the upper outer quadrant and subareolar region. Normal-appearing fibroglandular tissue is seen. There is no evidence of underlying fluid collection or abscess. No suspicious findings. IMPRESSION: NEGATIVE No evidence of underlying abscess. Clinical follow-up is recommended. There is no sonographic evidence of malignancy. Follow-up with ACR/NCCN guidelines. Christy wu/gustavo:12/07/2022 17:03:08 Telecommunications Analyst(s): US Jamil, [facility] Ultrasound BI-RADS: 1 Negative Multiple national specialty organizations have released breast cancer screening guidelines for women at average risk for developing breast cancer - guidelines that are based on both evidence and opinion, yet differ on when to start and how often to screen for breast cancer. With representation from Breast Imaging, Internal Medicine, Women's Health, Family Medicine, and Medical/Surgical Oncology, the [facility] has carefully reviewed the data and reached the following consensus: 1) All women should engage in shared decision-making with their providers to decide when to start and how often to screen; 2) All women should have the opportunity to start screening mammography at age 40; 3) For women ages 45-55, we recommend annual screening mammograms; 4) For women ages 55 and over, we support both the transition from an annual to a biennial interval if this aligns more with patient's values and preferences, or continuation with annual screening; 5) All women should discuss with their providers when to stop screening mammograms. Grocery Buyer: Gustavo Transcribe Date/Time: Dec 07 2022 4:02P Dictated by : CHRISTY ADAMS MD This examination was interpreted and the report reviewed and electronically signed by: CHRISTY ADAMS MD on Dec 07 2022 5:03PM EST [id number] Normal [facility] ACTIVATED PTTon 01-12-2022 aPTT Coag (PPP) [Time] 30.2 s 23.0 - 32.4 sec [facility] CBC panel Auto (Bld)on 01-12 Erythrocyte distribution width (RBC) [Ratio] 12.8 % 11.5 - 15.0 % [facility] Hematocrit (Bld) [Volume fraction] 44.8 % 36.0 - 46.0 % [facility] Hemoglobin (Bld) [Mass/Vol] 14.4 g/dL 11.5 - 15.5 g/dL [facility] MCH (RBC) [Entitic mass] 28.3 pg 26.0 - 34.0 pg [facility] MCHC (RBC) [Mass/Vol] 32.1 g/dL 30.5 - 36.0 g/dL [facility] MCV (RBC) [Entitic vol] 88.2 fL 80.0 - 100.0 fL [facility] Nucleated RBC (Bld) [#/Vol] 10*3/uL <0.01 k/uL [facility] Platelet mean volume (Bld) [Entitic vol] 10.8 fL 9.0 - 12.7 fL [facility] Platelets (Bld) [#/Vol] 196 10*3/uL 150 - 400 k /uL [facility] RBC (Bld) [#/Vol] 5.08 10*6/uL 3.90 - 5.2 0 m/uL [facility] WBC (Bld) [#/Vol] 4.48 10*3/uL 3.70 - 11. 00 k/uL [facility] PT panel Coag (PPP)on 2021 INR Coag (PPP) [Relative time] 1.1 {INR} 0.9 - 1.3 [facility] PT Coag (PPP) [Time] 11.7 s 9.7 - 13.0 sec [facility] HCG,Totalon 11-02-2018 HCG Qn m[IU]/mL Normal [facility] Comment on above: Result Comment: Male < or = 1 Non- female 1-3 Gestational Age: 0.2-1 Week 5 - 50 1-2 Weeks 50 - 500 2-3 Weeks 100 - 5000 3-4 Weeks 500 - 93971 4-5 weeks 1000 - 58241 5-6 weeks 41133 - 100,000 6-8 weeks 53841 - 200,000 2-3 months 06494 - 100,000 Performed By: #### H CG #### [facility] [address] [place], [place] [address] Prolactinon 11-02-2018 Protein mass conc 10.4 ng/mL Normal [facility] Comment on above: Result Comment: Nonp regnant 2.8 to 29.2 9.7 to 208.5 Postmenopausal 1.8 to 20.3 Males: 2.1 to 17.7 Performed By: #### R APTR #### [place] [address] TSH Reflexon 11-02-2018 Thyrotropin Qn 1.630 uIU/mL Normal 0.358-3.740 [facility] Comment on above: Result Comment: Free T4 reflexed if TSH is less than or greater than the reference range. Performed By: #### T SHR #### [place] [address] Herpes simplex IgMon 018 Herpes simplex IgM SEE BELOW Normal [facility] Comment on above: Result Comment: HSV IgM Qualitative Positive AB NEGAT IgM antibodies specific to HSV-1 or HSV-2 were detected. It is not possible to distinguish between HSV-1 and HSV-2 with this test system. Positive values indicate a primary or reactivated infection with HSV-1 or HSV-2. Herpes Simplex IgM 1.53 H 0-0.90 OD Ratio INDEX VALUES/OD RATIOS ARE INTERPRETED FOLLOWS: NEGATIVE SPECIMENS <=0.90 EQUIVOCAL SPECIMENS 0.91 TO 1.09 POSITIVE SPECIMENS >=1.10 Performing Laboratory: [place] [address] [place] [address] Performed By: #### H SVMX #### [place] [id number] HIV Screenon 05-11-2018 HIV Screen Negative Normal Nonreactive [facility] Comment on above: Performed By: #### 3 HIV #### [address] [place], [place] [address] Hepatitis Acute Panelon HAV Ab IgM Negative Normal Negative [facility] Comment on above: Performed By: #### H EPP #### [facility] [address] [place] [address] HB Core Ab IgM Negative Normal Negative [facility] Comment on above: Performed By: #### H EPP #### [facility] [address] [place] [address] Hepatitis C Ab Negative Normal Negative [facility] Comment on above: Performed By: #### H EPP #### [facility] [address] [place] [address] Hep.B Surface Ag Negative Normal Negative [facility] Comment on above: Performed By: #### H EPP #### [place] [address] RPRon 05-11-2018 Reagin Ab RPR Ql (S) Non-reactive Normal Nonreactive A [facility] Comment on above: Performed By: #### R [place] #### [place] [address] Chlam/GC-DNA Amplifiedon Chlam/GC-DNA Amplified Test performed at [facility] Chlamydia trachomatis DNA NOT DETECTED Neisseria gonorrhoeae DNA NOT DETECTED Reference range NOT DETECTED Method: Strand Displacement Amplification-BD ProbeTec Assay Comment: A negative result does not preclude C.trachomatis or N. gonorrhoeae infection because results are dependent on adequate specimen collection, absence of inhibitors, and sufficient DNA to be detected. Normal [facility] Comment on above: Performed By: #### C TGCA #### [place] [address] Rapid Bact.Vaginosison 05-10 Rapid Bact.Vaginosis see below Normal [facility] Comment on above: Result Comment: Nega tive for the presence of bacterial vaginosis. Performed By: #### R APBV #### [place] [address] Rapid Trichomonas Agon 05-10 Rapid Trichomonas Ag see below Normal [facility] Comment on above: Result Comment: No T richomonas antigen present or the antigen level is below detection limit of the assay (2500 organisms/mL). Performed By: #### R APTR #### [facility] [address] [place] [id number] HCG,Totalon 03-14-2018 HCG Qn m[IU]/mL Normal [facility] Comment on above: Result Comment: Male < or = 1 Non- female 1-3 Gestational Age: 0.2-1 Week 5 - 50 1-2 Weeks 50 - 500 2-3 Weeks 100 - 5000 3-4 Weeks 500 - 63122 4-5 weeks 1000 - 50612 5-6 weeks 81872 - 100,000 6-8 weeks 42482 - 200,000 2-3 months 78491 - 100,000 Performed By: #### H CG #### [facility] [address] [place] [id number] Microbiology: Culture, R/O S trep Ao 05-28-2017 GE use only - for LinkLogic import when terms are not otherwise specified . Invalid Interpretation Code [facility] Work Phone: Office Visit: UC: Pharyngiti son 05-26-2017 Documentation of current medications (procedure) Done Invalid Interpretation Code [facility] Work Phone: Documentation of current medications (procedure) T Invalid Interpretation Code [facility] Work Phone: Fall risk assessment No Invalid Interpretation Code [facility] Work Phone: PPD results in mm 0 mm Invalid Interpretation Code [facility] Work Phone: Tobacco smoking status NHIS Never Invalid Interpretation Code [facility] Work Phone: Tobacco use [facility] Never smoker Invalid Interpretation Code [facility] Phone: [facility] of [facility] (procedure) Done Invalid Interpretation Code [facility] Work Phone: Documentation of current medications (procedure) T Invalid Interpretation Code [facility] Work Phone: Protein mass conc Done [facility] Work Phone: Protein mass conc T [facility] Work Phone: Tobacco smoking status NHIS Never Invalid Interpretation Code [facility] Work Phone: Tobacco smoking status NHIS Never smoker [facility] Work Phone: Tobacco use [facility] Never smoker Invalid Interpretation Code [facility] Work Phone: Office Visit: UC: Possible P regnancyon 01-21-2017 HCG.beta subunit ( test) Ql (U) Negative [facility] Work Phone: Urine, test (choriogonadotropin presence) Negative Invalid Interpretation Code [facility] Work Phone: Vital Signs Date Time Vital Sign Value Performing Clinician Facility 03-08-2025 14:22-0400 Body mass index (BMI) [Ratio] 31.92 kg/m2 Gamaliel Khan APRN.BUS WASHER Work Phone: [facility] 03-08-2025 14:22-0400 Body temperature 97.5 [degF] Gamaliel Khan APRN.[employer] W[employer] Work Phone: [facility] 03-08-2025 14:22-0400 Body weight 87 kg Gamaliel Khan APRN.[employer] W[employer] Work Phone: [facility] 03-08-2025 14:22-0400 Diastolic blood pressure 88 mm[Hg] Gamaliel Khan APRN.[employer] W[employer]ER Work Phone: [facility] 03-08-2025 14:22-0400 Heart rate 87 /min Gamaliel Khan APRN.[employer] W[employer] Work Phone: [facility] 03-08-2025 14:22-0400 Respiratory rate 18 /min Gamaliel Khan APRN.[employer] W[employer]ER Work Phone: [facility] 03-08-2025 14:22-0400 SaO2% (BldA) [Mass fraction] 99 % Gamaliel Khan APRN.[employer] WASHER Work Phone: [facility] 03-08-2025 14:22-0400 Systolic blood pressure 127 mm[Hg] Gamaliel Khan APRN.[employer] WASHER Work Phone: [facility] 03-01-2025 08:41-0400 Body mass index (BMI) [Ratio] 30.62 kg/m2 Luda Combs MD Work Phone: [facility] 03-01-2025 08:41-0400 Body weight 83.46 kg Luda Combs MD Work Phone: [facility] 03-01-2025 08:41-0400 Diastolic blood pressure 72 mm[Hg] Luda Combs MD Work Phone: [facility] 03-01-2025 08:41-0400 Systolic blood pressure 108 mm[Hg] Luda Combs MD Work Phone: [facility] 02-06-2025 08:47-0400 Body mass index (BMI) [Ratio] 30.12 kg/m2 Luda Combs MD Work Phone: [facility] 02-06-2025 08:47-0400 Body weight 82.1 kg Luda Combs MD Work Phone: [facility] 02-06-2025 08:47-0400 Diastolic blood pressure 66 mm[Hg] Luda Combs MD Work Phone: [facility] 02-06-2025 08:47-0400 Systolic blood pressure 118 mm[Hg] Luda Combs MD Work Phone: [facility] 12-23-2024 14:31-0400 Body mass index (BMI) [Ratio] 29.72 kg/m2 Margoth Praisler-Wood [employer] WASHER Work Phone: [facility] 12-23-2024 14:31-0400 Body temperature 98.01 [degF] Margoth Praisler-Wood [employer] AND [employer] MAN.[employer] W[employer]ER Work Phone: [facility] 12-23-2024 14:31-0400 Body weight 81 kg Margoth Praisler-Wood [employer] AND [employer] MAN.[employer] W[employer]ER Work Phone: [facility] 12-23-2024 14:31-0400 Diastolic blood pressure 72 mm[Hg] Margoth Praisler-Wood [employer] AND [employer] MAN.[employer] W[employer]ER Work Phone: [facility] 12-23-2024 14:31-0400 Heart rate 85 /min Margoth Praisler-Wood [employer] W[employer]ER Work Phone: [facility] 12-23-2024 14:31-0400 Respiratory rate 20 /min Margoth Praisler-Wood [employer] AND [employer] MAN.[employer] W[employer]ER Work Phone: [facility] 12-23-2024 14:31-0400 SaO2% (BldA) [Mass fraction] 98 % Margoth Praisler-Wood [employer] AND [employer] MAN.[employer] W[employer]ER Work Phone: [facility] 12-23-2024 14:31-0400 Systolic blood pressure 103 mm[Hg] Margoth Praisler-Wood [employer] AND [employer] MAN.[employer] W[employer]ER Work Phone: [facility] 09-29-2024 13:31-0500 Body mass index (BMI) [Ratio] 30.16 kg/m2 Krislyn Aberegg PA Work Phone: [facility] 09-29-2024 13:31-0500 Body temperature 97.81 [degF] Krislyn Aberegg PA Work Phone: [facility] 09-29-2024 13:31-0500 Body weight 82.2 kg Krislyn Aberegg PA Work Phone: [facility] 09-29-2024 13:31-0500 Diastolic blood pressure 75 mm[Hg] Krislyn Aberegg PA Work Phone: [facility] 09-29-2024 13:31-0500 Heart rate 104 /min Krislyn Aberegg PA Work Phone: [facility] 09-29-2024 13:31-0500 Respiratory rate 16 /min Krislyn Aberegg PA Work Phone: [facility] 09-29-2024 13:31-0500 SaO2% (BldA) [Mass fraction] 98 % Krislyn Aberegg PA Work Phone: [facility] 09-29-2024 13:31-0500 Systolic blood pressure 104 mm[Hg] Omarjona glenroy WEINER Work Phone: [facility] 09-03-2024 18:24-0500 Body mass index (BMI) [Ratio] 30.85 kg/m2 Nilo Mast APRN.BUS WASHER Work Phone: [facility] 09-03-2024 18:24-0500 Body temperature 96.69 [degF] Nilo Mast APRN.[employer] WASHER Work Phone: [facility] 09-03-2024 18:24-0500 Body weight 84.1 kg Nilo Mast APRN.[employer] WASHER Work Phone: [facility] 09-03-2024 18:24-0500 Diastolic blood pressure 82 mm[Hg] Nilo Mast APRN.BUS WASHER Work Phone: [facility] 09-03-2024 18:24-0500 Heart rate 69 /min Nilo Mast APRN.[employer] WASHER Work Phone: [facility] 09-03-2024 18:24-0500 Respiratory rate 19 /min Nilo Mast APRN.[employer] WASHER Work Phone: [facility] 09-03-2024 18:24-0500 SaO2% (BldA) [Mass fraction] 99 % Nilo Mast APRN.[employer] WASHER Work Phone: [facility] 09-03-2024 18:24-0500 Systolic blood pressure 118 mm[Hg] Nilo Mast APRN.BUS WASHER Work Phone: [facility] 04-10-2024 11:24-0400 Body mass index (BMI) [Ratio] 32.12 kg/m2 Dolores Patrick APRN.CNM Work Phone: [facility] 04-10-2024 11:24-0400 Body weight 87.54 kg Dolores Patrick APRN.CNM Work Phone: [facility] 04-10-2024 11:24-0400 Diastolic blood pressure 68 mm[Hg] Dolores Patrick APRN.CNM Work Phone: [facility] 04-10-2024 11:24-0400 Systolic blood pressure 102 mm[Hg] Dolores Patrick BODY AND [employer]AME MAN.CNM Work Phone: [facility] 03-24-2024 14:27-0400 Body mass index (BMI) [Ratio] 32.54 kg/m2 Anastasia Frederick [employer] AND [employer] MAN.[employer] WASHER Work Phone: [facility] 03-24-2024 14:27-0400 Body temperature 97.11 [degF] Anastasia Frederick [employer] AND [employer] MAN.[employer] WASHER Work Phone: [facility] 03-24-2024 14:27-0400 Body weight 88.7 kg Anastasia Frederick [employer] AND [employer] MAN.[employer] W[employer]ER Work Phone: [facility] 03-24-2024 14:27-0400 Diastolic blood pressure 78 mm[Hg] Anastasia Frederick [employer] AND [employer] MAN.[employer] W[employer]ER Work Phone: [facility] 03-24-2024 14:27-0400 Heart rate 95 /min Anastasia Frederick [employer] AND [employer] MAN.[employer] W[employer]ER Work Phone: [facility] 03-24-2024 14:27-0400 Respiratory rate 18 /min Anastasia [place] B[employer] AND [employer] MAN.[employer] WASHER Work Phone: [facility] 03-24-2024 14:27-0400 SaO2% (BldA) [Mass fraction] 98 % Anastasia [place] [employer] AND [employer] MAN.[employer] WASHER Work Phone: [facility] 03-24-2024 14:27-0400 Systolic blood pressure 110 mm[Hg] Anastasia Frederick [employer] AND [employer] MAN.[employer] W[employer]ER Work Phone: [facility] 11-19-2023 08:00-0500 Body temperature 98 [degF] [facility] 11-19-2023 08:00-0500 Diastolic blood pressure 97 mm[Hg] [facility] 11-19-2023 08:00-0500 Heart rate 93 /min [facility] 11-19-2023 08:00-0500 Respiratory rate 16 /min [facility] 11-19-2023 08:00-0500 SaO2% (BldA) [Mass fraction] 100 % [facility] 11-19-2023 08:00-0500 Systolic blood pressure 130 mm[Hg] [facility] 11-18-2023 01:29-0500 Body height 165.1 cm [facility] 11-18-2023 01:29-0500 Body mass index (BMI) [Ratio] 37.9 kg/m2 [facility] 11-18-2023 01:29-0500 Body weight 103.41 kg [facility] 11-16-2023 13:48-0500 Body weight 103.42 kg Shira Bunch MD Work Phone: [facility] 11-16-2023 13:48-0500 Diastolic blood pressure 64 mm[Hg] Shira Bunch MD Work Phone: [facility] 11-16-2023 13:48-0500 Systolic blood pressure 110 mm[Hg] Shira Bunch MD Work Phone: [facility] 11-14-2023 12:59-0500 Body weight 104.96 kg Dolores Patrick APRN.CNM Work Phone: [facility] 11-14-2023 12:59-0500 Diastolic blood pressure 78 mm[Hg] Dolores Patrick APRN.CNM Work Phone: [facility] 11-14-2023 12:59-0500 Systolic blood pressure 118 mm[Hg] Dolores Patrick APRN.CNM Work Phone: [facility] 11-09-2023 08:56-0500 Body weight 102.06 kg Bib Romero MD Work Phone: [facility] 11-09-2023 08:56-0500 Diastolic blood pressure 70 mm[Hg] Bib Romero MD Work Phone: [facility] 11-09-2023 08:56-0500 Systolic blood pressure 112 mm[Hg] Bib Romero MD Work Phone: [facility] 11-03-2023 09:54-0500 Body weight 103.42 kg Smita Plotts BODY AND FRAME MAN.CNM Work Phone: [facility] 11-03-2023 09:54-0500 Diastolic blood pressure 80 mm[Hg] Smita Plotts B[employer] AND FRAME MAN.CNM Work Phone: [facility] 11-03-2023 09:54-0500 Systolic blood pressure 126 mm[Hg] Smita Plotts B[employer] AND FRAME MAN.CNM Work Phone: [facility] 10-26-2023 10:35-0500 Body weight 102.06 kg Bib Romero MD Work Phone: [facility] 10-26-2023 10:35-0500 Diastolic blood pressure 60 mm[Hg] Bib Romero MD Work Phone: [facility] 10-26-2023 10:35-0500 Systolic blood pressure 118 mm[Hg] Bib Romero MD Work Phone: [facility] 09-05-2023 11:42-0500 Body weight 93.53 kg Dolores Patrick B[employer] AND FRAME MAN.CNM Work Phone: [facility] 09-05-2023 11:42-0500 Diastolic blood pressure 64 mm[Hg] Dolores Patrick B[employer] AND FRAME MAN.CNM Work Phone: [facility] 09-05-2023 11:42-0500 Systolic blood pressure 112 mm[Hg] Dolores Patrick B[employer] AND [employer]AME MAN.CNM Work Phone: [facility] 08-10-2023 13:03-0500 Body weight 89.45 kg Smita Plotts B[employer] AND FRAME MAN.CNM Work Phone: [facility] 08-10-2023 13:03-0500 Diastolic blood pressure 60 mm[Hg] Smita Plotts B[employer] AND [employer]AME MAN.CNM Work Phone: [facility] 08-10-2023 13:03-0500 Systolic blood pressure 106 mm[Hg] Smita Plotts B[employer] AND [employer]AME MAN.CNM Work Phone: [facility] 08-05-2023 [id number] Respiratory rate 16 /min [facility] 08-05-2023 07:290400 Body mass index (BMI) [Ratio] 32.6 kg/m2 [facility] 08-05-2023 07:290400 Body temperature 98 [degF] [facility] 08-05-2023 07:29040 Body weight 89.1 kg [facility] 08-05-2023 07:29040 Diastolic blood pressure 89 mm[Hg] [facility] 08-05-2023 07:29040 Heart rate 100 /min [facility] 08-05-2023 07:290400 SaO2% (BldA) [Mass fraction] 100 % [facility] 08-05-2023 07:290400 Systolic blood pressure 118 mm[Hg] [facility] 07-13-2023 11:15-0400 Body weight 84.01 kg Smita Booker B[employer] AND FRAME MAN.CNM Work Phone: [facility] 07-13-2023 11:15-0400 Diastolic blood pressure 72 mm[Hg] Smita Booker BODY AND FRAME MAN.CNM Work Phone: [facility] 07-13-2023 11:15-0400 Systolic blood pressure 110 mm[Hg] Smita Booker B[employer] AND FRAME MAN.CNM Work Phone: [facility] 06-23-2023 13:19-0400 Body weight 82.56 kg Esther Cervantes MD Work Phone: [facility] 06-23-2023 13:19-0400 Diastolic blood pressure 68 mm[Hg] Esther Cervantes MD Work Phone: [facility] 06-23-2023 13:19-0400 Systolic blood pressure 108 mm[Hg] Esther Cervantes MD Work Phone: [facility] 06-08-2023 14:20-0400 Body weight 81.65 kg Smita Booker B[employer] AND FRAME MAN.CNM Work Phone: [facility] 06-08-2023 14:20-0400 Diastolic blood pressure 68 mm[Hg] Smita Plotts B[employer] AND [employer]AME MAN.CNM Work Phone: [facility] 06-08-2023 14:20-0400 Systolic blood pressure 108 mm[Hg] Smita Plotts B[employer] AND [employer]AME MAN.CNM Work Phone: [facility] 05-06-2023 08:54-0400 Body height 165.1 cm Smita Plotts B[employer] AND [employer] MAN.CNM Work Phone: [facility] 05-06-2023 08:54-0400 Body weight 81.19 kg Smita Plotts B[employer] AND [employer] MAN.CNM Work Phone: [facility] 05-06-2023 08:54-0400 Diastolic blood pressure 66 mm[Hg] Smita Plotts B[employer] AND FRAME MAN.CNM Work Phone: [facility] 05-06-2023 08:54-0400 Systolic blood pressure 102 mm[Hg] Smita Plotts B[employer] AND FRAME MAN.CNM Work Phone: [facility] 01-28-2023 10:04-0400 Body weight 75.75 kg Marichuyaracely Stanleyf B[employer] AND FRAME MAN.[employer] WASHER Work Phone: [facility] 01-28-2023 10:04-0400 Diastolic blood pressure 80 mm[Hg] Marichuyaracely Wallacehof BODY AND FRAME MAN.[employer] WASHER Work Phone: [facility] 01-28-2023 10:04-0400 Heart rate 80 /min Marichuyaracely Wallacehof [employer] AND [employer]AME MAN.[employer] WASHER Work Phone: [facility] 01-28-2023 10:04-0400 Respiratory rate 16 /min Marichuy Tannhof [employer] AND FRAME MAN.[employer] WASHER Work Phone: [facility] 01-28-2023 10:04-0400 SaO2% (BldA) [Mass fraction] 100 % Marichuyaracely Wallacehof [employer] AND FRAME MAN.[employer] WASHER Work Phone: [facility] 01-28-2023 10:04-0400 Systolic blood pressure 124 mm[Hg] Marichuyaracely Wallacehof B[employer] AND FRAME MAN.[employer] WASHER Work Phone: [facility] 12-13-2022 15:25-0400 Body weight 74.84 kg Viry Carmen B[employer] AND FRAME MAN.[employer] WASHER Work Phone: [facility] 12-13-2022 15:25-0400 Diastolic blood pressure 70 mm[Hg] Viry Carmen B[employer] AND [employer]AME MAN.[employer] WASHER Work Phone: [facility] 12-13-2022 15:25-0400 Heart rate 80 /min Viry Carmen [employer] AND [employer] MAN.[employer] WASHER Work Phone: [facility] 12-13-2022 15:25-0400 Respiratory rate 14 /min Viry Carmen [employer] AND [employer] MAN.[employer] WASHER Work Phone: [facility] 12-13-2022 15:25-0400 Systolic blood pressure 120 mm[Hg] Viry Carmen [employer] AND [employer] MAN.[employer] WASHER Work Phone: [facility] 11-24-2022 11:10-0500 Body temperature 98.71 [degF] Cami Podlogar [employer] AND FRAME MAN.[employer] WASHER Work Phone: [facility] 11-24-2022 11:10-0500 Body weight 74.12 kg Cami Podlogar [employer] AND [employer] MAN.[employer] WASHER Work Phone: [facility] 11-24-2022 11:10-0500 Diastolic blood pressure 68 mm[Hg] Cami Podlogar [employer] AND [employer] MAN.[employer] WASHER Work Phone: [facility] 11-24-2022 11:10-0500 Heart rate 106 /min Cami Podlogar [employer] AND [employer] MAN.[employer] WASHER Work Phone: [facility] 11-24-2022 11:10-0500 Respiratory rate 16 /min Cami Podlogar [employer] AND [employer] MAN.[employer] WASHER Work Phone: [facility] 11-24-2022 11:10-0500 SaO2% (BldA) [Mass fraction] 97 % Cami Podlogar [employer] AND [employer] MAN.[employer] WASHER Work Phone: [facility] 11-24-2022 11:10-0500 Systolic blood pressure 100 mm[Hg] Cami Podlogar [employer] AND [employer] MAN.[employer] WASHER Work Phone: [facility] 06-09-2022 09:30-0400 Body weight 70.76 kg Smita Plotts B[employer] AND FRAME MAN.CNM Work Phone: [facility] 06-09-2022 09:30-0400 Diastolic blood pressure 72 mm[Hg] Smita Plotts B[employer] AND FRAME MAN.CNM Work Phone: [facility] 06-09-2022 09:30-0400 Systolic blood pressure 110 mm[Hg] Smita Plotts B[employer] AND FRAME MAN.CNM Work Phone: [facility] 05-27-2022 11:44-0400 Body height 165.1 cm Melissa Akhtar B[employer] AND FRAME MAN.[employer] WASHER Work Phone: [facility] 05-27-2022 11:44-0400 Body weight 70.76 kg Melissa Akhtar B[employer] AND [employer]AME MAN.[employer] WASHER Work Phone: [facility] 05-27-2022 11:44-0400 Diastolic blood pressure 60 mm[Hg] Melissa Akhtar B[employer] AND [employer]AME MAN.[employer] WASHER Work Phone: [facility]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 Expected: 05/06/2023 , Expires: 07/06/2023 Start: 05-06-2023 End: 07-06-2023 HEMOGLOBIN EVALUATION CASCADE HEMOGLOBIN EVALUATION CASCADE Lab Routine Encounter for supervision of normal in multigravida 9 weeks gestation of Expected: 05/06/2023, Expires: 07/06/2023 [facility] Work Phone: Comment on above: Expected: 05/06/2023 , Expires: 07/06/2023 Start: 05-06-2023 End: 07-06-2023 Hepatitis B virus surface Ag [Presence] in Serum HEP B SURF AG SCRN Lab Routine Encounter for supervision of normal in multigravida 9 weeks gestation of Expected: 05/06/2023, Expires: 07/06/2023 [facility] Work Phone: Comment on above: Expected: 05/06/2023 , Expires: 07/06/2023 Start: 05-06-2023 End: 07-06-2023 Hepatitis C virus Ab [Presence] in Serum HEPATITIS C ANTIBODY IA WITH CONFIRMATION Lab Routine Encounter for supervision of normal in multigravida 9 weeks gestation of Expected: 05/06/2023, Expires: 07/06/2023 [facility] Work Phone: Comment on above: Expected: 05/06/2023 , Expires: 07/06/2023 Start: 05-06-2023 End: 07-06-2023 HIV 1+2 Ab [Presence] in Serum or Plasma by Immunoassay HIV 1 2 COMBO(AG/AB),WITH REFLEX TO DIFFERENTIATION Lab Routine Encounter for supervision of normal in multigravida 9 weeks gestation of Expected: 05/06/2023, Expires: 07/06/2023 [facility] Work Phone: Comment on above: Expected: 05/06/2023 , Expires: 07/06/2023 Start: 05-06-2023 End: 05-06-2024 NUCHAL TRANSLUCENCY WHI NUCHAL TRANSLUCENCY WHI Anc Imaging Routine Encounter for supervision of normal in multigravida 9 weeks gestation of Expected: 05/06/2023, Expires: 05/06/2024 [facility] Work Phone: Comment on above: Expected: 05/06/2023 , Expires: 05/06/2024 Start: 05-06-2023 End: 05-06-2024 OBSTETRIC ULTRASOUND WHI OBSTETRIC ULTRASOUND WHI Anc Imaging Routine Encounter for supervision of normal in multigravida 9 weeks gestation of Expected: 05/06/2023, Expires: 05/06/2024 [facility] Work Phone: Comment on above: Expected: 05/06/2023 , Expires: 05/06/2024 Start: 05-06-2023 End: 07-06-2023 RUBELLA IGG AB RUBELLA IGG AB Lab Routine Encounter for supervision of normal in multigravida 9 weeks gestation of Expected: 05/06/2023, Expires: 07/06/2023 [facility] Work Phone: Comment on above: Expected: 05/06/2023 , Expires: 07/06/2023 Start: 05-06-2023 End: 07-06-2023 SYPHILIS TOTAL W/REFLEX SYPHILIS TOTAL W/REFLEX Lab Routine Encounter for supervision of normal in multigravida 9 weeks gestation of Expected: 05/06/2023, Expires: 07/06/2023 [facility] Work Phone: Comment on above: Expected: 05/06/2023 , Expires: 07/06/2023 Start: 05-06-2023 End: 07-06-2023 TYPE + SCREEN TYPE + SCREEN Blood Bank Routine Encounter for supervision of normal in multigravida 9 weeks gestation of Expected: 05/06/2023, Expires: 07/06/2023 [facility] Work Phone: Comment on above: Expected: 05/06/2023 , Expires: 07/06/2023 Start: 01-28-2023 End: 03-30-2023 25-hydroxyvitamin D3 [Mass/volume] in Serum or Plasma [facility] Work Phone: Comment on above: Expected: 01/28/2023 , Expires: 03/30/2023 Start: 01-28-2023 End: 03-30-2023 C reactive protein [Mass/volume] in Serum or Plasma [facility] Work Phone: Comment on above: Expected: 01/28/2023 , Expires: 03/30/2023 Start: 01-28-2023 End: 03-30-2023 Cobalamin (Vitamin B12) [Mass/volume] in Serum or Plasma [facility] Work Phone: Comment on above: Expected: 01/28/2023 , Expires: 03/30/2023 Start: 01-28-2023 End: 03-30-2023 Comprehensive metabolic 2000 panel - Serum or Plasma [facility] Work Phone: Comment on above: Expected: 01/28/2023 , Expires: 03/30/2023 Start: 01-28-2023 End: 03-30-2023 Erythrocyte sedimentation rate [facility] Work Phone: Comment on above: Expected: 01/28/2023 , Expires: 03/30/2023 Start: 01-28-2023 End: 03-30-2023 Folate [Mass/volume] in Serum or Plasma [facility] Work Phone: Comment on above: Expected: 01/28/2023 , Expires: 03/30/2023 Start: 01-28-2023 End: 03-30-2023 Magnesium [Mass/volume] in Serum or Plasma [facility] Work Phone: Comment on above: Expected: 01/28/2023 , Expires: 03/30/2023 Start: 01-28-2023 End: 03-30-2023 Nuclear Ab [Presence] in Serum by Immunoassay [facility] Work Phone: Comment on above: Expected: 01/28/2023 , Expires: 03/30/2023 Start: 01-28-2023 End: 03-30-2023 Rheumatoid factor [Units/volume] in Serum or Plasma [facility] Work Phone: Comment on above: Expected: 01/28/2023 , Expires: 03/30/2023 Start: 01-28-2023 End: 03-30-2023 Thyrotropin [Units/volume] in Serum or Plasma [facility] Work Phone: Comment on above: Expected: 01/28/2023 , Expires: 03/30/2023 Start: 01-12-2023 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 ANNUAL PCP TEAM CHRONIC DISEASE VISIT [facility] Start: 11-06-2022 PAP TESTING PAP TESTING [facility] Start: 10-03-2022 DEPRESSION ASSESSMENT DEPRESSION ASS ESSMENT [facility] Start: 06-03-2022 Influenza vaccination [facility] Start: 05-04-2022 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 ANNUAL PCP TEAM CHRONIC DISEASE VISIT [facility] Start: 02-03-2022 Adult depression screening assessment DEPRESSION SCREENING [facility] Start: 01-12-2022 End: 03-14-2022 Comprehensive metabolic 2000 panel - Serum or Plasma [facility] Work Phone: Comment on above: Expected: 01/12/2022 , Expires: 03/14/2022 Start: 01-12-2022 End: 03-14-2022 FERRITIN BLD [facility] Work Phone: Comment on above: Expected: 01/12/2022 , Expires: 03/14/2022 Start: 01-12-2022 End: 03-14-2022 IRON + TIBC [facility] Work Phone: Comment on above: Expected: 01/12/2022 , Expires: 03/14/2022 Start: 01-12-2022 End: 03-14-2022 Thyrotropin [Units/volume] in Serum or Plasma [facility] Work Phone: Comment on above: Expected: 01/12/2022 , Expires: 03/14/2022 Start: 01-04-2019 HPV VACCINE (3 - 3-d ose series) HPV VACCINE (3 - 3-dose series) [facility] Start: 05-26-2017 End: 05-26-2017 Appointment Appointment [facility] Work Phone: Start: 05-26-2017 End: 05-26-2017 Streptococcus.beta-hemoly tic [Presence] in Throat by Organism specific culture *Culture, R/O Strep A Swab [facility] Work Phone: Start: 04-29-2017 End: 04-29-2017 Appointment Appointment [facility] Work Phone: Start: 01-21-2017 End: 01-21-2017 Chorionic gonadotropin test BhCG; quantitative [facility] Work Phone: Start: 2012 Depression Screening Depression Scre ening [facility] Start: 1999 COVID-19 VACCINE (1) COVID-19 VACCIN E (1) [facility] Start: 04-08-1995 COVID-19 VACCINE (#1) COVID-19 VACCI NE (#1) [facility] Bacteria identified in Urine by Culture URINE CULTURE Microbiology Routine Encounter for supervision of normal in multigravida 9 weeks gestation of 05/06/2023 9:31 AM EDT [facility] Work Phone: Bacteria identified in Urine by Culture URINE CULTURE Microbiology Routine Pelvic pressure in 09/05/2023 2:22 PM EST [facility] Work Phone: BACTERIAL VAGINOSIS AMPLIFICATION BACTERIAL VAGINOSIS AMPLIFICATION Lab Routine Acute vaginitis Ordered: 05/27/2022 [facility] Work Phone: Comment on above: Ordered: 05/27/2022 EVERARDO / TRICHOMONA S AMPLIFICATION EVERARDO / TRICHOMONAS AMPLIFICATION Microbiology Routine Acute vaginitis Ordered: 05/27/2022 [facility] Work Phone: Comment on above: Ordered: 05/27/2022 Chlamydia trachomatis+Neisseria gonorrhoeae DNA [Presence] in Unspecified specimen by SIOBHAN with probe detection GONORRHEA/CHLAMYDIA NAAT Lab Routine Encounter for supervision of normal in multigravida 9 weeks gestation of 05/06/2023 9:31 AM EDT [facility] Work Phone: End: 02-27-2024 Ct head/brain w/o & w/contrast material CT BRAIN WO/W IVCON Radiology STAT Headache, unspecified headache type Thunderclap headache 1 Occurrences starting 01/28/2023 until 02/27/2024 [facility] Work Phone: Comment on above: 1 Occurrences starti ng 01/28/2023 until 02/27/2024 PAP TEST PAP TEST Lab Alisa singh Encounter for supervision of normal in multigravida 9 weeks gestation of 05/06/2023 9:31 AM EDT [facility] Work Phone: Patient Education [facility] Work Phone: Patient referral [facility] Work Phone: ROUTINE, GR OUP B STREP PCR ROUTINE, GROUP B STREP PCR Microbiology Routine 36 weeks gestation of 11/09/2023 10:11 AM EST [facility] Work Phone: Tissue Pathology bio psy report SURGICAL PATHOLOGY Lab Routine LLQ pain 03/01/2025 9:40 AM EDT [facility] Work Phone: URINE OB DIP B/O URINE OB DIP B/ O Lab Routine Encounter for screening for nuchal translucency 14 weeks gestation of Ordered: 06/08/2023 [facility] Work Phone: Comment on above: Ordered: 06/08/2023 [facility] Immunizations Immunization Date Immunization Notes Care Provider Pepper arriola 10-26-2023 respiratory syncytia l virus (RSV) vaccine, bivalent (ABRYSVO) Smita Booker APRN.CNM Work Phone: [facility] 09-14-2023 RHO(D) immune globul in- IV or IM Smita Booker APRN.JOSH Work Phone: [facility] 09-14-2023 tetanus toxoid, redu navjot diphtheria toxoid, and acellular pertussis vaccine, adsorbed Smita Booker APRN.CNM Work Phone: [facility] 08-10-2023 influenza, injectabl e, quadrivalent, contains preservative Smita Plotts [employer].CNM Work Phone: [facility] 08-10-2023 Seasonal trivalent influenza vaccine, adjuvanted, preservative free [facility] 08-10-2023 influenza virus vacc ine, unspecified formulation Dolores Darnell [employer].CNM Work Phone: [facility] 05-25-2023 RHO(D) immune globul in- IV or IM Smita Plotts [employer] AND [employer] MAN.CNM Work Phone: [facility] 03-06-2021 tuberculin skin test ; purified protein derivative solution, intradermal Nilo Mast [employer] WASHER Work Phone: [facility] 01-07-2021 measles, mumps and rubella virus vaccine Smita Plotts [employer] AND [employer] MAN.CNM Work Phone: [facility] 10-28-2020 RHO(D) immune globul in- IV or IM Smita Plotts [employer] AND [employer].CNM Work Phone: [facility] 10-28-2020 tetanus toxoid, redu navjot diphtheria toxoid, and acellular pertussis vaccine, adsorbed Smita Plotts [employer] AND [employer] MAN.CNM Work Phone: [facility] 07-11-2020 influenza, injectabl e, quadrivalent, contains preservative Smita Plotts [employer] AND [employer].CNM Work Phone: [facility] Work Phone: 07-11-2020 influenza virus vacc ine, unspecified formulation Katerine Khan MD Work Phone: [facility] 11-24-2019 RHO(D) immune globul in- IV or IM Smita Plotts [employer] AND [employer].CNM Work Phone: [facility] 09-05-2018 human papilloma viru s vaccine, quadrivalent Smita Plotts [employer] AND [employer].CNM Work Phone: [facility] 07-05-2018 Human Papillomavirus 9-valent vaccine Smita Plotts [employer] AND [employer] MAN.CNM Work Phone: [facility] 07-05-2018 influenza, injectabl e, quadrivalent, contains preservative Smita Plotts [employer] AND [employer] MAN.CNM Work Phone: [facility] 07-04-2012 influenza virus vacc ine, live, attenuated, for intranasal use Smita Plotts [employer] AND [employer].CNM Work Phone: [facility] 06-06-2012 tetanus toxoid, redu navjot diphtheria toxoid, and acellular pertussis vaccine, adsorbed Smita Plotts [employer] AND [employer] MAN.CNM Work Phone: [facility] 08-21-2010 influenza virus vacc ine, live, attenuated, for intranasal use Smita Plotts [employer] AND [employer] MAN.CNM Work Phone: [facility] 02-18-2000 diphtheria, tetanus toxoids and acellular pertussis vaccine Smita Plotts [employer] AND [employer] MAN.CNM Work Phone: [facility] 02-18-2000 hepatitis B vaccine, pediatric or pediatric/adolescent dosage Smita Plotts [employer] AND [employer].CNM Work Phone: [facility] 02-18-2000 measles, mumps and rubella virus vaccine Smita Plotts [employer].CNM Work Phone: [facility] 02-18-2000 poliovirus vaccine, inactivated Smita Plotts [employer].CNM Work Phone: [facility] 10-13-1999 diphtheria, tetanus toxoids and acellular pertussis vaccine Smita Plotts [employer].CNM Work Phone: [facility] 10-13-1999 measles, mumps and rubella virus vaccine Smita Plotts [employer] MAN.CNM Work Phone: [facility] 10-13-1999 poliovirus vaccine, inactivated Smita Plotts [employer] AND [employer].CNM Work Phone: [facility] 10-08-1998 poliovirus vaccine, inactivated Smita Plotts [employer] AND [employer] MAN.CNM Work Phone: [facility] 04-26-1996 diphtheria, tetanus toxoids and acellular pertussis vaccine Smita Plotts [employer] AND [employer].CNM Work Phone: [facility] 04-26-1996 diphtheria, tetanus toxoids and pertussis vaccine Smita Plotts [employer].CNM Work Phone: [facility] 04-26-1996 varicella virus vaccine Cour tney Plotts BODY AND FRAME MAN.CNM Work Phone: [facility] 04-07-1996 hepatitis B vaccine, pediatric or pediatric/adolescent dosage Smita Plotts [employer] AND [employer] MAN.CNM Work Phone: [facility] 02-07-1996 haemophilus influenz ae type b vaccine, PRP-T conjugate Smita Plotts [employer] AND [employer] MAN.CNM Work Phone: [facility] 11-04-1995 haemophilus influenz ae type b vaccine, conjugate unspecified formulation Smita Plotts [employer] AND [employer].CNM Work Phone: [facility] 11-04-1995 haemophilus influenz ae type b vaccine, PRP-T conjugate Smita Plotts [employer] AND [employer] MAN.CNM Work Phone: [facility] 11-04-1995 measles, mumps and rubella virus vaccine Smita Plotts [employer] AND [employer] MAN.CNM Work Phone: [facility] 11-04-1995 tuberculin skin test ; purified protein derivative solution, intradermal Nilo Mast B[employer] AND FRAME MAN.BUS WASHER Work Phone: [facility] 07-12-1995 hepatitis B vaccine, pediatric or pediatric/adolescent dosage Smita Plotts [employer] AND [employer] MAN.CNM Work Phone: [facility] 05-13-1995 diphtheria, tetanus toxoids and acellular pertussis vaccine Smita Plotts B[employer] AND [employer] MAN.CNM Work Phone: [facility] 05-13-1995 diphtheria, tetanus toxoids and pertussis vaccine Smita Plotts B[employer] AND [employer] MAN.CNM Work Phone: [facility] 05-13-1995 haemophilus influenz ae type b vaccine, conjugate unspecified formulation Smita Plotts [employer] AND [employer].CNM Work Phone: [facility] 05-13-1995 hepatitis B vaccine, pediatric or pediatric/adolescent dosage Smita Plotts [employer] AND [employer].CNM Work Phone: [facility] 05-13-1995 trivalent poliovirus vaccine, live, oral Smiat Plotts [employer] MAN.CNM Work Phone: [facility] 02-17-1995 diphtheria, tetanus toxoids and acellular pertussis vaccine Smita Plotts [employer] AND [employer] MAN.CNM Work Phone: [facility] 02-17-1995 diphtheria, tetanus toxoids and pertussis vaccine Smita Plotts B[employer] AND [employer] MAN.CNM Work Phone: [facility] 02-17-1995 haemophilus influenz ae type b vaccine, conjugate unspecified formulation Smita Plotts [employer] AND [employer] MAN.CNM Work Phone: [facility] 02-17-1995 haemophilus influenz ae type b vaccine, PRP-T conjugate Smita Plotts [employer] AND [employer] MAN.CNM Work Phone: [facility] 02-17-1995 trivalent poliovirus vaccine, live, oral Smita Plotts [employer].CNM Work Phone: [facility] 1994 diphtheria, tetanus toxoids and acellular pertussis vaccine Smita Plotts [employer] MAN.CNM Work Phone: [facility] 1994 diphtheria, tetanus toxoids and pertussis vaccine Smita Plotts [employer] MAN.CNM Work Phone: [facility] 1994 haemophilus influenz ae type b vaccine, conjugate unspecified formulation Smita Plotts [employer] AND [employer] MAN.CNM Work Phone: [facility] 1994 haemophilus influenz ae type b vaccine, PRP-T conjugate Smita Plotts [employer] AND [employer] MAN.CNM Work Phone: [facility] 1994 poliovirus vaccine, inactivated Smita Plotts [employer].CNM Work Phone: [facility] 1994 trivalent poliovirus vaccine, live, oral Smita Plotts [employer] AND [employer] MAN.CNM Work Phone: [facility] 1994 hepatitis B vaccine, pediatric or pediatric/adolescent dosage Smita Plotts [employer] AND [employer] MAN.CNM Work Phone: [facility] 1994 hepatitis B vaccine, pediatric or pediatric/adolescent dosage Smita Booker [employer].CNM Work Phone: [facility] Payers Date Payer Category Payer Self-pay [id number] 2022 Medicaid [id number] 2020 Unknown DENTAL MMO DENTA L [id number] 2020-Present [phone] [address] [place] [address] Dental [id number] 2020 Unknown DENTAL MMO DENTA L [id number] 2020-Present [phone] [address] [place] [address] Dental [id number] 2020 Medicaid [employer] [facility] [place] [id number] 2020-Present [phone] [address] [address] [place] [address] Medicaid [id number] 2020 Medicaid [id number] 1994 Unknown [id number] 1994 Unknown [id number] 1994 Unknown [id number] 1994 Unknown [id number] 1994 Unknown [id number] 1994 Unknown [id number] 1994 Unknown [id number] 1994 Unknown [id number] 1994 Unknown [id number] Unknown [id number] Unknown [id number] Unknown [id number] Unknown [id number] Social History Date Type Detail Facility Start: 03-13-2018 End: 09-03-2024 Tobacco smoking status NHIS Ex-smoker [facility] Start: 03-31-2013 End: 03-31-2017 History of tobacco use Current smoker [facility] Start: 03-31-2013 End: 03-31-2017 History of tobacco use Cigarette Smoker [facility] Start: 03-13-2018 End: 02-06-2025 Cigarettes smoked current (pack per day) - Reported 0.5 [facility] Start: 03-13-2018 End: 09-03-2024 Tobacco use and exposure Smokeless tobacco non-user [facility] Start: 11-09-2021 End: 03-08-2025 Alcohol intake Ex-drinker (finding) [facility] Start: 06-13-2020 End: 09-08-2020 History SDOH Alcohol Frequency 2 [facility] Start: 03-11-2020 End: 06-13-2020 History SDOH Alcohol Std Drinks 1 [facility] Start: 07-05-2018 History SDOH Alcohol Comment rare [facility] Start: 03-11-2020 End: 06-13-2020 History SDOH Social Connections Phone 5 [facility] Start: 03-11-2020 History SDOH Social Connections Living 8 [facility] Start: 03-11-2020 Education 16 [facility] Start: 07-05-2018 End: 05-27-2022 Tobacco Comment quit over one year ago (2017) [facility] Start: 1995 Sex Assigned At Female [facility] Start: 01-01-2022 End: 01-11-2022 Exposure to SARS-CoV-2 (event) Not sure [facility] Start: 03-11-2020 End: 02-06-2025 Social connection and isolation panel [facility] Do you belong to any clubs or organizations such as buddhist groups, unions, fraternal or athletic groups, or school groups? No [facility] Are you now , , , , never or living with a partner? Living with partner [facility] How often to you hav e a drink containing alcohol? Monthly or less [facility] How many standard dr inks containing alcohol do you have on a typical day? 1 or 2 [facility] How often do you hav e 6 or more drinks on 1 occasion? Never [facility] How hard is it for y ou to pay for the very basics like food, housing, medical care, and heating Not hard at all [facility] Do you feel stress - tense, restless, nervous, or anxious, or unable to sleep at night because your mind is troubled all the time - these days [OSQ] Not at all [facility] (I/We) worried drawin er (my/our) food would run out before (I/we) got money to buy more. Never true [facility] Start: 06-11-2020 Gender identity Identifies as female gender (finding) [facility] Start: 06-11-2020 Sexual orientation Heterosexual (finding) [facility] Start: 03-16-2023 [facility] Start: 11-18-2023 Tobacco smoking status NHIS Unknown if ever smoked [facility] Start: 12-07-2022 None [facility] Start: 01-14-2021 Non-smoker [facility] Goals Date Patient Goal Desired Activity /State Personal health goal Mental Status Date Assessment Result Facility 08-05-2023 Cognitive function Level Of Cons ciousness Awake;Alert;Appropriate;Follow s Commands [facility] Work Phone: Clinical Notes 01-19-2021 to 03-08-2025 Gamaliel Khan APRN.BUS WASHER - 03/08/2025 2:25 PM EDTPatient Luda Tubbs MD - 03/01/2025 8:38 AM EDTTelephone Encounter - Andria Nobles RN - 02/15/2025 12:09 PM EDT Note Date & Type Note Facility 03-08-2025 Note HNO ID: [id number] Author: GAMALIEL KHAN APRN.BUS WASHER Service: ? Author Type: Nurse Practitioner Type: Progress Notes Filed: 03/08/2025 14:41 Note Text: [facility] Subjective Blanca Chase is a 29 year old female. Patient presents with: Sore Throat: R tonsil swollen, R ear pain, teeth sore x this AM HPI Sore Throat and Tongue Pain: - Sore throat and right-sided tongue pain began recently. - Initially noticed a sore area on the right side of the tongue, described as feeling like a swollen taste bud. - Pain has since extended to the right side of the throat, particularly noticeable when swallowing. - Describes pain as sore rather than constant. - Recent onset of pain radiating to the ear. - Denies pain when opening the jaw. - Denies fever or chills. - Has experienced similar episodes in the past, sometimes affecting both sides or associated with tonsil stones. - Denies known exposure to strep throat. - Uncertain about having seasonal allergies; mentions possible weather-related changes. Review of Systems Constitutional: (-) fever, (-) chills Ears/Nose/Mouth/Throat: (+) right-sided sore throat, (+) odynophagia, (+) right-sided tongue pain, (+) ear pain, (+) throat swelling sensation Objective BP 127/88 Pulse 87 Temp 36.4 ?C (97.5 ?F) Resp 18 Wt 87 kg (191 lb 12.8 oz) LMP 03/02/2023 (Exact Date) SpO2 99% Yes BMI 31.92 kg/m? Physical Exam General: No acute distress. HEENT: Throat erythematous, no significant swelling, no abscess noted, bilateral symmetry observed; no significant lymphadenopathy palpated; tympanic membranes intact, no abnormalities noted. {1. Sore throat (J02.9) - Right-sided pharyngeal discomfort with associated odynophagia and localized glossal tenderness; no fever or chills reported. - Physical examination reveals mild pharyngeal erythema without significant asymmetry or evidence of peritonsillar abscess. No palpable lymphadenopathy or TMJ tenderness noted; otoscopic examination unremarkable. - Rapid antigen detection test for Group A Streptococcus returned negative. - Advised trial of oral antihistamines such as Zyrtec or Claritin to address potential allergic etiology. - Recommended monitoring for symptom progression; instructed to seek emergency medical evaluation if symptoms exacerbate. - Referral to otolaryngology for further evaluation if recurrent episodes persist. 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 Patient presents with: Sore Throat: R tonsil swollen, R ear pain, teeth sore x this AM HPI Sore Throat and Tongue Pain: - Sore throat and right-sided tongue pain began recently. - Initially noticed a sore area on the right side of the tongue, described as feeling like a swollen taste bud. - Pain has since extended to the right side of the throat, particularly noticeable when swallowing. - Describes pain as sore rather than constant. - Recent onset of pain radiating to the ear. - Denies pain when opening the jaw. - Denies fever or chills. - Has experienced similar episodes in the past, sometimes affecting both sides or associated with tonsil stones. - Denies known exposure to strep throat. - Uncertain about having seasonal allergies; mentions possible weather-related changes. Review of Systems Constitutional: (-) fever, (-) chills Ears/Nose/Mouth/Throat: (+) right-sided sore throat, (+) odynophagia, (+) right-sided tongue pain, (+) ear pain, (+) throat swelling sensation Objective BP 127/88 Pulse 87 Temp 36.4 C (97.5 F) Resp 18 Wt 87 kg (191 lb 12.8 oz) LMP 03/02/2023 (Exact Date) SpO2 99% Yes BMI 31.92 kg/m Physical Exam General: No acute distress. HEENT: Throat erythematous, no significant swelling, no abscess noted, bilateral symmetry observed; no significant lymphadenopathy palpated; tympanic membranes intact, no abnormalities noted. {1. Sore throat (J02.9) - Right-sided pharyngeal discomfort with associated odynophagia and localized glossal tenderness; no fever or chills reported. - Physical examination reveals mild pharyngeal erythema without significant asymmetry or evidence of peritonsillar abscess. No palpable lymphadenopathy or TMJ tenderness noted; otoscopic examination unremarkable. - Rapid antigen detection test for Group A Streptococcus returned negative. - Advised trial of oral antihistamines such as Zyrtec or Claritin to address potential allergic etiology. - Recommended monitoring for symptom progression; instructed to seek emergency medical evaluation if symptoms exacerbate. - Referral to otolaryngology for further evaluation if recurrent episodes persist. 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 This includes: tampons douches and refraining from having sexual intercourse If you have any discomfort, you may take an over the counter pain medication (motrin, advil, ibuprofen, tylenol, etc). If this does not relieve your discomfort, contact the office. It is okay to wear a sanitary pad until the discharge and spotting stops. RISKS Although problems seldom occur with endometrial biopsies, there can be some complications. You may feel faint during and shortly after the procedure as well as have some bleeding after the procedure. There is also a risk of infection after the procedure. These complications are rare and can be easily treated. You should contact you doctor is you have any of the following: Heavy bleeding (more than your normal period) Bleeding with clots Severe abdominal pain Fever (more than 100.4F) Foul smelling vaginal discharge RESULTS We will have the results of your biopsy in 1-2 weeks. If you do not hear the results of your biopsy after 2 weeks, please contact the office for the results. If you have any additional questions or concerns please do not hesitate to contact the office. documented in this encounter [facility] 03-01-2025 Note HNO ID: [id number] Author: LUDA COMBS MD Service: ? Author Type: Physician Type: Progress Notes Filed: 03/01/2025 09:44 Note Text: Brine Purifier offered: Patient accepts, visit chaperoned by Kasia Escudero MA. Blanca is a 29 year old Female who presents today for an endometrial biopsy for abnormal us polyp. test: negative UNIVERSAL PROTOCOL / SAFETY CHECKLIST Procedure to be Performed: Endosee Sign In: A Moment of CARE was completed. Appropriate PPE (Personal Protective Equipment) worn by all providers involved with the procedure. Special equipment not required. Patient/Surrogate Stated/Verified: Patient name, Date of , Relevant allergies, and The intended procedure Time Out: Relevant labs, photos, and/or imaging studies have been reviewed. Intended patient and procedure match the source document(s) (e.g. consent, HANDP, associated studies [imaging, pathology]) match the intended patient and procedure. Consent obtained and matches the intended procedure. Yes. Correct side/site is not applicable. Medications required for this procedure are not applicable. Fire risk assessed and is not applicable. Implants: are not applicable. Sign Out: Specimens are all correctly labeled and sent. All instruments, equipment, possible retained foreign bodies are accounted for. Yes. The post-procedure plan of care has been communicated to the patient or surrogate. PROCEDURE: EXTERNAL GENITALIA: Normal in appearance without lesions VAGINA: Normal in appearance without lesions BIOPSY: Speculum placed into the vagina with excellent visualization of the cervix. Cervix cleaned with betadine. Anterior lip of cervix grasped with single toothed tenaculum. Endosee placed through cervix. Cavity distended with fluid. Polyp noted on left side of cavity. Polyp grasped at base. Multiple attempts needed to severe polyp from base. A second polyp was noted behind the fist after it was removed. Same procedure to remove the second polyp. Cavity clear at end of procedure. Specimen labeled and sent to pathology. Procedure Summary: Patient tolerated procedure well. ASSESSMENT: thickening of endometrial lining PLAN: Specimens labeled and sent to Pathology. Will notify patient of results in 1-2 weeks. Luda Combs MD [facility] 03-01-2025 History of Presen t illness Narrative Brine Purifier offered: Patient accepts, visit chaperoned by Kasia Escudero MA. Blanca is a 29 year old Female who presents today for an endometrial biopsy for abnormal us polyp. test: negative UNIVERSAL PROTOCOL / SAFETY CHECKLIST Procedure to be Performed: Endosee Sign In: A Moment of CARE was completed. Appropriate PPE (Personal Protective Equipment) worn by all providers involved with the procedure. Special equipment not required. Patient/Surrogate Stated/Verified: Patient name, Date of , Relevant allergies, and The intended procedure Time Out: Relevant labs, photos, and/or imaging studies have been reviewed. Intended patient and procedure match the source document(s) (e.g. consent, H&P, associated studies [imaging, pathology]) match the intended patient and procedure. Consent obtained and matches the intended procedure. Yes. Correct side/site is not applicable. Medications required for this procedure are not applicable. Fire risk assessed and is not applicable. Implants: are not applicable. Sign Out: Specimens are all correctly labeled and sent. All instruments, equipment, possible retained foreign bodies are accounted for. Yes. The post-procedure plan of care has been communicated to the patient or surrogate. PROCEDURE: EXTERNAL GENITALIA: Normal in appearance without lesions VAGINA: Normal in appearance without lesions BIOPSY: Speculum placed into the vagina with excellent visualization of the cervix. Cervix cleaned with betadine. Anterior lip of cervix grasped with single toothed tenaculum. Endosee placed through cervix. Cavity distended with fluid. Polyp noted on left side of cavity. Polyp grasped at base. Multiple attempts needed to severe polyp from base. A second polyp was noted behind the fist after it was removed. Same procedure to remove the second polyp. Cavity clear at end of procedure. Specimen labeled and sent to pathology. Procedure Summary: Patient tolerated procedure well. ASSESSMENT: thickening of endometrial lining PLAN: Specimens labeled and sent to Pathology. Will notify patient of results in 1-2 weeks. Luda Combs MD documented in this encounter [facility] 02-15-2025 Telephone encounter Note Patient notified and voiced understanding. Andria Nobles RN [facility] 02-15-2025 Miscellaneous Notes Patient notified and voiced understanding. Andria Nobles RN Take Motrin prior to appointment and if would be helpful if she was not bleeding heavy on that day Patient viewed provider's mychart message and wants to proceed with endosee/polyp removal. Appt scheduled. Any instructions prior to appt? Aviva Lutz RN documented in this encounter [facility] 02-15-2025 Progress note Formatting of t his note might be different from the original. Take Motrin prior to appointment and if would be helpful if she was not bleeding heavy on that day [facility] 02-15-2025 Telephone encounter Note Patient viewed provider's mychart message and wants to proceed with endosee/polyp removal. Appt scheduled. Any instructions prior to appt? Aviva Lutz RN [facility] 02-11-2025 Note HNO ID: [id number] Author: BELEM MAYNARD MD Service: ? Author Type: Physician Type: Progress Notes Filed: 02/11/2025 12:29 Note Text: Blanca Chase is a 29 year old female who presented for ship erector ultrasound today. Encounter Diagnosis ICD-10-CM 1. LLQ pain R10.32 Please see report under imaging tab. Belem Maynard MD February 11, 2025 12:24 PM [facility] 02-11-2025 History of Presen t illness Narrative Blanca Chase is a 29 year old female who presented for ship erector ultrasound today. Encounter Diagnosis ICD-10-CM 1. LLQ pain R10.32 Please see report under imaging tab. 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 Blanca Chase is a 29 year old female who presents for problem visit (LT) sided pelvic pain, x1 week.The delivery was on 11/18/23 at 37w2d weeks gestation. Outcome: . Sex: F, Wt: 7 lbs 5 oz. HPI: Left sided pain for the last week. Ok in the AM and gets worse as the day goes on. A burning feeling at times. No bowel or bladder concerns. No bleeding. No periods since childbirth a year ago. Still getting a good supply of Breast milk. Negative UPT OB History Gravida5 Para3 Term3 Preterm0 AB2 Living3 SAB2 IAB0 Ectopic0 Multiple0 Live Births3 Nursing Techn History LMP: 03/02/2023 (Exact Date), Unknown Age at Menarche: Age at First : Age at Menopause: Nursing Techn History Comments: Sexual Activity: Yes; Male Contraception: Not used PAST MEDICAL HISTORY Diagnosis Date anxiety Asthma fibrocystic breast disease Genetic testing 04/28/2009 Negative for 32 Mutuations of CF Herpes simplex virus (HSV) infection History of pre-eclampsia in prior , currently PCOS (polycystic ovarian syndrome) SAB (spontaneous ) 2019 Seasonal allergies Vaginal bleeding during 05/25/2023 PAST SURGICAL HISTORY Procedure Laterality Date APPENDECTOMY [...] Social History Tobacco Use Smoking status: Former Current packs/day: 0.00 Average packs/day: 0.5 packs/day for 4.0 years (2.0 ttl pk-yrs) Types: Cigarettes Start date: 03/31/2013 Quit date: 03/31/2017 Years since quittin.8 Smokeless tobacco: Never Tobacco comments: quit over one year ago (2017) Vaping Use Vaping status: Former Quit date: 06/03/2017 Substance Use Topics Alcohol use: Not Currently Comment: rare Drug use: No Current Outpatient Medications Medication Sig sodium chloride (SALINE MIST) 0.65 % nasal spray Use 1 [place] in the nose two times a day. fluticasone (FLONASE) 50 mcg/actuation nasal spray Use 2 Sprays in each nostril two times a day. Rinse mouth after use. fluconazole (DIFLUCAN) 150 mg tablet Take one tablet by mouth once. Then repeat every 3 days for 3 doses. (Patient not taking: Reported on 09/03/2024) cholecalciferol, vitamin D3, (VITAMIN D3 ORAL) Take 2,000 Int'l Units/day by mouth once daily. Norethindrone, Contraceptive, 0.35 mg tablet Take 1 tablet by mouth once daily. (Patient not taking: Reported on 09/03/2024) MAGNESIUM ORAL Take by mouth as needed. mv-min/vit C/glut/lysine/hb124 (IMMUNE SUPPORT ORAL) Take 1 capsule by mouth once daily. Bbsoedjk-Kg-Isu-Fe-FA ( VITAMIN) tab Take 1 tablet by mouth. No current facility-administered medications for this visit. Allergies As of Date: 02/06/2025 (No Known Allergies) Fully Assessed 01/23/2025 REVIEW OF SYSTEMS Abdomen: No bloating, early satiety, indigestion, or increased flatulence. No abdominal pain, nausea, vomiting, diarrhea, or constipation. Bladder: No dysuria, gross hematuria, urinary frequency, urinary urgency, or incontinence. Breast: No breast lumps, nipple d/c, overlying skin changes, redness or skin retraction. Expanded ROS: N/A Allergies and current medication updated:Yes SENSITIVE EXAM: The sensitive examination was discussed with the Patient or Patient's Authorized Remote Encoding Operations Supervisor. As applicable, any other physician, advance practice provider, medical student, or other health professional student that will be observing or involved in the sensitive examination for educational or training purposes was discussed with the Patient or Authorized Remote Encoding Operations Supervisor. The Patient or Authorized Remote Encoding Operations Supervisor has agreed to proceed with the sensitive examination. (Sensitive examination includes inspection and/or palpation of the breasts, pelvis, prostate and anorectal regions). EXAM: LMP 03/02/2023 GENERAL: pleasant, female in no apparent distress HEENT: Normocephalic, atraumatic, mucus membranes moist, and no lesions NECK: Supple, full range of motion, no adenopathy, and thyroid normal DERMATOLOGY: Normal, without lesions, non-icteric, and non-hirsute BREAST: deferred CHEST: Normal inspiratory effort ABDOMEN: soft, non-tender, and no masses PELVIC: external genitalia normal, normal Bartholin's glands, urethra, [place]'s glands, no vulvar lesions, no cervical lesions, good vaginal support, physiologic discharge present, normal appearing perineal body and perianal region BIMANUAL: uterus normal size, shape and consistency, no adnexal masses, and non-tender NEURO: alert and oriented x3,exam grossly non-focal EXTREMITIES: normal ASSESSMENT AND PLAN: Assessment & Plan LLQ pain Orders: PELVIC US WHI; Future Luda Combs MD documented in this encounter [facility] 02-06-2025 Note HNO ID: [id number] Author: LUDA COMBS MD Service: ? 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 Blanca Chase is a 29 year old female who presents for problem visit (LT) sided pelvic pain, x1 week.The delivery was on 11/18/23 at 37w2d weeks gestation. Outcome: . Sex: F, Wt: 7 lbs 5 oz. HPI: Left sided pain for the last week. Ok in the AM and gets worse as the day goes on. A burning feeling at times. No bowel or bladder concerns. No bleeding. No periods since childbirth a year ago. Still getting a good supply of Breast milk. Negative UPT OB History Gravida5 Para3 Term3 Preterm0 AB2 Living3 SAB2 IAB0 Ectopic0 Multiple0 Live Births3 Nursing Techn History LMP: 03/02/2023 (Exact Date), Unknown Age at Menarche: Age at First : Age at Menopause: Nursing Techn History Comments: Sexual Activity: Yes; Male Contraception: Not used PAST MEDICAL HISTORY Diagnosis Date anxiety Asthma fibrocystic breast disease Genetic testing 04/28/2009 Negative for 32 Mutuations of CF Herpes simplex virus (HSV) infection History of pre-eclampsia in prior , currently PCOS (polycystic ovarian syndrome) SAB (spontaneous ) 2019 Seasonal allergies Vaginal bleeding during 05/25/2023 PAST SURGICAL HISTORY Procedure Laterality Date APPENDECTOMY [...] Social History Tobacco Use Smoking status: Former Current packs/day: 0.00 Average packs/day: 0.5 packs/day for 4.0 years (2.0 ttl pk-yrs) Types: Cigarettes Start date: 03/31/2013 Quit date: 03/31/2017 Years since quittin.8 Smokeless tobacco: Never Tobacco comments: quit over one year ago (2017) Vaping Use Vaping status: Former Quit date: 06/03/2017 Substance Use Topics Alcohol use: Not Currently Comment: rare Drug use: No Current Outpatient Medications Medication Sig sodium chloride (SALINE MIST) 0.65 % nasal spray Use 1 [place] in the nose two times a day. fluticasone (FLONASE) 50 mcg/actuation nasal spray Use 2 Sprays in each nostril two times a day. Rinse mouth after use. fluconazole (DIFLUCAN) 150 mg tablet Take one tablet by mouth once. Then repeat every 3 days for 3 doses. (Patient not taking: Reported on 09/03/2024) cholecalciferol, vitamin D3, (VITAMIN D3 ORAL) Take 2,000 Int'l Units/day by mouth once daily. Norethindrone, Contraceptive, 0.35 mg tablet Take 1 tablet by mouth once daily. (Patient not taking: Reported on 09/03/2024) MAGNESIUM ORAL Take by mouth as needed. mv-min/vit C/glut/lysine/hb124 (IMMUNE SUPPORT ORAL) Take 1 capsule by mouth once daily. Wtuqicdk-Hq-Bmq-Fe-FA ( VITAMIN) tab Take 1 tablet by mouth. No current facility-administered medications for this visit. Allergies As of Date: 02/06/2025 (No Known Allergies) Fully Assessed 01/23/2025 REVIEW OF SYSTEMS Abdomen: No bloating, early satiety, indigestion, or increased flatulence. No abdominal pain, nausea, vomiting, diarrhea, or constipation. Bladder: No dysuria, gross hematuria, urinary frequency, urinary urgency, or incontinence. Breast: No breast lumps, nipple d/c, overlying skin changes, redness or skin retraction. Expanded ROS: N/A Allergies and current medication updated:Yes SENSITIVE EXAM: The sensitive examination was discussed with the Patient or Patient's Authorized Remote Encoding Operations Supervisor. As applicable, any other physician, advance practice provider, medical student, or other health professional student that will be observing or involved in the sensitive examination for educational or training purposes was discussed with the Patient or Authorized Remote Encoding Operations Supervisor. The Patient or Authorized Remote Encoding Operations Supervisor has agreed to proceed with the sensitive examination. (Sensitive examination includes inspection and/or palpation of the breasts, pelvis, prostate and anorectal regions). EXAM: LMP 03/02/2023 GENERAL: pleasant, female in no apparent distress HEENT: Normocephalic, atraumatic, mucus membranes moist, and no lesions NECK: Supple, full range of motion, no adenopathy, and thyroid normal DERMATOLOGY: Normal, without lesions, non-icteric, and non-hirsute BREAST: deferred CHEST: Normal ins (more content not included)... [facility] 01-23-2025 Note HNO ID: [id number] Author: DOLORES TALAVERA APRN.BUS WASHER Service: ? Author Type: Nurse Practitioner Type: Progress Notes Filed: 01/23/2025 19:23 Note Text: [facility] Subjective Blanca Chase is a 29 year old female. Patient presents with: Breast Problem: left breast inflammation x 2 days, recurring from x 12/23 29 year old female with PMH Acute onset 2 days ago Left breast +redness +tenderness Denies drainage Denies fever or chills Denies skin rash or lesions. Denies malaise or fatigue OF note, she was treated for mastitis on 12/23/24 Provided Doxyline Endorses that she has a history of same The history is provided by the patient. No foreign languages department chair was used. Review of Systems Respiratory: Negative for apnea, cough, choking and chest tightness. Cardiovascular: Negative for chest pain and palpitations. Gastrointestinal: Negative for abdominal pain, diarrhea, nausea and vomiting. Skin: Negative for color change, pallor, rash and wound. Objective BP 118/70 Pulse 88 Temp 36.9 ?C (98.4 ?F) Resp 16 Wt 81.9 kg (180 lb 8.9 oz) LMP 03/02/2023 (Exact Date) SpO2 98% BMI 30.05 kg/m? Physical Exam Vitals and nursing note reviewed. Constitutional: General: She is not in acute distress. Appearance: Normal appearance. She is normal weight. She is not ill-appearing, toxic-appearing or diaphoretic. HENT: Head: Normocephalic and atraumatic. Right Ear: Ear canal and external ear normal. Left Ear: Ear canal and external ear normal. Nose: Nose normal. No congestion or rhinorrhea. Mouth/Throat: Mouth: Mucous membranes are moist. Pharynx: No oropharyngeal exudate or posterior oropharyngeal erythema. Eyes: General: Right eye: No discharge. Left eye: No discharge. Extraocular Movements: Extraocular movements intact. Conjunctiva/sclera: Conjunctivae normal. Pupils: Pupils are equal, round, and reactive to light. Cardiovascular: Rate and Rhythm: Normal rate and regular rhythm. Pulses: Normal pulses. Heart sounds: Normal heart sounds. No murmur heard. No friction rub. Pulmonary: Effort: Pulmonary effort is normal. No respiratory distress. Breath sounds: Normal breath sounds. No stridor. No wheezing, rhonchi or rales. Chest: Chest wall: Tenderness present. Abdominal: General: Abdomen is flat. There is no distension. Palpations: Abdomen is soft. There is no mass. Tenderness: There is no abdominal tenderness. There is no right CVA tenderness, left CVA tenderness, guarding or rebound. Hernia: No hernia is present. Musculoskeletal: General: No swelling, tenderness, deformity or signs of injury. Normal range of motion. Cervical back: Normal range of motion and neck supple. No rigidity. Right lower leg: No edema. Left lower leg: No edema. Lymphadenopathy: Cervical: No cervical adenopathy. Skin: General: Skin is warm and dry. Coloration: Skin is not jaundiced or pale. Findings: No bruising, erythema, lesion or rash. Neurological: General: No focal deficit present. Mental Status: She is alert and oriented to person, place, and time. Cranial Nerves: No cranial nerve deficit. Sensory: No sensory deficit. Motor: No weakness. Coordination: Coordination normal. Gait: Gait normal. Psychiatric: Mood and Affect: Mood normal. Behavior: Behavior normal. Thought Content: Thought content normal. Judgment: Judgment normal. {ASSESSMENT/PLAN: 1. Cellulitis of left breast - ICD9: 611.0, ICD10: N61.0 Onset 2 days ago No masses or lumps noted She was treated for same on Endorses improvement States I get this quite often ?? 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 Findings from review of outpatient records: Doxy for mastitis Differential Diagnoses - cellulitis - mastitis Disposition The patient was discharged. Procedures [facility] 01-22-2025 Note HNO ID: [id number] Author: SYED DOUGLAS APRN.SHOAIB Service: ? Author Type: Nurse Practitioner Type: Progress Notes Filed: 01/22/2025 18:46 Note Text: Patient's chief complaint: Mastitis Patient was contacted and advised on limitations of [facility]. Advised patient to seek in-person evaluation due to sensitivity of the location. Pt agreeable and understanding and will go to EC/UC for exam. This appointment was cancelled and fee waived. Syed Douglas APRN.SHOAIB [facility] 01-22-2025 History of Presen t illness Narrative Patient's chief complaint: Mastitis Patient was contacted and advised on limitations of [facility]. Advised patient to seek in-person evaluation due to sensitivity of the location. Pt agreeable and understanding and will go to EC/UC for exam. This appointment was cancelled and fee waived. Syed Douglas APRN.SHOAIB documented in this encounter [facility] 12-24-2024 Telephone encounter Note Patient notified.Anna Willis LPN [facility] 12-24-2024 Miscellaneous Notes Patient notified.Anna Willis LPN Please patient know note is in her chart. Follow-up with PCP if no improvement. 1) Pt states she was seen in [facility] yesterday for mastitis. Reports provider asked her if she needed a work note for yesterday and today and pt stated she only wanted for yesterday. Pt would now like to request note to include today as well, if provider agreeable. May place letter in MyChart. 2) Pt states her left breast duct is still clogged. States she is trying everything. Asking if EC provider has any other recommendation? Reviewed with patient to follow-up with PCP in 3-5 days if symptoms have not improved, or sooner if symptoms worsen. Please call patient with update. [phone] Thank you. documented in this encounter [facility] 12-24-2024 Telephone encounter Note Please patient know note is in her chart. Follow-up with PCP if no improvement. [facility] Work Phone: 12-24-2024 Telephone encounter Note 1) Pt states she was seen in [facility] yesterday for mastitis. Reports provider asked her if she needed a work note for yesterday and today and pt stated she only wanted for yesterday. Pt would now like to request note to include today as well, if provider agreeable. May place letter in MyChart. 2) Pt states her left breast duct is still clogged. States she is trying everything. Asking if EC provider has any other recommendation? Reviewed with patient to follow-up with PCP in 3-5 days if symptoms have not improved, or sooner if symptoms worsen. Please call patient with update. [phone] Thank you. [facility] 12-23-2024 Instructions Margoth Kaplan APRN.SHOAIB - 12/23/2024 2:45 PM EDT ASSESSMENT/PLAN: 1. Mastitis associated with - ICD9: 675.24, ICD10: O91.23 - DICLOXACILLIN 500 MG CAPSULE - warm compresses to breast 2-3 times daily. - Follow-up with your PCP in 3-5 days if symptoms have not improved or sooner if symptoms worsen - Discussed red flags and need for immediate medical evaluation if any occur. - Discussed supportive care treatment with fluids, rest and analgesia. - Discussed expected course of illness Margoth Kaplan APRN.BUS WASHER documented in this encounter [facility] 12-23-2024 Note HNO ID: [id number] Author: MARGOTH KAPLAN APRN.SHOAIB Service: ? Author Type: Nurse Practitioner Type: Progress Notes Filed: 12/23/2024 14:45 Note Text: [facility] Subjective Blanca Chase is a 29 year old female. Patient presents with: Breast Problem: Left breasts, redness, swelling, painful x 2 days Has clogged duct HPI Blanca Chase is a 29 year old female who presents with breast redness, swelling, pain for the past 2 days. Last night she had chills and body aches and felt dizzy. She has not had a fever. She is currently breast feeding a year old. She took ibuprofen, lecithin, and a dose of amoxicillin she had left over from her last episode of mastitis. Review of Systems Constitutional: Negative for activity change, fatigue and fever. Respiratory: Negative. Cardiovascular: Negative. Gastrointestinal: Negative for nausea and vomiting. Musculoskeletal: Negative. Objective BP 103/72 Pulse 85 Temp 36.7 ?C (98 ?F) Resp 20 Wt 81 kg (178 lb 9.2 oz) LMP 03/02/2023 (Exact Date) SpO2 98% Yes BMI 29.72 kg/m? PAST MEDICAL HISTORY Diagnosis Date - anxiety - Asthma - fibrocystic breast disease - Genetic testing 04/28/2009 Negative for 32 Mutuations of CF - Herpes simplex virus (HSV) infection - History of pre-eclampsia in prior , currently - PCOS (polycystic ovarian syndrome) - SAB (spontaneous ) 2019 - Seasonal allergies - Vaginal bleeding during 05/25/2023 PAST SURGICAL HISTORY Procedure Laterality Date - APPENDECTOMY 2011 - SUCTION D AND C 01/15/2021 Retained placenta ALLERGIES Patient has no known allergies. MEDICATIONS - cholecalciferol, vitamin D3, (VITAMIN D3 ORAL) Take 2,000 Int'l Units/day by mouth once daily. - MAGNESIUM ORAL Take by mouth as needed. - mv-min/vit C/glut/lysine/hb124 (IMMUNE SUPPORT ORAL) Take 1 capsule by mouth once daily. - Qcchtqld-Kp-Xjm-Fe-FA ( VITAMIN) tab Take 1 tablet by mouth. - dicloxacillin (DYNAPEN) 500 mg capsule Take 1 capsule by mouth four times daily for 7 days. - sodium chloride (SALINE MIST) 0.65 % nasal spray Use 1 [place] in the nose two times a day. - fluticasone (FLONASE) 50 mcg/actuation nasal spray Use 2 Sprays in each nostril two times a day. Rinse mouth after use. - fluconazole (DIFLUCAN) 150 mg tablet Take one tablet by mouth once. Then repeat every 3 days for 3 doses. (Patient not taking: Reported on 09/03/2024) - Norethindrone, Contraceptive, 0.35 mg tablet Take 1 tablet by mouth once daily. (Patient not taking: Reported on 09/03/2024) FAMILY HISTORY Problem Relation Age of Onset - Thyroid Mother - Kidney Disease Mother stage 3 - other (pcos) Mother - Cystic Fibrosis Father - Heart Attack Father - other (pcos) Sister - No Known Problems Sister - No Known Problems Sister - Seizures Sister - Asthma Brother - other (heart murmur) Brother - No Known Problems Brother - No Known Problems Brother - Heart Maternal Grandmother - Thyroid Maternal Grandmother - other (renal cancer) Maternal Grandmother - Cardiomyopathy Maternal Grandmother - No Known Problems Maternal Grandfather - No Known Problems Paternal Grandmother - Heart Paternal Grandfather - Asthma Son - Thyroid Maternal Aunt - Asthma Daughter Social History Tobacco Use - Smoking status: Former Current packs/day: 0.00 Average packs/day: 0.5 packs/day for 4.0 years (2.0 ttl pk-yrs) Types: Cigarettes Start date: 03/31/2013 Quit date: 03/31/2017 Years since quittin.7 - Smokeless tobacco: Never - Tobacco comments: quit over one year ago (2017) Vaping Use - Vaping status: Former - Quit date: 06/03/2017 Substance Use Topics - Alcohol use: Not Currently Comment: rare - Drug use: No Physical Exam Vitals and nursing note reviewed. Constitutional: Appearance: Normal appearance. Cardiovascular: Rate and Rhythm: Normal rate. Pulmonary: Effort: Pulmonary effort is normal. Chest: Skin: General: Skin is warm and dry. Findings: Erythema present. No rash. Neurological: Mental Status: She is alert. ASSESSMENT/PLAN: 1. Mastitis associated with - ICD9: 675.24, ICD10: O91.23 - DICLOXACILLIN 500 MG CAPSULE - warm compresses to breast 2-3 times daily. - Follow-up with your PCP in 3-5 days if symptoms have not improved or sooner if symptoms worsen - Discussed red flags and need for immediate medical evaluation if any occur. - Discussed supportive care treatment with fluids, rest and analgesia. - Discussed expected course of illness Margoth Kaplan APRN.BUS WASHER Disposition The patient was discharged. OTC Medications were advised: Ibuprofen/tylenol as needed Procedures [facility] 12-23-2024 History of Presen t illness Narrative Images from the original note were not included. [facility] Subjective Blanca Chase is a 29 year old female. Patient presents with: Breast Problem: Left breasts, redness, swelling, painful x 2 days Has clogged duct HPI Blanca Chase is a 29 year old female who presents with breast redness, swelling, pain for the past 2 days. Last night she had chills and body aches and felt dizzy. She has not had a fever. She is currently breast feeding a year old. She took ibuprofen, lecithin, and a dose of amoxicillin she had left over from her last episode of mastitis. Review of Systems Constitutional: Negative for activity change, fatigue and fever. Respiratory: Negative. Cardiovascular: Negative. Gastrointestinal: Negative for nausea and vomiting. Musculoskeletal: Negative. Objective BP 103/72 Pulse 85 Temp 36.7 C (98 F) Resp 20 Wt 81 kg (178 lb 9.2 oz) LMP 03/02/2023 (Exact Date) SpO2 98% Yes BMI 29.72 kg/m PAST MEDICAL HISTORY Diagnosis Date anxiety Asthma fibrocystic breast disease Genetic testing 04/28/2009 Negative for 32 Mutuations of CF Herpes simplex virus (HSV) infection History of pre-eclampsia in prior , currently PCOS (polycystic ovarian syndrome) SAB (spontaneous ) 2019 Seasonal allergies Vaginal bleeding during 05/25/2023 PAST SURGICAL HISTORY Procedure Laterality Date APPENDECTOMY 2012 SUCTION D & C 01/15/2021 Retained placenta ALLERGIES Patient has no known allergies. MEDICATIONS cholecalciferol, vitamin D3, (VITAMIN D3 ORAL) Take 2,000 Int'l Units/day by mouth once daily. MAGNESIUM ORAL Take by mouth as needed. mv-min/vit C/glut/lysine/hb124 (IMMUNE SUPPORT ORAL) Take 1 capsule by mouth once daily. Gdslupkv-Kd-Hew-Fe-FA ( VITAMIN) tab Take 1 tablet by mouth. dicloxacillin (DYNAPEN) 500 mg capsule Take 1 capsule by mouth four times daily for 7 days. sodium chloride (SALINE MIST) 0.65 % nasal spray Use 1 [place] in the nose two times a day. fluticasone (FLONASE) 50 mcg/actuation nasal spray Use 2 Sprays in each nostril two times a day. Rinse mouth after use. fluconazole (DIFLUCAN) 150 mg tablet Take one tablet by mouth once. Then repeat every 3 days for 3 doses. (Patient not taking: Reported on 09/03/2024) Norethindrone, Contraceptive, 0.35 mg tablet Take 1 tablet by mouth once daily. (Patient not taking: Reported on 09/03/2024) FAMILY HISTORY Problem Relation Age of Onset [...] Social History Tobacco Use Smoking status: Former Current packs/day: 0.00 Average packs/day: 0.5 packs/day for 4.0 years (2.0 ttl pk-yrs) Types: Cigarettes Start date: 03/31/2013 Quit date: 03/31/2017 Years since quittin.7 Smokeless tobacco: Never Tobacco comments: quit over one year ago (2017) Vaping Use Vaping status: Former Quit date: 06/03/2017 Substance Use Topics Alcohol use: Not Currently Comment: rare Drug use: No Physical Exam Vitals and nursing note reviewed. Constitutional: Appearance: Normal appearance. Cardiovascular: Rate and Rhythm: Normal rate. Pulmonary: Effort: Pulmonary effort is normal. Chest: Skin: General: Skin is warm and dry. Findings: Erythema present. No rash. Neurological: Mental Status: She is alert. ASSESSMENT/PLAN: 1. Mastitis associated with - ICD9: 675.24, ICD10: O91.23 - DICLOXACILLIN 500 MG CAPSULE - warm compresses to breast 2-3 times daily. - Follow-up with your PCP in 3-5 days if symptoms have not improved or sooner if symptoms worsen - Discussed red flags and need for immediate medical evaluation if any occur. - Discussed supportive care treatment with fluids, rest and analgesia. - Discussed expected course of illness Margoth Kaplan APRN.BUS WASHER Disposition The patient was discharged. OTC Medications were advised: Ibuprofen/tylenol as needed Procedures documented in this encounter [facility] 12-03-2024 Telephone encounter Note I did not see them for this illness, so I cannot give letter to excuse them. Last OV with our team 08/2023. [facility] 12-03-2024 Miscellaneous Notes I did not see them for this illness, so I cannot give letter to excuse them. Last OV with our team 08/2023. documented in this encounter [facility] 11-19-2024 Note HNO ID: [id number] Author: PADMINI BORGES APRN.SHOAIB Service: ? Author Type: Nurse Practitioner Type: Progress Notes Filed: 11/19/2024 17:01 Note Text: Telemedicine Visit - Distance Health Virtual Visit Note Patient seen on [employer] Video Visit platform. Location of patient: [place] I have communicated my name and active licensure. The patient's identity and physical location were verified at the time of this visit. 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 CC: influenza History of Present Illness Blanca Chase is a 29 year old female who presents for the past 4 days with symptoms that are:constant. Symptoms include: Positive for Fever, Chills/Sweats, Cough, Nasal congestion, PND, Ear pressure, Rhinorrhea: Clear, Face pain/pressure, Headache, Sore throat, and Fatigue, Negative for Hemoptysis, SOB, RODRIGUEZ, Wheezing, Nausea, Emesis, and Diarrhea, Oral intake: Decreased appetite +influenza test Recent rapid at-home COVID test completed: Yes Sick contacts: yes Recent travel: no /Lactating: : No: Lactating: Yes OTC meds/remedies that patient has tried: allergy meds, tylenol, motrin. PAST MEDICAL HISTORY Diagnosis Date anxiety Asthma fibrocystic breast disease Genetic testing 04/28/2009 Negative for 32 Mutuations of CF Herpes simplex virus (HSV) infection History of pre-eclampsia in prior , currently PCOS (polycystic ovarian syndrome) SAB (spontaneous ) 2019 Seasonal allergies Vaginal bleeding during 05/25/2023 PAST SURGICAL HISTORY Procedure Laterality Date APPENDECTOMY [...] Social History Tobacco Use Smoking status: Former Current packs/day: 0.00 Average packs/day: 0.5 packs/day for 4.0 years (2.0 ttl pk-yrs) Types: Cigarettes Start date: 03/31/2013 Quit date: 03/31/2017 Years since quittin.6 Smokeless tobacco: Never Tobacco comments: quit over one year ago (2017) Vaping Use Vaping status: Former Quit date: 06/03/2017 Substance Use Topics Alcohol use: Not Currently Comment: rare Drug use: No Current Outpatient Medications Medication Sig sodium chloride (SALINE MIST) 0.65 % nasal spray Use 1 [place] in the nose two times a day. fluticasone (FLONASE) 50 mcg/actuation nasal spray Use 2 Sprays in each nostril two times a day. Rinse mouth after use. fluconazole (DIFLUCAN) 150 mg tablet Take one tablet by mouth once. Then repeat every 3 days for 3 doses. (Patient not taking: Reported on 09/03/2024) cholecalciferol, vitamin D3, (VITAMIN D3 ORAL) Take 2,000 Int'l Units/day by mouth once daily. Norethindrone, Contraceptive, 0.35 mg tablet Take 1 tablet by mouth once daily. (Patient not taking: Reported on 09/03/2024) MAGNESIUM ORAL Take by mouth as needed. mv-min/vit C/glut/lysine/hb124 (IMMUNE SUPPORT ORAL) Take 1 capsule by mouth once daily. Ilghciln-Ih-Amz-Fe-FA ( VITAMIN) tab Take 1 tablet by mouth. No current facility-administered medications for this visit. ALLERGIES No Known Allergies Video Exam (Examination performed via Video enabled technology) General appearance: Alert, oriented, pleasant, in NAD: Yes Ill appearing: No Lethargic appearing: No Frontal sinus tenderness by self palpation: No Maxillary sinus tenderness by self palpation: No Tender cervical adenopathy by self palpation: No Respiratory distress: No Coughing noted: No Audible wheezing noted: No ASSESSMENT/PLAN: 1. Viral syndrome - ICD9: 079.99, ICD10: B34.9 - Discussed viral etiology and rationale for treatment. - Symptomatic treatment with prn analgesia - Supportive care with fluids and rest - The patient may also use OTC cough and cold meds as needed, warm salt water gargles, throat lozenges and/or OTC throat spray as needed, and nasal saline gtts and suction prn. - Follow up in 3-5 days if symptoms persist or sooner if worsening of symptoms -Tylenol (generic acetaminophen) 500 mg-2 tabs every 8 hrs. as needed for fever and aches -[email or web address]/ [email or web address] (more content not included)... [facility] 11-19-2024 History of Presen t illness Narrative Telemedicine Visit - Distance Health Virtual Visit Note Patient seen on MyChart Zoom Video Visit platform. Location of patient: [place] I have communicated my name and active licensure. The patient's identity and physical location were verified at the time of this visit. 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 CC: influenza History of Present Illness Blanca Chase is a 29 year old female who presents for the past 4 days with symptoms that are:constant. Symptoms include: Positive for Fever, Chills/Sweats, Cough, Nasal congestion, PND, Ear pressure, Rhinorrhea: Clear, Face pain/pressure, Headache, Sore throat, and Fatigue, Negative for Hemoptysis, SOB, RODRIGUEZ, Wheezing, Nausea, Emesis, and Diarrhea, Oral intake: Decreased appetite +influenza test Recent rapid at-home COVID test completed: Yes Sick contacts: yes Recent travel: no /Lactating: : No: Lactating: Yes OTC meds/remedies that patient has tried: allergy meds, tylenol, motrin. PAST MEDICAL HISTORY Diagnosis Date anxiety Asthma fibrocystic breast disease Genetic testing 04/28/2009 Negative for 32 Mutuations of CF Herpes simplex virus (HSV) infection History of pre-eclampsia in prior , currently PCOS (polycystic ovarian syndrome) SAB (spontaneous ) 2019 Seasonal allergies Vaginal bleeding during 05/25/2023 PAST SURGICAL HISTORY Procedure Laterality Date APPENDECTOMY [...] Social History Tobacco Use Smoking status: Former Current packs/day: 0.00 Average packs/day: 0.5 packs/day for 4.0 years (2.0 ttl pk-yrs) Types: Cigarettes Start date: 03/31/2013 Quit date: 03/31/2017 Years since quittin.6 Smokeless tobacco: Never Tobacco comments: quit over one year ago (2017) Vaping Use Vaping status: Former Quit date: 06/03/2017 Substance Use Topics Alcohol use: Not Currently Comment: rare Drug use: No Current Outpatient Medications Medication Sig sodium chloride (SALINE MIST) 0.65 % nasal spray Use 1 [place] in the nose two times a day. fluticasone (FLONASE) 50 mcg/actuation nasal spray Use 2 Sprays in each nostril two times a day. Rinse mouth after use. fluconazole (DIFLUCAN) 150 mg tablet Take one tablet by mouth once. Then repeat every 3 days for 3 doses. (Patient not taking: Reported on 09/03/2024) cholecalciferol, vitamin D3, (VITAMIN D3 ORAL) Take 2,000 Int'l Units/day by mouth once daily. Norethindrone, Contraceptive, 0.35 mg tablet Take 1 tablet by mouth once daily. (Patient not taking: Reported on 09/03/2024) MAGNESIUM ORAL Take by mouth as needed. mv-min/vit C/glut/lysine/hb124 (IMMUNE SUPPORT ORAL) Take 1 capsule by mouth once daily. Jqjueqjg-Uf-Bif-Fe-FA ( VITAMIN) tab Take 1 tablet by mouth. No current facility-administered medications for this visit. ALLERGIES No Known Allergies Video Exam (Examination performed via Video enabled technology) General appearance: Alert, oriented, pleasant, in NAD: Yes Ill appearing: No Lethargic appearing: No Frontal sinus tenderness by self palpation: No Maxillary sinus tenderness by self palpation: No Tender cervical adenopathy by self palpation: No Respiratory distress: No Coughing noted: No Audible wheezing noted: No ASSESSMENT/PLAN: 1. Viral syndrome - ICD9: 079.99, ICD10: B34.9 - Discussed viral etiology and rationale for treatment. - Symptomatic treatment with prn analgesia - Supportive care with fluids and rest - The patient may also use OTC cough and cold meds as needed, warm salt water gargles, throat lozenges and/or OTC throat spray as needed, and nasal saline gtts and suction prn. - Follow up in 3-5 days if symptoms persist or sooner if worsening of symptoms -Tylenol (generic acetaminophen) 500 mg-2 tabs every 8 hrs. as needed for fever and aches -[email or web address]/ [email or web address]/[email or web address] This link shares information about when antibiotics may help and when they may not. - Red flags discussed for need for in person care - All questions answered Padmini Borges APRN.[employer] W[employer]ER documented in this encounter [facility] 10-19-2024 Telephone encounter Note Notified pt an OV is needed to discuss symptoms with PCP Team. Has not been seen in over a year. Was last seen by PCP Team for issue. Abbey Virk MA [facility] 10-19-2024 Miscellaneous Notes Notified pt an OV is needed to discuss symptoms with PCP Team. Has not been seen in over a year. Was last seen by PCP Team for issue. Abbey Virk MA documented in this encounter [facility] 09-29-2024 Note HNO ID: [id number] Author: RODGER KILPATRICK PA Service: ? Author Type: Physician Acoustic Intelligence Specialist Type: Progress Notes Filed: 09/29/2024 13:42 Note Text: This note was created using [employer] Dynamics[employer]. Subjective Blanca Chase is a 28 year old female. HPI 28-year-old female presents for mastitis. Patient states that she started getting right-sided breast tenderness and redness yesterday. She had a fever yesterday as well. She states she has not had a fever yet today. Has not had any Tylenol or Motrin today. She does still have redness and tenderness over the breast. She is still breast-feeding her child. She states she has had mastitis in the past, last episode was 7 months ago. She denies any abscess or drainage from the breast. She did have a fluconazole leftover from when she had nipple candidiasis and took this without improvement. She is taken Tylenol and Motrin yesterday, none today. No other complaint. PAST MEDICAL HISTORY Diagnosis Date anxiety Asthma fibrocystic breast disease Genetic testing 04/28/2009 Negative for 32 Mutuations of CF Herpes simplex virus (HSV) infection History of pre-eclampsia in prior , currently PCOS (polycystic ovarian syndrome) SAB (spontaneous ) 2019 Seasonal allergies Vaginal bleeding during 05/25/2023 PAST SURGICAL HISTORY Procedure Laterality Date APPENDECTOMY 2012 SUCTION D AND C 01/15/2021 Retained placenta ALLERGIES Patient has no known allergies. MEDICATIONS sodium chloride (SALINE MIST) 0.65 % nasal spray Use 1 [place] in the nose two times a day. fluticasone (FLONASE) 50 mcg/actuation nasal spray Use 2 Sprays in each nostril two times a day. Rinse mouth after use. cholecalciferol, vitamin D3, (VITAMIN D3 ORAL) Take 2,000 Int'l Units/day by mouth once daily. MAGNESIUM ORAL Take by mouth as needed. mv-min/vit C/glut/lysine/hb124 (IMMUNE SUPPORT ORAL) Take 1 capsule by mouth once daily. Stulsttn-Ir-Qlx-Fe-FA ( VITAMIN) tab Take 1 tablet by mouth. cephALEXin (KEFLEX) 500 mg capsule Take 1 capsule by mouth four times daily for 10 days. fluconazole (DIFLUCAN) 150 mg tablet Take one tablet by mouth once. Then repeat every 3 days for 3 doses. (Patient not taking: Reported on 09/03/2024) Norethindrone, Contraceptive, 0.35 mg tablet Take 1 tablet by mouth once daily. (Patient not taking: Reported on 09/03/2024) FAMILY HISTORY Problem Relation Age of Onset [...] Social History Tobacco Use Smoking status: Former Current packs/day: 0.00 Average packs/day: 0.5 packs/day for 4.0 years (2.0 ttl pk-yrs) Types: Cigarettes Start date: 03/31/2013 Quit date: 03/31/2017 Years since quittin.5 Smokeless tobacco: Never Tobacco comments: quit over one year ago (2017) Vaping Use Vaping status: Former Quit date: 06/03/2017 Substance Use Topics Alcohol use: Not Currently Comment: rare Drug use: No Review of Systems Constitutional: Negative for chills and fever. HENT: Negative for congestion, ear pain and sore throat. Respiratory: Negative for cough and shortness of breath. Cardiovascular: Negative for chest pain. Gastrointestinal: Negative for diarrhea and vomiting. Skin: Positive for color change. Objective BP 104/75 Pulse 104 Temp 36.6 ?C (97.8 ?F) (Right Tympanic) Resp 16 Wt 82.2 kg (181 lb 3.5 oz) LMP 03/02/2023 (Exact Date) SpO2 98% Yes BMI 30.16 kg/m? Physical Exam Vitals and nursing note reviewed. Constitutional: General: She is not in acute distress. Appearance: Normal appearance. She is not toxic-appearing. HENT: Nose: Nose normal. Mouth/Throat: Mouth: Mucous membranes are moist. Eyes: Conjunctiva/sclera: Conjunctivae normal. Cardiovascular: Rate and Rhythm: Normal rate and regular rhythm. Pulmonary: Effort: Pulmonary effort is normal. Breath sounds: Normal breath sounds. Chest: Chest wall: Tenderness present. Breasts: Right: Skin change and tenderness present. Comments: Right breast is tender with erythema noted around the areola and right lateral breast. No lymphatic streaking. No abscess or fluctuance felt. No nipple drainage. Left breast normal. No erythema or tenderness. Skin: General: Skin is warm and dry. Neurological: Mental Status: She is alert. Assessment and Plan ASS (more content not included)... [facility] 09-29-2024 History of Presen t illness Narrative This note was created using [employer]. Subjective Blanca Chase is a 28 year old female. HPI 28-year-old female presents for mastitis. Patient states that she started getting right-sided breast tenderness and redness yesterday. She had a fever yesterday as well. She states she has not had a fever yet today. Has not had any Tylenol or Motrin today. She does still have redness and tenderness over the breast. She is still breast-feeding her child. She states she has had mastitis in the past, last episode was 7 months ago. She denies any abscess or drainage from the breast. She did have a fluconazole leftover from when she had nipple candidiasis and took this without improvement. She is taken Tylenol and Motrin yesterday, none today. No other complaint. PAST MEDICAL HISTORY Diagnosis Date anxiety Asthma fibrocystic breast disease Genetic testing 04/28/2009 Negative for 32 Mutuations of CF Herpes simplex virus (HSV) infection History of pre-eclampsia in prior , currently PCOS (polycystic ovarian syndrome) SAB (spontaneous ) 2019 Seasonal allergies Vaginal bleeding during 05/25/2023 PAST SURGICAL HISTORY Procedure Laterality Date APPENDECTOMY 2011 SUCTION D & C 01/15/2021 Retained placenta ALLERGIES Patient has no known allergies. MEDICATIONS sodium chloride (SALINE MIST) 0.65 % nasal spray Use 1 [place] in the nose two times a day. fluticasone (FLONASE) 50 mcg/actuation nasal spray Use 2 Sprays in each nostril two times a day. Rinse mouth after use. cholecalciferol, vitamin D3, (VITAMIN D3 ORAL) Take 2,000 Int'l Units/day by mouth once daily. MAGNESIUM ORAL Take by mouth as needed. mv-min/vit C/glut/lysine/hb124 (IMMUNE SUPPORT ORAL) Take 1 capsule by mouth once daily. Xddhpcoo-Se-Bey-Fe-FA ( VITAMIN) tab Take 1 tablet by mouth. cephALEXin (KEFLEX) 500 mg capsule Take 1 capsule by mouth four times daily for 10 days. fluconazole (DIFLUCAN) 150 mg tablet Take one tablet by mouth once. Then repeat every 3 days for 3 doses. (Patient not taking: Reported on 09/03/2024) Norethindrone, Contraceptive, 0.35 mg tablet Take 1 tablet by mouth once daily. (Patient not taking: Reported on 09/03/2024) FAMILY HISTORY Problem Relation Age of Onset [...] Social History Tobacco Use Smoking status: Former Current packs/day: 0.00 Average packs/day: 0.5 packs/day for 4.0 years (2.0 ttl pk-yrs) Types: Cigarettes Start date: 03/31/2013 Quit date: 03/31/2017 Years since quittin.5 Smokeless tobacco: Never Tobacco comments: quit over one year ago (2017) Vaping Use Vaping status: Former Quit date: 06/03/2017 Substance Use Topics Alcohol use: Not Currently Comment: rare Drug use: No Review of Systems Constitutional: Negative for chills and fever. HENT: Negative for congestion, ear pain and sore throat. Respiratory: Negative for cough and shortness of breath. Cardiovascular: Negative for chest pain. Gastrointestinal: Negative for diarrhea and vomiting. Skin: Positive for color change. Objective BP 104/75 Pulse 104 Temp 36.6 C (97.8 F) (Right Tympanic) Resp 16 Wt 82.2 kg (181 lb 3.5 oz) LMP 03/02/2023 (Exact Date) SpO2 98% Yes BMI 30.16 kg/m Physical Exam Vitals and nursing note reviewed. Constitutional: General: She is not in acute distress. Appearance: Normal appearance. She is not toxic-appearing. HENT: Nose: Nose normal. Mouth/Throat: Mouth: Mucous membranes are moist. Eyes: Conjunctiva/sclera: Conjunctivae normal. Cardiovascular: Rate and Rhythm: Normal rate and regular rhythm. Pulmonary: Effort: Pulmonary effort is normal. Breath sounds: Normal breath sounds. Chest: Chest wall: Tenderness present. Breasts: Right: Skin change and tenderness present. Comments: Right breast is tender with erythema noted around the areola and right lateral breast. No lymphatic streaking. No abscess or fluctuance felt. No nipple drainage. Left breast normal. No erythema or tenderness. Skin: General: Skin is warm and dry. Neurological: Mental Status: She is alert. Assessment and Plan ASSESSMENT/PLAN: 1. Mastitis - ICD9: 611.0, ICD10: N61.0 - Rx Keflex x 10 days -Cool compress as needed, continue breast-feeding. -Follow-up with OB on Tuesday if symptoms persistent. -If any red streaking, worsening symptoms in 48 hours despite being on antibiotics, go to ER Diagnosis and treatment plan were discussed and questions were answered to the patient's satisfaction. Pt acknowledged understanding of concepts and follow up plan. Specific signs and symptoms that would indicate the need for higher level of care were discussed in detail warranting prompt ER evaluation. HUSAM Albright documented in this encounter [facility] 09-29-2024 Telephone encounter Note Patient called stating that she started with breast pain yesterday after pumping. Noted a fever later in the evening. Took last dose of Fluconazole. This am redness is spreading, Has symptoms of headache and nausea but those symptoms improved after taking Tylenol. Patient was instructed to come to [facility] for evaluation and treatment. [facility] 09-29-2024 Miscellaneous Notes Patient called stating that she started with breast pain yesterday after pumping. Noted a fever later in the evening. Took last dose of Fluconazole. This am redness is spreading, Has symptoms of headache and nausea but those symptoms improved after taking Tylenol. Patient was instructed to come to [facility] for evaluation and treatment. documented in this encounter [facility] 09-03-2024 Note HNO ID: [id number] Author: NILO MAST APRN.[employer] WASHER Service: ? Author Type: Nurse Practitioner Type: Progress Notes Filed: 09/03/2024 18:40 Note Text: [facility] Subjective Blanca Chase is a 28 year old year old who presents to [facility] today with complaint of 5 days of nasal congestion and cough, daughter also sick. Denies headaches, fever, sore throat, shortness of breath, chest pains, Nausea, vomiting, changes in bowel or bladder or skin rashes. Taking Mucinex. Aside from symptoms as described above, patient has no other complaints at this time. HPI: see above Review of Systems Constitutional: Negative for chills, fatigue and fever. HENT: Positive for congestion. Negative for ear pain, postnasal drip, sinus pressure, sore throat and trouble swallowing. Eyes: Negative for pain, discharge, redness and itching. Respiratory: Positive for cough. Negative for chest tightness, shortness of breath and wheezing. Cardiovascular: Negative for chest pain, palpitations and leg swelling. Gastrointestinal: Negative for diarrhea, nausea and vomiting. Genitourinary: Negative for dysuria, frequency and urgency. Musculoskeletal: Negative for myalgias. Skin: Negative for rash. Neurological: Negative for headaches. Hematological: Negative for adenopathy. ALLERGIES No Known Allergies Current Outpatient Medications on File Prior to Visit Medication Sig cholecalciferol, vitamin D3, (VITAMIN D3 ORAL) Take 2,000 Int'l Units/day by mouth once daily. MAGNESIUM ORAL Take by mouth as needed. mv-min/vit C/glut/lysine/hb124 (IMMUNE SUPPORT ORAL) Take 1 capsule by mouth once daily. Zviubick-Ck-Ehi-Fe-FA ( VITAMIN) tab Take 1 tablet by mouth. fluconazole (DIFLUCAN) 150 mg tablet Take one tablet by mouth once. Then repeat every 3 days for 3 doses. (Patient not taking: Reported on 09/03/2024) Norethindrone, Contraceptive, 0.35 mg tablet Take 1 tablet by mouth once daily. (Patient not taking: Reported on 09/03/2024) No current facility-administered medications on file prior to visit. ACTIVE PROBLEM LIST Pcos (Polycystic Ovarian Syndrome) Hsv Infection Anxiety Disorder Anxiety History of Anxiety History of Herpes Genitalis Dyspareunia, Female Anal Spasm Vaginal Pain History of Precipitous Delivery History of Pre-Eclampsia in Prior , Currently Family History of Cardiomyopathy Family History of Congenital Heart Defect Family History of Cystic Fibrosis Rh Negative State in Antepartum Period Vaginal Bleeding During Subchorionic Hematoma in Second Trimester Uterine Size-Date Discrepancy, Second Trimester Elevated Glucose Social History Tobacco Use Smoking status: Former Current packs/day: 0.00 Average packs/day: 0.5 packs/day for 4.0 years (2.0 ttl pk-yrs) Types: Cigarettes Start date: 03/31/2013 Quit date: 03/31/2017 Years since quittin.4 Smokeless tobacco: Never Tobacco comments: quit over one year ago (2017) Vaping Use Vaping status: Former Quit date: 06/03/2017 Substance Use Topics Alcohol use: Not Currently Comment: rare Drug use: No Objective BP 118/82 Pulse 69 Temp (!) 35.9 ?C (96.7 ?F) Resp 19 Wt 84.1 kg (185 lb 6.5 oz) LMP 03/02/2023 (Exact Date) SpO2 99% BMI 30.85 kg/m? Physical Exam Vitals and nursing note reviewed. Constitutional: General: She is not in acute distress. Appearance: Normal appearance. She is not ill-appearing or toxic-appearing. HENT: Head: Normocephalic and atraumatic. Right Ear: Ear canal and external ear normal. Left Ear: Ear canal and external ear normal. Ears: Comments: TM's slightly bulging with clear fluid Nose: Congestion (mild mucosal edema) and rhinorrhea (clear fluid in nares) present. Right Turbinates: Swollen. Left Turbinates: Swollen. Right Sinus: No maxillary sinus tenderness or frontal sinus tenderness. Left Sinus: No maxillary sinus tenderness or frontal sinus tenderness. Mouth/Throat: Mouth: Mucous membranes are moist. Pharynx: Oropharynx is clear. Posterior oropharyngeal erythema (mild with clear fluid) present. No pharyngeal swelling or oropharyngeal exudate. Eyes: Extraocular Movements: Extraocular movements intact. Conjunctiva/sclera: Conjunctivae normal. Pupils: Pupils are equal, round, and reactive to light. Cardiovascular: Rate and Rhythm: Normal rate and regular rhythm. Pulses: Normal pulses. Heart sounds: Normal heart sounds. Pulmonary: Effort: Pulmonary effort is normal. Breath sounds: Normal breath sounds. No wheezing or rhonchi. Abdominal: General: Bowel sounds are normal. Palpations: Abdomen is soft. Musculoskeletal: Cervical back: Normal range of motion and neck supple. No tenderness. Lymphadenopathy: Cervical: No cervical adenopathy. Skin: General: Skin is warm. Capillary Refill: Capillary refill takes less than 2 seconds. Neurological: General: No foc (more content not included)... [facility] 09-03-2024 History of Presen t illness Narrative Images from the original note were not included. [facility] NOTE Subjective Blanca Chase is a 28 year old year old who presents to express care today with complaint of 5 days of nasal congestion and cough, daughter also sick. Denies headaches, fever, sore throat, shortness of breath, chest pains, Nausea, vomiting, changes in bowel or bladder or skin rashes. Taking Mucinex. Aside from symptoms as described above, patient has no other complaints at this time. HPI: see above Review of Systems Constitutional: Negative for chills, fatigue and fever. HENT: Positive for congestion. Negative for ear pain, postnasal drip, sinus pressure, sore throat and trouble swallowing. Eyes: Negative for pain, discharge, redness and itching. Respiratory: Positive for cough. Negative for chest tightness, shortness of breath and wheezing. Cardiovascular: Negative for chest pain, palpitations and leg swelling. Gastrointestinal: Negative for diarrhea, nausea and vomiting. Genitourinary: Negative for dysuria, frequency and urgency. Musculoskeletal: Negative for myalgias. Skin: Negative for rash. Neurological: Negative for headaches. Hematological: Negative for adenopathy. ALLERGIES No Known Allergies Current Outpatient Medications on File Prior to Visit Medication Sig cholecalciferol, vitamin D3, (VITAMIN D3 ORAL) Take 2,000 Int'l Units/day by mouth once daily. MAGNESIUM ORAL Take by mouth as needed. mv-min/vit C/glut/lysine/hb124 (IMMUNE SUPPORT ORAL) Take 1 capsule by mouth once daily. Eagdkvhe-Oq-Vkr-Fe-FA ( VITAMIN) tab Take 1 tablet by mouth. fluconazole (DIFLUCAN) 150 mg tablet Take one tablet by mouth once. Then repeat every 3 days for 3 doses. (Patient not taking: Reported on 09/03/2024) Norethindrone, Contraceptive, 0.35 mg tablet Take 1 tablet by mouth once daily. (Patient not taking: Reported on 09/03/2024) No current facility-administered medications on file prior to visit. ACTIVE PROBLEM LIST Pcos (Polycystic Ovarian Syndrome) Hsv Infection Anxiety Disorder Anxiety History of Anxiety History of Herpes Genitalis Dyspareunia, Female Anal Spasm Vaginal Pain History of Precipitous Delivery History of Pre-Eclampsia in Prior , Currently Family History of Cardiomyopathy Family History of Congenital Heart Defect Family History of Cystic Fibrosis Rh Negative State in Antepartum Period Vaginal Bleeding During Subchorionic Hematoma in Second Trimester Uterine Size-Date Discrepancy, Second Trimester Elevated Glucose Social History Tobacco Use Smoking status: Former Current packs/day: 0.00 Average packs/day: 0.5 packs/day for 4.0 years (2.0 ttl pk-yrs) Types: Cigarettes Start date: 03/31/2013 Quit date: 03/31/2017 Years since quittin.4 Smokeless tobacco: Never Tobacco comments: quit over one year ago (2017) Vaping Use Vaping status: Former Quit date: 06/03/2017 Substance Use Topics Alcohol use: Not Currently Comment: rare Drug use: No Objective BP 118/82 Pulse 69 Temp (!) 35.9 C (96.7 F) Resp 19 Wt 84.1 kg (185 lb 6.5 oz) LMP 03/02/2023 (Exact Date) SpO2 99% BMI 30.85 kg/m Physical Exam Vitals and nursing note reviewed. Constitutional: General: She is not in acute distress. Appearance: Normal appearance. She is not ill-appearing or toxic-appearing. HENT: Head: Normocephalic and atraumatic. Right Ear: Ear canal and external ear normal. Left Ear: Ear canal and external ear normal. Ears: Comments: TM's slightly bulging with clear fluid Nose: Congestion (mild mucosal edema) and rhinorrhea (clear fluid in nares) present. Right Turbinates: Swollen. Left Turbinates: Swollen. Right Sinus: No maxillary sinus tenderness or frontal sinus tenderness. Left Sinus: No maxillary sinus tenderness or frontal sinus tenderness. Mouth/Throat: Mouth: Mucous membranes are moist. Pharynx: Oropharynx is clear. Posterior oropharyngeal erythema (mild with clear fluid) present. No pharyngeal swelling or oropharyngeal exudate. Eyes: Extraocular Movements: Extraocular movements intact. Conjunctiva/sclera: Conjunctivae normal. Pupils: Pupils are equal, round, and reactive to light. Cardiovascular: Rate and Rhythm: Normal rate and regular rhythm. Pulses: Normal pulses. Heart sounds: Normal heart sounds. Pulmonary: Effort: Pulmonary effort is normal. Breath sounds: Normal breath sounds. No wheezing or rhonchi. Abdominal: General: Bowel sounds are normal. Palpations: Abdomen is soft. Musculoskeletal: Cervical back: Normal range of motion and neck supple. No tenderness. Lymphadenopathy: Cervical: No cervical adenopathy. Skin: General: Skin is warm. Capillary Refill: Capillary refill takes less than 2 seconds. Neurological: General: No focal deficit present. Mental Status: She is alert and oriented to person, place, and time. Assessment/Plan 1. Viral URI with cough - sodium chloride (SALINE MIST) 0.65 % nasal spray; Use 1 [place] in the nose two times a day. Dispense: 88 mL; Refill: 2 - fluticasone (FLONASE) 50 mcg/actuation nasal spray; Use 2 Sprays in each nostril two times a day. Rinse mouth after use. Dispense: 1 Each; Refill: 2 Patient advised to drink fluids, get rest and take all meds as prescribed. Patient given educational materials - see instructions. Discussed use, benefit, and side effects of prescribed medications. All questions answered. Patient advised to follow up with PCP in one week, or sooner if symptoms worsen or persist. If symptoms become severe- GO TO ED. Patient verbalized understanding and agreeable with treatment plan. Nilo Mast APRN, CNP 09/03/2024 6:38 PM documented in this encounter [facility] 09-03-2024 Instructions Nilo Mast APRN.SHOAIB - 09/03/2024 6:31 PM EST [facility] PATIENT INFO COMMON COLD OVERVIEW The common cold is one of the most frequent illnesses in the [place]. Although most colds are mild and resolve within a short time period, colds cost billions of dollars per year, mostly due to lost time at work and school. COMMON COLD CAUSES The common cold is a group of symptoms caused by one of a large number of viruses. Rhinoviruses cause the greatest number of colds; there are more than 100 different varieties of rhinovirus. Most viruses cause a person to be ill only once. However, due to the large number of viruses, a person can have a cold multiple times throughout his or her lifetime. The average adult experiences two to three colds per year, while children average 8 to 12 colds per year. Colds are transmitted from zxcmki-kr-tldzes. Less often, the virus can be transmitted by touching a surface. Direct contact -- People with colds typically carry the cold virus on their hands. The virus may remain alive on the skin and capable of infecting another person for at least two hours. Thus, if a sick person shakes someone's hand and that individual then touches his eye, nose, or mouth, the virus can be transmitted and later infect that person. Infection from particles on surfaces -- Some cold viruses can live on surfaces (such as a counter top, door handle, or phone) for several hours. Inhaling viral particles -- Droplets containing viral particles can be breathed, coughed, or sneezed into the air by a person with a cold. The virus can be transmitted to others if another person is standing close (a few feet) and the droplet touches that person s eye, nose, or mouth. Covering the mouth while coughing or sneezing greatly reduces this risk. Most cold viruses are not spread by saliva. Thus, kissing itself is not likely to transmit the common cold, but close direct contact can. Colds are not caused by cold climates or being exposed to cold air. However, some types of virus cause more colds during certain seasons (eg, fall and winter versus spring). COMMON COLD SIGNS AND SYMPTOMS The common cold usually causes nasal congestion, runny nose, and sneezing. A sore throat may be present on the first day but usually resolves quickly. If a cough occurs, it generally develops on about the fourth or fifth day of symptoms, typically when congestion and runny nose are usually resolving. COMMON COLD COMPLICATIONS In most cases, colds do not cause serious illness. Most colds last for three to seven days, although many people continue to have symptoms (coughing, sneezing, congestion) for up to two weeks. Some viruses that cause the common cold can also depress the immune system or cause swelling in the lining of the nose or airways; this can, in turn, lead to a new viral infection or bacterial infection. One of the more common complications is sinusitis, which is usually caused by viruses and rarely (about 2 percent of the time) by bacteria. However, it can be difficult to distinguish bacterial sinusitis from sinusitis caused by a cold because the signs and symptoms can be similar Having thick or yellow to green-colored nasal discharge does not mean that bacterial sinusitis has developed; discolored nasal discharge is a normal phase of the common cold. Lower respiratory infections, such as pneumonia or bronchitis, may develop following a cold. Infection of the middle ear, or otitis media, can accompany or follow a cold. The influenza virus, which causes the flu, can also cause features similar to those of a cold. However, the flu usually causes other signs and symptoms (fever, body aches) and is more serious than a cold. COMMON COLD TREATMENT There is no specific treatment for the viruses that cause the common cold. Most treatments are aimed at relieving some of the symptoms of the cold, but do not shorten or cure the cold. Antibiotics are not useful for treating the common cold; antibiotics are only used to treat illnesses caused by bacteria, not viruses. The symptoms of a cold will resolve over time, even without any treatment. The following are treatments that may reduce the symptoms caused by the common cold. People with underlying medical conditions and those who use other vxbk-mtm-pxdgrsr or prescription medications should speak with their healthcare provider or pharmacist to ensure that it is safe to use these treatments. Runny nose and nasal congestion -- Runny nose and congestion may improve with the use of decongestants. Pseudoephedrine is a decongestant that can improve nasal congestion. Most drugstores in the [facility] carry pseudoephedrine behind the counter, so it must be requested from the pharmacist (a prescription is not required). Antihistamines such as diphenhydramine (Benadryl ) may also help, but can cause side effects such as drowsiness and drying of the eyes, nose, and mouth. Nasal inhalers, including ipratropium bromide (Atrovent , available by prescription) may relieve runny nose and sneezing while cromolyn sodium (NasalCrom , a non-prescription medicine) may relieve runny nose, cough, and sneezing. Other nasal sprays such an oxymetazoline (Afrin and others) can also give temporary relief of nasal congestion. However, these sprays should never be used for more than two to three days; use for more than three days use can worsen congestion. Nasal irrigation and saline sprays -- Rinsing the nose with a salt-water (saline) solution is called nasal irrigation or nasal lavage. Saline is also available in a standard nasal spray, although this is not as effective as using larger amounts of water in an irrigation. Nasal irrigation is particularly useful for treating drainage down the back of the throat, sneezing, nasal dryness, and congestion. The treatment helps by rinsing out allergens and irritants from the nose. Saline rinses also clean the nasal lining and can be used before applying sprays containing medications, to get a better effect from the medication. Nasal lavage with warmed saline can be performed as needed, once per day, or twice daily for increased symptoms. Nasal lavage carries few risks when performed correctly. Saline nasal sprays and irrigation kits can be purchased yqkp-grd-[id number]. Saline mixes can also be purchased or patients can make their own solution. A variety of devices, including bulb syringes, Neti pots, and bottle sprayers, may be used to perform nasal lavage; instructions for nasal lavage are provided in the table. At least 200 mL (about 3/4 cup) of fluid is recommended for each nostril. Sore throat and headache -- Sore throat and headache are best treated with a mild pain reliever such as acetaminophen (Tylenol ) or a non-steroidal anti-inflammatory agent such as ibuprofen or naproxen (Motrin or Aleve ). Cough -- Common cough medicine ingredients include guaifenesin and dextromethorphan; these are often combined with other medications in kspz-kbh-bvuocth cold formulas. However, the benefit of cough medicines is likely to be small to non-existent. In clinical trials, cough suppressants were no more effective in reducing the duration or severity of coughing due to cold than a placebo (a non-drug substitute). Antibiotics -- Antibiotics should not be used to treat an uncomplicated common cold. As noted above, colds are caused by viruses. Antibiotics treat bacterial, not viral infections. Alternative treatments -- Heated, humidified air can improve symptoms of nasal congestion and runny nose, and causes few to no side effects. PREVENTION Hand washing is an essential and highly effective way to prevent the spread of infection. Hands should be wet with water and plain soap, and rubbed together for 15 to 30 seconds. Special attention should be paid to the fingernails, between the fingers, and the wrists. Hands should be rinsed thoroughly, and dried with a single use towel. Alcohol-based hand rubs are a good alternative for disinfecting hands if a sink is not available. Hand rubs should be spread over the entire surface of hands, fingers, and wrists until dry, and may be used several times. These rubs can be used repeatedly without skin irritation or loss of effectiveness. Hand rubs are available as a liquid or wipe in small, portable sizes that are easy to carry in a pocket or handbag. When a sink is available, visibly soiled hands should be washed with soap and water. Hands should be washed before preparing food and eating, and after coughing, blowing the nose, or sneezing. While it is not always possible to limit contact with people who may be infected with a cold, touching the eyes, nose, or mouth after direct contact should be avoided when possible. In addition, tissues should be used to cover the mouth when sneezing or coughing. These used tissues should be disposed of promptly. Sneezing/coughing into the sleeve of one's clothing (at the inner elbow) is another means of containing sprays of saliva and secretions and does not contaminate the hands. SUMMARY The average adult experiences two to three colds per year, while children average 8 to 12 colds per year. Symptoms of the common cold usually include nasal congestion, runny nose, and sneezing. They typically last for three to seven days, although many people have symptoms (coughing, sneezing, congestion) for up to two weeks. People with colds typically carry the cold virus on their hands, where it can infect another person for at least two hours. Some cold viruses can live on surfaces (such as a counter top, door handle, or phone) for several hours. Droplets containing viral particles can be breathed, coughed, or sneezed into the air. There is no specific treatment for colds. Treatment may reduce some of the symptoms of the cold, but do not shorten or cure the cold. Antibiotics are not useful for treating the common cold. Hand washing can prevent the spread of infection. Hands should be wet with water and plain soap, and rubbed together for 15 to 30 seconds. Alcohol-based hand rubs are a good alternative for disinfecting hands if a sink is not available documented in this encounter [facility] 04-10-2024 Instructions Dolores Patrick APRN.CNM - 04/10/2024 11:40 AM EDT -Diflucan 150mg by mouth once, repeat every 3 days for 3 doses. If by 2nd dose she is not feeling better ok to start Bactrim. Mychart message or call the office if this is needed and I can send it in. -sunflower lecithin 3-4 times daily and then 1-2 times daily for maintenance after resolution -Handheld massager to area of clogged duct with feedings -Cold therapy to breast, cabbage leaves, and massage documented in this encounter [facility] 04-10-2024 Note HNO ID: [id number] Author: DOLORES PATRICK APRN.CNM Service: ? Author Type: Manager Social Work Type: Progress Notes Filed: 04/10/2024 14:09 Note Text: Blanca Chase is a 28 year old female who presents for problem visit breast burning. HPI: Seen RM on 03/24/24 for clogged duct and symptoms had started 2 days prior. Started Keflex 500mg PO QID 10 days.Had chills but no fever. Last dose 6 days and improvement. Started to return 4 days ago with burning in same area, duct started again, left greater than right. Started tacking sunflower lecithin on and off but not consistent. Purchased massager but has not got this yet. Yesterday started chills, headache, dizziness, no fever. No redness is 5 months old, feels she over produces milk. at breast and pumps. Can't take amoxicillin due to getting thrush in the past. OB History T3 L3 SAB2 IAB0 Ectopic0 Multiple0 Live Births3 Nursing Techn History LMP: 03/02/2023 (Exact Date), Unknown Age at Menarche: Age at First : Age at Menopause: Nursing Techn History Comments: Sexual Activity: Yes; Male Contraception: None PAST MEDICAL HISTORY Diagnosis Date anxiety Asthma fibrocystic breast disease Genetic testing 04/28/2009 Negative for 32 Mutuations of CF Herpes simplex virus (HSV) infection History of pre-eclampsia in prior , currently PCOS (polycystic ovarian syndrome) SAB (spontaneous ) 2009, 2019 Seasonal allergies Vaginal bleeding during 05/25/2023 PAST SURGICAL HISTORY Procedure Laterality Date APPENDECTOMY [...] Types: Cigarettes Quit date: 03/31/2017 Years since quittin.0 Smokeless tobacco: Never Tobacco comments: quit over one year ago (2017) Vaping Use Vaping Use: Former Quit date: 06/03/2017 Substance Use Topics Alcohol use: Not Currently Comment: rare Drug use: No Current Outpatient Medications Medication Sig cholecalciferol, vitamin D3, (VITAMIN D3 ORAL) Take 2,000 Int'l Units/day by mouth once daily. Norethindrone, Contraceptive, 0.35 mg tablet Take 1 tablet by mouth once daily. MAGNESIUM ORAL Take by mouth as needed. mv-min/vit C/glut/lysine/hb124 (IMMUNE SUPPORT ORAL) Take 1 capsule by mouth once daily. Krrpbfnb-Wv-Zrq-Fe-FA ( VITAMIN) tab Take 1 tablet by mouth. No current facility-administered medications for this visit. Allergies As of Date: 04/10/2024 (No Known Allergies) Fully Assessed 04/10/2024 REVIEW OF SYSTEMS Abdomen: No bloating, early satiety, indigestion, or increased flatulence. No abdominal pain, nausea, vomiting, diarrhea, or constipation. Bladder: No dysuria, gross hematuria, urinary frequency, urinary urgency, or incontinence. Breast: No breast lumps, nipple d/c, overlying skin changes, redness or skin retraction. Expanded ROS: N/A Allergies and current medication updated:Yes EXAM: BP 102/68 Wt 193 lb (87.5kg) LMP 03/02/2023 GENERAL: pleasant, female in no apparent distress HEENT: Normocephalic and atraumatic NECK: Supple and full range of motion DERMATOLOGY: Normal and without lesions BREAST: soft, symmetric, no dominant mass, normal nipple-areolar complex, no lymphadenopathy. Slight tenderness with palpation of bilateral inner quadrants, Left greater than right. No redness. CHEST: Normal inspiratory effort NEURO: alert and oriented x3,exam grossly non-focal EXTREMITIES: normal ASSESSMENT AND PLAN: 1. Breast pain - ICD9: 611.71, ICD10: N64.4 (primary diagnosis) -Discussed at this time, mild symptoms and would like to avoid antibiotics if possible. Could also be yeast that is causing the burning. -Will try Diflucan 150mg PO once, repeat every 3 days for 3 doses. If by 2nd dose she is not feeling better ok to start Bactrim 1 tablet PO BID x 7 days. She will call the office if needed -sunflower lecithin 3-4 times daily and then 1-2 times daily for maintenance -Handheld massager to area of clogged duct with feedings -Cold therapy to breast, cabbage leaves, and massage 2. Lactating mother - ICD9: V24.1, ICD10: Z39.1 (more content not included)... [facility] 04-10-2024 History of Presen t illness Narrative Blanca Chase is a 28 year old female who presents for problem visit breast burning. HPI: Seen RM on 03/24/24 for clogged duct and symptoms had started 2 days prior. Started Keflex 500mg PO QID 10 days.Had chills but no fever. Last dose 6 days and improvement. Started to return 4 days ago with burning in same area, duct started again, left greater than right. Started tacking sunflower lecithin on and off but not consistent. Purchased massager but has not got this yet. Yesterday started chills, headache, dizziness, no fever. No redness Infant is 5 months old, feels she over produces milk. at breast and pumps. Can't take amoxicillin due to getting thrush in the past. OB History T3 L3 SAB2 IAB0 Ectopic0 Multiple0 Live Births3 Nursing Techn History LMP: 03/02/2023 (Exact Date), Unknown Age at Menarche: Age at First : Age at Menopause: Nursing Techn History Comments: Sexual Activity: Yes; Male Contraception: None PAST MEDICAL HISTORY Diagnosis Date anxiety Asthma fibrocystic breast disease Genetic testing 04/28/2009 Negative for 32 Mutuations of CF Herpes simplex virus (HSV) infection History of pre-eclampsia in prior , currently PCOS (polycystic ovarian syndrome) SAB (spontaneous ) 2019 Seasonal allergies Vaginal bleeding during 05/25/2023 PAST SURGICAL HISTORY Procedure Laterality Date APPENDECTOMY [...] Types: Cigarettes Quit date: 03/31/2017 Years since quittin.0 Smokeless tobacco: Never Tobacco comments: quit over one year ago (2017) Vaping Use Vaping Use: Former Quit date: 06/03/2017 Substance Use Topics Alcohol use: Not Currently Comment: rare Drug use: No Current Outpatient Medications Medication Sig cholecalciferol, vitamin D3, (VITAMIN D3 ORAL) Take 2,000 Int'l Units/day by mouth once daily. Norethindrone, Contraceptive, 0.35 mg tablet Take 1 tablet by mouth once daily. MAGNESIUM ORAL Take by mouth as needed. mv-min/vit C/glut/lysine/hb124 (IMMUNE SUPPORT ORAL) Take 1 capsule by mouth once daily. Tygwwlnb-Yk-New-Fe-FA ( VITAMIN) tab Take 1 tablet by mouth. No current facility-administered medications for this visit. Allergies As of Date: 04/10/2024 (No Known Allergies) Fully Assessed 04/10/2024 REVIEW OF SYSTEMS Abdomen: No bloating, early satiety, indigestion, or increased flatulence. No abdominal pain, nausea, vomiting, diarrhea, or constipation. Bladder: No dysuria, gross hematuria, urinary frequency, urinary urgency, or incontinence. Breast: No breast lumps, nipple d/c, overlying skin changes, redness or skin retraction. Expanded ROS: N/A Allergies and current medication updated:Yes EXAM: BP 102/68 Wt 193 lb (87.5kg) LMP 03/02/2023 GENERAL: pleasant, female in no apparent distress HEENT: Normocephalic and atraumatic NECK: Supple and full range of motion DERMATOLOGY: Normal and without lesions BREAST: soft, symmetric, no dominant mass, normal nipple-areolar complex, no lymphadenopathy. Slight tenderness with palpation of bilateral inner quadrants, Left greater than right. No redness. CHEST: Normal inspiratory effort NEURO: alert and oriented x3,exam grossly non-focal EXTREMITIES: normal ASSESSMENT AND PLAN: 1. Breast pain - ICD9: 611.71, ICD10: N64.4 (primary diagnosis) -Discussed at this time, mild symptoms and would like to avoid antibiotics if possible. Could also be yeast that is causing the burning. -Will try Diflucan 150mg PO once, repeat every 3 days for 3 doses. If by 2nd dose she is not feeling better ok to start Bactrim 1 tablet PO BID x 7 days. She will call the office if needed -sunflower lecithin 3-4 times daily and then 1-2 times daily for maintenance -Handheld massager to area of clogged duct with feedings -Cold therapy to breast, cabbage leaves, and massage 2. Lactating mother - ICD9: V24.1, ICD10: Z39.1 3. Clogged duct, - ICD9: 676.84, ICD10: O92.79 Dolores Patrick APRN.CNM documented in this encounter [facility] 03-24-2024 Note HNO ID: [id number] Author: ANASTASIA PIERRE APRN.SHOAIB Service: ? Author Type: Nurse Practitioner Type: Progress Notes Filed: 03/24/2024 14:41 Note Text: This note was created using NoteWriter. Subjective Blanca Chase is a 28 year old female. HPI started with a clogged duct about 2 days ago, since she started to notice more pain/burning with pumping. Milk production is good. Some chills, no fever. Review of Systems Constitutional: Positive for chills. Skin: Right breast pain Objective BP 110/78 Pulse 95 Temp 36.2 ?C (97.1 ?F) (Tympanic) Resp 18 Wt 88.7 kg (195 lb 8.8 oz) LMP 03/02/2023 (Exact Date) SpO2 98% BMI 32.54 kg/m? Physical Exam Chest: Comments: Slight redness and warmth to the area Neurological: Mental Status: She is alert. Assessment and Plan ASSESSMENT/PLAN: 1. Mastitis, acute - ICD9: 611.0, ICD10: N61.0 Keflex QID x 10 days Follow up in office as needed Anastasia Pierre APRN.CNP [facility] 03-24-2024 History of Presen t illness Narrative Images from the original note were not included. This note was created using Fosubo. Subjective Blanca Chase is a 28 year old female. HPI started with a clogged duct about 2 days ago, since she started to notice more pain/burning with pumping. Milk production is good. Some chills, no fever. Review of Systems Constitutional: Positive for chills. Skin: Right breast pain Objective BP 110/78 Pulse 95 Temp 36.2 C (97.1 F) (Tympanic) Resp 18 Wt 88.7 kg (195 lb 8.8 oz) LMP 03/02/2023 (Exact Date) SpO2 98% BMI 32.54 kg/m Physical Exam Chest: Comments: Slight redness and warmth to the area Neurological: Mental Status: She is alert. Assessment and Plan ASSESSMENT/PLAN: 1. Mastitis, acute - ICD9: 611.0, ICD10: N61.0 Keflex QID x 10 days Follow up in office as needed Anastasia Pierre APRN.BUS WASHER documented in this encounter [facility] 02-06-2024 Telephone encounter Note Order signed and faxed. Aviva Lutz RN [facility] 02-06-2024 Miscellaneous Notes Order signed and faxed. Aviva Lutz RN Breast pump order received from [employer]. To CP to sign. Aviva Lutz RN documented in this encounter [facility] 01-30-2024 Telephone encounter Note Breast pump order received from [employer]. To CP to sign. Aviva Lutz RN [facility] 01-18-2024 Miscellaneous Notes Signed! Smita Booker APRN.CNM Donor information sheet received from [facility] [facility]. Form filled out and given to provider to sign. Will fax when signed. Andria Nobles RN documented in this encounter [facility] 11-19-2023 Discharge summary Note Date/Time November 19, 2023 8:30am [facility] Medical Records Department [address] [place] [address] Instructions for Home/Discharge Instructions 11/19/23 0829 MR#: [id number] Acct: [id number] Name: BLANCA CHASE Rep #:[id number] : 1995 28 From: Shira Bunch MD PCP: Dr. Jose G Zavala MD Status :ADM IN Discharge Instructions Diet Discharge Diet: No restrictions Activity May resume sexual activity in: 6-8 weeks Dressing / Incision Call your doctor if you observe: Fever of 101 or Higher, Inability to urinate, Using more than 1 pad per hour and Uncontrolled pain Follow Up Care Please Follow Up With: Shira De La Paz MD When: 1-2 weeks post and again at 6 weeks post . [phone] Test Results: Test results from this visit will be discussed in further detail at your follow-up appointment, if applicable. Discharge Plan Admission Admit Date/Time: 11/18/23 01:55 Attending Provider: Dolores Patrick Primary Care Provider: Jose G Zavala Discharge Orders/Prescriptions Prescriptions: New ibuprofen 600 mg Tablet 600 mg PO Q6H PRN PRN (Reason: Pain Score 1-3) Qty: 0 0RF Continued PNV cmb#95-ferrous fumarate-FA 1 EACH tablet 1 ea PO DAILY acyclovir 200 mg capsule 200 mg PO TID Discontinued aspirin 81 mg capsule 81 mg PO DAILY Referrals / Follow Up: Jose G Zavala MD [Primary Care Provider] - Disposition Disposition (needs filled in before D/C Order can be placed): Home, Self Care 11/19/23 0833<Electronically signed by Shira De La Paz MD>Shira De La Paz MD CC: Dr. Jose G Zavala MD ~ Signed [facility] Work Phone: 1(268) 399-797202-17-2024 Progress note Author Samy moss [facility] November 19, 2023 8:29am Note Date/Time November 19, 2023 8:29am [facility] Medical Records Department [address] [place] [id number] Progress Note 11/19/23 0829 MR#: [id number] Acct: [id number] Name: BLANCA CHASE Rep #:[id number] : 1995 28 From: Shira Bunch MD PCP: Dr. Jose G Zavala MD Status :ADM IN [id number] Subject[facility] Subjective patient seen at bedside, doing well. Patient reports good pain control. lochia mild. Objective Data Objective Data Vital Signs: Vital Signs Temp Pulse Resp BP Pulse Ox O2 Del Method 98.0 F 79 16 130/82 H 99 Room Air 11/19/23 06:26 11/19/23 06:26 11/19/23 06:26 11/19/23 06:26 11/19/23 06:26 11/19/23 06:26 Oxygen Delivery Method Room Air Weight: 103.419 kg Body Mass Index (BMI) 37.9 Intake & Output: Intake and Output for Last 24 Hours 11/17/23 11/18/23 11/19/23 23:59 23:59 23:59 Intake Total 1473.33 / 1473.33 Output Total 1000 / 1000 Balance 473.33 / 473.33 Lab / Micro Data 11/18/23 02:27 Labs: Laboratory Results - last 24 hr 11/18/23 11:10: Screen NEGATIVE, Baby's Blood Type A POSITIVE, Baby's MIKE NEGATIVE Physical Exam Const alert and oriented x3 General Appearance: cooperative HEENT normocephalic Neck General: normal visual inspection GI soft to palpation and non-distended GI Narrative: Fundus firm Extremity normal to inspection and no calf tenderness Skin no rashes or lesions noted Neuro oriented x3 and CN's II-XII intact bilaterally Psych mental status grossly normal Assessment & Plan Assessment/Plan (1) Vaginal delivery: (2) Anxiety: (3) Asthma: (4) Depression: PLAN: Plan PPD#1 , Doing well Routine care pain mgmt ambulation dc home 11/19/23828 <Electronically signed by Shira De La Paz MD> Shira De La Paz MD Cosigner Signature (if applicable): CC: ~ Signed [facility] Work Phone: 1(354) 926-941602-17-2024 Discharge summary Author Samy moss [facility] November 19, 2023 8:25am Note Date/Time November 19, 2023 8:25am [facility] Medical Records Department [address] [place] [address] Discharge Summary 11/19/23823 MR#: [id number] Acct: [id number] Name: BLANCA CHASE Rep #:[id number] : 1995 28 From: Shiratalib Bunch MD PCP: Dr. Jose G Zavala MD Status :ADM IN Location: [id number] Providers Date of Admission: 11/18/23 Primary Care Physician: Dr. Jose G Zavala MD Reason For Visit: LABOR VAG DEL Diagnosis Discharge Diagnosis (1) Vaginal delivery: Status: Acute Code(s): O80 - Encounter for full-term uncomplicated delivery (2) Anxiety: Status: Acute Code(s): F41.9 - Anxiety disorder, unspecified (3) Asthma: Status: Acute Code(s): J45.909 - Unspecified asthma, uncomplicated (4) Depression: Status: Acute Code(s): F32.A - Depression, unspecified (5) Herpes genitalis: Status: Acute Code(s): A60.00 - Herpesviral infection of urogenital system, unspecified Plan PPD# 1 , Doing well Routine care pain mgmt ambulation dc home Medications at Discharge Home Medications vit no.95-ferrous fumarate 28 mg-folic acid 800 mcg tablet 1 ea PO DAILY Check with primary doctor 11/24/19 acyclovir 200 mg capsule 200 mg PO TID 11/18/23 aspirin 81 mg capsule 81 mg PO DAILY 11/18/23 Weight / BMI Weight Weight: 103.419 kg Body Mass Index (BMI) 37.9 ABG / Lab / Microbiology Data 11/18/23 02:27 Laboratory: Laboratory Results - last 24 hr 11/18/23 11:10: Screen NEGATIVE, Baby's Blood Type A POSITIVE, Baby's MIKE NEGATIVE Meaningful Use Info Meaningful Use Diagnoses (Choose all that apply): None applicable Discharge Plan Admission Admit Date/Time: 11/18/23 01:55 Attending Provider: Dolores Patrick Primary Care Provider: Jose G Zavala Discharge Orders/Prescriptions Prescriptions: No Action PNV cmb#95-ferrous fumarate-FA 1 EACH tablet 1 ea PO DAILY acyclovir 200 mg capsule 200 mg PO TID aspirin 81 mg capsule 81 mg PO DAILY Referrals / Follow Up: Jose G Zavala MD [Primary Care Provider] - 11/19/23 0815 <Electronically signed by Shira De La Paz MD> Cosigner Signature (if applicable): CC: M Dr. Shira De La Paz; Dr. Jose G Zavala MD~ Signed [facility] Work Phone: 1(410) 814-398902-17-2024 [facility] Medical Records Department [address] [place] [address] Discharge Summary 11/19/23823 MR#: [id number] Acct: [id number] Name: BLANCA CHASE Rep #: [id number] : 1995 28 From: Shira De La Paz MD PCP: Dr. Jose G Zavala MD Status:ADM IN Location: [id number] Providers Date of Admission: 11/18/23 Primary Care Physician: Dr. Jose G Zavala MD Reason For Visit: LABOR VAG DEL Diagnosis Discharge Diagnosis (1) Vaginal delivery: Status: Acute Code(s): O80 - Encounter for full-term uncomplicated delivery (2) Anxiety: Status: Acute Code(s): F41.9 - Anxiety disorder, unspecified (3) Asthma: Status: Acute Code(s): J45.909 - Unspecified asthma, uncomplicated (4) Depression: Status: Acute Code(s): F32.A - Depression, unspecified (5) Herpes genitalis: Status: Acute Code(s): A60.00 - Herpesviral infection of urogenital system, unspecified Plan PPD# 1 , Doing well Routine care pain mgmt ambulation dc home Medications at Discharge Home Medications vit no.95-ferrous fumarate 28 mg-folic acid 800 mcg tablet 1 ea PO DAILY Check with primary doctor 11/24/19 acyclovir 200 mg capsule 200 mg PO TID 11/18/23 aspirin 81 mg capsule 81 mg PO DAILY 11/18/23 Weight / BMI Weight Weight: 103.419 kg Body Mass Index (BMI) 37.9 ABG / Lab / Microbiology Data 11/18/23 02:27 Laboratory: Laboratory Results - last 24 hr 11/18/23 11:10: Screen NEGATIVE, Baby's Blood Type A POSITIVE, Baby's MIKE NEGATIVE Meaningful Use Info Meaningful Use Diagnoses (Choose all that apply): None applicable Discharge Plan Admission Admit Date/Time: 11/18/23 01:55 Attending Provider: Dolores Patrick Primary Care Provider: Jose G Zavala Discharge Orders/Prescriptions Prescriptions: No Action PNV cmb#95-ferrous fumarate-FA 1 EACH tablet 1 ea PO DAILY acyclovir 200 mg capsule 200 mg PO TID aspirin 81 mg capsule 81 mg PO DAILY Referrals / Follow Up: Jose G Zavala MD [Primary Care Provider] - 11/19/23 08 Cosigner Signature (if applicable): CC: Samy Polancoosh; Dr. Jose G Zavala MD [facility] History and physical note Author Dolores Patrick [facility] November 18, 2023 6:46am Note Date/Time November 18, 2023 6:46am [facility] Medical Records Department [address] [place] [address] H&P Exam - [employer] 11/18/23 0640 MR#: [id number] Acct: [id number] Name: BLANCA CHASE Rep #:[id number] : 1995 28 From: Dolores DAVID PCP: Dr. Jose G Zavala MD Status :ADM IN Location: [id number] HPI - General General Date of Admission: 11/18/23 Date of Service: 11/18/23 HPI Narrative BLANCA CHASE, is a 28 F who presents at 37w2d with IRENE: 12/07/23. SROM around 11pm on 11/17. Contractions became increasinly regular. Maternal Data Information IRENE Calculator Estimated Delivery Date Method Current WG Current Estimate 12/07/23 Manual 37w 2d PFSH PFS Medical History (Updated 11/18/23 @ 06:44 by Dolores Patrick CNM) Anxiety Asthma Depression Herpes genitalis Migraines hemorrhage Pre-eclampsia Superficial varicosities Home Medications vit no.95-ferrous fumarate 28 mg-folic acid 800 mcg tablet 1 ea PO DAILY Check with primary doctor 11/24/19 [History Last Taken 11/17/23] acyclovir 200 mg capsule 200 mg PO TID 11/18/23 [History Last Taken 11/17/23] aspirin 81 mg capsule 81 mg PO DAILY 11/18/23 [History Last Taken 11/17/23] Allergy/AdvReac Type Severity Reaction Status Date / Time No Known Allergies Allergy Verified 11/18/23 01:30 Surgical History (Updated 11/18/23 @ 04:05 by Mary Hobson) History of surgery S/P appendectomy Social History Smoking Status: Former smoker History Elective abortions Hx Para 2 Spontaneous abortions Hx # Term Pregnancies Ectopic pregnancies Hx # Pregnancies Multiple births # of living children NST FHR Rate Baby A Baseline: 145 Variability:: Moderate Accelerations:: 15 x 15 Decelerations:: None FHR Category:: Category I Uterine Activity:: every 2 minutes, strong Vital Signs Vital Signs Vital Signs: 11/18/23 01:28 11/18/23 01:28 11/18/23 01:27 Temperature Temperature Source Pulse Rate 82 Blood Pressure 133/81 H BP Systolic 133 BP Diastolic 81 Pulse Ox 98 11/18/23 03:06 11/18/23 03:06 11/18/23 03:11 Temperature Temperature Source Pulse Rate 90 90 Blood Pressure BP Systolic BP Diastolic Pulse Ox 99 11/18/23 03:11 11/18/23 03:12 11/18/23 03:12 Temperature Temperature Source Pulse Rate 87 Blood Pressure 136/86 H BP Systolic 136 BP Diastolic 86 Pulse Ox 100 11/18/23 03:16 11/18/23 03:16 11/18/23 03:16 Temperature Temperature Source Pulse Rate 84 Blood Pressure 143/105 H BP Systolic 143 BP Diastolic 105 Pulse Ox 100 11/18/23 03:21 11/18/23 03:21 11/18/23 03:21 Temperature Temperature Source Pulse Rate 90 Blood Pressure 133/87 H BP Systolic 133 BP Diastolic 87 Pulse Ox 99 11/18/23 03:27 11/18/23 03:27 11/18/23 03:26 Temperature Temperature Source Pulse Rate 83 Blood Pressure 127/70 H BP Systolic 127 BP Diastolic 70 Pulse Ox 98 11/18/23 03:31 11/18/23 03:31 11/18/23 03:31 Temperature Temperature Source Pulse Rate 75 78 Blood Pressure 119/58 L BP Systolic 119 BP Diastolic 58 Pulse Ox 11/18/23 03:31 11/18/23 03:36 11/18/23 03:36 Temperature Temperature Source Pulse Rate 86 Blood Pressure 119/60 BP Systolic 119 BP Diastolic 60 Pulse Ox 99 11/18/23 03:36 11/18/23 03:41 11/18/23 03:41 Temperature Temperature Source Pulse Rate 86 Blood Pressure 110/62 BP Systolic 110 BP Diastolic 62 Pulse Ox 100 11/18/23 03:41 11/18/23 03:46 11/18/23 03:46 Temperature Temperature Source Pulse Rate 91 Blood Pressure BP Systolic BP Diastolic Pulse Ox 100 100 11/18/23 03:47 11/18/23 03:47 11/18/23 03:47 Temperature 98.0 F Temperature Source Pulse Rate 79 Blood Pressure 123/76 H BP Systolic 123 BP Diastolic 76 Pulse Ox 11/18/23 03:51 11/18/23 03:51 11/18/23 03:51 Temperature Temperature Source Pulse Rate 90 99 Blood Pressure 126/80 H BP Systolic 126 BP Diastolic 80 Pulse Ox 11/18/23 03:51 11/18/23 03:56 11/18/23 03:56 Temperature Temperature Source Pulse Rate 87 Blood Pressure 127/75 H BP Systolic 127 BP Diastolic 75 Pulse Ox 100 11/18/23 04:28 11/18/23 04:28 11/18/23 04:30 Temperature Temperature Source Pulse Rate 82 138 H Blood Pressure 118/70 BP Systolic 118 BP Diastolic 70 Pulse Ox 11/18/23 04:30 11/18/23 04:30 11/18/23 04:31 Temperature Temperature Source Temporal Pulse Rate 80 Blood Pressure BP Systolic BP Diastolic Pulse Ox 100 11/18/23 04:30 11/18/23 05:24 11/18/23 05:24 Temperature 98.7 F Temperature Source Temporal Pulse Rate Blood Pressure 117/66 BP Systolic 117 BP Diastolic 66 Pulse Ox 11/18/23 05:24 11/18/23 05:24 11/18/23 05:24 Temperature 98.8 F Temperature Source Pulse Rate 93 Blood Pressure BP Systolic BP Diastolic Pulse Ox 100 Weight Weight: 228 lb Body Mass Index (BMI) 37.9 Labs Labs Labs: Blood Type A NEGATIVE Antibody Screen POSITIVE H Hct 33.9 % (37-47) L Hgb 10.7 g/dL (12.0-15.0) L Syphilis Total Ab Non-reactive Rhogam given: Yes GBS negative GC/CT negative RPR NR Rubella Immune HBsAG negative HepC negative HIV negative A Negative Assessment & Plan (1) SROM (spontaneous rupture of membranes): (2) Anxiety: (3) Depression: (4) Asthma: COMMENT: pt reports mostly resolved (5) Herpes genitalis: (6) Migraines: (7) Pre-eclampsia: COMMENT: with second (8) hemorrhage: COMMENT: pt received rectal cytotec after second delivery PLAN: Plan Admit to labor and delivery Routine labs GBS negative HSV, taking Acyclovir Continuous EFM Epidural for pain management [facility] physician and notified of patient status, above assessment and plan. 11/18/23 0646 <Electronically signed by Dolores Patrick CNM> Cosigner Signature (if applicable): CC: JOSH Ptarick; Dr. Jose G Zavala MD~ Signed [facility] Work Phone: 1(777) 936-787602-16-2024 History of Present illness Narrative* Luda Pathak RN - 11/18/2023 8:33 AM EST Patient delivered via at [facility] on 11/18/23 per Dolores Patrick CNM. See OB Outcome note. Luda Pathak RN documented [facility] Miscellaneous Notes* Quick Notes - Shira Powell MD - 11/16/2023 2:13 PM EST DM-Pt doing well. Denies vaginal Bleeding, Leaking [...] De La Paz MD documented in this encounterUpper Valley [facility] Center02-14-2024 Instructions* Patient Instructions* Michael Morelos Cma - 11/16/2023 1:46 PM EST SEQUENTIAL SCREENINGS The [facility] offers sequential screenings for women who are interested in screenings for chromosomal abnormalities and certain defects during a . The sequential screen combinesultrasound and blood tests to determine the risk [...] this testing. It will require an appointment withour electric meter technician. This is not an ultrasound performed [...] the above symptoms, contact our office at [phone] and ask to speak with anurse. After hours, you can call doctors registry at [phone] OR call [facility] at [phone] ask to have the doctor signs and displays salesperson paged. If you consider this an emergency, dial 9-1-1 or go to your nearest emergency department. NEED HELP? Are you dealing with a violent or abusive relationship? Are you a victim of rape or sexual assult? Call [facility] ([place]) 24 hour Crisis Hotline: 659.378.1949 or 897-984-3825. MANUAL Your Guide to a Healthy manual is now on-line. Visit [email or web address] to download your free copy documented in this encounterUpper Valley [facility] Center02-12-2024 Miscellaneous Notes* Quick Notes - Shavon Brown - 11/14/2023 1:16 PM EST S: Blanca Chase is a 28 year old female who presents at 36 w 5d, IRENE 12/07/2023, by Last Menstrual Period for a routine visit. Denies headache, visual changes, chest pain, shortness of breath, vaginal bleeding, leakage of fluid, or dysuria. Feeling well,but thinks she started leaking fluid on Sat, and again today, clear, has had to wear a pad, Leaking out, just not sure if this is my amniotic fluid? O: See flow sheet Gen: No apparent distress Abd: Gravid, nontender Leukorrhea noted on SVE, moderate amount, no pooling Amniotic Fluid Test 11/14/23 01:16pm Fern: neg ; Nitrazine: neg (pH less than 7) Fern Reference Range: Negative for amniotic fluid Nitrazine Reference Range: Normal vaginal pH is acidic (below 7.0) with pH above 7.0 (basic) indicating the presence of amniotic fluid. Lab Address: Ob/gynecology [address] [place] [address] Dept: [phone] Provider: Dolores Patrick APRN.CNM ASSESSMENT 1. 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 I have re-performed the HPI, Physical Examination, Assessment and Plan. Dolores Patrick APRN.CNM documented in this encounterUpper Valley Medical Center02-12-2024 Instructions* Patient Instructions* Kasia Escudero MA - 11/14/2023 12:59 PM EST SEQUENTIAL SCREENINGS The [facility] offers sequential screenings for women who are interested in screenings for chromosomal abnormalities and certain defects during a . The sequential screen combinesultrasound and blood tests to determine the risk [...] this testing. It will require an appointment withour electric meter technician. This is not an ultrasound performed [...] the above symptoms, contact our office at [phone] and ask to speak with anurse. After hours, you can call doctors registry at [phone] OR call [facility] at [phone] ask to have the doctor signs and displays salesperson paged. If you consider this an emergency, dial 9-1-9 or go to your nearest emergency department. NEED HELP? Are you dealing with a violent or abusive relationship? Are you a victim of rape or sexual assult? Call [facility] ([place]) 24 hour Crisis Hotline: 218.990.1627 or 032-826-0785. MANUAL Your Guide to a Healthy manual is now on-line. Visit [email or web address] to download your free copy documented in this encounterUpper [facility] Medical Center02-09-2024 Miscellaneous Notes* Telephone Encounter - Christy Hall LPN - 11/11/2023 8:55 AM EST Note closed as pt has not voiced any further need for paperwork being completed. Paperwork filed [employer]. Christy Hall LPN' * Telephone Encounter - Christy Hall LPN - 11/03/2023 11:23 AM EST Voicemail and mychart message to pt asking for dates of leave. Will await further response from pt.Christy Hall LPN documented in this encounterUpper Valley Medical Center02-07-2024 Miscellaneous Notes* Quick Notes - Bib Romero MD - 11/09/2023 9:42 AM EST Pt presents at 36 wks w/o concerns. Hs of genital herpes - will start acyclovir prophylaxis no bleeding or leaking of fluid Sono today GBS culture performed. rto 1 week documented in this encounterUpper Valley Medical Center02-07-2024 Instructions* Patient Instructions* Kinza Alcantara LPN - 11/09/2023 8:53 AM EST SEQUENTIAL SCREENINGS The [facility] offers sequential screenings for women who are interested in screenings for chromosomal abnormalities and certain defects during a . The sequential screen combinesultrasound and blood tests to determine the risk [...] this testing. It will require an appointment withour electric meter technician. This is not an ultrasound performed [...] the above symptoms, contact our office at [phone] and ask to speak with anurse. After hours, you can call doctors registry at [phone] OR call [facility] at [phone] ask to have the doctor signs and displays salesperson paged. If you consider this an emergency, dial 9-- or go to your nearest emergency department. NEED HELP? Are you dealing with a violent or abusive relationship? Are you a victim of rape or sexual assult? Call [facility] ([place] 24 hour Crisis Hotline: 208.345.6679 or 946-275-4519. MANUAL Your Guide to a Healthy manual is now on-line. Visit [email or web address] to download your free copy documented in this encounterUpper Valley Medical Center02-01-2024 Miscellaneous Notes* Quick Notes - Smita Booker APRN.JOSH - 11/03/2023 9:59 AM EST S: Blanca Chase is a 28 year old female who presents as an add on visit for pelvic pressure andoccasional cramping. Tightening off an on which she feels through her back. Positive movement. Requesting FMLA papers to be signed to stop working. Discussed that there is not a medical indication to write her off of work. 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 Voiced understanding. Increased back pain. Has never looked into care support representative or massage. Recommended those services. Denies headache, [...] GBS Smita Booker APRN.CNM documented in this encounterUpper Valley Medical Center02-01-2024 Instructions* Patient Instructions* Smita Booker APRN.CNM - 11/03/2023 9:51 AM EST CALL INSURANCE TO FIND OUT ABOUT CHIROPRACTIC SERVICES AND MASSAGE THERAPY SEQUENTIAL SCREENINGS The [facility] offers sequential screenings for women who are interested in screenings for chromosomal abnormalities and certain defects during a . The sequential screen combinesultrasound and blood tests to determine the risk [...] this testing. It will require an appointment withour electric meter technician. This is not an ultrasound performed [...] the above symptoms, contact our office at [phone] and ask to speak with anurse. After hours, you can call doctors registry at [phone] OR call [facility] at [phone] ask to have the doctor signs and displays salesperson paged. If you consider this an emergency, dial 06-03- or go to your nearest emergency department. NEED HELP? Are you dealing with a violent or abusive relationship? Are you a victim of rape or sexual assult? Call [facility] ([place] 24 hour Crisis Hotline: 795.830.9591 or 092-297-1285. MANUAL Your Guide to a Healthy manual is now on-line. Visit [email or web address] to download your free copy documented in this encounterUpper Valley Medical Center01-24-2024 Miscellaneous Notes* Quick Notes - Bib Romero MD - 10/26/2023 10:58 AM EST Patient presents at 34 weeks w/o complaints other than occ cramping. Denies bleeding or loss of fluid UA unremarkable ++FM Abd SNT with fundal height at 37cm A/P: RSV vax discussed and desired Contiue routine PNC and f/u as scheduyled RSV vax today documented in this encounterUpper Valley Medical Center01-24-2024 Instructions* Patient Instructions* Gali Summers Ma - 10/26/2023 10:32 AM EST SEQUENTIAL SCREENINGS The [facility] offers sequential screenings for women who are interested in screenings for chromosomal abnormalities and certain defects during a . The sequential screen combinesultrasound and blood tests to determine the risk [...] this testing. It will require an appointment withour electric meter technician. This is not an ultrasound performed [...] the above symptoms, contact our office at [phone] and ask to speak with anurse. After hours, you can call doctors registry at [phone] OR call [facility] at [phone] ask to have the doctor signs and displays salesperson paged. If you consider this an emergency, dial 9-1-1 or go to your nearest emergency department. NEED HELP? Are you dealing with a violent or abusive relationship? Are you a victim of rape or sexual assult? Call [facility] ([place]) 24 hour Crisis Hotline: 302.476.3365 or 606-720-0627. MANUAL Your Guide to a Healthy manual is now on-line. Visit [email or web address] to download your free copy documented in this encounterUpper Valley Medical Center12-13-2023 Miscellaneous Notes* Telephone Encounter - Smita Booker APRN.CNM - 09/14/2023 11:53 AM EST Patient to be assessed today in office. Smita Booker APRN.CNM documented in this encounterUpper Valley Medical Center12-04-2023 History of Present illness Narrative* Dolores Patrick APRN.CNM - 09/05/2023 12:55 PM EST ANGEL-S: Blanca Chase is a 27 year old female who presents at 26w5d with IRENE:12/07/2023, by Last Menstrual Periodfor a routine visit. Good FM. Denies headache, visual changes, chest pain, shortness ofbreath, vaginal bleeding, leakage of fluid, or dysuria. [...] still send for culture. documented in this encounterUpper Valley Medical Center12-04-2023 Instructions* Patient Instructions* Michael Morelos Cma - 09/05/2023 11:54 AM EST SEQUENTIAL SCREENINGS The [facility] offers sequential screenings for women who are interested in screenings for chromosomal abnormalities and certain defects during a . The sequential screen combinesultrasound and blood tests to determine the risk [...] this testing. It will require an appointment withour electric meter technician. This is not an ultrasound performed [...] the above symptoms, contact our office at [phone] and ask to speak with anurse. After hours, you can call doctors registry at [phone] OR call [facility] at [phone] ask to have the doctor signs and displays salesperson paged. If you consider this an emergency, dial 9-1-1 or go to your nearest emergency department. NEED HELP? Are you dealing with a violent or abusive relationship? Are you a victim of rape or sexual assult? Call [facility] ([place]) 24 hour Crisis Hotline: 974.670.1009 or 724-163-5558. MANUAL Your Guide to a Healthy manual is now on-line. Visit [email or web address] to download your free copy documented in this encounterUpper Valley Medical Center11-13-2023 Miscellaneous Notes* Telephone Encounter - Luda Galvan RN - 08/15/2023 11:39 AM EST 2nd risk assessment form submitted 08/15/2023. Luda Galvan RN documented in this encounterUpper Valley Medical Center11-08-2023 Miscellaneous Notes* Quick Notes - Smita Booker APRN.CNM - 08/10/2023 1:16 PM EST S: Blanca Chase is a 27 year old female who presents at 23 weeks gestation for a routine visit.Denies headache, visual changes, chest pain, shortness of [...] GCT Smita Booker APRN.CNM documented in this encounterUpper Valley Medical Center11-08-2023 Instructions* Patient Instructions* Kasia Escudero MA - 08/10/2023 12:57 PM EST SEQUENTIAL SCREENINGS The [facility] offers sequential screenings for women who are interested in screenings for chromosomal abnormalities and certain defects during a . The sequential screen combinesultrasound and blood tests to determine the risk [...] this testing. It will require an appointment withour electric meter technician. This is not an ultrasound performed [...] the above symptoms, contact our office at [phone] and ask to speak with anurse. After hours, you can call doctors [facility] at [phone] OR call [facility] at [phone] ask to have the doctor signs and displays salesperson paged. If you consider this an emergency, dial 2-8-7 or go to your nearest emergency department. NEED HELP? Are you dealing with a violent or abusive relationship? Are you a victim of rape or sexual assult? Call [facility] ([facility] 24 hour Crisis Hotline: 421.646.5932 or 060-376-6402. MANUAL Your Guide to a Healthy manual is now on-line. Visit [email or web address] to download your free copy documented in this encounterUpper Valley Medical Center11-03-2023 Miscellaneous Notes* Telephone Encounter - Luda Pathak RN - 08/05/2023 4:09 PM EDT Patient notified. Advised to call if worsening symptoms. Luda Pathak RN * Telephone Encounter - Dolores Patrick APRN.CNM - 08/05/2023 3:53 PM EDT If patient is feeling better ok to follow up next week. Dolores Patrick APRN.CNM * Telephone Encounter - Kinza Alcantara LPN - 08/05/2023 10:51 AM EDT Ob patient is 22w2d and was seen [...] Smita Booker. Please advise. documented in this encounterUpper Valley Medical Center10-25-2023 Miscellaneous Notes* Telephone Encounter - Smita Booker APRN.CNM - 07/27/2023 5:17 PM EDT Patient needs AFP labs drawn within next 5 days. Order is placed. Please notify patient she will need to come to lab to have drawn. Thank you! Smita Booker APRN.CNM documented in this encounterUpper Valley Medical Center10-11-2023 Miscellaneous Notes* Quick Notes - Smita Booker APRN.CNM - 07/13/2023 11:15 AM EDT Blanca Chase is a 27 year old female who [...] needed. Smita Booker APRN.CNM documented in this encounterUpper Valley Medical Center10-11-2023 Instructions* Patient Instructions* Kasia Escudero MA - 07/13/2023 10:23 AM EDT SEQUENTIAL SCREENINGS The [facility] offers sequential screenings for women who are interested in screenings for chromosomal abnormalities and certain defects during a . The sequential screen combinesultrasound and blood tests to determine the risk [...] this testing. It will require an appointment withour electric meter technician. This is not an ultrasound performed [...] the above symptoms, contact our office at [phone] and ask to speak with anurse. After hours, you can call doctors registry at [phone] OR call [facility] at [phone] ask to have the doctor signs and displays salesperson paged. If you consider this an emergency, dial 4-6- or go to your nearest emergency department. NEED HELP? Are you dealing with a violent or abusive relationship? Are you a victim of rape or sexual assult? Call [facility] ([place]) 24 hour Crisis Hotline: 610.512.4113 or 663-228-3836. MANUAL Your Guide to a Healthy manual is now on-line. Visit [email or web address] to download your free copy documented in this encounterUpper Valley Medical Center09-21-2023 Miscellaneous Notes* Quick Notes - Esther Cervantes MD - 06/23/2023 1:25 PM EDT RR- VB No. LOF No. CTXS No. [...] . reassured, call if bleeding worsens Esther Cervantes M.D. documented in this encounterUpper Valley Medical Center09-21-2023 Instructions* Patient Instructions* Marcy Mark Ma - 06/23/2023 1:20 PM EDT SEQUENTIAL SCREENINGS The [facility] offers sequential screenings for women who are interested in screenings for chromosomal abnormalities and certain defects during a . The sequential screen combinesultrasound and blood tests to determine the risk [...] this testing. It will require an appointment withour electric meter technician. This is not an ultrasound performed [...] the above symptoms, contact our office at [phone] and ask to speak with anurse. After hours, you can call doctors registry at [phone] OR call [facility] at [phone] ask to have the doctor signs and displays salesperson paged. If you consider this an emergency, dial 8-8-1 or go to your nearest emergency department. NEED HELP? Are you dealing with a violent or abusive relationship? Are you a victim of rape or sexual assult? Call [facility] ([place]) 24 hour Crisis Hotline: 735.552.4617 or 935-989-0385. MANUAL Your Guide to a Healthy manual is now on-line. Visit [email or web address] to download your free copy documented in this encounterUpper Valley Medical Center09-12-2023 Miscellaneous Notes* Telephone Encounter - Christy Hall LPN - 06/14/2023 11:40 AM EDT Pt notified and voiced understanding and no further questions or concerns voiced. Christy Hall LPN * Telephone Encounter - Katerine Khan MD - 06/14/2023 11:25 AM EDT Brown spotting is very common with a resolving subchorionic hematoma. She should continue to monitor and call with increased bleeding. Katerine Khan MD * Telephone Encounter - Aviva Lutz RN - 06/14/2023 9:34 AM EDT 14w6d Patient calling with update. She has [...] monitor? Aviva Lutz RN documented in this encounterUpper Valley Medical Center09-08-2023 Miscellaneous Notes* Telephone Encounter - Christy Hall LPN - 06/10/2023 10:44 AM EDT Letter created as directed and faxed to number listed. Pt aware that letter is being faxed. Christy Hall LPN * Telephone Encounter - Smita Booker APRN.CNM - 06/10/2023 9:33 AM EDT Please send letter with 25 lbs lifting restrictions. Smita Booker APRN.CNM * Telephone Encounter - Kinza Alcantara LPN - 06/09/2023 9:07 AM EDT Ob patient is 14w1d and called stating that her employer is letting her do light duty at work d/t subchorionic hematoma noted on ultrasound. Patient states that letter needs to mention lifting and bending restrictions. Letter needs faxed to [phone] Attention: Dolores Mast Patient aware that provider is out of the office today documented in this encounterUpper Valley Medical Center09-06-2023 Miscellaneous Notes* Addendum Note - Smita Booker APRN.CNM - 06/08/2023 2:50 PM EDTAddended by: SMITA BOOKER on: 06/08/2023 02:50 PM Modules accepted: Orders * Quick Notes - Smita oBoker APRN.CNM - 06/08/2023 2:[address] Oliver, MaterniT 21 and KB lab work recommended to be drawn today. Orders changed and lab notified. Smita Booker APRN.CNM * Quick Notes - Smita Booker APRN.CNM - 06/08/2023 2:36 PM EDT Blanca Chase is a 27 year old female who [...] US. Smita Booker APRN.CNM documented in this encounterUpper Valley Medical Center09-06-2023 History of Present illness Narrative* Luda Pathak RN - 06/08/2023 2:16 PM EDT Patient here for First Trimester Screening. See ultrasound report for details. Options for genetic screening and diagnosis discussed with the patient. Patient opts for first trimester screening and the sequential screening protocol. Limitations of screening tests discussed withthe patient. Smita Booker APRN.CAMERONM documented in this encounterUpper Valley Medical Center09-06-2023 Instructions* Patient Instructions* Michael Morelos Cma - 06/08/2023 2:16 PM EDT SEQUENTIAL TESTING PROCESS Sequential Screen First Trimester Today you are currently: 14w0d weeks 06/08/2023: Ultrasound and blood test. Sequential Screen Second Trimester (16-17 Weeks Gestation) When you are called with your results, the nurse will give the optimal draw dates for the Sequential screen second trimester. Blood testing can be done at any [facility] lab. Please report to the any marketing assistant retail division office front end ui developer for the Sequential Part 2 requisition and order before reporting to the lab. Your weight will need to be documented for testing. Please note: -No appointment is need for your second blood draw. -Office hours are 8 am to 4:30 pm. -Please have testing done prior to 12 noon on Tuesday's -Once the sequential testing is started, in the first trimester the only follow- up will be for the sequential screen second trimester. Please don't have a Quad screen ordered by another provider. If you or your Provider have any questions please call your maternal medicine office, for east side please call [phone] or for the West side call [phone] and ask for the the nurse. Thank you. SEQUENTIAL SCREENINGS The [facility] offers sequential screenings for women who are interested in screenings for chromosomal abnormalities and certain defects during a . The sequential screen combinesultrasound and blood tests to determine the risk [...] this testing. It will require an appointment withour electric meter technician. This is not an ultrasound performed [...] the above symptoms, contact our office at [phone] and ask to speak with anurse. After hours, you can call doctors registry at [phone] OR call [facility] at [phone] ask to have the doctor signs and displays salesperson paged. If you consider this an emergency, dial 1-7-6 or go to your nearest emergency department. NEED HELP? Are you dealing with a violent or abusive relationship? Are you a victim of rape or sexual assult? Call [facility] ([place]) 24 hour Crisis Hotline: 824.739.6298 or 610-097-9133. MANUAL Your Guide to a Healthy manual is now on-line. Visit [email or web address] to download your free copy documented in this encounterUpper Valley Medical Center08-23-2023 Miscellaneous Notes* Telephone Encounter - Smita Booker APRN.CNM - 05/25/2023 5:51 PM EDT Yes, it is appropriate for her to stop taking until further notice. Thank you. Smita Booker APRN.CNM * Telephone Encounter - Kinza Alcantara LPN - 05/25/2023 3:45 PM EDT Ob patient is 12w0d and seen at office today. Patient asking if she should begin taking OTC aspirinbeginning at 12 weeks as advised at last appointment or if she should wait d/t currently vaginal bleeding. Can leave a detailed message on voicemail if no answer documented in this encounterUpper Valley Medical Center08-23-2023 Miscellaneous Notes* Telephone Encounter - Aviva Lutz RN - 05/25/2023 8:54 AM EDT Patient notified and scheduled with CP. Advised to call office if bleeding becomes heavy or more severe pain occurs prior to appointment. Aviva Lutz RN * Telephone Encounter - Shira Powell MD - 05/25/2023 8:44 AM EDT CP has two 30 min OB patients in the afternoon- you can double book this patient in one of those slots please. * Telephone Encounter - Aviva Lutz RN - 05/25/2023 8:15 AM EDT 12w0d Calling regarding bleeding and cramping that started around 4am today. Wearing panty liner and has had a few 50 cent piece clots between using restroom. Notices more bleeding in toiler and with wiping then. Rates her cramping 2/10 on the pain scale. No available openings with providers today. Please advise. Aviva Lutz RN documented in this encounterUpper Valley Medical Center08-22-2023 History of Present illness Narrative* Cami Guerrier APRN.BUS WASHER - 05/24/2023 11:10 AM EDT Telemedicine Evaluation for COVID-19 Infection MyChart video visit was used for evaluation of this patient. I have communicated my name and active licensure. The patient's identity and physical location wereverified at the time of this visit. Either the patient or their legal sales representative rural power has been informed of the risks and benefits of -- and alternatives to -- treatment through a remote evaluation andconsents to proceed with the evaluation remotely. SUBJECTIVE Blanca Chase is a 27 year old female who [...] testing at the time of visit. Cami Ganlogcasie, BODY AND FRAME MAN.BUS WASHER This patient encounter involved the screening or [...] which included preparing to see the patient, xmtv-tv-[id number] patient care, completing clinical documentation, obtaining and/or reviewing separately obtained history, performing a medically appropriate examination, counseling and educating the pat ient/family/caregiver, and ordering medications, tests, or procedures. documented in this encounterUpper Valley Medical Center08-22-2023 Miscellaneous Notes* Telephone Encounter - Cami Guerrier APRN.CNP - 05/24/2023 9:57 AM EDT Reviewed. Cami Guerrier APRN.CNP * Telephone Encounter - Rosalinda Constantino RN - 05/24/2023 9:51 AM EDT Patient calling to state she has developed respiratory sx's and was advised by her PRINT BINDING AND FINISHING WORKER to contact PCP office for evaluating. Patient [...] other recommendations. Thank you. documented in this encounterUpper Valley Medical Center08-08-2023 Miscellaneous Notes* Telephone Encounter - Sari Lowery RN - 05/10/2023 8:50 AM EDT Initial risk assessment form submitted 05/10/2023 documented in this encounterUpper Valley Medical Center08-04-2023 Miscellaneous Notes* Quick Notes - Smita Booker APRN.CNM - 05/06/2023 9:28 AM EDT at 9.2 weeks gestation seen for NOB. History of preeclampsia and precipitous delivery 2 yearsago. See progress note. Smita Booker APRN.CNM documented in this encounterUpper Valley Medical Center08-04-2023 History of Present illness Narrative* Smita Booker APRN.CNM - 05/06/2023 8:40 AM EDT INITIAL OB ASSESSMENT OB Provider: Smita Booker APRN CNM HPI: Blanca is a 27 year old White Female [...] use: No Multivitamin with Folic acid: Yes Presybeterian or heritage: No Would refuse blood transfusion if medically necessary: No Are you currently employed? Yes, Occupation: [employer] Do you have any history of depression, [...] Partner: Name: Rio Age: 29 Occupation: [employer] Gender: Male History of STDs: None PAST [...] Take 1 capsule by mouth once daily. Vfecxazs-Ti-Yku-Fe-FA ( VITAMIN) tab Take 1 tablet by mouth. SUMAtriptan (IMITREX) 50 mg tablet Take 1 tablet for migraine headache. May repeat dose in 2 hours.Max 200 mg every 24 hours. (Patient not taking: Reported on 04/28/2023) 9 tablet 3 Norethin Jacob-Eth Estrad-FE (10/22, ,) 1 mg-20 mcg (21)/75 mg (7) per tablet Take 1 tabletby mouth once daily. 84 tablet 3 fluticasone-salmeterol [...] Your guide to a health and the Hide Shaker. Discussed aneuploidy and carrier screening. Regarding aneuploidy [...] Discussed hemoglobin electrophoresis. Patient: Reviewed midwifery and manager hotel services that are available. 2) History of preeclampsia with previous - start ASA at 12 weeks gestation- will order baseline labs 3) HSV- will start prophylaxis at 36 weeks gestation Follow up in 4 weeks for NT US , labs, and DAWOOD or sooner prnShiv Booker APRN.CNM documented in this encounterMichael Ville [address]-04-2023 Instructions* Patient Instructions* Michael Morelos Cma - 05/06/2023 8:40 AM EDT Please select the following link to access the [facility] Your Guide to a Healthy . [email or web address] documented in this encounterUpper Valley Medical Center07-27-2023 History of Present illness Narrative* Sylvie Hensley RN - 04/28/2023 3:54 PM EDT # 1 - Date: 09[birth year]20[birth year]09, Sex: Male, Weight: 6 lb 4 oz (2.835 kg), GA: 37w0d, Delivery: Vaginal, Spontaneous, Apgar1: None, Apgar5: None, Living: Living, Comments: None # 2 - Date: 2009, Sex: None, Weight: None, GA: None, Delivery: None, Apgar1: None, Apgar5: None, Living: None, Comments: No D&C # 3 - Date: 12/05/19, Sex: Unknown, Weight: None, GA: 6w0d, Delivery: SPONTANEOUS , Apgar1:None, Apgar5: None, Living: None, Comments: None # [...] Living: None, Comments: None documented in this encounterUpper Valley Medical Center07-27-2023 Miscellaneous Notes* Quick Notes - Sylvie Hensley RN - 04/28/2023 3:54 PM EDT DISTANCE HEALTH VISIT This Team Access Model visit is a phone encounter. It required patient-provider interaction for themedical decision making as documented below. I have communicated my name and active licensure. The patient's identity and physical location wereverified at the time of this visit. Father [...] to check on insurance coverage. Patient declined geneticcarrier screening testing due to having genetic testing in the past.Sylvie Hensley RN documented in this encounterUpper Valley Medical Center07-20-2023 Miscellaneous Notes* Telephone Encounter - Kinza Alcantara LPN - 04/21/2023 4:21 PM EDT Patient scheduled. * Telephone Encounter - Christy Hall LPN - 04/20/2023 3:18 PM EDT Attempted to contact pt again this afternoon. Remain unable to leave message, will send another [employer] message as pt has viewed previous message and has not contacted office to schedule. Christy Hall LPN * Telephone Encounter - Christy Hall LPN - 04/20/2023 8:11 AM EDT Attempted to again contact pt, voicemail is full and unable to leave message. Pt has not read her mychart message. Will try again later. Christy Hall LPN * Telephone Encounter - Aviva Lutz RN - 04/19/2023 11:49 AM EDT Patient was scheduled for PNOB phone call visit on the ship erector nurse schedule instead of the PNOB one. Attempted to call patient to reschedule to 04/21 or 04/28. Unable to leave message though. [employer] message sent too. Aviva Lutz RN documented in this encounterUpper Valley Medical Center05-02-2023 History of Present illness Narrative* Reef Christy Juan, RT(R) - 02/01/2023 1:40 PM EDT Radiology Service Progress Note DATE OF SERVICE: [...] creatinine assay has traceable calibration to isotope dilution- mass spectrometry. Refer to KDIGO guidelines for clinical interpretation. In patients with unstable renal function, e.g. those with acute kidney injury, the eGFRmay not accurately reflect actual GFR. eGFR- Date Value Ref Range Status 04/15/2021 >60 Final P.O.C.T. RESULTS: POC done: Yes, See Lab Tab February 01, 2023 TREATMENT: N/A PERIPHERAL IV DATA: Ambulatory: A peripheral IV was started in the Left antecubital site with a Angio cath: 22 gauge. RADIOLOGY DEPARTMENT: CT; Exam(s) Completed: Brain SIGNATURE: RT Katherin(R) PATIENT NAME: Blanca Chase DATE: February 01, 2023 TIME: 2:03 PM documented in this encounterUpper Valley Medical Center05-02-2023 Miscellaneous Notes* Telephone Encounter - Tomasa Miller Ma - 02/01/2023 10:53 AM EDT Pt notified of results via [employer]. Tomasa Miller Ma * Telephone Encounter - Rony Lazaro APRN.CNP - 02/01/2023 10:48 AM EDT Please let the patient know that all [...] week. Rony Lazaro APRN.CNP documented in this encounterUpper Valley Medical Center04-28-2023 Instructions* Patient Instructions* Marichuy Painter APRN.CNP - 01/28/2023 10:31 AM EDT Get labs [...] or sooner as needed. documented in this encounterUpper Valley Medical Center04-28-2023 History of Present illness Narrative* Marichuy Painter APRN.SHOAIB - 01/28/2023 10:00 AM EDT This is a 27 year old female who presents today with: Patient presents with: Acute Visit: dizziness, nausea HISTORY OF PRESENT ILLNESS: Blanca Chase is a 27 year old female. Patient presents with: Acute Visit: dizziness, nausea Patient of Dr. Zavala here in the office for dizziness, headache, and nausea. Had bad headaches asa child but never diagnosed with migraines. Having migraine headaches 2-3 times per week. Headachesseem to be progressively getting worse. Pain is [...] all over and joint pain. 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 PAST MEDICAL [...] (21)/75 mg (7) per tablet Take 1 tabletby mouth once daily. fluticasone-salmeterol (ADVAIR DISKUS) 250-50 mcg/dose inhaler Inhale 1 Puff as instructed twice daily. Rinse and gargle mouth with water after each use. generic (Patient not taking: Reported on 12/13/2022) mv-min/vit C/glut/lysine/hb124 (IMMUNE SUPPORT ORAL) Take 1 capsule by mouth once daily. Wfhbgohm-Iq-Ffh-Fe-FA ( VITAMIN) tab Take 1 tablet by [...] External ears normal, canals clear. TMs pearly flower. Lungs: Lungs clear to auscultation. No wheezing, [...] discussed and patient voices understanding. Marichuy Painter APRN.BUS WASHER This note was partially generated using [email or web address] voice recognition system. Note was reviewed for accuracy. There may be minor misspellings or grammar miscues with [employer] voice recognition. documented in this encounterUpper Valley Medical Center03-13-2023 Instructions* Patient Instructions* Viry Carmen APRN.CNP - 12/13/2022 3:35 PM EDT Stop augmentin Start clindamycin Follow up in 5 days if no improvement documented in this encounterUpper Valley Medical Center03-13-2023 History of Present illness Narrative* Viry Carmen APRN.CNP - 12/13/2022 3:29 PM EDT Chief Complaint Patient presents with: Recheck HPI Blanca Chase is a 27 year old female who [...] by mouth twice daily for 10 days. Gftlzyxk-Qa-Akl-Fe-FA ( VITAMIN) tab Take 1 tablet by mouth. Norethin Jacob-Eth Estrad-FE (10/22, ,) 1 mg-20 mcg (21)/75 mg (7) per tablet Take 1 tabletby mouth once daily. fluticasone-salmeterol (ADVAIR DISKUS) 250-50 [...] upper outer quadrant, skin warm but without redness.Mild edema noted. . Health Maintenance List COVID-19 VACCINE(1) Never done INFLUENZA(1) due on 06/03/2022 DEPRESSION ASSESSMENT Never done PAP TESTING due on 11/06/2022 DTAP,TDAP,TD(8 - Td or Tdap) due on 10/28/2030 HEPATITIS B Completed HEPATITIS C SCREENING Completed HIV SCREENING Completed ASSESSMENT/PLAN: 1. Acute mastitis of right breast - ICD9: 611.0, ICD10: N61.0 - CLINDAMYCIN HCL 150 MG CAPSULE Viry Carmen APRN.BUS WASHER documented in this encounterUpper Valley Medical Center03-13-2023 Miscellaneous Notes* Telephone Encounter - Diane Estrada Cma - 12/13/2022 10:46 AM EDT Patient notified and scheduled for an appointment today Diane Estrada Cma * Telephone Encounter - Viry Carmen APRN.CNP - 12/13/2022 10:24 AM EDT Recommend patient be scheduled today for follow up evaluation. * Telephone Encounter - Feli Wesley LPN - 12/13/2022 9:56 AM EDT Pt calls to report she had OV [...] VM. Feli Wesley LPN documented in this encounterUpper Valley Medical Center03-07-2023 NoteHNO ID: [id number] Author: RT Jamil(R) Service: ? Author Type: Technologist Type: Progress Notes Filed: 12/07/2022 4:25 PM Note Text: Radiology Service Progress Note PATIENT NAME: Blanca Chase DATE OF SERVICE: December 07, 2022 TIME: [...] Welsh RDMS, RVT December 07, 2022 4:24 [facility] [facility] History of Present illness Narrative* Cami Guerrier APRN.BUS WASHER - 11/24/2022 10:56 AM EST 11/24/2022 Patient presents with: Breast Problem: Right [...] did not take temp. Denies breast or axillarylump, excessive warmth to breast or abnormal discharge [...] (21)/75 mg (7) per tablet Take 1 tabletby mouth once daily. fluticasone-salmeterol (ADVAIR DISKUS) 250-50 mcg/dose inhaler Inhale 1 Puff as instructed twice daily. Rinse and gargle mouth with water after each use. generic albuterol HFA (VENTOLIN HFA) 90 mcg/actuation inhaler Inhale 2 Puffs as instructed every 4 hours asneeded. mv-min/vit C/glut/lysine/hb124 (IMMUNE SUPPORT ORAL) Take 1 capsule by mouth once daily. Rmqxlbgh-Eq-Noz-Fe-FA ( VITAMIN) tab Take 1 tablet by [...] to ER with red flag symptoms Cami Podlogar, [employer] MAN.BUS WASHER Prescription instructions reviewed with patient as applicable. [...] which included preparing to see the patient, [id number] patient care, completing clinical documentation, obtaining and/or reviewing separately obtained history, performing a medically appropriate examination, counseling and educating the pat ient/family/caregiver, and ordering medications, tests, or procedures. documented [facility] History of Present illness Narrative* Smita Booker APRN.CNM - 06/09/2022 9:35 AM EDT CONTRACEPTION Blanca Chase is a 26 year old who presents [...] She is pleased with OCP and wishes tocontinue at this time. 1.5 year old- still [...] Outpatient Medications Medication Sig Norethin Jacob-Eth Estrad-FE (JUNE10/22, ,) 1 mg-20 mcg (21)/75 mg (7) per tablet Take 1 tabletby mouth once daily. fluticasone-salmeterol (ADVAIR DISKUS) 250-50 mcg/dose inhaler Inhale 1 Puff as instructed twice daily. Rinse and gargle mouth with water after each use. generic albuterol HFA (VENTOLIN HFA) 90 mcg/actuation inhaler Inhale 2 Puffs as instructed every 4 hours asneeded. mv-min/vit C/glut/lysine/hb124 (IMMUNE SUPPORT ORAL) Take 1 capsule by mouth once daily. Ybofjssw-Hv-Yea-Fe-FA ( VITAMIN) tab Take 1 tablet by [...] with the patient. R/B/A explained. All questions answered.Pt understands risks including but not limited to increased risk of breast cancer, blood clots and stroke. Counselled for (20) minutes face to face Follow up (1 year for annual exam with PAP) Smita Booker APRN.CNM documented in this encounter[facility]22 History of Present illness Narrative* Melissa Akhtar APRN.CNP - 05/27/2022 11:43 AM EDT Brine Purifier offered: Patient declines. Blanca Chase is a 26 year old female who [...] deodorants: No Contraception: combined hormonal contraceptives Last pap: 2019 Past medical, surgical, social history, medications and allergies reviewed and updated. OBJECTIVE: BP 108/60 Ht 5' 5 (1.65m) Wt 156 lb (70.8kg) LMP 05/06/2022 BMI 25.96 kg/(m^2). GENERAL: Well developed, well nourished in no apparent distress ABDOMEN: soft, non-tender, and no masses PELVIC: external genitalia normal, normal Bartholin's glands, urethra, [place]'s glands, no vulvar lesions, no cervical lesions, good vaginal support, small amount pale yellow discharge present, normalappearing perineal body and perianal region BIMANUAL: uterus [...] Level: 3 - Low documented in this encounterUpper [facility]08-10-2022 Miscellaneous Notes* Telephone Encounter - Luda Pathak RN - 05/12/2022 3:42 PM EDT Patient notified. Luda Pathak RN * Telephone Encounter - Sandy Mathews MD - 05/12/2022 1:41 PM EDT Continue to take regularly as instructed. Bleeding will normalize after first 3 months * Telephone Encounter - Luda Pathak RN - 05/12/2022 12:07 PM EDT Patient started taking Junel on 04/26/22. Currently . On the third week of her pack andshe's been bleeding for 7 days. Menses like flow. Asking if she should take the placebo pills in 5 days. Would you rather her start a new pack this Tuesday? Aware provider is out of the office. Ok to leave a detailed message if patient doesn't answer. Luda Pathak RN documented in this encounterUpper [facility] Center08-04-2022 Miscellaneous Notes* Telephone Encounter - Chad Zavala MD - 05/06/2022 8:49 AM EDT Awaiting call back from patient. * Telephone Encounter - Vivian Torres LPN - 05/05/2022 2:28 PM EDT Patient returned call she said her phone cut off before she got message. Went over notes below Catalina Zavala with understanding. She is going to ask her boy friend to examine her scalp and she can call office back. * Telephone Encounter - Chad Zavala MD - 05/05/2022 2:24 PM EDT Does she have someone at home that could examine her scalp for lice? Has she shared a bed with her son recently? If so would treat her as well. * Telephone Encounter - Kika Powell RN - 05/05/2022 2:15 PM EDT Patient calling to say her son has lice and is being treated. She has no symptoms but asks if she needs treatment? Call connection lost at this point. Kika Powell RN documented in this encounterUpper [facility] Center04-13-2022 Miscellaneous Notes* Telephone Encounter - Rosalinda Constantino RN - 01/13/2022 10:23 AM EDT Patient returned call and given provider's message below and patient verbalized understanding. Leidy Constantino RN * Telephone Encounter - Alisia Freeman LPN - 01/13/2022 10:09 AM EDT Patient telephoned. Message left to call back for update. Alisia Freeman LPN * Telephone Encounter - Cami Guerrier APRN.CNP - 01/13/2022 7:50 AM EDT Please call patient and let her know her blood work is normal. Cami Guerrier APRN.SHOAIB documented in this encounterUpper [facility] Center04-12-2022 History of Present illness Narrative* Cami Guerrier APRN.CNP - 01/12/2022 9:43 AM EDT 01/12/2022 Patient presents with: Yearly Exam SUBJECTIVE: This is a 26 year old that is here today for Above Complaints Since last office visit has been in good health without ER visits or hospitalizations. ASTHMA: not using albuterol much since the addition of the Advair. Denies SOB< dyspnea, wheezingor coughing Still . Admits to feeling fatigued. [...] 2 Puffs as instructed every 4 hours asneeded. mv-min/vit C/glut/lysine/hb124 (IMMUNE SUPPORT ORAL) Take 1 capsule by mouth once daily. Cfvtatwb-Cf-Nbw-Fe-FA ( VITAMIN) tab Take 1 tablet by [...] No history of dysuria, frequency or incontinence MAINTENANCE MGR: Negative for abnormal vaginal bleeding, abnormal vaginal [...] 74 Resp 18 Ht 165.1 cm (5' 5) Wt 73.6 kg (162 lb 3.2 oz) [...] diet of 1000 mg/day for under 50, 1200- 1500 mg/day for 50+ - Follow up for [...] to ER with red flag symptoms Cami Guerrier APRN.BUS WASHER Prescription instructions reviewed with patient as applicable. Patient advised if symptoms do not improve or if symptoms worsen sooner, to contact their primary care physician. Potential red flag symptoms discussed with the patient. Reviewed appropriate action plan to take if red flag symptoms occur. Patient agreeable to treatment plan. documented in this encounterUpper [facility] Center04-11-2022 Miscellaneous Notes* Telephone Encounter - Aviva Lutz RN - 01/11/2022 10:50 AM EDT Patient notified. Aviva Lutz RN * Telephone Encounter - Luda Pathak RN - 01/06/2022 5:01 PM EDT Left message for patient to call office. Luda Pathak RN * Telephone Encounter - Sandy Mathews MD - 01/06/2022 4:45 PM EDT If pumping she should be washing and [...] if symptoms do not improve with Diflucan * Telephone Encounter - Luda Pathak RN - 01/06/2022 3:13 PM EDT Patient is . Her daughter was diagnosed with thrush. Has been taking medication for the last two weeks. Patient calling with c/o sore, itchy nipples bilaterally. Has been using clotrimazole cream per database administration project manager's recommendation except at night time. Concerned she may forget to removethe cream from her nipples during the night time feedings. Asking if she needs to be seen or if a prescription can be sent. Luda Pathak RN documented in this encounterUpper [facility]04-19-[facility]21 History of Past illness Narrative* [...] of this encounter (statuses as of 01/11/2022) [facility] Narrative* [...] of this encounter (statuses as of 01/12/2022) [facility] Narrative* [...] of this encounter (statuses as of 01/13/2022) [facility] Narrative* [...] of this encounter (statuses as of 05/11/2022) [facility] Narrative* [...] of this encounter (statuses as of 05/12/2022) [facility] Narrative* [...] of this encounter (statuses as of 05/27/2022) [facility] Narrative* [...] of this encounter (statuses as of 06/09/2022) [facility] Narrative* [...] of this encounter (statuses as of 11/24/2022) [facility] Narrative* [...] of this encounter (statuses as of 12/13/2022) [facility] Narrative* [...] of this encounter (statuses as of 12/14/2022) [facility] Narrative* [...] of this encounter (statuses as of 01/28/2023) [facility] Narrative* [...] of this encounter (statuses as of 02/01/2023) [facility] Narrative* [...] of this encounter (statuses as of 04/22/2023) [facility] Narrative* [...] of this encounter (statuses as of 04/28/2023) [facility] Narrative* [...] of this encounter (statuses as of 05/06/2023) [facility] Narrative* [...] of this encounter (statuses as of 05/10/2023) [facility] Narrative* [...] of this encounter (statuses as of 05/24/2023) [facility] Narrative* [...] of this encounter (statuses as of 05/25/2023) [facility] Narrative* [...] of this encounter (statuses as of 05/26/2023) [facility] Narrative* [...] of this encounter (statuses as of 06/09/2023) [facility] Narrative* [...] testing 06/12/2020 11/13/2021 Overview: 06/12/2020Patient desires nuchal ultrasound.ySlvie Hensley RN Supervision of normal 11/06/2019 11/13/2021 Atrial flutter 08/01/2018 11/06/2019 Oligomenorrhea 03/28/2017 11/06/2019 Overview: U/s 03/28/17 PCOS documented as of this encounter (statuses as of 06/09/2023) [facility] Narrative* [...] of this encounter (statuses as of 06/10/2023) [facility] Narrative* [...] of this encounter (statuses as of 06/14/2023) [facility] Narrative* [...] of this encounter (statuses as of 06/14/2023) [facility] Narrative* [...] of this encounter (statuses as of 06/24/2023) [facility] Narrative* [...] of this encounter (statuses as of 07/13/2023) [facility] Narrative* [...] of this encounter (statuses as of 07/14/2023) [facility] Narrative* [...] of this encounter (statuses as of 07/28/2023) [facility] Narrative* [...] of this encounter (statuses as of 08/06/2023) [facility] Narrative* [...] of this encounter (statuses as of 08/07/2023) [facility] Narrative* [...] of this encounter (statuses as of 08/11/2023) [facility] Narrative* [...] of this encounter (statuses as of 08/15/2023) [facility] Narrative* [...] of this encounter (statuses as of 09/06/2023) [facility] Narrative* [...] of this encounter (statuses as of 09/15/2023) [facility] Narrative* [...] of this encounter (statuses as of 11/04/2023) [facility] Narrative* [...] of this encounter (statuses as of 11/07/2023) [facility] Narrative* [...] of this encounter (statuses as of 11/09/2023) [facility] N[facility]ative* [...] of this encounter (statuses as of 11/09/2023) [facility] Narrative* [...] of this encounter (statuses as of 11/11/2023) [facility] Narrative* [...] 06/12/2020 11/13/2021 Overview: 06/12/2020Patient desires nuchal ultrasound.Sylvie Henlsey RN Supervision of normal 11/06/2019 11/13/2021 Atrial flutter 08/01/2018 11/06/2019 Oligomenorrhea 03/28/2017 11/06/2019 Overview: U/s 03/28/17 PCOS documented as of this encounter (statuses as of 11/16/2023) [facility] N[facility]* [...] as of this encounter (statuses as of 11/18/2023) [facility] Narrative* [...] as of this encounter (statuses as of 11/18/2023) [facility] Narrative* [...] as of this encounter (statuses as of 01/19/2024) [facility] Diagnosis Yeast infection of nipple, - Primary Infection of nipple, [facility] Diagnosis Routine physical examination- Primary Routine general medical examination at a health care facility Fatigue, unspecified type Bruising Contusion of unspecified site Headaches [facility] Diagnosis Acute vaginitis- Primary Vaginitis and vulvovaginitis, unspecified [facility]* Diagnosis Encounter for surveillance of contraceptive pills- Primary Surveillance of previously prescribed contraceptive pill PCOS (polycystic ovarian syndrome) Polycystic ovaries History of irregular menstrual bleeding Personal history of other genital system and obstetric disorders Dyspareunia, female Dyspareunia documented [facility] this [facility]* Diagnosis Mastitis- Primary Inflammatory disease of breast documented [facility] Diagnosis Acute mastitis of right breast- Primary Inflammatory disease of breast [facility]* Diagnosis Headache, unspecified headache type- Primary Thunderclap headache Headache Myalgias Nausea Nausea alone [facility]* Diagnosis History of pre-eclampsia in prior [...] and metabolic diseases documented [facility] Diagnosis Encounter for supervision of normal [...] unspecified fetus- Primary [facility]* Diagnosis Symptoms of upper respiratory infection (URI)- Primary [facility]* Diagnosis Encounter for screening for nuchal translucency- Primary 14 weeks gestation of state, incidental Subchorionic hematoma in second trimester, single or unspecified fetus documented [facility]* Diagnosis Encounter for (NT) nuchal translucency scan- Primary Other specified screening Encounter for supervision of normal in multigravida 14 weeks gestation of state, incidental [facility]* Diagnosis Subchorionic hematoma in second trimester, single or unspecified fetus- Primary 16 weeks gestation of state, incidental Encounter for supervision of other normal in second trimester [facility] Encounter for anatomic survey- Primary Encounter for supervision of normal in multigravida Placental abnormality in second trimester 19 weeks gestation of state, incidental [facility] Diagnosis 19 weeks gestation of - Primary state, incidental Subchorionic hematoma in second trimester, single or unspecified fetus History of pre-eclampsia in prior , currently with other poor obstetric history [facility] Diagnosis 20 weeks gestation of - Primary state, incidental [facility]* Diagnosis Headache, unspecified headache type Thunderclap headache Headache [facility] Diagnosis 23 weeks gestation of - Primary state, incidental Subchorionic hematoma in second trimester, single or unspecified fetus History of pre-eclampsia in prior , currently with other poor obstetric history Need for influenza vaccination Need for prophylactic vaccination and inoculation against influenza Uterine size-date discrepancy, second trimester [facility] Diagnosis Pelvic pressure in - Primary Other specified complication, antepartum 26 weeks gestation of state, incidental [facility] Diagnosis 35 weeks gestation of - Primary state, incidental Back pain in Other specified complication of , unspecified as to episode of care Encounter for supervision of normal in multigravida Pelvic pressure in Other specified complication, antepartum [facility] Diagnosis 34 weeks gestation of - Primary state, incidental [facility] Diagnosis Encounter for ultrasound to check growth- Primary Encounter for routine screening for malformation using ultrasonics Uterine size-date discrepancy, third trimester 32 weeks gestation of state, incidental Macrosomia of fetus affecting management of mother in third trimester, single or unspecified fetus [facility] Diagnosis 36 weeks gestation of - Primary state, incidental [facility]* Diagnosis Excessive growth affecting management of in third trimester, single or unspecified fetus- Primary Encounter for supervision of normal in multigravida Uterine size-date discrepancy, third trimester 37 weeks gestation of state, incidental [facility] Diagnosis 36 weeks gestation of - Primary state, incidental Uterine size-date discrepancy, third trimester [facility]* Diagnosis Onset Date Resolution Status Anxiety acute Asthma acute Depression acute Herpes genitalis acute Migraines acute hemorrhage acute Pre-eclampsia acute SROM (spontaneous rupture of membranes) acute Vaginal delivery acute [facility] Work Phone: Evaluation note* Diagnosis Mastitis, acute- Primary Inflammatory disease of breast documented [facility]* Diagnosis Breast pain- Primary Mastodynia Lactating mother care and examination of lactating mother Clogged duct, Other disorder of , condition or complication documented in this [facility]* Diagnosis 23 weeks gestation of - Primary state, incidental Subchorionic hematoma in second trimester, single or unspecified fetus History of pre-eclampsia in prior , currently with other poor obstetric history Need for influenza vaccination Need for prophylactic vaccination and inoculation against influenza Uterine size-date discrepancy, second trimester Viral URI with cough- Primary Acute upper respiratory infections of unspecified site [facility]* Diagnosis 23 weeks gestation of - Primary state, incidental Subchorionic hematoma in second trimester, single or unspecified fetus History of pre-eclampsia in prior , currently with other poor obstetric history Need for influenza vaccination Need for prophylactic vaccination and inoculation against influenza Uterine size-date discrepancy, second trimester Mastitis- Primary Inflammatory disease of breast documented [facility] this [facility]* Diagnosis 23 weeks gestation of - Primary state, incidental Subchorionic hematoma in second trimester, single or unspecified fetus History of pre-eclampsia in prior , currently with other poor obstetric history Need for influenza vaccination Need for prophylactic vaccination and inoculation against influenza Uterine size-date discrepancy, second trimester Viral syndrome- Primary Unspecified viral infection, in conditions classified elsewhere and of unspecified site documented [facility] this [facility]* Diagnosis 23 weeks gestation of - Primary state, incidental Subchorionic hematoma in second trimester, single or unspecified fetus History of pre-eclampsia in prior , currently with other poor obstetric history Need for influenza vaccination Need for prophylactic vaccination and inoculation against influenza Uterine size-date discrepancy, second trimester Mastitis associated with - Primary [facility]* Diagnosis 23 weeks gestation of (HCC)- Primary state, incidental Subchorionic hematoma in second trimester, single or unspecified fetus (HCC) History of pre-eclampsia in prior , currently (HCC) with other poor obstetric history Need for influenza vaccination Need for prophylactic vaccination and inoculation against influenza Uterine size-date discrepancy, second trimester ([facility]) Treatment not available- Primary Procedure not carried out for other reasons documented [facility] Diagnosis LLQ pain- Primary Abdominal pain, left lower quadrant documented [facility]* Diagnosis LLQ pain Abdominal pain, left lower quadrant documented [facility]* Diagnosis LLQ pain- Primary Abdominal pain, left lower quadrant documented [facility]* Diagnosis Sore throat- Primary Acute pharyngitis documented in this encounter [facility] for referral (narrative)* Diagnostic Procedure Only (Routine) - Authorized Specialty Diagnoses / Procedures Referred By Danay martínez Referred To Contact [facility] [facility] Diagnoses Encounter for supervision of normal in multigravida 9 weeks gestation of Procedures NUCHAL TRANSLUCENCY WHI US NUCHAL TRANSLUCENCY 1ST GESTATION Smita Booker APRN.CNM [address] [place] [address] [place] [address] Referral ID Status Reason Start Date Expiration Date Visits Requested Visits Authorized [id number] Authorized Auto-Generat ed Referral 05/06/2023 05/05/2024 1 1 * Diagnostic Procedure Only (Routine) - Pending Review Specialty Diagnoses / Procedures Referred By Danay martínez Referred To Contact [facility] Diagnoses Encounter for supervision of normal in multigravida 9 weeks gestation of Procedures OBSTETRIC ULTRASOUND WHI US PREG UTERUS AFTER 1ST TRIMEST GESTATION Smita Booker APRN.CNM [address] [place] [address] [facility] [address] [place] [address] Referral ID Status Reason Start Date Expiration Date Visits Requested Visits Authorized [id number] Pending Review Auto-Generat ed Referral 05/06/2023 05/05/2024 1 1 [facility] Diagnostic Procedure Only (Routine) - Closed Specialty Diagnoses / Procedures Referred By Contac t Referred To Contact [facility] Diagnoses LLQ pain Procedures PELVIC US WHI US PELVIC NONOBSTETRIC REAL-TIME IMAGE COMPLETE Luda Combs MD [address] [place] [address] Phone: tel: fax: [facility] [address] [place] [address] Referral ID Status Reason Start Date Expiration Date V isits Requested Visits Authorized [id number] Closed Auto-Generate d Referral 02/06/2025 02/06/2026 1 1 [facility] Summary Purpose Family History No Family History Records FoundNo Family History Records FoundNo Family History Records FoundNo Family History Records Found Advance Directives No Advanced Directives Records Found Advance Directive Response Recorded Date/ Time Living Will No November 18 024 4:12am Power of Ornamenter Hand No November 18, 2023 4:12am Reason for Referral Specialty Diagnoses / Procedures Referred By Contac t Referred To Contact Neurology Diagnoses Headache, unspecified headache type Thunderclap headache Procedures CONSULT TO NEUROLOGY OFFICE/OUTPATIENT [facility] MDM 60-74 MINUTES Marichuy Painter, [employer]ON[employer] [address] [place] [address] Referral ID Status Reason Start Date Expiration Date Visits Requested Visits Authorized [id number] Authorized PCP Requested Referral 01/28/2023 01/28/2024 1 1 Specialty Diagnoses / Procedures Referred By Contac t Referred To Contact CT IMAGING Diagnoses Headache, unspecified headache type Thunderclap headache Procedures CT BRAIN WO/W IVCON CT HEAD/BRAIN W/O & W/CONTRAST 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 APRN.[employer] [place] [address] Ct Imaging Referral ID Status Reason Start Date Expiration Date Visits Requested Visits Authorized [id number] Waiting for Response Auto-Genera octaviano Referral Patient Cleared - Admin/Chair man/Directo r advise to proceed 01/28/2023 02/27/2024 1 1 Specialty Diagnoses / Procedures Referred By Contac t Referred To Contact CT IMAGING Diagnoses Headache, unspecified headache type Thunderclap headache Procedures CT BRAIN WO/W IVCON CT HEAD/BRAIN W/O & W/CONTRAST 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, [employer] MAN.[employer] [place] [address] [place] [address] Referral ID Status Reason Start Date Expiration Date V isits Requested Visits Authorized [id number] Closed Auto-Generat ed Referral Patient Cleared - Admin/Chairm an/Director advise to proceed or did not respond 01/28/2023 04/28/2023 1 1 Health Concerns Problem Noted Date Diagnosed Date [facility] - [facility] 05/06/2023 [place] - [place] 05/06/2023 Problem Noted Date Diagnosed Date [facility] - [facility] 05/06/2023 Education - [place] 05/06/2023 Problem Noted Date Diagnosed Date [facility] - [facility] 05/06/2023 Education - [place] 05/06/2023 Infection Onset Date Last Indicated Resolved Time COVID-19 Rule-Out 05/24/2023 05/24/2023 05/24/2023 7:32 PM EDT Problem Noted Date Diagnosed Date [facility] - [facility] 05/06/2023 Education - [place] 05/06/2023 Chief Complaint and Reason for Visit Chief Complaint syncope LABOR VAG DEL Reason for Visit Anxiety Asthma Depression Herpes genitalis Migraines hemorrhage Pre-eclampsia SROM (spontaneous rupture of membranes) Vaginal delivery Additional Source Comments INFORMATION SOURCE (unrecogn ized section and content) DATE CREATED AUTHOR 02/05/2019 [facility] [employer] DATE CREATED AUTHOR AUTHOR'S ORGANIZ ATION [facility]2022 [facility] DATE CREATED AUTHOR AUTHOR'S ORGANIZ ATION 01/31/2024 [facility] DATE CREATED AUTHOR AUTHOR'S SAMEERA VENEGAS 03/10/2025 [facility] Source Comments (unrecognize d section and content) In the event this informatio n is protected by the Federal Confidentiality of Alcohol and Drug Abuse Patient Records regulations: The Federal rules restrict any use of the information to criminally investigate or prosecute any alcohol or drug abuse patient.[facility] the event this information is protected by the Federal Confidentiality of Alcohol and Drug Abuse Patient Records regulations: The Federal rules restrict any use of the information to criminally investigate or prosecute any alcohol or drug abuse patient.[facility] the event this information is protected by the Federal Confidentiality of Alcohol and Drug Abuse Patient Records regulations: The Federal rules restrict any use of the information to criminally investigate or prosecute any alcohol or drug abuse patient.[facility]In the event this information is protected by the Federal Confidentiality of Alcohol and Drug Abuse Patient Records regulations: The Federal rules restrict any use of the information to criminally investigate or prosecute any alcohol or drug abuse patient.[facility] CenterIn the event this information is protected by the Federal Confidentiality of Alcohol and Drug Abuse Patient Records regulations: The Federal rules restrict any use of the information to criminally investigate or prosecute any alcohol or drug abuse patient.[facility] CenterIn the event this information is protected by the Federal Confidentiality of Alcohol and Drug Abuse Patient Records regulations: The Federal rules restrict any use of the information to criminally investigate or prosecute any alcohol or drug abuse patient.[facility] CenterIn the event this information is protected by the Federal Confidentiality of Alcohol and Drug Abuse Patient Records regulations: The Federal rules restrict any use of the information to criminally investigate or prosecute any alcohol or drug abuse patient.[facility] CenterIn the event this information is protected by the Federal Confidentiality of Alcohol and Drug Abuse Patient Records regulations: The Federal rules restrict any use of the information to criminally investigate or prosecute any alcohol or drug abuse patient.[facility] CenterIn the event this information is protected by the Federal Confidentiality of Alcohol and Drug Abuse Patient Records regulations: The Federal rules restrict any use of the information to criminally investigate or prosecute any alcohol or drug abuse patient.[facility] CenterIn the event this information is protected by the Federal Confidentiality of Alcohol and Drug Abuse Patient Records regulations: The Federal rules restrict any use of the information to criminally investigate or prosecute any alcohol or drug abuse patient.[facility] CenterIn the event this information is protected by the Federal Confidentiality of Alcohol and Drug Abuse Patient Records regulations: The Federal rules restrict any use of the information to criminally investigate or prosecute any alcohol or drug abuse patient.[facility] CenterIn the event this information is protected by the Federal Confidentiality of Alcohol and Drug Abuse Patient Records regulations: The Federal rules restrict any use of the information to criminally investigate or prosecute any alcohol or drug abuse patient.[facility] CenterIn the event this information is protected by the Federal Confidentiality of Alcohol and Drug Abuse Patient Records regulations: The Federal rules restrict any use of the information to criminally investigate or prosecute any alcohol or drug abuse patient.[facility] CenterIn the event this information is protected by the Federal Confidentiality of Alcohol and Drug Abuse Patient Records regulations: The Federal rules restrict any use of the information to criminally investigate or prosecute any alcohol or drug abuse patient.[facility] CenterIn the event this information is protected by the Federal Confidentiality of Alcohol and Drug Abuse Patient Records regulations: The Federal rules restrict any use of the information to criminally investigate or prosecute any alcohol or drug abuse patient.[facility] CenterIn the event this information is protected by the Federal Confidentiality of Alcohol and Drug Abuse Patient Records regulations: The Federal rules restrict any use of the information to criminally investigate or prosecute any alcohol or drug abuse patient.[facility] CenterIn the event this information is protected by the Federal Confidentiality of Alcohol and Drug Abuse Patient Records regulations: The Federal rules restrict any use of the information to criminally investigate or prosecute any alcohol or drug abuse patient.[facility] CenterIn the event this information is protected by the Federal Confidentiality of Alcohol and Drug Abuse Patient Records regulations: The Federal rules restrict any use of the information to criminally investigate or prosecute any alcohol or drug abuse patient.[facility] CenterIn the event this information is protected by the Federal Confidentiality of Alcohol and Drug Abuse Patient Records regulations: The Federal rules restrict any use of the information to criminally investigate or prosecute any alcohol or drug abuse patient.[facility] CenterIn the event this information is protected by the Federal Confidentiality of Alcohol and Drug Abuse Patient Records regulations: The Federal rules restrict any use of the information to criminally investigate or prosecute any alcohol or drug abuse patient.[facility] CenterIn the event this information is protected by the Federal Confidentiality of Alcohol and Drug Abuse Patient Records regulations: The Federal rules restrict any use of the information to criminally investigate or prosecute any alcohol or drug abuse patient.[facility] CenterIn the event this information is protected by the Federal Confidentiality of Alcohol and Drug Abuse Patient Records regulations: The Federal rules restrict any use of the information to criminally investigate or prosecute any alcohol or drug abuse patient.[facility] CenterIn the event this information is protected by the Federal Confidentiality of Alcohol and Drug Abuse Patient Records regulations: The Federal rules restrict any use of the information to criminally investigate or prosecute any alcohol or drug abuse patient.[facility] CenterIn the event this information is protected by the Federal Confidentiality of Alcohol and Drug Abuse Patient Records regulations: The Federal rules restrict any use of the information to criminally investigate or prosecute any alcohol or drug abuse patient.[facility] CenterIn the event this information is protected by the Federal Confidentiality of Alcohol and Drug Abuse Patient Records regulations: The Federal rules restrict any use of the information to criminally investigate or prosecute any alcohol or drug abuse patient.[facility] CenterIn the event this information is protected by the Federal Confidentiality of Alcohol and Drug Abuse Patient Records regulations: The Federal rules restrict any use of the information to criminally investigate or prosecute any alcohol or drug abuse patient.[facility] CenterIn the event this information is protected by the Federal Confidentiality of Alcohol and Drug Abuse Patient Records regulations: The Federal rules restrict any use of the information to criminally investigate or prosecute any alcohol or drug abuse patient.[facility] CenterIn the event this information is protected by the Federal Confidentiality of Alcohol and Drug Abuse Patient Records regulations: The Federal rules restrict any use of the information to criminally investigate or prosecute any alcohol or drug abuse patient.[facility] CenterIn the event this information is protected by the Federal Confidentiality of Alcohol and Drug Abuse Patient Records regulations: The Federal rules restrict any use of the information to criminally investigate or prosecute any alcohol or drug abuse patient.[facility] CenterIn the event this information is protected by the Federal Confidentiality of Alcohol and Drug Abuse Patient Records regulations: The Federal rules restrict any use of the information to criminally investigate or prosecute any alcohol or drug abuse patient.[facility] CenterIn the event this information is protected by the Federal Confidentiality of Alcohol and Drug Abuse Patient Records regulations: The Federal rules restrict any use of the information to criminally investigate or prosecute any alcohol or drug abuse patient.[facility] CenterIn the event this information is protected by the Federal Confidentiality of Alcohol and Drug Abuse Patient Records regulations: The Federal rules restrict any use of the information to criminally investigate or prosecute any alcohol or drug abuse patient.[facility] CenterIn the event this information is protected by the Federal Confidentiality of Alcohol and Drug Abuse Patient Records regulations: The Federal rules restrict any use of the information to criminally investigate or prosecute any alcohol or drug abuse patient.[facility] CenterIn the event this information is protected by the Federal Confidentiality of Alcohol and Drug Abuse Patient Records regulations: The Federal rules restrict any use of the information to criminally investigate or prosecute any alcohol or drug abuse patient.[facility] CenterIn the event this information is protected by the Federal Confidentiality of Alcohol and Drug Abuse Patient Records regulations: The Federal rules restrict any use of the information to criminally investigate or prosecute any alcohol or drug abuse patient.[facility] CenterIn the event this information is protected by the Federal Confidentiality of Alcohol and Drug Abuse Patient Records regulations: The Federal rules restrict any use of the information to criminally investigate or prosecute any alcohol or drug abuse patient.[facility] CenterIn the event this information is protected by the Federal Confidentiality of Alcohol and Drug Abuse Patient Records regulations: The Federal rules restrict any use of the information to criminally investigate or prosecute any alcohol or drug abuse patient.[facility] CenterIn the event this information is protected by the Federal Confidentiality of Alcohol and Drug Abuse Patient Records regulations: The Federal rules restrict any use of the information to criminally investigate or prosecute any alcohol or drug abuse patient.[facility] CenterIn the event this information is protected by the Federal Confidentiality of Alcohol and Drug Abuse Patient Records regulations: The Federal rules restrict any use of the information to criminally investigate or prosecute any alcohol or drug abuse patient.[facility] CenterIn the event this information is protected by the Federal Confidentiality of Alcohol and Drug Abuse Patient Records regulations: The Federal rules restrict any use of the information to criminally investigate or prosecute any alcohol or drug abuse patient.[facility] CenterIn the event this information is protected by the Federal Confidentiality of Alcohol and Drug Abuse Patient Records regulations: The Federal rules restrict any use of the information to criminally investigate or prosecute any alcohol or drug abuse patient.[facility] CenterIn the event this information is protected by the Federal Confidentiality of Alcohol and Drug Abuse Patient Records regulations: The Federal rules restrict any use of the information to criminally investigate or prosecute any alcohol or drug abuse patient.[facility] CenterIn the event this information is protected by the Federal Confidentiality of Alcohol and Drug Abuse Patient Records regulations: The Federal rules restrict any use of the information to criminally investigate or prosecute any alcohol or drug abuse patient.[facility] CenterIn the event this information is protected by the Federal Confidentiality of Alcohol and Drug Abuse Patient Records regulations: The Federal rules restrict any use of the information to criminally investigate or prosecute any alcohol or drug abuse patient.[facility] CenterIn the event this information is protected by the Federal Confidentiality of Alcohol and Drug Abuse Patient Records regulations: The Federal rules restrict any use of the information to criminally investigate or prosecute any alcohol or drug abuse patient.[facility] CenterIn the event this information is protected by the Federal Confidentiality of Alcohol and Drug Abuse Patient Records regulations: The Federal rules restrict any use of the information to criminally investigate or prosecute any alcohol or drug abuse patient.[facility] CenterIn the event this information is protected by the Federal Confidentiality of Alcohol and Drug Abuse Patient Records regulations: The Federal rules restrict any use of the information to criminally investigate or prosecute any alcohol or drug abuse patient.[facility] CenterIn the event this information is protected by the Federal Confidentiality of Alcohol and Drug Abuse Patient Records regulations: The Federal rules restrict any use of the information to criminally investigate or prosecute any alcohol or drug abuse patient.[facility] CenterIn the event this information is protected by the Federal Confidentiality of Alcohol and Drug Abuse Patient Records regulations: The Federal rules restrict any use of the information to criminally investigate or prosecute any alcohol or drug abuse patient.[facility] CenterIn the event this information is protected by the Federal Confidentiality of Alcohol and Drug Abuse Patient Records regulations: The Federal rules restrict any use of the information to criminally investigate or prosecute any alcohol or drug abuse patient.[facility] CenterIn the event this information is protected by the Federal Confidentiality of Alcohol and Drug Abuse Patient Records regulations: The Federal rules restrict any use of the information to criminally investigate or prosecute any alcohol or drug abuse patient.[facility] CenterIn the event this information is protected by the Federal Confidentiality of Alcohol and Drug Abuse Patient Records regulations: The Federal rules restrict any use of the information to criminally investigate or prosecute any alcohol or drug abuse patient.[facility] CenterIn the event this information is protected by the Federal Confidentiality of Alcohol and Drug Abuse Patient Records regulations: The Federal rules restrict any use of the information to criminally investigate or prosecute any alcohol or drug abuse patient.[facility] CenterIn the event this information is protected by the Federal Confidentiality of Alcohol and Drug Abuse Patient Records regulations: The Federal rules restrict any use of the information to criminally investigate or prosecute any alcohol or drug abuse patient.[facility] CenterIn the event this information is protected by the Federal Confidentiality of Alcohol and Drug Abuse Patient Records regulations: The Federal rules restrict any use of the information to criminally investigate or prosecute any alcohol or drug abuse patient.[facility] CenterIn the event this information is protected by the Federal Confidentiality of Alcohol and Drug Abuse Patient Records regulations: The Federal rules restrict any use of the information to criminally investigate or prosecute any alcohol or drug abuse patient.[facility] CenterIn the event this information is protected by the Federal Confidentiality of Alcohol and Drug Abuse Patient Records regulations: The Federal rules restrict any use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
[2025-04-17 00:24] LABS: Hematocrit 42.4 % (37-47); Hemoglobin 14.1 g/dL (12.0-15.0); Immature Granulocytes Count 0.010 X10^3/uL (0.0-0.0); Mean Corp Hgb Conc 33.3 g/dL (32-36); Mean Corpuscular Volume 86.4 fL (81-99); Mean Platelet Vol. 10.8 fl (6.2-12.0); NRBC Flagged by Analyzer 0 % (0-5); Platelet Count 188 K/mm3 (150-450); RBC Distribution Width CV 12.6 % (11.6-14.6); RBC Distribution Width SD 39.4 fl (35.1-43.9); Red Blood Count 4.91 M/mm3 (4.2-5.4); White Blood Count 5.0 K/mm3 (4.4-11.0)
[2025-04-17] MEDS: 0.9% Normal Saline (1000mL) 1,000 ML 999 ML IV (00:29)
[2025-04-17 00:34] LABS: Internal QC Validated? YES +Cl - CLEAR BKGD; Pregnancy, Serum, hCG Quali. NEGATIVE Negative; Record Kit Lot#, Serum Preg. 0000962302
[2025-04-17 01:09] LABS: Anion Gap 13 (5-15); BUN 17 mg/dL (4-19); BUN/Creat Ratio 22.9 RATIO (10-20); Calcium,Total 10.0 mg/dL (7.6-11.0); Carbon Dioxide 24.1 mmol/L (21.0-32.0); Chloride 101 mmol/L (98-108); Estimated Creatinine Clearance 119.82 ml/min (50-250); Glucose 114 mg/dL (70-99); Magnesium 1.9 mg/dL (1.5-2.2); Potassium 3.7 mmol/L (3.3-5.1)
[2025-04-17 01:13] VITALS: BP 115/90; PULSE 61; RESP 18; O2SAT 97
--- NOTE | 2025-04-17 01:33 | EX.ED.DYSGE1 ---
HPI History of Present Illness Chief Complaint: Palpitations Informant: patient Narrative Narrative: Patient is a 29-year-old female with past medical history of anxiety depression migraine headache. She states today she has been feeling like her heart has been intermittently racing and she is also had bouts of dizziness that she describes as a sense of motion. She states the dizziness seems to occur when she changes positions and improves when she lies down or rests. She denies any history of abnormal cardiac rhythm but because the symptoms have been intermittent throughout the day she is concerned for this and presents for evaluation. [facility] Medical History (Updated 04/18/25 @ 05:[address] Kevin Ibarra, DO) SROM (spontaneous rupture of membranes) Asthma hemorrhage Superficial varicosities Depression Migraines Pre-eclampsia Herpes genitalis Anxiety Home Medications ?Medication ?Instructions ?Recorded ?Last Taken ?Type vit no.95-ferrous 1 ea PO DAILY Check with primary 11/24/19 11/17/23 History fumarate 28 mg-folic acid 800 mcg doctor tablet acyclovir 200 mg capsule 200 mg PO TID 11/18/23 11/17/23 History ibuprofen 600 mg tablet 600 mg PO Q6H PRN PRN Pain Score 11/19/23 Unknown Rx 1-3 #0 tabs diazepam 5 mg tablet (Valium) 5 mg PO TID PRN vertigo 5 days #15 04/17/25 Unknown Rx tabs Allergy/AdvReac Type Severity Reaction Status Date / Time No Known Allergies Allergy Verified 04/16/25 23:14 Family History no significant family his Surgical History History of surgery S/P appendectomy Social History Smoking Status: Former smoker ROS ROS ED Constitutional Constitutional ED: Denies chills or fever(s) Eyes Eyes: Denies change in vision ENT ENT ED: Denies sore throat Cardiovascular Cardiovascular: Reports palpitations and racing heartbeat; Denies chest pain Respiratory/Chest Respiratory/Chest: Denies cough or dyspnea Gastrointestinal Gastrointestinal: Reports nausea; Denies abdominal pain, diarrhea or vomiting Genitourinary Genitourinary ED: Denies dysuria Musculoskeletal Musculoskeletal: Denies myalgias Integumentary Denies rash Neurologic Neurologic: Reports other Details: Positive dizziness ; Denies headache(s) Psychiatric Psychiatric: Reports anxiety Hematologic/Lymphatic Hematologic/Lymphatic: Denies easy bleeding or easy bruising EXAM Physical Exam Const Vital Signs: 04/16/25 23:13 04/16/25 23:21 04/17/25 01:13 Temperature 98 F Temperature Source Temporal Pulse Rate 92 61 Respiratory Rate 14 18 Respiratory Effort Normal Blood Pressure 126/91 H 115/90 H Blood Pressure Mean 102 98 Pulse Ox 98 97 Oxygen Delivery Method Room Air Room Air 04/17/25 01:42 Temperature 98.1 F Temperature Source Pulse Rate 68 Respiratory Rate 16 Respiratory Effort Blood Pressure 122/86 H Blood Pressure Mean 98 Pulse Ox 97 Oxygen Delivery Method Positive well nourished and well developed General Appearance ED: well developed; Negative for pallor HEENT Reports moist mucous membranes HEENT Narrative: No tongue or lip swelling no oral lesions no airway edema or compromise No signs of infection to the tympanic membrane or obstruction to the ear canal Eyes PERRL and EOMs intact bilaterally General Eye ED: Negative for scleral icterus Neck supple Resp normal respiratory effort and clear to auscultation bilaterally Cardio regular rate and regular rhythm Rate: other Other Details: Regular rate and rhythm without murmurs rubs or gallops Radial and carotid pulses are equal and symmetric Extremity normal to inspection Extremity Narrative: No asymmetric edema no pitting edema negative Homans' sign bilaterally Neuro oriented x3, CN's II-XII intact bilaterally and no sensory deficits noted Neuro Narrative: GCS of 15 Cranial nerves II through XII are grossly intact without focal neurologic deficit No pronator drift no dysmetria no truncal ataxia NIH stroke scale score of 0 There is mild horizontal nystagmus noted Positive Hallpike Burdett exam on right Sensorium / Orientation: alert Motor Exam: strength 5/5 throughout Psych Mood & Affect: anxious Skin no rashes or lesions noted and no wounds General Skin Exam: Negative for jaundice or pallor MDM MDM MDM Narrative Medical decision making narrative: Patient presented to ER with stable vitals but reported palpitations with sensation of heart racing as well as dizziness described more as vertigo. In order to ensure that she is not developing an paroxysmal cardiac dysrhythmia an EKG was obtained and she was placed on the groundwater monitoring technician. In order to evaluate for potential acute blood loss anemia acute kidney injury or thyroid disorder or electrolyte abnormality as a cause of her palpitations basic labs were obtained as well. Labs revealed no clinically significant findings and patient had normal sinus rhythm while on the groundwater monitoring technician without dysrhythmia or ectopy noted. She was given Valium and IV fluids and reported improvement of her dizziness and could ambulate with a steady gait. Therefore at this time with resolution of symptoms and no true dysrhythmia noted she is otherwise safe for discharge with outpatient follow-up. History & Record Review Discussion w/independent historian: Patient Lab Data Attestation: I reviewed the patient's lab results. Labs: Laboratory Results - last 24 hr 04/16/25 23:25 WBC 5.0 RBC 4.91 Hgb 14.1 Hct 42.4 MCV 86.4 MCH 28.7 MCHC 33.3 RDW Std Deviation 39.4 RDW Coeff of Samara 12.6 Plt Count 188 MPV 10.8 Immature Gran % (Auto) 0.200 Neut % (Auto) 50.6 Lymph % (Auto) 39.4 Gooding % (Auto) 6.8 Eos % (Auto) 2.4 Baso % (Auto) 0.6 Absolute Neuts (auto) 2.5 Absolute Lymphs (auto) 1.98 Nucleated RBC % 0 Sodium 138 Potassium 3.7 Chloride 101 Carbon Dioxide 24.1 Anion Gap 13 BUN 17 Creatinine 0.74 Estim Creat Clear Calc 119.82 Est GFR (MDRD) Non-Af 111 BUN/Creatinine Ratio 22.9 H Glucose 114 H Calcium 10.0 Magnesium 1.9 TSH 5.420 H Serum , Qual NEGATIVE Discharge Plan Triage Chief Complaint: Palpitations ED Provider: Kevin Ibarra Dx/Rx/DC Orders Clinical Impression: Palpitations, Peripheral vertigo, Anxiety, Depression Instructions: ED Palpitations, ED Vertigo, Unspecified Prescriptions: New diazepam [Valium] 5 mg tablet 5 mg PO TID PRN (Reason: vertigo) 5 Days Qty: 15 0RF No Action PNV cmb#95-ferrous fumarate-FA 1 EACH tablet 1 ea PO DAILY acyclovir 200 mg capsule 200 mg PO TID ibuprofen 600 mg Tablet 600 mg PO Q6H PRN PRN (Reason: Pain Score 1-3) Qty: 0 0RF Stand Alone Forms: ED Work / School Excuse Primary Care Provider: Jose G Zavala Referrals: Jose G Zavala MD [Primary Care Provider] - Activity Restrictions/Additional Instructions: Your workup here showed no clinically significant lab abnormalities nor were there any findings of an abnormal heart rhythm. Please talk to your family doctor about a cardiology referral and/or Holter monitor study to further assess any cardiac dysrhythmia. Use the Valium to help with any further bouts of dizziness and keep yourself well-hydrated. Return to the ER should you have any further concerns Print Language: Faroese Disposition Disposition: Home, Self Care Discharge Date/Time: 04/17/25 02:12
[2025-04-17 01:42] VITALS: BP 122/86; PULSE 68; RESP 16; TEMP 36.7; O2SAT 97
== END 2025-04-17 02:12 | disposition home or self-care (01) ==
PROVIDERS: Emergency Provider Emergency Medicine; PCP Family Medicine; Visit Provider Emergency Medicine
DX: R00.2 Palpitations (principal); F41.9 Anxiety disorder, unspecified; H81.399 Other peripheral vertigo, unspecified ear; F32.A Depression, unspecified; Z87.891 Personal history of nicotine dependence; Z90.49 Acquired absence of other specified parts of digestive tract
CPT/HCPCS: 80048; 83735; 84443; 84703; 85025; 93005; 96360; 99283; A4216